=== PATIENT | female | born 1995 | race Caucasian/White ===

== ENCOUNTER 2021-11-04 15:43 | Outpatient (RCR) | payer OTHER, SELFPAY | END 2022-01-30 23:59 | disposition home or self-care (01) | LOC: ANHLAB 15:43 | PROVIDERS: Visit Provider Obstetrics & Gynecology | DX: Z32.01 Encounter for pregnancy test, result positive (principal) | CPT/HCPCS: 36415; 84702 ==

== ENCOUNTER 2022-02-15 17:07 | Observation (INO) | payer OTHER, SELFPAY ==
--- NOTE | 2022-02-15 16:59 | PC.NURSE ---
Pt presents to ED crying, c/o severe right upper quad pain. Pt states is 20 wks , edc in jun. States is an established pt of Dr. Hodgson. Flora in OB contacted and [facility] to send the patient over. Pt to OB via w/c
--- NOTE | 2022-02-15 17:08 | PC.NURSE ---
pt reports having right upper quadrant pain that started about 1600 today. Pt reports having ice cream around [id number] today and the pain starting shortly after. Pt reports the pain as sharp, dull and ache and wraps around to her back.
[2022-02-15 17:21] VITALS: BP 112/49; PULSE 81
[2022-02-15 17:31] VITALS: BP 107/57; PULSE 81
[2022-02-15 17:41] LABS: Basophils Percent Auto 0.3 % (0.2-1.2); Eosinophils Absolute Auto 0.1 K/mm3 (0-0.3); Eosinophils Percent Auto 0.5 % (0-4.4); Hematocrit 30.4 % (37.0-47.0); Hemoglobin 9.9 g/dL (12.0-15.0); Immature Granulocyte Absolute 0.05 K/mm3 (0.00-0.031); Immature Granulocyte Percent A 0.4 % (0-0.5); Lymphocytes Absolute Auto 2.21 K/mm3 (0.9-3.2); Mean Corpuscular HGB Conc 32.6 g/dl (32-36); Mean Corpuscular Hemoglobin 30.7 pg (26-34); Mean Corpuscular Volume 94.1 fl (80-100); Mean Platelet Volume 8.6 fl (7.4-10.4); Monocytes Absolute Auto 0.9 K/mm3 (0.1-0.6); Monocytes Percent Auto 6.5 % (2.6-8.5); Neutrophils Absolute Auto 9.8 K/mm3 (1.3-6.7); Neutrophils Percent Auto 75.3 % (45.5-73.1); Platelet Count Result 257 k/mm3 (150-375); Red Blood Count 3.23 M/mm3 (4.2-5.4); Red Cell Distribution Width 12.7 % (11.5-14.5)
[2022-02-15 17:54] LABS: Alanine Aminotransferase 18 U/L (6-35); Albumin Level 3.4 g/dL (3.5-5.1); Alkaline Phosphatase 80 U/L (38-126); Amylase 54 U/L (30-110); Anion Gap 7 mmol/L (8-16); Aspartate Amino Transferase 24 U/L (14-36); Bilirubin,Total < 0.1 mg/dL (0.2-1.3); Blood Urea Nitrogen 11 mg/dL (7-17); Calcium 8.7 mg/dL (8.4-10.2); Carbon Dioxide 25 mmol/L (22-30); Chloride 103 mmol/L (98-107); Estimated Glomerular Filt Rate > 60; Glucose 111 mg/dL (65-110); Lipase 61 U/L (23-300); Potassium 3.8 mmol/L (3.4-5.0); Sodium 135 mmol/L (137-145)
[2022-02-15 18:03] VITALS: TEMP 36.6
[2022-02-15 18:19] LABS: Appearance Urine Clear (Clear); Bilirubin Urine Negative (Negative); Blood Urine Negative (Negative); Color Urine Yellow (Yellow); Glucose Urine UA Negative (Negative); Ketones Urine Negative (Negative); Leukocyte Esterase Ur Negative LEU/UL (Negative); Nitrate Urine Negative (Negative); Protein Urine Negative (Negative); Urobilinogen Urine 0.2 mg/dL (<2.0)
[2022-02-15 18:22] LABS: Add Urine Microscopic? NO
--- NOTE | 2022-02-25 07:26 | P.PNOB_ITS ---
OB - Triage/Final Diagnosis Visit Information Comments/Additional reasons for admission: I have assessed the risk for this patient, Lucy Davis, and determined that she would benefit from observation care. Evaluation Laboratory results: Laboratory Tests 02/15/22 02/15/22 02/15/22 17:35 17:35 18:12 WBC 13.0 H RBC 3.23 L Hgb 9.9 L Hct 30.4 L MCV 94.1 MCH 30.7 MCHC 32.6 RDW 12.7 Plt Count 257 MPV 8.6 Immature Gran % (Auto) 0.4 Neut % (Auto) 75.3 H Lymph % (Auto) 17.0 L [place] % (Auto) 6.5 Eos % (Auto) 0.5 Baso % (Auto) 0.3 Lymph # (Auto) 2.21 [place] # (Auto) 0.9 H Eos # (Auto) 0.1 Baso # (Auto) 0.0 Abs Immat Gran (auto) 0.05 H Absolute Neuts (auto) 9.8 H Absolute Nucleated RBC 0.0 Nucleated RBC % 0.0 Sodium 135 L Potassium 3.8 Chloride 103 Carbon Dioxide 25 Anion Gap 7 L BUN 11 Creatinine 0.70 Estim Creat Clear Calc Not Reportable Estimated GFR > 60 Glucose 111 H Calcium 8.7 Total Bilirubin < 0.1 L AST 24 ALT 18 Alkaline Phosphatase 80 Total Protein 6.0 L Albumin 3.4 L Amylase 54 Lipase 61 Urine Color Yellow Urine Appearance Clear Urine pH 6.0 Ur Specific [place] 1.020 Urine Protein Negative Urine Glucose (UA) Negative Urine Ketones Negative Ur Blood (Man) Negative Urine Nitrate Negative Urine Bilirubin Negative Urine Urobilinogen 0.2 Leukocyte Esterase Rfl Negative Final Diagnosis (1) RUQ abdominal pain: Code(s): R10.11 - Right upper quadrant pain Status: Acute
== END 2022-02-15 18:58 | disposition home or self-care (01) ==
PROVIDERS: Obstetrics & Gynecology; Admitting Provider Obstetrics & Gynecology; PCP Obstetrics & Gynecology; Visit Provider Obstetrics & Gynecology
DX: O26.892 Other specified pregnancy related conditions, second trimester (principal); R10.11 Right upper quadrant pain; Z3A.20 20 weeks gestation of pregnancy
CPT/HCPCS: 36415; 80053; 81003; 82150; 83690; 85025; G0378; G0379

== ENCOUNTER 2022-06-16 15:43 | Inpatient (IN) | payer OTHER, SELFPAY ==
[2022-06-16] VITALS (19 sets, daily range): BP systolic 94–131; BP diastolic 49–83; PULSE 71–95; RESP 16; TEMP 36.2; BMI 42.5
[2022-06-16 17:19] LABS: Basophils Percent Auto 0.2 % (0.2-1.2); Eosinophils Percent Auto 0.2 % (0-4.4); Hematocrit 33.7 % (37.0-47.0); Hemoglobin 11.2 g/dL (12.0-15.0); Immature Granulocyte Absolute 0.04 K/mm3 (0.00-0.031); Immature Granulocyte Percent A 0.3 % (0-0.5); Lymphocytes Absolute Auto 1.78 K/mm3 (0.9-3.2); Lymphocytes Percent Auto 14.7 % (18.3-44.2); Mean Corpuscular HGB Conc 33.2 g/dl (32-36); Mean Corpuscular Hemoglobin 30.3 pg (26-34); Mean Corpuscular Volume 91.1 fl (80-100); Mean Platelet Volume 8.9 fl (7.4-10.4); Monocytes Absolute Auto 0.9 K/mm3 (0.1-0.6); Monocytes Percent Auto 7.7 % (2.6-8.5); Neutrophils Absolute Auto 9.3 K/mm3 (1.3-6.7); Neutrophils Percent Auto 76.9 % (45.5-73.1); Platelet Count Result 231 k/mm3 (150-375); Red Cell Distribution Width 13.2 % (11.5-14.5); White Blood Count 12.1 K/mm3 (4.5-10.0)
[2022-06-16 17:20] LABS: Appearance Urine Cloudy (Clear); Bilirubin Urine Negative (Negative); Blood Urine Negative (Negative); Color Urine Yellow (Yellow); Glucose Urine UA Negative (Negative); Ketones Urine Negative (Negative); Leukocyte Esterase Ur Trace LEU/UL (NEGATIVE); Nitrate Urine Negative (Negative); Protein Urine Negative (Negative); Urobilinogen Urine 0.2 mg/dL (<2.0); pH Urine 6.5 (5.0-9.0)
[2022-06-16 17:24] LABS: Add Urine Microscopic? YES; Amorphous Sediment Urine Few; Bacteria Urine Trace /hpf; RBC Urine 0-2 /hpf (0-2); Squamous Epithelial Cell Urine Few /hpf (Few); WBC Urine 0-3 /hpf (0-3)
[2022-06-16 17:26] LABS: Creatinine Urine 47.9 mg/dL; Total Protein Urine Random 12 mg/dL; Ur Ttl Prot Creatinine Ratio 0.25 mg/mg (0-0.20)
[2022-06-16 17:30] LABS: Alanine Aminotransferase 39 U/L (6-35); Albumin Level 3.6 g/dL (3.5-5.1); Alkaline Phosphatase 176 U/L (38-126); Anion Gap 8 mmol/L (8-16); Aspartate Amino Transferase 62 U/L (14-36); Bilirubin,Total 0.8 mg/dL (0.2-1.3); Blood Urea Nitrogen 12 mg/dL (7-17); Calcium 9.2 mg/dL (8.4-10.2); Carbon Dioxide 22 mmol/L (22-30); Chloride 105 mmol/L (98-107); Estimated Glomerular Filt Rate > 60; Glucose 85 mg/dL (65-110); Potassium 3.6 mmol/L (3.4-5.0); Sodium 135 mmol/L (137-145); Uric Acid 7.9 mg/dL (2.5-7.5)
--- NOTE | 2022-06-16 17:56 | PM.IMHP ---
H&P: HPI History of Present Illness Date/Time: 06/16/22 17:56 Chief Complaint: induction of labor Narrative: Lucy is a 26yo G1 at 37.4 who presented to triage with RUQ pain acute onset today, not worse after eating. She has cHTN and GDMA1, both very well controlled. Labs came back with elevated LFTs which were normal on 05/27. NOrmotensive. Review of Systems Review of Systems: All systems reviewed & are unremarkable except as noted in HPI and below PMFSH Family History Family History (Updated 06/03/22 @ 12:38 by Ro Preciado RN) Grandparent Colon cancer Breast cancer in female Depression Father Depression Social History Social History Substance use: never Spiritual care concerns: No Meds Home Medications and Allergies Home Medications Medication Instructions Recorded Confirmed Type aspirin 81 mg tablet 81 mg PO DAILY 06/03/22 06/03/22 History escitalopram oxalate 20 mg tablet 20 mg PO DAILY 06/03/22 06/03/22 History ferrous sulfate 325 mg (65 mg 325 mg PO DAILY 06/03/22 06/03/22 History iron) tablet,delayed release labetalol 100 mg tablet 100 mg BID 06/03/22 06/03/22 History prenat.vits,adriana,[id number] 1 tablet PO DAILY 06/03/22 06/03/22 History Allergies Allergy/AdvReac Type Severity Reaction Status Date / Time No Known Allergies Allergy Verified 06/03/22 12:32 Vital Signs Vital Signs - 24 hr 06/16/22 15:45 06/16/22 16:00 06/16/22 16:15 Pulse Rate 93 90 85 Blood Pressure 116/73 124/80 120/75 06/16/22 16:30 06/16/22 16:45 Pulse Rate 95 89 Blood Pressure 127/72 126/77 Exam Const: General: no acute distress Resp: Effort & Inspection: normal respiratory effort Auscultation: clear to auscultation bilaterally Cardio: Rate: regular rate Rhythm: regular rhythm GI: GI Palp: Yes Soft to palpation Extrem: General: normal to inspection H&P: Results Labs Labs: Short CBC 06/16/22 Range/Units 17:06 WBC 12.1 H (4.5-10.0) K/mm3 Hgb 11.2 L (12.0-15.0) g/dL Hct 33.7 L (37.0-47.0) % Plt Count 231 (150-375) k/mm3 BMP 06/16/22 17:06 Sodium 135 L Potassium 3.6 Chloride 105 Carbon Dioxide 22 BUN 12 Creatinine 0.80 Glucose 85 Calcium 9.2 Liver Function 06/16/22 Range/Units 17:06 Total Bilirubin 0.8 (0.2-1.3) mg/dL AST 62 H (14-36) U/L ALT 39 H (6-35) U/L Alkaline Phosphatase 176 H (38-126) U/L Albumin 3.6 (3.5-5.1) g/dL Urine 06/16/22 Range/Units 17:06 Urine Color Yellow (Yellow) Urine Appearance Cloudy H (Clear) Urine pH 6.5 (5.0-9.0) Ur Specific [place] 1.010 (1.001-1.035) Urine Protein Negative (Negative) mg/dL Urine Glucose (UA) Negative (Negative) mg/dL Assessment and Plan Assessment and plan (1) Elevated LFTs: Code(s): R79.89 - Other specified abnormal findings of blood chemistry Status: Acute (2) RUQ abdominal pain: Code(s): R10.11 - Right upper quadrant pain Status: Acute (3) Pre-eclampsia, severe, antepartum: Code(s): O14.10 - Severe pre-eclampsia, unspecified trimester Status: Acute Plan IOL for cHTN with superimposed PreE with severe features magnesium with pitocin or if severe BPs or BURNETT FHT category 1 BS q24/q2
--- NOTE | 2022-06-16 19:17 | LDADM ---
This patient, Lucy Davis, was admitted to Labor/Delivery/Recovery 104 on 06/16/22 at 15:43. Plans for labor, pain management and were discussed with patient. Patient/family oriented to hospital policies and general routines including ID bracelet, bed and alarms, visiting hours, pain management, procedures, bathroom and other care routines, personal items, smoking policy, room service/diet and guest tray routines, security routines, and visiting hours. Patient/Family are encouraged to report perceived risks to care and to ask questions if they do not understand what they are told or what they should do. See OBIX for further documentation.
[2022-06-16] MEDS: miSOPROStol 25 MCG TABLET VAGINAL (20:00)
[2022-06-16] MEDS: LABETALOL HCL 100 MG TABLET 200 MG PO (20:32)
[2022-06-16 20:36] LABS: Glucose Point of Care 112 mg/dl (65-105)
[2022-06-17] VITALS (235 sets, daily range): BP systolic 67–147; BP diastolic 17–96; PULSE 65–120; RESP 16–20; TEMP 36.2–36.9; O2SAT 94–100
[2022-06-17] MEDS: miSOPROStol 25 MCG TABLET VAGINAL (00:06)
[2022-06-17 00:16] LABS: Glucose Point of Care 98 mg/dl (65-105)
[2022-06-17] MEDS: fentaNYL CITRATE INJ (*CRX) 100 MCG/2 ML VIAL 50 MCG IV PUSH (00:58)
[2022-06-17 04:09] LABS: Glucose Point of Care 79 mg/dl (65-105)
--- NOTE | 2022-06-17 05:19 | WPDANESEPP ---
Anes - Eval Pre Procedure Procedure: labor epidural Date/Time: 06/17/22 05:19 Pre Op Diagnosis: PIH Workup Patient Data Age: 26 Gender: F Height: 1.7 m Weight: 123 kg Last Vital Signs Pulse 80 06/17/22 03:46 BP 119/85 06/17/22 03:46 Allergies Allergy/AdvReac Type Severity Reaction Status Date / Time No Known Allergies Allergy Verified 06/03/22 12:32 Home Medications Medication Instructions Recorded Confirmed Type aspirin 81 mg tablet 81 mg PO DAILY 06/03/22 06/03/22 History escitalopram oxalate 20 mg tablet 20 mg PO DAILY 06/03/22 06/03/22 History ferrous sulfate 325 mg (65 mg 325 mg PO DAILY 06/03/22 06/03/22 History iron) tablet,delayed release labetalol 100 mg tablet 100 mg BID 06/03/22 06/03/22 History prenat.vits,adriana,[id number] 1 tablet PO DAILY 06/03/22 06/03/22 History Laboratory Tests 06/16/22 06/16/22 06/16/22 17:06 17:06 17:06 WBC 12.1 K/mm3 H K/mm3 (4.5-10.0) RBC 3.70 M/mm3 L M/mm3 (4.2-5.4) Hgb 11.2 g/dL L g/dL (12.0-15.0) Hct 33.7 % L % (37.0-47.0) MCV 91.1 fl fl (80-100) MCH 30.3 pg pg (26-34) MCHC 33.2 g/dl g/dl (32-36) RDW 13.2 % % (11.5-14.5) Plt Count 231 k/mm3 k/mm3 (150-375) MPV 8.9 fl fl (7.4-10.4) Immature Gran % (Auto) 0.3 % % (0-0.5) Neut % (Auto) 76.9 % H % (45.5-73.1) Lymph % (Auto) 14.7 % L % (18.3-44.2) [place] % (Auto) 7.7 % % (2.6-8.5) Eos % (Auto) 0.2 % % (0-4.4) Baso % (Auto) 0.2 % % (0.2-1.2) Lymph # (Auto) 1.78 K/mm3 K/mm3 (0.9-3.2) [place] # (Auto) 0.9 K/mm3 H K/mm3 (0.1-0.6) Eos # (Auto) 0.0 K/mm3 K/mm3 (0-0.3) Baso # (Auto) 0.0 K/mm3 K/mm3 (0.0-0.1) Abs Immat Gran (auto) 0.04 K/mm3 H K/mm3 (0.00-0.031) Absolute Neuts (auto) 9.3 K/mm3 H K/mm3 (1.3-6.7) Absolute Nucleated RBC 0.0 K/mm3 K/mm3 (0.0-0.012) Nucleated RBC % 0.0 % % (0.0-0.2) Sodium Potassium Chloride Carbon Dioxide Anion Gap BUN Creatinine Estim Creat Clear Calc Estimated GFR Glucose POC Capillary Glucose Uric Acid Calcium Total Bilirubin AST ALT Alkaline Phosphatase Total Protein Albumin Urine Color Yellow (Yellow) Urine Appearance Cloudy H (Clear) Urine pH 6.5 (5.0-9.0) Ur Specific [place] 1.010 (1.001-1.035) Urine Protein Negative mg/dL mg/dL (Negative) Urine Glucose (UA) Negative mg/dL mg/dL (Negative) Urine Ketones Negative mg/dL mg/dL (Negative) Ur Blood (Man) Negative (Negative) Urine Nitrate Negative (Negative) Urine Bilirubin Negative (Negative) Urine Urobilinogen 0.2 mg/dL mg/dL (<2.0) Ur Leukocyte Esterase Trace VINICIUS/UL H VINICIUS/UL (NEGATIVE) Urine RBC 0-2 /hpf /hpf (0-2) Urine WBC 0-3 /hpf /hpf (0-3) Ur Squamous Epith Cells Few /hpf /hpf (Few) Amorphous Sediment Few H (None) Urine Bacteria Trace /hpf /hpf U Random Total Protein 12 mg/dL mg/dL Urine Creatinine 47.9 mg/dL mg/dL Protein/Creat Ratio 2 0.25 mg/mg H mg/mg (0-0.20) RPR Blood Type Antibody Screen 06/16/22 06/16/22 06/16/22 17:06 19:07 19:07 WBC RBC Hgb Hct MCV MCH MCHC RDW Plt Count MPV Immature Gran % (Auto) Neut % (Auto) Lymph % (Auto) [place] % (Auto) Eos
[2022-06-17] MEDS: LACTATED RINGERS 1,000 ML 125 ML IV CONT ×2 (05:45→12:25)
[2022-06-17] MEDS: OXYTOCIN 30 UNITS/NS 500 ML 30 UNITS/500 ML BAG 6 UNITS IV CONT (05:45)
[2022-06-17] MEDS: MAGNESIUM SULF 4 GM/WATER100ML 4 GM/100 ML BAG IVPB (05:49)
[2022-06-17] MEDS: MAGNESIUM SULF 20GM/WATER500ML 500 ML 50 MG IV CONT (06:24)
--- NOTE | 2022-06-17 07:41 | WPDHPUPDATE1 ---
History and Physical Update Update Date/Time: 06/17/22 07:41 26-year-old 1 at term who presents for induction of labor. Artificial rupture membranes was performed. She is 2 cm/70%/-3. There is reassuring status. History and Physical has been reviewed, including an updated exam of the patient. There are NO changes in the patient's condition. Risks, benefits, and alternatives have been discussed and questions answered. Patient agrees to proceed with procedure.
[2022-06-17 07:58] LABS: Glucose Point of Care 85 mg/dl (65-105)
[2022-06-17] MEDS: LABETALOL HCL 100 MG TABLET 200 MG PO ×2 (08:30→20:28)
[2022-06-17] MEDS: ESCITALOPRAM OXALATE 10 MG TABLET 20 MG PO (08:50)
[2022-06-17 10:39] LABS: Rapid Plasma Reagin Non-Reactive (NonReactive)
[2022-06-17 11:52] LABS: Glucose Point of Care 100 mg/dl (65-105)
[2022-06-17 15:09] LABS: Glucose Point of Care 134 mg/dl (65-105)
[2022-06-17 17:26] LABS: Glucose Point of Care 86 mg/dl (65-105)
--- NOTE | 2022-06-17 18:52 | PM.OBPNLAB ---
Pain Control Date/time seen: 06/17/22 18:52 Pain control: tolerating well and epidural Pelvic Exam Dilation (cm): 7 Effacement (%): 70 Amniotic membrane status: Ruptured Comments: soft, stretchy Contractions Contraction pattern: Irregular Contraction intensity: Moderate Status status: Category l Assessment and Plan Assessment: induction ongoing Comments: going back up on pitocin FHT category 1 repeat CBC CMP continue magnesium BPs great.
[2022-06-17] MEDS: METOCLOPRAMIDE HCL INJ 10 MG/2 ML VIAL IV PUSH (19:02)
[2022-06-17] MEDS: diphenhydrAMINE HCl INJ 50 MG/ML VIAL 25 MG IV PUSH (19:03)
[2022-06-17 19:13] LABS: Hematocrit 35.4 % (37.0-47.0); Hemoglobin 11.6 g/dL (12.0-15.0); Mean Corpuscular HGB Conc 32.8 g/dl (32-36); Mean Corpuscular Hemoglobin 30.3 pg (26-34); Mean Corpuscular Volume 92.4 fl (80-100); Mean Platelet Volume 9.1 fl (7.4-10.4); Platelet Count Result 247 k/mm3 (150-375); Red Blood Count 3.83 M/mm3 (4.2-5.4); Red Cell Distribution Width 13.2 % (11.5-14.5); White Blood Count 13.9 K/mm3 (4.5-10.0)
[2022-06-17 19:23] LABS: Alanine Aminotransferase 56 U/L (6-35); Albumin Level 3.8 g/dL (3.5-5.1); Alkaline Phosphatase 205 U/L (38-126); Anion Gap 10 mmol/L (8-16); Aspartate Amino Transferase 51 U/L (14-36); Bilirubin,Total 0.4 mg/dL (0.2-1.3); Blood Urea Nitrogen 11 mg/dL (7-17); Calcium 8.1 mg/dL (8.4-10.2); Carbon Dioxide 22 mmol/L (22-30); Chloride 103 mmol/L (98-107); Estimated CRCL calculation 126 ml/min; Estimated Glomerular Filt Rate > 60; Glucose 88 mg/dL (65-110); Potassium 3.6 mmol/L (3.4-5.0); Sodium 135 mmol/L (137-145)
[2022-06-17 19:26] LABS: Glucose Point of Care 87 mg/dl (65-105)
[2022-06-17 21:09] LABS: Glucose Point of Care 87 mg/dl (65-105)
[2022-06-17] MEDS: LACTATED RINGERS 1,000 ML 75 ML IV CONT (21:44)
[2022-06-17] MEDS: ePHEDrine sulfate INJ 50 MG/ML AMPUL IV PUSH (23:43)
[2022-06-17] MEDS: PHENYLEPHRINE 1,000 MCG/10 ML SYRINGE 100 MCG IV PUSH (23:51)
[2022-06-18] VITALS (87 sets, daily range): BP systolic 48–143; BP diastolic 15–92; PULSE 59–120; RESP 16–18; TEMP 36.1–37.3; O2SAT 75–100
[2022-06-18] LABS: Hematocrit 29.5 % (37.0-47.0); Hemoglobin 9.7 g/dL (12.0-15.0); Mean Corpuscular HGB Conc 32.9 g/dl (32-36); Mean Corpuscular Hemoglobin 30.3 pg (26-34); Mean Corpuscular Volume 92.2 fl (80-100); Mean Platelet Volume 8.8 fl (7.4-10.4); Platelet Count Result 206 k/mm3 (150-375); Red Cell Distribution Width 13.2 % (11.5-14.5)
[2022-06-18] MEDS: PHENYLEPHRINE 1,000 MCG/10 ML SYRINGE 100 MCG IV PUSH (00:07)
[2022-06-18 00:11] LABS: Magnesium 6.2 mg/dL (1.6-2.3)
[2022-06-18] MEDS: OXYTOCIN 30 UNITS/NS 500 ML 30 UNITS/500 ML BAG 125 UNITS IV CONT (00:20)
--- NOTE | 2022-06-18 00:25 | PM.OBPRVD ---
OB - Delivery Note Procedure Delivery date: 06/17/22 Procedure: Events: Chronic Hypertension and Preeclampsia w severe features Intrapartal Events: Decelerations Induction method: AROM, Per Misoprostol Protocol and Per Pitocin Protocol Delivery monitor: Internal FHT and Internal Uterine Route of delivery: Laceration Description: Perineal - 2nd Degree and Vaginal Delivery repair: vicryl Quantitative Blood Loss (ml): 1,100 Anesthesia type: Epidural Disposition: Floor Complications: hemorrhage during delivery resulting in severe hypotension. pressors given, fluid bolus, T and C for pRBCs, rapid response called. Throughout no tachycardia and pt remained responsive and A and O x3. Narrative: With adequate expulsive efforts by the mother, the baby's head was delivered OA. The baby's anterior shoulder was delivered under the pubic symphysis without difficulty. The posterior shoulder and the rest of the baby delivered without difficulty. The was placed on the mothers chest and suctioned and stimulated. The cord was clamped and cut after 30 seconds. Mother and baby both stable. Baby Date of : 06/17/22 Time of : 23:27 Weeks of gestation at delivery: 37 gender: Male Weight (pounds): 5 Weight (ounces): 15 presentation: vertex Placenta delivery description: Spontaneous Cord Vessel Description: 3 Vessels and Delayed Cord Clamping score one minute: 8 score five minutes: 9
[2022-06-18] MEDS: LACTATED RINGERS 1,000 ML 75 ML IV CONT ×2 (01:26→13:48)
[2022-06-18 01:38] LABS: INR 1.1; Prothrombin Time 13.6 Seconds (11.1-14.7)
[2022-06-18 01:39] LABS: Partial Thromboplastin Time 23.8 SECONDS (22.3-36.8)
[2022-06-18 01:40] LABS: Fibrinogen 471 mg/dl (215-510)
[2022-06-18 01:59] LABS: D Dimer 3.28 ug/mL (<0.48)
[2022-06-18] MEDS: MAGNESIUM SULF 20GM/WATER500ML 500 ML 50 MG IV CONT ×2 (03:18→13:46)
[2022-06-18] MEDS: BENZOCAINE 20% AER SPR (*SP) 56 GM CAN 1 SPRAY TOPICAL (04:00)
[2022-06-18] MEDS: WITCH HAZEL 40 PADS 1 PAD TOPICAL (04:00)
--- NOTE | 2022-06-18 04:08 | ADMGEN ---
This patient, Lucy Davis, was admitted to OB 2nd Floor Room 276-00. Patient/family oriented to hospital policies and general routines including ID bracelet, bed and alarms, visiting hours, pain management, procedures, bathroom and other care routines, personal items, smoking policy, room service/diet, and visiting hours. Information on how to activate the Rapid Response Team has been discussed. Patient/Family are encouraged to report perceived risks to care and to ask questions if they do not understand what they are told or what they should do.
--- NOTE | 2022-06-18 06:32 | PM.OBPNVD ---
OB - PN: Subj Subjective Date/time seen: 06/18/22 06:32 Patient comments: no complaints and pain well controlled feeding status: breast and bottle feeding Narrative: BPs 110s/70s s/p 1 unit pRBCs, 2nd starting OB - PN: Obj Data Labs CBC & Chem 7: 06/17/22 23:53 06/17/22 18:58 Labs: Laboratory Results - last 24 hr 06/16/22 06/16/22 06/17/22 19:07 19:07 07:56 WBC RBC Hgb Hct MCV MCH MCHC RDW Plt Count MPV PT INR APTT Fibrinogen D-Dimer Sodium Potassium Chloride Carbon Dioxide Anion Gap BUN Creatinine Estim Creat Clear Calc Estimated GFR Glucose POC Capillary Glucose 85 Calcium Magnesium Total Bilirubin AST ALT Alkaline Phosphatase Total Protein Albumin RPR Non-reactive Blood Type O Positive Antibody Screen Negative Crossmatch See Detail 06/17/22 06/17/22 06/17/22 11:50 15:03 17:19 WBC RBC Hgb Hct MCV MCH MCHC RDW Plt Count MPV PT INR APTT Fibrinogen D-Dimer Sodium Potassium Chloride Carbon Dioxide Anion Gap BUN Creatinine Estim Creat Clear Calc Estimated GFR Glucose POC Capillary Glucose 100 134 H 86 Calcium Magnesium Total Bilirubin AST ALT Alkaline Phosphatase Total Protein Albumin RPR Blood Type Antibody Screen Crossmatch 06/17/22 06/17/22 06/17/22 18:58 18:58 19:22 WBC 13.9 H RBC 3.83 L Hgb 11.6 L Hct 35.4 L MCV 92.4 MCH 30.3 MCHC 32.8 RDW 13.2 Plt Count 247 MPV 9.1 PT INR APTT Fibrinogen D-Dimer Sodium 135 L Potassium 3.6 Chloride 103 Carbon Dioxide 22 Anion Gap 10 BUN 11 Creatinine 0.80 Estim Creat Clear Calc 126 Estimated GFR > 60 Glucose 88 POC Capillary Glucose 87 Calcium 8.1 L Magnesium Total Bilirubin 0.4 AST 51 H ALT 56 H Alkaline Phosphatase 205 H Total Protein 7.0 Albumin 3.8 RPR Blood Type Antibody Screen Crossmatch 06/17/22 06/17/22 06/17/22 21:01 23:52 23:53 WBC 14.0 H RBC 3.20 L Hgb 9.7 L Hct 29.5 L MCV 92.2 MCH 30.3 MCHC 32.9 RDW 13.2 Plt Count 206 MPV 8.8 PT INR APTT Fibrinogen D-Dimer Sodium Potassium Chloride Carbon Dioxide Anion Gap BUN Creatinine Estim Creat Clear Calc Estimated GFR Glucose POC Capillary Glucose 87 Calcium Magnesium 6.2 H Total Bilirubin AST ALT Alkaline Phosphatase Total Protein Albumin RPR Blood Type Antibody Screen Crossmatch 06/18/22 00:19 WBC RBC Hgb Hct MCV MCH MCHC RDW Plt Count MPV PT 13.6 INR 1.1 APTT 23.8 Fibrinogen 471 D-Dimer 3.28 H Sodium Potassium Chloride Carbon Dioxide Anion Gap BUN Creatinine Estim Creat Clear Calc Estimated GFR Glucose POC Capillary Glucose Calcium Magnesium Total Bilirubin AST ALT Alkaline Phosphatase Total Protein Albumin RPR Blood Type Antibody Screen Crossmatch OB - PN A/P Plan day: 1 Plan: routine care Comments: continue mag x 24 hours 2nd unit p RBCs BPs now normotensive hold labetalol no DC until at least 48 hours Time Spent With Patient Time: Total time spent is greater than 50% in coordination of care (as documented) at patient's floor/unit and/or counseling patient: Time with patient: less than 15 minutes Exam Narrative: NAD abdomen soft, nontender, fundus firm below the umbilicus Extremities nontender, 1+ edema
[2022-06-18] MEDS: MULTIVIT/MIN/PREN/FOL AC/IRON TABLET 1 TAB PO (07:39)
[2022-06-18] MEDS: DOCUSATE SODIUM 100 MG CAPSULE PO ×2 (07:39→16:10)
--- NOTE | 2022-06-18 08:56 | WPDANLDPN2 ---
Anes-Prog Note L&D Date/Time: 06/18/22 08:56 Comfortable throughout: labor and delivery Neuraxial method: epidural Epidural/Spinal procedure site: bruising Neuro status: Neuro function grossly intact. Cardiovascular status: normal Respiratory status: normal Airway patency: baseline Mental status: baseline Post-Op hydration status: other (pt reports experiencing a post hemorrhage, currently receiving second unit of blood) Vital Signs: Last Vital Signs Temp 98.1 F 06/18/22 07:06 Pulse 86 06/18/22 07:06 Resp 16 06/18/22 07:06 BP 106/62 06/18/22 07:06 Pulse Ox 98 06/18/22 07:06 O2 Del Method Room Air 06/18/22 04:10 Pain score (VAS): 3 I/O: Intake & Output 06/17/22 06/18/22 06/18/22 23:59 07:59 15:59 Intake Total 1500 2366 Output Total 75 Balance 1500 2291 Post-procedural complaints: none Patient feedback: Patient satisfied with anesthetic care. pt required epidural replacement. states first epidural placed provided abdominal relief with contractions but failed to alleviate back pain. epidural replaced by Dr. Sandhu.
[2022-06-18] MEDS: IBUPROFEN 600 MG TABLET PO ×2 (10:10→20:59)
[2022-06-18 11:19] LABS: Hematocrit 33.5 % (37.0-47.0); Hemoglobin 11.4 g/dL (12.0-15.0); Mean Corpuscular Hemoglobin 30.6 pg (26-34); Mean Corpuscular Volume 89.8 fl (80-100); Mean Platelet Volume 9.1 fl (7.4-10.4); Platelet Count Result 238 k/mm3 (150-375); Red Blood Count 3.73 M/mm3 (4.2-5.4); Red Cell Distribution Width 14.4 % (11.5-14.5); White Blood Count 17.6 K/mm3 (4.5-10.0)
[2022-06-18] MEDS: IRON SUCROSE COMPLEX 200 MG in SODIUM CHLORIDE 0.9% IV 50 ML 120 MG IVPB (11:40)
--- NOTE | 2022-06-18 15:16 | PC.NURSE ---
0810 - Introductions were made, then consulted with patient to assess needs related to . Mother led the conversation with her?plans to feed?her and the?experience so far. Resources provided for inpatient and outpatient services using a resource guide and mom/baby guide. Mother voiced understanding of information and will call if there is a request for assistance when her returns to the room. 0847 - 0900 Breast pump provided due to ineffectively . Instructions given on cleaning, care, usage, that there should be no pain, pumping schedule for milk production, collection, and storage of human milk. Parents are encouraged to record pumping schedule on the feeding sheet. Patient was assessed for correct placement, flange size, to pump for comfort and nipple stretching/stimulation for adequate milk production every 3 hours (8 times in 24 hours) 1-2 times at night. Mother voiced understanding of the education shared along with mom and baby guide for additional resource information. [id number] RN collected pumped human milk. Infant is not in the room. [id number] - Mother states she attempted to latch infant and had success on one side, then fed her the collected human milk from earlier. Checked in on mother again to turn off a beeping pump after the iron infusion was complete and she was sleeping.
[2022-06-19] VITALS: BP 123/77
[2022-06-19 04:34] VITALS: BP 122/71; PULSE 74; RESP 18; TEMP 36.2; O2SAT 97
[2022-06-19 05:00] LABS: Hematocrit 30.6 % (37.0-47.0); Mean Corpuscular HGB Conc 32.7 g/dl (32-36); Mean Corpuscular Hemoglobin 29.9 pg (26-34); Mean Corpuscular Volume 91.3 fl (80-100); Mean Platelet Volume 9.1 fl (7.4-10.4); Platelet Count Result 226 k/mm3 (150-375); Red Blood Count 3.35 M/mm3 (4.2-5.4); Red Cell Distribution Width 14.6 % (11.5-14.5); White Blood Count 14.8 K/mm3 (4.5-10.0)
[2022-06-19 05:17] LABS: Alanine Aminotransferase 31 U/L (6-35); Albumin Level 2.9 g/dL (3.5-5.1); Alkaline Phosphatase 122 U/L (38-126); Anion Gap 8 mmol/L (8-16); Aspartate Amino Transferase 35 U/L (14-36); Bilirubin,Total < 0.1 mg/dL (0.2-1.3); Blood Urea Nitrogen 9 mg/dL (7-17); Calcium 6.4 mg/dL (8.4-10.2); Carbon Dioxide 24 mmol/L (22-30); Chloride 103 mmol/L (98-107); Estimated CRCL calculation 143 ml/min; Estimated Glomerular Filt Rate > 60; Glucose 77 mg/dL (65-110); Potassium 3.1 mmol/L (3.4-5.0); Sodium 135 mmol/L (137-145)
[2022-06-19 07:40] VITALS: BP 126/73; PULSE 70; RESP 18; TEMP 37.1; O2SAT 99
--- NOTE | 2022-06-19 08:03 | PM.OBPNVD ---
OB - PN: Subj Subjective Date/time seen: 06/19/22 08:03No complaints, no headaches, blurry vision, epigastric pain, no worsening edema. OB - PN: Obj Data Labs CBC & Chem 7: 06/19/22 03:57 06/19/22 03:57 Labs: Laboratory Results - last 24 hr 06/16/22 06/18/22 06/19/22 19:07 11:08 03:57 WBC 17.6 H 14.8 H RBC 3.73 L 3.35 L Hgb 11.4 L 10.0 L Hct 33.5 L 30.6 L MCV 89.8 91.3 MCH 30.6 29.9 MCHC 34.0 32.7 RDW 14.4 14.6 H Plt Count 238 226 MPV 9.1 9.1 Sodium Potassium Chloride Carbon Dioxide Anion Gap BUN Creatinine Estim Creat Clear Calc Estimated GFR Glucose Calcium Total Bilirubin AST ALT Alkaline Phosphatase Total Protein Albumin Crossmatch See Detail 06/19/22 03:57 WBC RBC Hgb Hct MCV MCH MCHC RDW Plt Count MPV Sodium 135 L Potassium 3.1 L Chloride 103 Carbon Dioxide 24 Anion Gap 8 BUN 9 Creatinine 0.70 Estim Creat Clear Calc 143 Estimated GFR > 60 Glucose 77 Calcium 6.4 L Total Bilirubin < 0.1 L AST 35 ALT 31 Alkaline Phosphatase 122 Total Protein 5.0 L Albumin 2.9 L Crossmatch OB - PN A/P Assessment and Plan (1) Pre-eclampsia, severe, antepartum: Code(s): O14.10 - Severe pre-eclampsia, unspecified trimester Status: Acute (2) hemorrhage: Code(s): O72.1 - Other immediate hemorrhage Status: Acute Plan 26-year-old 1 para 1 at day 2. With episode of hemorrhage in preeclampsia. Hypotensive after the hemorrhage. Status post 2 units packed red blood cells, hemoglobin 10 today. Normal preeclampsia labs Today. Normal blood pressures. Normal pulse. Continue observation. Time Spent With Patient Time: Total time spent is greater than 50% in coordination of care (as documented) at patient's floor/unit and/or counseling patient: Exam Const: General: comfortable and no acute distress Resp: Effort & Inspection: normal respiratory effort Auscultation: no rales, no rhonchi and no wheezes Cardio: Rate: regular rate Heart sounds: no click, no murmurs and no rubs GI: GI Palp: Yes Soft to palpation and No Tenderness to palpation present (GI) Auscultation: normal bowel sounds Extrem: General: normal to inspection, no pedal edema and no calf tenderness
[2022-06-19] MEDS: IBUPROFEN 600 MG TABLET PO ×3 (09:17→23:37)
[2022-06-19] MEDS: MULTIVIT/MIN/PREN/FOL AC/IRON TABLET 1 TAB PO (09:17)
[2022-06-19] MEDS: DOCUSATE SODIUM 100 MG CAPSULE PO ×2 (09:17→17:43)
[2022-06-19] MEDS: IRON SUCROSE COMPLEX 200 MG in SODIUM CHLORIDE 0.9% IV 50 ML 120 MG IVPB (11:29)
[2022-06-19 12:15] VITALS: BP 118/62; PULSE 80; RESP 18; TEMP 36.6; O2SAT 99
[2022-06-19 17:40] VITALS: BP 130/72; PULSE 70
[2022-06-19 19:33] VITALS: BP 124/71; PULSE 70; RESP 18; TEMP 36.3; O2SAT 99
[2022-06-20 00:23] VITALS: BP 143/69
[2022-06-20 03:51] VITALS: BP 124/76
[2022-06-20] MEDS: IBUPROFEN 600 MG TABLET PO (06:18)
[2022-06-20 07:30] VITALS: BP 124/84; PULSE 75; RESP 16; TEMP 36.6; O2SAT 98
--- NOTE | 2022-06-20 07:45 | PM.OBPNVD ---
OB - PN: Subj Subjective Date/time seen: 06/20/22 07:45 Patient comments: no complaints baby status: doing well and nursing well [place] feeding status: exclusively breast feeding Narrative: BPs normotensive. Denies PreE sx. NO anemia sx. Ready for DC. OB - PN: Obj Data Labs CBC & Chem 7: 06/19/22 03:57 06/19/22 03:57 OB - PN A/P Assessment and Plan (1) hemorrhage: Code(s): O72.1 - Other immediate hemorrhage Status: Acute (2) Pre-eclampsia, severe, antepartum: Code(s): O14.10 - Severe pre-eclampsia, unspecified trimester Status: Acute Plan day: 3 Plan: routine care and discharge home Time Spent With Patient Time: Total time spent is greater than 50% in coordination of care (as documented) at patient's floor/unit and/or counseling patient: Time with patient: less than 15 minutes Exam Narrative: NAD abdomen soft, nontender, fundus firm below the umbilicus Extremities nontender, 1+ edema
--- NOTE | 2022-06-20 07:49 | PM.OBDSVD ---
DS: Admitting Diagnosis Discharge Date 06/20/22 Admitting Diagnosis severe PreEclampsia superimposed on chronic HTN at term DS: Discharge Diagnosis Discharge Diagnosis (1) hemorrhage: Code(s): O72.1 - Other immediate hemorrhage Status: Acute (2) Pre-eclampsia, severe, antepartum: Code(s): O14.10 - Severe pre-eclampsia, unspecified trimester Status: Acute OB - DS: Summary Hospital Course Hospital Course: Lucy was admitted at 37w with PreEclampsia with severe features with underlying cHTN. She had elevated LFTs and RUQ pain. She was induced and had a vaginal delivery with a pp hemorrhage. She received magnesium sulfate for seizure prophylaxis. She had severe hypotension immediately after delivery treated with fluids, blood, and pressors and she recovered quickly. The remainder of her course was uncomplicated. OB Procedures : NST and Ultrasound OB Procedures Intrapartum: Spontaneous Vag Delivery OB Procedures: : Transfusion Peripartum Data Infant Delivery Method: Natural Vaginal complications: transfusion and uterine atony Status at Discharge Functional status at discharge: independent ambulation Overall status at discharge: patient is back to baseline Time Spent with Patient Time attestation: Total time spent providing and/or coordinating discharge services: Exam Narrative: NAD abdomen soft, appropriately tender Ext non tender, 1+ edema Discharge Plan Discharge Attending physician on discharge: Earline Hodgson Discharging Clinician: Earline Hodgson Anticipated Discharge Date/Time: 06/20/22 07:48 Patient Disposition: Home, Self-Care Activity: pelvic rest Diet: regular Patient Instructions: Antibiotic Form Stand Alone Forms: General Discharge Information Follow-up/Referrals: Earline Hodgson MD [Physician] - 1 Week Discharge Medications: Continued ferrous sulfate 325 mg (65 mg iron) Tablet,Delayed Release (Dr/Ec) 325 mg PO DAILY #2 Tablet 1 tablet PO DAILY escitalopram oxalate 20 mg Tablet 20 mg PO DAILY Discontinued Adult Low Dose Aspirin 81 mg Tablet 81 mg PO DAILY labetalol 100 mg Tablet 100 mg BID Date of admission: 06/16/22 15:43 Primary Care Provider: Flor Burrows MD Admitting Provider: Earline Hodgson Attending physician on admission: Earline Hodgson Condition: Stable
[2022-06-20] MEDS: DOCUSATE SODIUM 100 MG CAPSULE PO (08:54)
[2022-06-20] MEDS: MULTIVIT/MIN/PREN/FOL AC/IRON TABLET 1 TAB PO (08:54)
[2022-06-20] MEDS: IRON SUCROSE COMPLEX 200 MG in SODIUM CHLORIDE 0.9% IV 50 ML 120 MG IVPB (08:55)
[2022-06-20] MEDS: LANOLIN (LANSINOH) 7.5 GM CREAM 1 APPLIC TOPICAL (09:09)
--- NOTE | 2022-06-20 10:49 | PC.NURSE ---
[id number] Mother led the conversation with her experience, questions, and her ability to independently latch infant optimally without discomfort. is in the nursery at this time. Mother states that there is soreness initially with latching, then it subsides . Reminded parents to use good handwashing technique to prevent infection. Mother is feeding appropriately for growth of and understands stimulating infant to eat if needed. has had appropriate feedings in the last 24 hours meets the outcomes for weight, output and jaundice at this time. Mother states she is confident to continue effectively her infant at home or when to call for assistance and denies any additional assistance or education at this time. Reinforced understanding of milk production, transition of milk, signs of adequate intake, prevention/relief of engorgement, responsive after visualizing feeding cues, the different methods of stimulating to breastfeed 2-3 hours after the start of the last feeding, community resources, medication information reviewed per [facility] and when to call a provider using the resource of the mom and baby guide/[facility] website. Mother voiced understanding of the education shared. Reported to the primary RN.
--- NOTE | 2022-06-20 11:03 | PC.NURSE ---
Patient viewed the discharge video [facility], The First Two Weeks . Patient was given the opportunity and encouraged to ask questions. Patient verbalized understanding of information shared and has been given the mother/baby guide for home reference.
[2022-06-20 12:00] VITALS: BP 134/75; PULSE 87; RESP 16; TEMP 36.9; O2SAT 99
[2022-06-23 09:50] VITALS: BP 128/79; PULSE 83; RESP 20; TEMP 37.4; O2SAT 98
== END 2022-06-20 16:03 | disposition home or self-care (01) | DRG 807 ==
LOC: ANHLDR 17:52 → ANHOBPP 18:18 → ANHLDR 18:19 → ANHOB2 06-18 04:36
PROVIDERS: Admitting Provider Obstetrics & Gynecology; Visit Provider Obstetrics & Gynecology
DX: O11.4 Pre-existing hypertension with pre-eclampsia, complicating childbirth (principal); Z37.0 Single live birth; O10.92 Unspecified pre-existing hypertension complicating childbirth; O72.1 Other immediate postpartum hemorrhage; O24.429 Gestational diabetes mellitus in childbirth, unspecified control; O70.1 Second degree perineal laceration during delivery; R79.89 Other specified abnormal findings of blood chemistry; O26.53 Maternal hypotension syndrome, third trimester; O76 Abnormality in fetal heart rate and rhythm complicating labor and delivery; Z3A.37 37 weeks gestation of pregnancy; Z23 Encounter for immunization
CPT/HCPCS: 36415; 36430; 80053; 81001; 82570; 82948; 83735; 84156; 84550; 85025; 85027; 85380; 85384; 85610; 85730; 86592; 86850; 86900; 86901; 86920; 87086; 90471; 90686; 99199; A9270; G0008; J1200; J1756; J2370; J2590; J2765; J2795; J3010; J3475; J7120; P9016

== ENCOUNTER 2022-06-30 17:25 | Emergency (ER) | payer OTHER, SELFPAY ==
[2022-06-30 18:40] VITALS: BP 119/73; PULSE 104; RESP 18; TEMP 36.3; O2SAT 99
--- NOTE | 2022-06-30 19:14 | ED.GENADULT ---
HPI - General Adult General Chief complaint: Abdominal Pain Stated complaint: 12 days PP, abd pain Time Seen by Provider: 06/30/22 18:55 History of Present Illness HPI narrative: 26-year-old female presented the emergency department for evaluation of right upper quadrant pain. Patient had a recent vaginal delivery approximately 12 days ago. Patient said during her delivery she did have some episodes of right upper quadrant pain. Just prior to delivery patient states that she had some elevated transaminases. She states that these were checked prior to her discharge and had improved. Patient states she has been feeling fine since the delivery. Patient does report that today at approximately 2 PM she had onset of right upper quadrant pain that did radiate to her back. Patient states symptoms lasted approximately 30 minutes and then resolved. [facility] and she was referred to the emergency department. Patient states at this time she is having no abdominal pain and no nausea. Patient does report some burning with urination. Patient does have a family history of gallbladder disease but denies any prior history of gallbladder disease. Patient denies any previous abdominal surgeries. Patient did have a vaginal delivery approximately 12 days ago Related Data Home Medications Medication Instructions Recorded Confirmed escitalopram oxalate 20 mg tablet 20 mg PO DAILY 06/03/22 06/17/22 ferrous sulfate 325 mg (65 mg 325 mg PO DAILY 06/03/22 06/17/22 iron) tablet,delayed release prenat.vits,adriana,hed-izqu-tolxd 1 tablet PO DAILY 06/03/22 06/17/22 Allergies Allergy/AdvReac Type Severity Reaction Status Date / Time No Known Allergies Allergy Verified 06/03/22 12:32 Review of Systems Review of Systems: CONSTITUTIONAL: Denies fever, chills, or sweats. EYES: Denies visual changes, redness, or discharge. ENT: Denies rhinorrhea, congestion, sore throat, or otalgia. CARDIOVASCULAR: Denies chest pain, palpitations, or edema. RESPIRATORY: Denies cough or dyspnea. GASTROINTESTINAL: Right upper quadrant and right back pain GENITOURINARY: Some burning with urination SKIN: Denies rash or itching. MUSCULOSKELETAL: Denies back pain, joint pain, or myalgia. NEUROLOGIC: Denies headache, numbness, or weakness. [facility] Family History Family History Grandparent Colon cancer Breast cancer in female Depression Father Depression Social History Social History Smoking status: Never smoker Substance use: never Spiritual care concerns: No Exam Narrative: APPEARANCE: Well appearing, no pain, no distress, well-nourished. HEAD: normocephalic, atraumatic. EYES: PERRLA/EOMI, conjunctivae clear. NOSE: Normal no drainage NECK: Supple. No adenopathy, no masses. RESPIRATORY: Airway patent, respirations nonlabored. Clear to auscultation bilaterally, no rales, rhonchi, wheezing. CARDIOVASCULAR: Regular rate and rhythm without murmurs rubs or gallops. ABDOMINAL: Soft, nontender, nondistended, normal bowel sounds. No right upper quadrant tenderness to palpation. No right CVA tenderness MUSCULOSKELETAL: Moves all extremities. Strength/ROM intact, No edema, No calf tenderness. NEURO: Alert. Cranial nerves II through XII intact. Grossly intact SKIN: Warm, dry. Normal Color Course Course Emergency Course: Patient was afebrile with leukocytosis of 11.9. Patient does have minor elevation of AST at 42 and elevated alk phos at 142. T bili is not elevated. Patient continues to report she is pain-free. Patient has no reproducible tenderness to palpation. Patient was agreeable to have a outpatient ultrasound. This was scheduled for the morning. Patient also appears to have a urinary tract infection for which she was treated with Rocephin and Keflex. All questions and concerns were addressed. Patient was well-appear
[2022-06-30 19:37] LABS: Basophils Absolute Auto 0.1 K/mm3 (0.0-0.1); Basophils Percent Auto 0.4 % (0.2-1.2); Eosinophils Absolute Auto 0.1 K/mm3 (0-0.3); Eosinophils Percent Auto 0.8 % (0-4.4); Hematocrit 35.6 % (37.0-47.0); Hemoglobin 12.1 g/dL (12.0-15.0); Immature Granulocyte Absolute 0.07 K/mm3 (0.00-0.031); Immature Granulocyte Percent A 0.6 % (0-0.5); Lymphocytes Absolute Auto 2.56 K/mm3 (0.9-3.2); Lymphocytes Percent Auto 21.5 % (18.3-44.2); Mean Corpuscular Hemoglobin 30.6 pg (26-34); Mean Corpuscular Volume 89.9 fl (80-100); Mean Platelet Volume 8.3 fl (7.4-10.4); Monocytes Absolute Auto 0.7 K/mm3 (0.1-0.6); Monocytes Percent Auto 5.6 % (2.6-8.5); Neutrophils Absolute Auto 8.5 K/mm3 (1.3-6.7); Neutrophils Percent Auto 71.1 % (45.5-73.1); Platelet Count Result 342 k/mm3 (150-375); Red Blood Count 3.96 M/mm3 (4.2-5.4); Red Cell Distribution Width 13.5 % (11.5-14.5); White Blood Count 11.9 K/mm3 (4.5-10.0)
[2022-06-30 19:38] LABS: Appearance Urine Slightly Cloudy (Clear); Bilirubin Urine Negative (Negative); Blood Urine Trace-intact (Negative); Glucose Urine UA Negative (Negative); Ketones Urine Negative (Negative); Leukocyte Esterase Ur 3+ LEU/UL (Negative); Nitrate Urine Negative (Negative); Protein Urine Negative (Negative); Specific Grav Ur <= 1.005 (1.001-1.035); Urobilinogen Urine 0.2 mg/dL (<2.0); pH Urine 5.5 (5.0-9.0)
[2022-06-30 19:42] LABS: Bacteria Urine 2+ /hpf; RBC Urine 0-2 /hpf (0-2); Squamous Epithelial Cell Urine Rare /hpf (Few); WBC Clumps Urine Present /HPF; WBC Urine >75 /hpf
[2022-06-30 19:57] LABS: Add Urine Microscopic? YES; Color Urine Light Yellow (Yellow)
[2022-06-30 19:58] LABS: Alanine Aminotransferase 29 U/L (6-35); Albumin Level 4.2 g/dL (3.5-5.1); Alkaline Phosphatase 142 U/L (38-126); Anion Gap 14 mmol/L (8-16); Aspartate Amino Transferase 42 U/L (14-36); Bilirubin,Total 0.3 mg/dL (0.2-1.3); Blood Urea Nitrogen 18 mg/dL (7-17); Calcium 9.1 mg/dL (8.4-10.2); Carbon Dioxide 25 mmol/L (22-30); Chloride 100 mmol/L (98-107); Estimated CRCL calculation 100 ml/min; Estimated Glomerular Filt Rate > 60; Glucose 111 mg/dL (65-110); Lipase 50 U/L (23-300); Potassium 3.6 mmol/L (3.4-5.0); Sodium 139 mmol/L (137-145)
[2022-06-30 21:06] VITALS: PULSE 79; RESP 18; O2SAT 98
== END 2022-06-30 21:09 | disposition home or self-care (01) ==
PROVIDERS: General Practice; Emergency Provider Emergency Medicine
DX: N39.0 Urinary tract infection, site not specified (principal); R10.11 Right upper quadrant pain
CPT/HCPCS: 36415; 80053; 81001; 81025; 83690; 85025; 87077; 87086; 87186; 96365; 99284; J0696

== ENCOUNTER → 2022-07-02 08:07 | Outpatient (CLI) | payer OTHER, SELFPAY ==
--- NOTE | ~2022-07-02 | US_ITS ---
US abdomen limited INDICATION: Right upper quadrant pain PROCEDURE: Realtime right upper abdominal ultrasound. COMPARISON: No prior studies for comparison. FINDINGS: The pancreas is normal without focal mass or pancreatic ductal dilation. Liver echotexture is normal without focal mass or intrahepatic biliary dilatation. There is normal directional flow i n the portal vein. There are multiple gallstones. No gallbladder wall thickening or pericholecystic fluid. Common bile duct measures 4 mm. No sonographic Damico's sign. IMPRESSION: 1: Cholelithiasis. Reviewed, dictated and finalized at location B. IMPRESSION: 1: Cholelithiasis.
== END ==
PROVIDERS: PCP Emergency Medicine; Visit Provider Emergency Medicine
DX: R10.11 Right upper quadrant pain (principal); K80.20 Calculus of gallbladder without cholecystitis without obstruction
CPT/HCPCS: 76705

== ENCOUNTER 2022-07-23 12:58 | Observation (INO) | payer OTHER, SELFPAY ==
--- NOTE | ~2022-07-23 | MR_ITS ---
EXAMINATION: MR MRCP wo/w con/w 3D wo ind DATE: 07/24/2022 07:20 INDICATION: Right upper quadrant pain TECHNIQUE: Magnetic resonance imaging (MRI) of the abdomen was performed without and with intravenous contrast. Sequences included coronal T2-weighted SS-FSE ARC, coronal T2-weighted FS SS-FSE, coronal T2-weighted 2D FS FIESTA, Water:Coronal LAVA-Flex, sagittal T2-weighted SS-FSE ARC, axial SSFSE ARC, axial 3D DualEcho, axial DWI B=600, axial T1-weighted LAVA, FAT:Coronal LAVA-Flex, and coronal in and opposed phase LAVA-Flex. Thick-slab T2-weighted FRFSE-XL images were obtained for magnetic resonance cholangiopancreatography (MRCP). Maximum intensity projection 3-D reconstructions of the volumetric data were created by the technologist. Postcontrast sequences included a time course of axial T1-weig hted LAVA, FAT:Coronal LAVA-Flex, coronal in and opposed phase LAVA-Flex, and Water:Coronal LAVA-Flex . COMPARISON: None. CONTRAST: Multihance, 20 cc FINDINGS: ABDOMEN MRI: There is a 7 mm cyst in the left hepatic lobe. The spleen, pancreas, and adrenal glands are normal. The gallbladder is distended and contains multiple stones. No pericholecystic fluid is id entified. There is a 2 mm cyst of the left kidney. The right kidney is unremarkable. There are no dil ated loops of bowel. No pathologically enlarged abdominal lymph nodes are identified. The appendix is normal. No abnormal enhancement is present after contrast administration. There is a geographic area of low signal intensity in liver segment Hilario in the late arterial phase without additional signal in tensity abnormalities, consistent with transient hepatic intensity difference versus focal fatty infi ltration. ABDOMEN MRCP: There is no intrahepatic or extrahepatic biliary dilatation. Although limited by respir atory motion, the pancreatic duct appears normal in caliber. No choledocholithiasis is identified. IMPRESSION: 1. Cholelithiasis with gallbladder distention. Normal biliary tree. Reviewed, dictated and finalized at location A.
--- NOTE | ~2022-07-23 | US_ITS ---
US abdomen limited DATE: 07/23/2022 14:08 INDICATION: Right upper quadrant abdominal pain. Cholelithiasis. TECHNIQUE: Real-time imaging and Doppler analysis COMPARISON: 07/02/2022 Limited abdominal ultrasound examination FINDINGS: No hepatic or pancreatic space-occupying mass lesion is detected. There is normal hepatoped al portal venous flow direction. Cholelithiasis is noted. No gallbladder wall thickening or pericholecystic fluid is detected. Negativ e sonographic Damico's sign. The common bile duct measures 5 mm, within normal range. IMPRESSION: Cholelithiasis Reviewed, dictated and finalized at Location A. Reviewed, dictated and finalized at location A. IMPRESSION: Cholelithiasis
[2022-07-23 13:18] VITALS: BP 164/83; PULSE 79; RESP 16; TEMP 36.2; O2SAT 97
--- NOTE | 2022-07-23 13:44 | ED.ABDPAIN ---
HPI - Abdominal Pain General Chief Complaint: Abdominal Pain Stated Complaint: abd pain Time Seen by Provider: 07/23/22 13:25 History of Present Illness HPI narrative: 26-year-old female that is approximately 5 weeks presenting to the emergency department for evaluation of intermittent right upper quadrant pain. Patient states that during her she was having similar pain. Patient had an ultrasound a few weeks ago which did confirm gallstones. Patient had recurrent symptoms and did have follow-up with her primary care physician and had repeat labs drawn. Patient was called today and told to present to the emergency department for evaluation due to elevated liver enzymes. Patient is in the process of getting surgical follow-up with [facility] Related Data Home Medications Medication Instructions Recorded Confirmed escitalopram oxalate 20 mg tablet 20 mg PO DAILY 06/03/22 07/23/22 ferrous sulfate 325 mg (65 mg 325 mg PO DAILY 06/03/22 07/23/22 iron) tablet,delayed release prenat.vits,adriana,hyk-poni-ccnfx 1 tablet PO DAILY 06/03/22 07/23/22 Allergies Allergy/AdvReac Type Severity Reaction Status Date / Time No Known Allergies Allergy Verified 07/23/22 16:45 Review of Systems Review of Systems: CONSTITUTIONAL: Denies fever, chills, or sweats. EYES: Denies visual changes, redness, or discharge. ENT: Denies rhinorrhea, congestion, sore throat, or otalgia. CARDIOVASCULAR: Denies chest pain, palpitations, or edema. RESPIRATORY: Denies cough or dyspnea. GASTROINTESTINAL: Right upper quadrant abdominal pain GENITOURINARY: Denies dysuria or hematuria. SKIN: Denies rash or itching. MUSCULOSKELETAL: Denies back pain, joint pain, or myalgia. NEUROLOGIC: Denies headache, numbness, or weakness. [facility] Family History Family History Grandparent Colon cancer Breast cancer in female Depression Father Depression Social History Social History Smoking status: Never smoker Alcohol intake: never Substance use: never Substance use type: does not use Has the Lack of Transportation Kept You From Medical Appointments or From Getting Medications?: No Within the Past 12 Months, Were You Worried Whether Your Food Would Run Out Before You Got Money to Buy More?: Never True What is Your Housing Situation Today?: I Have Housing Are You Worried That in the Next 2 Months, You May Not Have Your Own Housing to Live In?: No Do You Have Trouble Paying Your Heating Or Electricity Bill?: No Do You Have Trouble Paying For Medicines?: No Are You Currently Unemployed and Looking for Work?: No Highest Level of Education Completed: Bachelor's Degree Do You Have Trouble With Childcare or the Care of a Family Member?: No Spiritual care concerns: No Exam Narrative: APPEARANCE: Well appearing, no pain, no distress, well-nourished. HEAD: normocephalic, atraumatic. EYES: PERRLA/EOMI, conjunctivae clear. NOSE: Normal no drainage NECK: Supple. No adenopathy, no masses. RESPIRATORY: Airway patent, respirations nonlabored. Clear to auscultation bilaterally, no rales, rhonchi, wheezing. CARDIOVASCULAR: Regular rate and rhythm without murmurs rubs or gallops. ABDOMINAL: Soft, minimal right upper quadrant tenderness to palpation MUSCULOSKELETAL: Moves all extremities. Strength/ROM intact, No edema, No calf tenderness. NEURO: Alert. Cranial nerves II through XII intact. Grossly intact SKIN: Warm, dry. Normal Color Course Course Emergency Course: Patient's T bili ALT, AST and alk phos were elevated. Ultrasound showed cholelithiasis but no evidence of cholecystitis. Patient was afebrile with no leukocytosis. Case was discussed with GI and patient was admitted for an MRCP. Case was discussed with the hospitalist and patient was accepted for admission. Vital Signs Vital signs: Vital Signs Temperature
[2022-07-23 13:50] LABS: Basophils Absolute Auto 0.1 K/mm3 (0.0-0.1); Basophils Percent Auto 0.7 % (0.2-1.2); Eosinophils Absolute Auto 0.2 K/mm3 (0-0.3); Eosinophils Percent Auto 2.3 % (0-4.4); Hematocrit 35.6 % (37.0-47.0); Hemoglobin 12.2 g/dL (12.0-15.0); Immature Granulocyte Absolute 0.02 K/mm3 (0.00-0.031); Immature Granulocyte Percent A 0.3 % (0-0.5); Lymphocytes Percent Auto 29.2 % (18.3-44.2); Mean Corpuscular HGB Conc 34.3 g/dl (32-36); Mean Corpuscular Hemoglobin 30.5 pg (26-34); Mean Platelet Volume 8.6 fl (7.4-10.4); Monocytes Absolute Auto 0.4 K/mm3 (0.1-0.6); Monocytes Percent Auto 6.3 % (2.6-8.5); Neutrophils Absolute Auto 4.2 K/mm3 (1.3-6.7); Neutrophils Percent Auto 61.2 % (45.5-73.1); Platelet Count Result 267 k/mm3 (150-375); Red Cell Distribution Width 13.7 % (11.5-14.5); White Blood Count 6.9 K/mm3 (4.5-10.0)
[2022-07-23 14:00] LABS: Add Urine Microscopic? YES; Appearance Urine Clear (Clear); Bacteria Urine Trace /hpf; Bilirubin Urine Negative (Negative); Blood Urine Negative (Negative); Color Urine Yellow (Yellow); Glucose Urine UA Negative (Negative); Ketones Urine Negative (Negative); Leukocyte Esterase Ur 2+ LEU/UL (Negative); Mucus Urine Rare /lpf; Nitrate Urine Negative (Negative); Protein Urine Negative (Negative); RBC Urine 0-2 /hpf (0-2); Squamous Epithelial Cell Urine Occasional /hpf (Few); Urobilinogen Urine Negative mg/dL (<2.0); WBC Urine 21-30 /hpf
[2022-07-23] MEDS: SODIUM CHLORIDE 0.9% IV 1,000 ML 999 ML IV CONT (14:04)
[2022-07-23 14:06] LABS: Alanine Aminotransferase 624 U/L (6-35); Albumin Level 4.2 g/dL (3.5-5.1); Alkaline Phosphatase 303 U/L (38-126); Anion Gap 12 mmol/L (8-16); Aspartate Amino Transferase 421 U/L (14-36); Bilirubin,Total 3.4 mg/dL (0.2-1.3); Blood Urea Nitrogen 12 mg/dL (7-17); Calcium 8.4 mg/dL (8.4-10.2); Carbon Dioxide 25 mmol/L (22-30); Chloride 105 mmol/L (98-107); Estimated CRCL calculation 112 ml/min; Estimated Glomerular Filt Rate > 60; Glucose 94 mg/dL (65-110); Lipase 100 U/L (23-300); Potassium 3.4 mmol/L (3.4-5.0); Sodium 142 mmol/L (137-145)
[2022-07-23 14:08] LABS: Lactic Acid Reflex 0.5 mmol/L (0.7-2.0)
[2022-07-23 14:18] LABS: Specific Grav Ur 1.004 (1.001-1.035)
[2022-07-23 16:24] VITALS: BP 138/86; PULSE 84; RESP 14; O2SAT 99
--- NOTE | 2022-07-23 16:46 | ADMGEN ---
This patient, Lucy Davis, was admitted to Medical Room 241-. Patient/family oriented to hospital policies and general routines including ID bracelet, bed and alarms, visiting hours, pain management, procedures, bathroom and other care routines, personal items, smoking policy, room service/diet, and visiting hours. Information on how to activate the Rapid Response Team has been discussed. Patient/Family are encouraged to report perceived risks to care and to ask questions if they do not understand what they are told or what they should do.
[2022-07-23] MEDS: SODIUM CHLORIDE 0.9% IV 1,000 ML 100 ML IV CONT (16:55)
[2022-07-23 20:15] VITALS: BP 117/84; PULSE 55; RESP 16; TEMP 36.4; O2SAT 99; BMI 40.1
--- NOTE | 2022-07-23 22:44 | PM.IMHP ---
H&P: HPI History of Present Illness Date/Time: 07/23/22 22:44 Chief Complaint: Abdominal pain Narrative: this is a 26-year-old female patient who Is 5 weeks . The patient stated that during her she was having some epigastric discomfort on and off. The patient had an ultrasound a couple weeks ago that did confirm gallstones. Patient has been having recurrent symptoms and follow-up with her primary care doctor and had some repeat labs. Patient was called today and told to present to the emergency department for evaluation due to her elevated liver enzymes. Total bilirubin was 3.4. AST 421, ALT 624, alkaline phosphatase 303. Patient was recently on antibiotics for UTI and her WBCs are now 21-30 and 2+ leukocyte esterase. Urine culture was obtained today. Patient had an abdominal ultrasound which shows cholelithiasis. Dr. Rivero has been consulted and a MRCP has been ordered for tomorrow. The patient is being admitted for observation status on the date of service of 07/23/2022. Review of Systems Review of Systems: See HPI All systems reviewed & are unremarkable except as noted in HPI and below Constitutional: Constitutional: Reports as per HPI and Reports no additional constitutional complaints Eyes: Eyes: Reports as per HPI and Reports no additional eye complaints ENT: Reports system reviewed and no additional complaints, except as documented and Reports Normal hearing present Cardiovascular: Cardiovascular: Reports no additional cardiovascular complaints Respiratory: Respiratory: Reports no additional respiratory complaints and Reports no additional respiratory complaints Gastrointestinal: Gastrointestinal: Reports as per HPI and Reports no additional gastrointestinal complaints Musculoskeletal: Musculoskeletal: Reports no additional musculoskeletal complaints Integumentary/Breasts: Skin/Breast: Reports system reviewed and no additional complaints, except as docu and Reports as per HPI Neurologic: Reports system reviewed and no additional complaints, except as documented, Reports as per HPI and Reports Normal hearing present Psychiatric: Psychiatric: Reports no additional psychiatric complaints and Reports as per HPI Endocrine: Endocrine: Reports no additional endocrine complaints Hematologic/Lymphatic: Hematologic/Lymphatic: Reports no additional hematologic/lymphatic complaints Allergic/Immunologic: Allergic/Immunologic: Reports no additional allergic/immunologic complaints [facility] Past Medical History Medical History (Updated 07/23/22 @ 22:56 by Alena Lopez NP) Depression with anxiety Iron deficiency anemia Surgical History Surgical History (Updated 07/23/22 @ 22:56 by Alena Lopez NP) No pertinent past surgical history Family History Family History Grandparent Colon cancer Breast cancer in female Depression Father Depression Social History Social History (Updated 07/23/22 @ 22:57 by Alena Lopez NP) Social History: the patient lives with her and her 5-week-old son. 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 She is a lifelong nonsmoker. She does not use any alcohol marijuana or illicit drugs. Her is the durable power box spring frame builder. Code status full code Smoking status: Never smoker Alcohol intake: never Substance use: never Substance use type: does not use Has the Lack of Transportation Kept You From Medical Appointments or From Getting Medications?: No Within the Past 12 Months, Were You Worried Whether Your Food Would Run Out Before You Got Money to Buy More?: Never True What is Your Housing Situation Today?: I Have Housing Are You Worried That in the Next 2 Months, You May Not Have Your Own Housing to Live In?: No Do You Have Trouble Paying Your Heating Or Electricity Bill?: No Do You Have Trouble Paying For M
[2022-07-24] MEDS: SODIUM CHLORIDE 0.9% IV 1,000 ML 100 ML IV CONT (03:27)
[2022-07-24 05:21] LABS: Basophils Absolute Auto 0.1 K/mm3 (0.0-0.1); Basophils Percent Auto 0.8 % (0.2-1.2); Eosinophils Absolute Auto 0.2 K/mm3 (0-0.3); Eosinophils Percent Auto 2.6 % (0-4.4); Hematocrit 33.7 % (37.0-47.0); Hemoglobin 11.2 g/dL (12.0-15.0); Immature Granulocyte Absolute 0.02 K/mm3 (0.00-0.031); Immature Granulocyte Percent A 0.3 % (0-0.5); Lymphocytes Absolute Auto 2.13 K/mm3 (0.9-3.2); Lymphocytes Percent Auto 34.7 % (18.3-44.2); Mean Corpuscular HGB Conc 33.2 g/dl (32-36); Mean Corpuscular Volume 90.3 fl (80-100); Mean Platelet Volume 8.6 fl (7.4-10.4); Monocytes Absolute Auto 0.6 K/mm3 (0.1-0.6); Monocytes Percent Auto 9.1 % (2.6-8.5); Neutrophils Absolute Auto 3.2 K/mm3 (1.3-6.7); Neutrophils Percent Auto 52.5 % (45.5-73.1); Platelet Count Result 221 k/mm3 (150-375); Red Blood Count 3.73 M/mm3 (4.2-5.4); Red Cell Distribution Width 13.9 % (11.5-14.5); White Blood Count 6.1 K/mm3 (4.5-10.0)
[2022-07-24 05:31] LABS: Alanine Aminotransferase 535 U/L (6-35); Albumin Level 3.7 g/dL (3.5-5.1); Alkaline Phosphatase 312 U/L (38-126); Anion Gap 8 mmol/L (8-16); Aspartate Amino Transferase 278 U/L (14-36); Bilirubin,Total 1.9 mg/dL (0.2-1.3); Blood Urea Nitrogen 9 mg/dL (7-17); Calcium 7.8 mg/dL (8.4-10.2); Carbon Dioxide 26 mmol/L (22-30); Chloride 107 mmol/L (98-107); Estimated CRCL calculation 113 ml/min; Estimated Glomerular Filt Rate > 60; Glucose 82 mg/dL (65-110); Magnesium 1.9 mg/dL (1.6-2.3); Potassium 3.2 mmol/L (3.4-5.0); Sodium 141 mmol/L (137-145)
[2022-07-24 05:32] LABS: Lactic Acid Reflex 0.5 mmol/L (0.7-2.0)
[2022-07-24 06:08] VITALS: BP 123/73; PULSE 66; RESP 16; TEMP 36.6; O2SAT 100
--- NOTE | 2022-07-24 07:23 | PM.IMPN ---
Progress Note: A&P Assessment and Plan (1) Biliary obstruction: Code(s): K83.1 - Obstruction of bile duct Status: Acute Assessment and Plan: Cholelithiasis noted on abd US. Common bile duct 5 mm and no gallbladder wall thickening noted, however, patient with elevated LFTs and abd pain. GI consulted and appreciate recommendations. General surgery consulted and appreciate recommendations. MRCP shows cholelithiasis with gallbladder distention. Advance diet per GI and surgery recommendations. Continue IV fluids. K 3.2, add 20 mEQ to NS@100 mL/hour and give 40 mEQ IVPB x1. (2) Abnormal urinalysis: Code(s): R82.90 - Unspecified abnormal findings in urine Status: Acute Assessment and Plan: UA with 2+ leukocytes, WBC 21-30, occasional epi, trace bacteria on admission. She was treated for UTI 07/01/22 with Keflex x 7 days, however, urine cultures shows ESBL e.coli. Repeat urine culture pending. Patient denies dysuria, frequency, urgency, hesitancy, hematuria or flank pain. Hold antibiotics for now. Likely asymptomatic bacteruria. (3) Depression with anxiety: Code(s): F41.8 - Other specified anxiety disorders Status: Chronic Assessment and Plan: Chronic, stable. Continue with Lexapro (4) Iron deficiency anemia: Qualifiers: Iron deficiency anemia type: chronic blood loss Qualified Code(s): D50.0 - Iron deficiency anemia secondary to blood loss (chronic) Code(s): D50.9 - Iron deficiency anemia, unspecified Status: Chronic Assessment and Plan: Chronic, stable. H/H 11.2/33.7 continue with vitamins and ferrous sulfate Plan CODE STATUS: FULL CODE Disposition: home when medically stable. Time Spent With Patient Time with patient: 15 - 25 minutes Subjective Date/time seen: 07/24/22 07:23 Patient sitting up in the bed. She denies abd pain, N/V/D, dyspnea, fever, chills, rigors or chest pain. She had juice a few minutes ago and tolerated it well. Review of Systems Review of Systems: All systems reviewed & are unremarkable except as noted in HPI and below Exam Narrative: General: No acute distress.? Well-developed and well-groomed?adult female sitting up in bed. Mental Status/Psych: Awake, alert and orientedx3 with clear speech. Neutral mood and affect. Pleasant and cooperative. Skin: Skin fair, warm, dry and intact without rashes or lesions. No open wounds. Good turgor.? HEENT: Normocephalic. Sclera is non-icteric. Pupils equal and round. Grossly normal hearing. Oral mucosa pink and moist. Neck: Supple. Trachea midline. No JVD. Heart: S1 and S2 regular rate and rhythm. No murmurs, gallops, or rubs auscultated. Chest: Respirations even and unlabored. Lung sounds are clear to auscultation in all lobes bilaterally without wheezes, rhonchi, or rales. Abdomen: Soft, round and non-tender to palpation.? Bowel sounds present in all 4 quadrants. No guarding. Extremities:? Grossly normal ROM all extremities. No edema, erythema, tenderness to palpation or deformity. Radial and dorsalis pedis pulses +2 bilaterally. Neurological: No focal deficits. Cranial nerves 2-12 grossly intact.? Objective Data Vital Signs Vital Signs: Vital Signs - 24 hr 07/23/22 13:18 07/23/22 16:24 07/23/22 20:15 Temperature 97.2 F L 97.6 F Pulse Rate 79 84 55 L Respiratory Rate 16 14 16 Blood Pressure 164/83 H 138/86 117/84 Pulse Oximetry 97 99 99 Oxygen Delivery Room Air 07/23/22 20:35 07/24/22 06:08 Temperature 97.8 F Pulse Rate 66 Respiratory Rate 16 Blood Pressure 123/73 Pulse Oximetry 100 Oxygen Delivery Room Air Intake/Output Intake/Output: Intake & Output 07/21/22 07/22/22 07/23/22 07/24/22 23:59 23:59 23:59 23:59 Intake Total 1000 1100 Balance 1000 1100 Meds/Results Medications: Active Medications Generic Name Dose Route Start Last Admin Trade Name Freq PRN Reason Stop Dose Admin Escitalopram Ox
[2022-07-24] MEDS: POTASSIUM CHLORIDE INJ 40 MEQ in SODIUM CHLORIDE 0.9% IV 500 ML 130 MEQ IVPB (09:36)
[2022-07-24] MEDS: FERROUS SULFATE 324 MG TABLET PO (10:40)
[2022-07-24] MEDS: ESCITALOPRAM OXALATE 10 MG TABLET 20 MG PO (10:40)
[2022-07-24] MEDS: MULTIVIT/MIN/PREN/FOL AC/IRON TABLET 1 TAB PO (10:40)
--- NOTE | 2022-07-24 11:12 | PM.CNGS ---
Assessment and Plan Assessment and plan (1) Cholelithiasis: Code(s): K80.20 - Calculus of gallbladder without cholecystitis without obstruction Status: Acute Assessment and Plan: Patient with cholelithiasis and elevated LFTs with a total bilirubin of 3.4. MRCP showed no common duct stones and her LFTs are trending down. It is possible she passed a stone. Additionally, she has had multiple episodes of RUQ abdominal pain intermittency over the past 10 months that are also likely related to her gallstones. Her abdominal pain has resolved and she is tolerating a full liquid diet. We would recommend that she have a laparoscopic cholecystectomy to prevent future attacks and future complications of her gallstones. Description of the procedure, risks, benefits, expected outcomes, and expected recovery were discussed with the patient in detail. She agrees to proceed with surgery. I will make her NPO after midnight and we will try scheduling her for a laparoscopic cholecystectomy under general anesthesia tomorrow with Dr. Page. (2) Elevated LFTs: Code(s): R79.89 - Other specified abnormal findings of blood chemistry Status: Acute Assessment and Plan: Elevated LFTs on admission with total bilirubin 3.4. GI following. MRCP showed no common duct stones, cholelithiasis with gallbladder distention. Tbili down to 1.9. Could have passed a stone. See plan above. Trend labs. (3) Obesity, morbid, BMI 40.0-49.9: Code(s): E66.01 - Morbid (severe) obesity due to excess calories Status: Acute (4) Abnormal urinalysis: Code(s): R82.90 - Unspecified abnormal findings in urine Status: Acute Assessment and Plan: Repeat urine cx pending, recently treated for ESBL E.coli UTI on 06/30/22, management per Hospitalist. (5) Iron deficiency anemia: Code(s): D50.9 - Iron deficiency anemia, unspecified Status: Chronic Plan I have discussed the patient's case and plan of care with Dr. Page. Thank you for allowing us to see the patient in consultation and we will continue to follow along with you. History of Present Illness Consult details Consult date: 07/24/22 Reason for consult: gallstones (elevated LFTs) Requesting physician: Justen Marie MD Narrative: This is a 26-year-old woman who is 5 weeks . She had a vaginal delivery at 37 weeks on 06/17/2022. She was induced due to preeclampsia and was previously on an antihypertensive, but has been taken off of her medication since delivery. She reports having intermittent mild episodes of right upper quadrant abdominal pain that radiates to her mid back during her . She initially wasn't sure what was causing the pain and did not correlate this with meals or any other specific timing. The pain did bring her into the ER on a few occasions. About 12 days after delivery she came into [place] ED on 06/30/2022 for right upper quadrant abdominal pain that began after eating pizza. Her pain resolved in the ER and [place] [address] with mildly elevated AST of 42, and alk-phos 142. She was also found to have an E coli UTI. She was discharged on Keflex and given an order for an outpatient RUQ US. The US showed cholelithiasis. She states that her pain would typically improve after 1-2 hours with all of her previous attacks. She began noticing that the abdominal pain would occur after eating higher fat foods. Then, 4 days ago she had a sudden onset of the same right upper quadrant abdominal pain during the night that woke her up from sleep. She had again eaten pizza for dinner prior to going to bed. She developed nausea and bloating, but no vomiting. She tried to give this some time for her pain to improve. The following day, her abdominal pain was better, but she still felt unwell with some nausea and bloating. That same day she began to notice dark orange urine. She remained uncomfortable with a
[2022-07-24 14:14] VITALS: BP 119/86; PULSE 65; RESP 16; TEMP 36.6; O2SAT 99
--- NOTE | 2022-07-24 14:15 | WPDANESEPPF ---
Anes - Initial Pre Proc Eval Procedure: Operation Date: 07/25/22 09:30 Proposed Procedures p Laparoscopic Cholecystectomy - Leora Page MD Date/Time: 07/24/22 14:15 Surgeon: Tran Chavez MD Pre Op Diagnosis: BILIARY OBSTRUCTION Patient Data Age: 26 Gender: F Height: 1.73 m Weight: 119.8 kg Last Vital Signs Temp 36.6 C 07/24/22 06:08 Pulse 66 07/24/22 06:08 Resp 16 07/24/22 06:08 BP 123/73 07/24/22 06:08 Pulse Ox 100 07/24/22 06:08 O2 Del Method Room Air 07/23/22 20:35 Allergies Allergy/AdvReac Type Severity Reaction Status Date / Time No Known Allergies Allergy Verified 07/25/22 08:32 Home Medications Medication Instructions Recorded Confirmed Type escitalopram oxalate 20 mg tablet 20 mg PO DAILY 06/03/22 07/23/22 History ferrous sulfate 325 mg (65 mg 325 mg PO DAILY 06/03/22 07/23/22 History iron) tablet,delayed release prenat.vits,adriana,qkx-sxdw-oefpc 1 tablet PO DAILY 06/03/22 07/23/22 History Laboratory Tests 07/23/22 07/24/22 07/24/22 13:33 04:45 04:45 WBC 6.1 K/mm3 K/mm3 (4.5-10.0) RBC 3.73 M/mm3 L M/mm3 (4.2-5.4) Hgb 11.2 g/dL L g/dL (12.0-15.0) Hct 33.7 % L % (37.0-47.0) MCV 90.3 fl fl (80-100) MCH 30.0 pg pg (26-34) MCHC 33.2 g/dl g/dl (32-36) RDW 13.9 % % (11.5-14.5) Plt Count 221 k/mm3 k/mm3 (150-375) MPV 8.6 fl fl (7.4-10.4) Immature Gran % (Auto) 0.3 % % (0-0.5) Neut % (Auto) 52.5 % % (45.5-73.1) Lymph % (Auto) 34.7 % % (18.3-44.2) [place] % (Auto) 9.1 % H % (2.6-8.5) Eos % (Auto) 2.6 % % (0-4.4) Baso % (Auto) 0.8 % % (0.2-1.2) Lymph # (Auto) 2.13 K/mm3 K/mm3 (0.9-3.2) [place] # (Auto) 0.6 K/mm3 K/mm3 (0.1-0.6) Eos # (Auto) 0.2 K/mm3 K/mm3 (0-0.3) Baso # (Auto) 0.1 K/mm3 K/mm3 (0.0-0.1) Abs Immat Gran (auto) 0.02 K/mm3 K/mm3 (0.00-0.031) Absolute Neuts (auto) 3.2 K/mm3 K/mm3 (1.3-6.7) Absolute Nucleated RBC 0.0 K/mm3 K/mm3 (0.0-0.012) Nucleated RBC % 0.0 % % (0.0-0.2) Sodium 141 mmol/L mmol/L (137-145) Potassium 3.2 mmol/L L mmol/L (3.4-5.0) Chloride 107 mmol/L mmol/L (98-107) Carbon Dioxide 26 mmol/L mmol/L (22-30) Anion Gap 8 mmol/L mmol/L (8-16) BUN 9 mg/dL mg/dL (7-17) Creatinine 0.90 mg/dL mg/dL (0.7-1.0) Estim Creat Clear Calc 113 ml/min ml/min Estimated GFR > 60 (59 - ) Glucose 82 mg/dL mg/dL (65-110) Lactic Acid Calcium 7.8 mg/dL L mg/dL (8.4-10.2) Magnesium 1.9 mg/dL mg/dL (1.6-2.3) Total Bilirubin 1.9 mg/dL H mg/dL (0.2-1.3) AST 278 U/L H U/L (14-36) ALT 535 U/L H U/L (6-35) Alkaline Phosphatase 312 U/L H U/L (38-126) Total Protein 6.0 g/dL L g/dL (6.3-8.2) Albumin 3.7 g/dL g/dL (3.5-5.1) TSH (Reflex) Urine Color Yellow (Yellow) Urine Appearance Clear (Clear) Urine pH 6.0 (5.0-9.0) Ur Specific [place] 1.004 (1.001-1.035) Urine Protein Negative mg/dL mg/dL (Negative) Urine Glucose (UA) Negative mg/dL mg/dL (Negative) Urine Ketones Negative mg/dL mg/dL (Negative) Ur Blood (Man) Negative (Negative) Urine Nitrate Negative (Negative) Urine Bilirubin Negative (Negative) Urine Urobilinogen Negative mg/dL mg/dL (<2.0) Leukocyte Esterase Rfl 2+ VINICIUS/UL H VINICIUS/UL (Negative) Urine RBC 0-2 /hpf /hpf (0-2) Urine WBC 21-30 /hpf H /hpf Ur Squamous Epith Cells Occasional /hpf /hpf (Few) Urine Bacteria Trace /hpf /hpf Urine Mucus Rare /lpf /lpf
[2022-07-24] MEDS: KCL 20 MEQ/D5/0.9% SOD CHL 1,000 ML 100 ML IV CONT (14:57)
--- NOTE | 2022-07-24 15:23 | WPDGICN ---
Assessment and Plan Assessment and plan (1) Elevated LFTs: Code(s): R79.89 - Other specified abnormal findings of blood chemistry Status: Acute Assessment and Plan: related to GB, MRCP reviewed and no choledocholithiasis- no need of ercp lap albert- timing per surgery already doing better and liver enzymes trending down most likely already passed stone (2) Cholelithiasis: Code(s): K80.20 - Calculus of gallbladder without cholecystitis without obstruction Status: Acute Assessment and Plan: lap albert (3) RUQ abdominal pain: Code(s): R10.11 - Right upper quadrant pain Status: Acute Assessment and Plan: pain is better, on meds as needed (4) Obesity, morbid, BMI 40.0-49.9: Code(s): E66.01 - Morbid (severe) obesity due to excess calories Status: Acute (5) Nausea: Code(s): R11.0 - Nausea Status: Acute GI Consult Note Consult date/time: 07/24/22 15:23 Reason for consult: elevated liver enzymes, RUQ pain HPI: Lucy Davis is a 26 year old female who is 5 weeks .? She had a vaginal delivery at 37 weeks on 06/17/2022, induced due to preeclampsia briefly on antihypertensive, but has been taken off of her medication since delivery.? She remembers at least 3 episodes of pain in right upper quadrant abdominal that radiated to her mid back during her .? She finally came to [facility] ED on 06/30/2022 for right upper quadrant abdominal pain that began after eating pizza had mildly elevated AST of 42, and alk-phos 142, also had E coli UTI discharged on Keflex and given an order for an outpatient RUQ US that showed cholelithiasis.? Here with 4 days ago of more severe abdominal pain in same location after eating pizza also nausea and bloating. Labs showed white blood cell count of 6900, total bilirubin 3.4, AST 421, ALT 624, alk-phos 303, and lipase 100.? Right upper quadrant abdominal ultrasound showed cholelithiasis without any other findings of cholecystitis.? Common bile duct measured 5 mm.? MRCP reviewed and showed cholelithiasis with gallbladder distention, no choledocholithiasis.? Labs again showed total bilirubin down to 1.9. Review of Systems Review of Systems: All systems reviewed & are unremarkable except as noted in HPI and below Constitutional: Constitutional: Reports no additional constitutional complaints, Denies chills, Denies fever(s) and Denies headache(s) Eyes: Eyes: Reports no additional eye complaints and Reports other (no yellowing of the eyes noticed) ENT: Reports system reviewed and no additional complaints, except as documented Cardiovascular: Cardiovascular: Reports no additional cardiovascular complaints and Denies chest pain Respiratory: Respiratory: Reports no additional respiratory complaints and Denies dyspnea Gastrointestinal: Gastrointestinal: Reports as per HPI, Reports no additional gastrointestinal complaints, Reports abdominal pain, Reports nausea, Denies vomiting and Reports other (no light-colored stools) Genitourinary: Genitourinary: Reports no additional female genitourinary complaints Musculoskeletal: Musculoskeletal: Reports no additional musculoskeletal complaints Integumentary/Breasts: Skin/Breast: Reports system reviewed and no additional complaints, except as docu and Denies jaundice Neurologic: Reports system reviewed and no additional complaints, except as documented Psychiatric: Psychiatric: Denies behavioral changes [facility] Past Medical History Medical History (Updated 07/24/22 @ 15:29 by Justen Marie MD) Anxiety Cholelithiasis Depression Depression with anxiety Elevated LFTs History of gestational diabetes History of pre-eclampsia HTN (hypertension) Iron deficiency anemia Nausea Obesity, morbid, BMI 40.0-49.9 Surgical History Surgical History (Updated 07/23/22 @ 22:56 by Alena Lopez NP) No pertinent past surgical history Family History Family Histor
[2022-07-24 19:54] VITALS: BP 129/79; PULSE 72; RESP 16; TEMP 36.6; O2SAT 100
[2022-07-25] VITALS (12 sets, daily range): BP systolic 111–152; BP diastolic 54–98; PULSE 54–77; RESP 12–22; TEMP 36.4–36.8; O2SAT 95–100
[2022-07-25] MEDS: KCL 20 MEQ/D5/0.9% SOD CHL 1,000 ML 100 ML IV CONT (01:05)
[2022-07-25 05:29] LABS: Hematocrit 34.3 % (37.0-47.0); Hemoglobin 11.2 g/dL (12.0-15.0); Mean Corpuscular HGB Conc 32.7 g/dl (32-36); Mean Corpuscular Hemoglobin 30.7 pg (26-34); Mean Platelet Volume 8.7 fl (7.4-10.4); Platelet Count Result 226 k/mm3 (150-375); Red Blood Count 3.65 M/mm3 (4.2-5.4); White Blood Count 7.2 K/mm3 (4.5-10.0)
[2022-07-25 05:35] LABS: Prothrombin Time 13.1 Seconds (11.1-14.7)
[2022-07-25 05:55] LABS: Alanine Aminotransferase 364 U/L (6-35); Albumin Level 3.7 g/dL (3.5-5.1); Alkaline Phosphatase 251 U/L (38-126); Anion Gap 6 mmol/L (8-16); Aspartate Amino Transferase 101 U/L (14-36); Bilirubin,Total 0.9 mg/dL (0.2-1.3); Blood Urea Nitrogen 6 mg/dL (7-17); Calcium 7.8 mg/dL (8.4-10.2); Carbon Dioxide 26 mmol/L (22-30); Chloride 106 mmol/L (98-107); Estimated CRCL calculation 113 ml/min; Estimated Glomerular Filt Rate > 60; Glucose 94 mg/dL (65-110); Potassium 3.5 mmol/L (3.4-5.0); Sodium 138 mmol/L (137-145)
--- NOTE | 2022-07-25 07:26 | WPDGIPROGNO ---
Progress Note: A&P Assessment and Plan (1) Cholelithiasis: Code(s): K80.20 - Calculus of gallbladder without cholecystitis without obstruction Status: Acute Assessment and Plan: mrcp reviewed, no need of ercp lft trending down lap albert today (2) Elevated LFTs: Code(s): R79.89 - Other specified abnormal findings of blood chemistry Status: Acute (3) Nausea: Code(s): R11.0 - Nausea Status: Acute Assessment and Plan: resolved (4) RUQ abdominal pain: Code(s): R10.11 - Right upper quadrant pain Status: Acute Assessment and Plan: resolved Subjective Date/time seen: 07/25/22 07:26 Interval history: no more pain, doing ok Review of Systems Review of Systems: All systems reviewed & are unremarkable except as noted in HPI and below Exam Const: General: comfortable and no acute distress HENMT: Face/Nose/Sinus: Normal nares present Eyes: General: appearance normal, both eyes and all related structures Neck: Neck: no JVD Resp: Auscultation: clear to auscultation bilaterally Cardio: Rate: regular rate Rhythm: regular rhythm GI: Inspection: non-distended GI Palp: Yes Soft to palpation Skin: General skin exam: normal color Neuro: General: gait normal Speech: normal speech Extrem: General: normal to inspection Psych: Mental Status: mental status grossly normal Objective Data Vital Signs Vital Signs: Vital Signs - 24 hr 07/24/22 14:14 07/24/22 19:54 07/24/22 20:40 Temperature 97.8 F 97.9 F Pulse Rate 65 72 Respiratory Rate 16 16 Blood Pressure 119/86 129/79 Pulse Oximetry 99 100 Oxygen Delivery Room Air 07/25/22 04:34 Temperature 97.6 F Pulse Rate 66 Respiratory Rate 14 Blood Pressure 123/73 Pulse Oximetry 100 Oxygen Delivery Intake/Output Intake/Output: Intake & Output 07/22/22 07/23/22 07/24/22 07/25/22 23:59 23:59 23:59 23:59 Intake Total 1000 2110 1550 Balance 1000 2110 1550 Meds/Results Medications: Active Medications Generic Name Dose Route Start Last Admin Trade Name Freq PRN Reason Stop Dose Admin Escitalopram Oxalate 20 mg 07/24/22 09:00 07/24/22 10:40 Escitalopram Oxalate 10 Mg Tablet PO 20 mg DAILY ENRIQUETA Administration Fentanyl Citrate 25 mcg 07/24/22 14:14 Fentanyl Citrate Inj (*Crx) 100 Mcg/2 Ml Vial IV PUSH Q2M PRN Pain Ferrous Sulfate 324 mg 07/24/22 09:00 07/24/22 10:40 Ferrous Sulfate 324 Mg Tablet PO 324 mg DAILY ENRIQUETA Administration Hydromorphone HCl 0.5 mg 07/23/22 15:06 Hydromorphone Hcl Inj (*Crx) 1 Mg/Ml Syr IV PUSH Q4H PRN Pain Rated 7-10 Potassium Chloride/Dextrose/Sod Cl 1,000 mls @ 100 mls/hr 07/24/22 12:30 07/25/22 01:05 Kcl 20 Meq/D5/0.9% Sod Chl IV CONT 100 mls/hr .Q10H ENRIQUETA Administration Lactated Ringer's 1,000 mls @ 30 mls/hr 07/24/22 14:15 Lr - Lactated Ringers Iv IV CONT .Q24H ENRIQUETA Lactated Ringer's 1,000 mls @ 30 mls/hr 07/24/22 14:15 Lr - Lactated Ringers Iv IV CONT .Q24H ENRIQUETA Ondansetron HCl 4 mg 07/23/22 15:06 Ondansetron Inj 4 Mg/2 Ml Vial IV PUSH Q4H PRN Nausea Ondansetron HCl 4 mg 07/24/22 14:14 Ondansetron Inj 4 Mg/2 Ml Vial IV PUSH ONCE PRN Nausea Oxycodone HCl 5 mg 07/24/22 14:14 Oxycodone Hcl (*Crx) 5 Mg Tab Ir PO ONCE PRN Pain Vit/Calcium/Iron/Folic Ac 1 tab 07/24/22 09:00 07/24/22 10:40 Multivit/Min/Pren/Fol Ac/Iron Tablet PO 1 tab DAILY ENRIQUETA Administration Radiology Results: ITS Impressions Abdomen Ultrasound 07/23/22 14:12 IMPRESSION: Cholelithiasis MRCP 07/24/22 08:41 IMPRESSION: 1. Cholelithiasis with gallbladder distention. Normal biliary tree. Labs Labs: Laboratory Results - last 24 hr 07/25/22 07/25/22 07/25/22 04:50 04:50 04:50 WBC 7.2 RBC 3.65 L Hgb 11.2 L Hct 34.3 L MCV 94.0 MCH 30.7 MCHC 32.7
[2022-07-25] MEDS: LACTATED RINGERS 1,000 ML 30 ML IV CONT (08:30)
--- NOTE | 2022-07-25 09:14 | WPDHPUPDATE1 ---
History and Physical Update Update Date/Time: 07/25/22 09:14 History and Physical has been reviewed, including an updated exam of the patient. There are NO changes in the patient's condition. Risks, benefits, and alternatives have been discussed and questions answered. Patient agrees to proceed with procedure.
[2022-07-25] MEDS: ceFAZolin 2 GM/D5W 50 ML 2 GM/50 ML BAG IVPB (09:30)
[2022-07-25] MEDS: BUPIVACAINE/EPINEPHRINE 0.25% 50 ML VIAL 30 ML INFILTRATE (09:54)
--- NOTE | 2022-07-25 10:35 | P.OP_ITS ---
Procedure Note - Detailed Date of Procedure 07/25/22 Pre-op Diagnosis chronic cholecystitis, choledocholithiasis Post-op Diagnosis Same Procedure Performed Laparoscopic cholecystectomy Surgeon Leora Page MD Anesthesia General Indications 26 y/o F presenting to ED c RUQ abd pain. Workup, including imaging, c/w chronic cholecystitis, choledocholithiasis Findings Cholecystitis with cholelithiasis Description of Procedure The patient was taken to the operating room placed in the supine position. After adequate induction of general anesthesia, the patient was prepped and draped in normal sterile fashion. A time-out was then performed to verify the patient's identity as well as the procedure being performed. I then made a 5 mm incision in the infraumbilical region. Through this, a Veress needle was placed into the peritoneal cavity and CO2 gas was then insufflated. After adequate pneumoperitoneum was achieved, the Veress needle was removed and a 5 mm optiview trocar was placed through this incision under direct visualization. I then placed the laparoscope through this trocar site and under direct visualization placed a further 12 mm subxiphoid port as well as 2 additional 5 mm ports in the right upper abdomen. The gallbladder was then identified and was noted to be moderately inflamed, distended, and full of gallstones. I was able to place a grasper at the dome of the gallbladder and this was retracted anterior and cephalad up over the liver. A 2nd retractor was then placed at the infundibulum and retracted laterally, this allowed visualization of the triangle of [place]. I then was able to visualize the cystic duct in its entirety from its proximal insertion into the gallbladder, to its distal junction with the common hepatic/common bile duct junction. At this point, I carefully skeletonized the proximal cystic duct with the [place] dissector. I then clipped and transected the proximal cystic duct. Next I visualized the cystic artery. Again the artery was skeletonized, clipped, and transected. I then used the Bovie cautery to take down the peritoneal attachments of the gallbladder off the liver bed. This was somewhat difficult given the amount of inflammation in the posterior space. Once the gallbladder specimen was completely detached, an endo-pouch was placed through the 12 mm port site. I then placed the gallbladder specimen into the Endo pouch and removed the endo-pouch from the 12 mm port site. The specimen will now be sent to pathology for further review. I then copiously irrigated the right upper quadrant. Some mild oozing was noted in the liver bed and this was controlled with the bovie cautery. Hemostasis was noted in the liver bed, the clips were noted to be in good position on both the cystic duct stump and the cystic artery stump. No other pathology was noted in the right upper quadrant. I then moved the laparoscope to the subxiphoid port. No iatrogenic injury or other pathology was noted in the lower abdomen. I then shadi sed the 12 mm trocar site under direct visualization using the Judah cone and 0 Vicryl suture. At this point, the abdomen was desufflated and all ports removed. All port sites were then closed with 4.O Monocryl subcuticular sutures. Dermabond was placed on each incision. The patient tolerated the procedure well, was extubated in the operating room postoperative and will be transferred to the recovery room in stable condition Estimated Blood Loss 10 Drains No Packing No Pathology Yes Complications No immediate complications Condition Stable Disposition PACU [facility] Billing Surgery - Charge Forward: Surgery Billing
[2022-07-25] MEDS: ONDANSETRON INJ 4 MG/2 ML VIAL IV PUSH (10:39)
[2022-07-25] MEDS: fentaNYL CITRATE INJ (*CRX) 100 MCG/2 ML VIAL 25 MCG IV PUSH ×7 (10:43→11:30)
[2022-07-25] MEDS: MIDAZOLAM HCL (*CRX) 2 MG/2 ML VIAL 1 MG IV PUSH ×2 (11:02→11:07)
--- NOTE | 2022-07-25 14:47 | PM.DS ---
DS: Admitting Diagnosis Discharge Date 07/25/2022 1519 Admitting Diagnosis Cholelithiasis with possible biliary obstruction Elevated LFTs Possible UTI Iron deficiency anemia, chronic DS: Discharge Diagnosis Discharge Diagnosis (1) Chronic cholecystitis due to cholelithiasis with choledocholithiasis: Code(s): K80.64 - Calculus of gallbladder and bile duct with chronic cholecystitis without obstruction Status: Acute Assessment and Plan: Cholelithiasis noted on abd US. Common bile duct 5 mm and no gallbladder wall thickening noted, however, patient with elevated LFTs and abd pain. GI consulted and MRCP with cholelithiasis but no gallbladder distention. General surgery consulted and patient underwent lap albert on 07/25/22 without complications. Advanced to low fat diet with good tolerance. Potassium level replaced as needed. LFTs trending down at discharge. (2) Elevated LFTs: Code(s): R79.89 - Other specified abnormal findings of blood chemistry Status: Acute Assessment and Plan: LFTs on admission - Tbili 3.4, AST 421, ALT 624, Alk phos 303 MRCP did not obstruction. LFTs trending down at discharge- Tbili 0.9, AST 101, ALT 364, Alk Phos 251 Repeat LFTs on Thursday after discharge. (3) Abnormal urinalysis: Code(s): R82.90 - Unspecified abnormal findings in urine Status: Acute Assessment and Plan: UA with 2+ leukocytes, WBC 21-30, occasional epi, trace bacteria on admission. She was treated for UTI 07/01/22 with Keflex x 7 days, however, urine cultures shows ESBL e.coli. Repeat urine culture pending. Patient denies dysuria, frequency, urgency, hesitancy, hematuria or flank pain. Hold antibiotics for now. Patient has asymptomatic bacteruria. (4) Depression with anxiety: Code(s): F41.8 - Other specified anxiety disorders Status: Chronic Assessment and Plan: Chronic, stable. Continue with Lexapro (5) Iron deficiency anemia: Qualifiers: Iron deficiency anemia type: chronic blood loss Qualified Code(s): D50.0 - Iron deficiency anemia secondary to blood loss (chronic) Code(s): D50.9 - Iron deficiency anemia, unspecified Status: Chronic Assessment and Plan: Chronic, stable. H/H 11.2/33.7 continue with vitamins and ferrous sulfate Plan CODE STATUS: FULL CODE Disposition: home when medically stable. DS: Summary Hospital Course Reason for hospitalization: abdominal pain Hospital Course: Lucy Davis is a 26-year-old female patient who is 5 weeks and presented to the ED for evaluation of epigastric discomfort on and off.? The patient had an ultrasound a couple weeks ago that did confirm gallstones.? Patient has been having recurrent symptoms and follow-up with her primary care doctor recently and had some repeat labs.?She was called at home on the day of admission and told to present to the emergency department for evaluation due to her elevated liver enzymes.?In the ED, her vitals were stable with mildly elevated BP 164/83. Total bilirubin was 3.4.? AST 421, ALT 624, alkaline phosphatase 303.? Patient was recently on antibiotics for UTI and her WBCs are now 21-30 and 2+ leukocyte esterase.? Urine culture was repeated on admission.? Patient had an abdominal ultrasound which shows cholelithiasis.? Dr. Rivero has been consulted in the ED and a MRCP was recommended. The patient was admitted to the medical floor and kept NPO. She was treated with IV analgesics, IV antiemetics and IV fluids. GI was consulted. She underwent MRCP that showed cholelithiasis but no gallbladder distention. ERCP was not needed. General Surgery was consulted and the patient underwent laparoscopic cholecystectomy on 07/25/22 with good tolerance. She returned to the floor in stable condition. Prior to discharge she was able to tolerated low fat diet, ambulating independently and without uncontrolled pain. She will follow
[2022-07-25] MEDS: FERROUS SULFATE 324 MG TABLET PO (15:24)
[2022-07-25] MEDS: MULTIVIT/MIN/PREN/FOL AC/IRON TABLET 1 TAB PO (15:24)
[2022-07-25] MEDS: ESCITALOPRAM OXALATE 10 MG TABLET 20 MG PO (15:24)
== END 2022-07-25 16:51 | disposition home or self-care (01) ==
LOC: ANHED 13:29 → ANH2MED 17:31
PROVIDERS: Nurse Practitioner; Nurse Practitioner Family; Surgery; Admitting Provider Family Medicine; Emergency Provider Emergency Medicine; Visit Provider Student in an Organized Health Care Education/Training Program
PROC: 0FT44ZZ Resection of Gallbladder, Percutaneous Endoscopic Approach (ICD-10-PCS; CPT 47562; principal; 2022-07-25 09:30)
DX: O99.63 Diseases of the digestive system complicating the puerperium (principal); K80.64 Calculus of gallbladder and bile duct with chronic cholecystitis without obstruction; R79.89 Other specified abnormal findings of blood chemistry; E66.01 Morbid (severe) obesity due to excess calories; Z68.41 Body mass index [BMI] 40.0-44.9, adult; R82.90 Unspecified abnormal findings in urine; D50.9 Iron deficiency anemia, unspecified; R74.01 Elevation of levels of liver transaminase levels; F41.8 Other specified anxiety disorders; D72.829 Elevated white blood cell count, unspecified; K76.89 Other specified diseases of liver; N28.1 Cyst of kidney, acquired; Z79.899 Other long term (current) drug therapy
CPT/HCPCS: 47562; 36415; 74183; 76376; 76705; 80053; 81001; 81025; 83605; 83690; 83735; 84443; 85025; 85027; 85610; 85730; 87086; 88304; 96360; 96361; 96365; 96366; 96367; 99285; A9270; A9577; G0378; J0330; J0690; J1100; J2250; J2270; J2405; J2704; J2710; J3010; J3480; J7030; J7040; J7120

== ENCOUNTER 2023-03-10 13:34 | Emergency (ER) | payer OTHER, SELFPAY ==
--- NOTE | 2023-03-10 13:36 | ED.URI ---
HPI - URI/Sore Throat General Chief Complaint: Upper Respiratory Infection Stated Complaint: sore throat Time Seen by Provider: 03/10/23 13:36 Source: patient and RN notes reviewed History of Present Illness HPI Narrative: Patient is a 27-year-old female presents to urgent care with complaints a sore throat when opening the mouth, drainage and a mild cough. Patient states that a few weeks ago she had a mucus production cough and waited 3 weeks to be seen. Patient denies any recent fevers, nausea or vomiting. States that she has not taken anything [id number] for her recent sore throat. No other acute complaints. No acute distress noted. Patient aware of the plan of care. Some parts of this dictation were generated by voice recognition software and may contain typographical and/or grammatical inaccuracies. Related Data Home Medications Medication Instructions Recorded Confirmed escitalopram oxalate 20 mg tablet 20 mg PO DAILY 06/03/22 03/10/23 semaglutide (weight loss) 0.5 0.5 mg subcut WEEKLY 03/10/23 03/10/23 mg/0.5 mL subcutaneous pen injector (Wegovy) spironolactone 100 mg tablet 100 mg PO DAILY 03/10/23 03/10/23 Allergies Allergy/AdvReac Type Severity Reaction Status Date / Time No Known Allergies Allergy Verified 03/10/23 13:57 Review of Systems Review of Systems: CONSTITUTIONAL: Denies fever, chills, or sweats. EYES: Denies visual changes, redness, or discharge. ENT: Denies rhinorrhea, congestion, otalgia. Reports of sore throat postnasal drainage CARDIOVASCULAR: Denies chest pain, palpitations, or edema. RESPIRATORY: Reports mild cough GASTROINTESTINAL: Denies abdominal pain, nausea, vomiting, or diarrhea. GENITOURINARY: Denies dysuria or hematuria. SKIN: Denies rash or itching. MUSCULOSKELETAL: Denies back pain, joint pain, or myalgia. NEUROLOGIC: Denies headache, numbness, or weakness. All other systems reviewed are negative, except as documented in HPI. [facility] Past Medical History Medical History (Updated 03/10/23 @ 14:18 by BRANT Ramos) Anxiety Cholelithiasis Depression Depression with anxiety Elevated LFTs History of gestational diabetes History of pre-eclampsia HTN (hypertension) Iron deficiency anemia Nausea Obesity, morbid, BMI 40.0-49.9 Surgical History Surgical History (Updated 08/08/22 @ 10:25 by Dana Soriano) S/P cholecystectomy lap albert 07/25/22 Family History Family History Grandparent Colon cancer Breast cancer in female Depression Father Depression Mother Gallbladder disease Social History Social History Social History: the patient lives with her and her 5-week-old son. 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 She is a lifelong nonsmoker. She does not use any alcohol marijuana or illicit drugs. Her is the durable power uke driver. Code status full code Smoking status: Never smoker Alcohol intake: never Substance use: never Substance use type: does not use Lack of Transportation: No Lack of Food: Never True Current Housing: I Have Housing Concerned About Future Housing: No Difficulty Paying Gas/Electric Bills: No Difficulty Paying for Meds: No Currently Unemployed: No Education: Bachelor's Degree Difficulty w/ Childcare or Family Care: No Spiritual care concerns: No Comments At the time of my signature, I reviewed and agree with the nursing past medical, surgical, social, and family history. There is no relevant family history pertinent to the patient complaint. Exam Narrative: GENERAL: This is a well-nourished, well-developed patient, in no apparent distress. HEAD: normocephalic, atraumatic. EYES: PERRL. Sclera clear/white. Vision is grossly intact. EARS: External ears normal, auditory canals clear a
[2023-03-10 13:40] VITALS: BP 116/67; PULSE 96; RESP 20; TEMP 37.2; O2SAT 100
== END 2023-03-10 14:22 | disposition home or self-care (01) ==
PROVIDERS: Emergency Provider Nurse Practitioner Family
DX: J02.9 Acute pharyngitis, unspecified (principal); I10 Essential (primary) hypertension; D50.9 Iron deficiency anemia, unspecified; E66.01 Morbid (severe) obesity due to excess calories; Z68.41 Body mass index [BMI] 40.0-44.9, adult; F41.9 Anxiety disorder, unspecified; F32.A Depression, unspecified
CPT/HCPCS: 87081; 87880; 99213; G0463

== ENCOUNTER 2024-04-26 00:46 | Day surgery (SDC) | payer OTHER, SELFPAY ==
[2024-04-25 13:35] VITALS: BMI 43.9
--- NOTE | 2024-04-25 13:36 | PC.NURSE ---
Addendum entered by Danilo Severino RN 04/25/24 14:09: Upon arrival to the hospital parking lot, call [phone] and a nurse will meet you at the door with a mask and a wheelchair. You will be taken to a bathroom in preop to change then taken to the OR to preop. will not be able to go with you. Original Note: Report to the Outpatient Waiting Room, entrance under the green pavilion located off [facility], at time _1030_ on date _[id number]_. Planned Procedure Time: _1230_. Time changes happen often and if your time is changed the preop area will call you the afternoon before. - You and your visitor will be asked to self-screen and do not enter if you have any COVID symptoms. - A mask is optional within the hospital at this time. Patients may have clear liquids (water, carbonated beverages, clear teas, apple juice) until 3 hours prior to surgery with a maximum of 20 ounces. - No food from midnight until time of surgery Take the following medications with a SIP of water the morning of surgery: ____Escitalopram DO NOT STOP ANY OF YOUR OTHER PRESCRIPTION MEDICATIONS PRIOR TO SURGERY ?EXCEPT THE FOLLOWING Medications to discontinue per physician ____None Date to take last dose Please no make-up, nail turkish, hairspray, perfume, deodorant, or body powder the day of surgery. No jewelry (including any body piercings) or valuables the day of surgery, leave them at home. Please take a shower or bath the night before, or the morning of, surgery with an antibacterial soap. Wear comfortable, loose fitting clothing. - Jewelry must be removed prior to entering the operating room. Rings and piercings that are not removed may be cut off. - The hospital will not accept responsibility for valuables. - Please leave all valuables, including medications, at home the day of surgery. If you are going home after surgery, a licensed caterpillar driver must drive you home. - NO public transportation without another adult if you receive anesthesia. - We recommend that an adult stay with you for 24 hours following discharge. - We also recommend that you do not drive, make important decision, drink alcoholic beverages, or take any drugs that were not prescribed by your health care provider for at least 24 hours after your discharge time. Follow any additional instructions given to you from your surgeon. If you or anyone in your household have experienced Covid symptoms in the past week, please notify your surgeon or the nurse liaison at the phone number below for possible testing. Telephone instructions given to __Lucy___and asked if any additional questions and then verbalized understanding. Patient advised to call surgeon office or pre surgery nurse liaison [phone] if any additional questions.
--- NOTE | 2024-04-26 11:53 | PM.IMHP ---
H&P: HPI History of Present Illness Date/Time: 04/26/24 11:53 Chief Complaint: Miscarriage Narrative: 28 y/o at 12w4d gestation based on LMP. She transferred care to me and our first visit was yesterday. She said she had an ultrasound exam at 8 weeks which was normal and consistent with LMP. She began to have vaginal bleeding a few days ago. Also had a recent COVID infection 1-2 weeks ago. No cough. No fever. Ultrasound exam in the office yesterday showed an IUP with CRL only 9weeks size, and no cardiac motion. She is here for suction D&C. Review of Systems Review of Systems: All systems reviewed & are unremarkable except as noted in HPI and below PMFSH Past Medical History Medical History Anxiety Cholelithiasis Depression Depression with anxiety Elevated LFTs History of gestational diabetes History of pre-eclampsia HTN (hypertension) Iron deficiency anemia Nausea Obesity, morbid, BMI 40.0-49.9 Surgical History Surgical History S/P cholecystectomy lap albert 07/25/22 Family History Family History Grandparent Colon cancer Breast cancer in female Depression Father Depression Mother Gallbladder disease Social History Social History Social History: the patient lives with her and her 5-week-old son. 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 She is a lifelong nonsmoker. She does not use any alcohol marijuana or illicit drugs. Her is the durable power disability attorney. Code status full code Smoking status: Never smoker Alcohol intake: current Drinks per week: 1 Substance use: never Substance use type: does not use Lack of Transportation: No Lack of Food: Never True Current Housing: I Have Housing Concerned About Future Housing: No Difficulty Paying Gas/Electric Bills: No Difficulty Paying for Meds: No Currently Unemployed: No Education: Bachelor's Degree Difficulty w/ Childcare or Family Care: No Living arrangements: with family Spiritual care concerns: No Meds Home Medications and Allergies Home Medications Medication Instructions Recorded Confirmed Type escitalopram oxalate 20 mg tablet 20 mg PO DAILY 06/03/22 04/25/24 History multivitamin 1 tablet PO DAILY 04/25/24 04/25/24 History Allergies Allergy/AdvReac Type Severity Reaction Status Date / Time No Known Allergies Allergy Verified 04/25/24 13:28 Exam Const: Orientation/consciousness: patient oriented x3 Other: Well-developed, well-nourished female in no acute distress. Neck: Thyroid: thyroid normal Lymphatic: no lymphadenopathy noted (in neck, axilla or inguinal nodes) Resp: Effort & Inspection: normal respiratory effort Auscultation: clear to auscultation bilaterally Cardio: Rate: regular rate Rhythm: regular rhythm Heart sounds: S1 normal heart sound present and S2 normal heart sound present GI: Other: ABD: Soft, nontender, nondistended. No guarding or rebound tenderness. No hepatosplenomegaly. : General: Yes no CVA tenderness Other: External genitalia: normal female hair distribution, without lesion. Urethral meatus: no lesion, non prolapsed. Bladder: no mass, nontender Vagina: well-estrogenized, dark blood. No cystocele or rectocele. Cervix: closed. Uterus: Difficult to palpate due to body habitus, but generally consistent with 10-12 weeks size, anteverted, freely mobile, nontender Adnexa: no mass or tenderness. Anus/perineum: no lesions, nontender Back/Spine/Pelvis: Back: no CVA tenderness Skin: General skin exam: normal color and no rashes or lesions noted Neuro: General: patient oriented x3 Extrem: Other: Extremities: nontender with no edema
--- NOTE | 2024-04-26 12:09 | WPDHPUPDATE1 ---
History and Physical Update Update Date/Time: 04/26/24 12:09 History and Physical has been reviewed, including an updated exam of the patient. There are NO changes in the patient's condition. Risks, benefits, and alternatives have been discussed and questions answered. Patient agrees to proceed with procedure.
[2024-04-26] MEDS: ACETAMINOPHEN 500 MG TABLET 1000 MG PO (12:12)
[2024-04-26] MEDS: LACTATED RINGERS 1,000 ML 30 ML IV CONT (12:25)
[2024-04-26 12:30] VITALS: BP 136/99; PULSE 86; RESP 18; TEMP 37.1; O2SAT 97
--- NOTE | 2024-04-26 12:30 | WPDANESEPPF ---
Anes - Initial Pre Proc Eval Procedure: Operation Date: 04/26/24 12:30 Proposed Procedures p Suction Dilation and Curettage - Hilario Lennon MD Date/Time: 04/26/24 12:30 Surgeon: Hilario Lennon MD Pre Op Diagnosis: Missed AB Patient Data Age: 28 Gender: F Height: 1.7 m Weight: 127.3 kg Allergies Allergy/AdvReac Type Severity Reaction Status Date / Time No Known Allergies Allergy Verified 04/25/24 13:28 Home Medications Medication Instructions Recorded Confirmed Type escitalopram oxalate 20 mg tablet 20 mg PO DAILY 06/03/22 04/25/24 History multivitamin 1 tablet PO DAILY 04/25/24 04/25/24 History Patient hx anesthesia problems: none Family hx anesthesia problems: none Results Review: All pre-operative results and documents have been reviewed as part of the pre-operative evaluation. [facility] Past Medical History Medical History Anxiety Cholelithiasis Depression Depression with anxiety Elevated LFTs History of gestational diabetes History of pre-eclampsia HTN (hypertension) Iron deficiency anemia Nausea Obesity, morbid, BMI 40.0-49.9 Surgical History Surgical History S/P cholecystectomy lap albert 07/25/22 Family History Family History Grandparent Colon cancer Breast cancer in female Depression Father Depression Mother Gallbladder disease Social History Social History Social History: the patient lives with her and her 5-week-old son. 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 She is a lifelong nonsmoker. She does not use any alcohol marijuana or illicit drugs. Her is the durable power faculty neuropsychologist. Code status full code Smoking status: Never smoker Alcohol intake: current Drinks per week: 1 Substance use: never Substance use type: does not use Lack of Transportation: No Lack of Food: Never True Current Housing: I Have Housing Concerned About Future Housing: No Difficulty Paying Gas/Electric Bills: No Difficulty Paying for Meds: No Currently Unemployed: No Education: Bachelor's Degree Difficulty w/ Childcare or Family Care: No Living arrangements: with family Spiritual care concerns: No Anes - Eval Final PreProcedure Day of Procedure 04/26/24 12:30 Patient weight: morbidly obese Heart: regular rate and rhythm Lungs: clear to auscultation Airway: Mallampati scale class II Neurological: alert and oriented Last oral intake: >/= 8 hours ASA classification: III Emergent: no Anesthetic plan: proceed Anesthesia type and monitoring: general GIVS and standard monitoring Results Review: All pre-operative results and documents have been reviewed as part of the pre-operative evaluation. Informed Consent: The patient's anesthetic plan and its attendant risks and benefits were discussed with the patient/family/POA. Questions were solicited and answers provided to the satisfaction of the patient/family/POA.
[2024-04-26] MEDS: LIDOCAINE HCL 1% LOCAL INJ 20 ML VIAL 10 ML INFILTRATE (12:39)
--- NOTE | 2024-04-26 12:49 | P.OP_ITS ---
Procedure Note - Detailed Date of Procedure 04/26/24 Pre-op Diagnosis Missed SAB Post-op Diagnosis Same Procedure Performed Dilation and suction curettage Surgeon Hilario Lennon MD Anesthesia MAC and Local (1% lidocaine) Findings Products of conception noted. Description of Procedure The patient was taken to the operating room where she was prepared and draped in the usual sterile fashion in the dorsal lithotomy position. The bladder was drained with a red rubber catheter. A sterile speculum was placed into the vagina. The anterior lip of the cervix was grasped with a single-tooth tenaculum. Ten mL of 1% lidocaine was administered in a paracervical block. The cervix was gently dilated using Hegar dilators until an 8mm dilator could be passed. The 8mm curved tip suction curette was advanced. Suction curettage was performed and products of conception were aspirated. Sharp curettage was then performed until a good uterine cry was noted. A final pass with the suction curette was made. The tenaculum was removed. Hemostasis was excellent. S ponge, lap, needle and instrument counts were correct. The patient was taken to the recovery room in stable condition. I was present and scrubbed for the entire procedure. Implants None Estimated Blood Loss 50 Drains No Packing No Pathology Yes (Endometrial curettings) Complications None Condition Stable Disposition PACU
[2024-04-26 12:52] VITALS: BP 143/71; PULSE 75; RESP 16; TEMP 36.4; O2SAT 96
[2024-04-26] MEDS: KETOROLAC 30 MG/ML VIAL (*BKC) IV PUSH (12:53)
[2024-04-26 13:05] VITALS: BP 131/82; PULSE 67; O2SAT 95
[2024-04-26 13:31] VITALS: BP 132/80; PULSE 78; O2SAT 100
== END 2024-04-26 13:40 | disposition home or self-care (01) ==
PROVIDERS: PCP Nurse Practitioner Family; Visit Provider Obstetrics & Gynecology
PROC: (CPT 59820; principal; 2024-04-26 12:30)
DX: O02.1 Missed abortion (principal); F41.9 Anxiety disorder, unspecified; F32.A Depression, unspecified
CPT/HCPCS: 59820; 88305; A9270; J1885; J2250; J2704; J3010; J7120

== ENCOUNTER 2024-06-06 14:32 | Outpatient (CLI) | payer OTHER, SELFPAY ==
--- NOTE | ~2024-06-06 | MM_ITS ---
EXAMINATION: MM screening gabbie BI w isaura HISTORY: Screening mammogram TECHNIQUE: Craniocaudal and mediolateral oblique 3-D tomosynthesis images were obtained and synthetic 2-D images were generated. CAD analysis was submitted and interpreted. COMPARISON: No prior mammogram is available for comparison at this institution. BREAST PARENCHYMAL COMPOSITION:Not Dense. The breasts are almost entirely fatty FINDINGS: No suspicious mass, calcification, or architectural distortion are identified in either anton ast to suggest malignancy. There has been no suspicious interval change. IMPRESSION: No mammographic evidence of malignancy. Recommend routine screening mammography in one year. BI-RADS Category 1: Negative Reviewed, dictated and finalized at location .
== END 2024-06-06 14:33 | disposition home or self-care (01) ==
PROVIDERS: PCP Nurse Practitioner; Visit Provider Nurse Practitioner
DX: Z12.31 Encounter for screening mammogram for malignant neoplasm of breast (principal); Z80.3 Family history of malignant neoplasm of breast
CPT/HCPCS: 77063; 77067

== ENCOUNTER 2025-08-01 16:46 | Emergency (ER) | payer OTHER, SELFPAY ==
[2025-08-01 16:54] VITALS: BP 133/86; PULSE 81; RESP 18; TEMP 36.6; O2SAT 100
--- OUTSIDE RECORDS SUMMARY | 2025-08-01 17:01 | XMS_ITS | Clinical Summary ---
Author Organization [facility] Medical Office Building B Address [address] [place] [address] Care Team Providers Care Church Worker Name Role Phone Neisha Rowley NP Primary Care Provider [phone] Earline Hodgson MD Unavailable [phone] Dee Mooney DO Unavailable [phone] Allergies No known active allergies Medications multivitamin-Ca -iron-minerals (MULTIPLE VITAMIN, WOMENS) tablet 0 0 5 Active aspirin 81 mg enteric coated tablet Take 1 tablet (81 mg total) by mouth daily Active oxyCODONE (ROXICODONE) 5 mg immediate release tabletIndicatio ns:Pain Take 1 tablet (5 mg total) by mouth every 4 (four) hours as needed for pain 5 tablet 5 Active escitalopram (Lexapro) 20 mg tabletIndicatio ns:Anxiety disorder, unspecified type Take 1 tablet (20 mg total) by mouth daily 90 tablet 5 Active escitalopram (LEXAPRO) 20 mg tablet Take 1 tablet (20 mg total) by mouth daily 07/27/20 25 Discontinued Active Problems Problem Noted Date Diagnosed Date Acute pharyngitis 11/23/2023 Mixed anxiety and depressive disorder 09/12/2022 Morbid obesity with BMI of 40.0-44.9, adult 02/26 Overview (03/08/2019): See above problem note. 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 Assessment & Plan (06/13/2020 7:13 AM CDT): Encourage a weight loss program such as Weight Watchers incorporating dietary changes and aerobic / weight-bearing exercise at least 4-5 times per week, for at least 30-45 minute sessions. Assessment & Plan (03/08/2019 10:19 AM CDT): Encourage a weight loss program such as Weight Watchers incorporating dietary changes and aerobic / weight-bearing exercise at least 4-5 times per week, for at least 30-45 minute sessions. Encounters Date Type Department Care Team Description 07/24/2025 11:25 AM CDT Office Visit [facility] [address] [phone] Lorin Chen NP Postop check (Primary Dx) 07/24/2025 Orders Only [facility] [address] [phone] Dee Mooney DO 07/07/2025 Telephone [facility] [address] [phone] Zeenat Guerin RN high blood pressure 07/06/2025 12:45 PM CDT Office Visit [facility] [address] [phone] Dee Mooney DO 35 weeks gestation of (Primary Dx); Diet controlled gestational diabetes mellitus (GDM) in third trimester; Anxiety in in third trimester, antepartum; Monochorionic diamniotic twin , antepartum; History of pre-eclampsia in prior , currently in third trimester 06/29/2025 Telephone [facility] [address] [phone] Dee Mooney, 06/28/2025 10:15 AM CDT Office Visit [facility] [address], [place] [address] Dee Mooney, 34 weeks gestation of (Primary Dx); Anxiety in in third trimester, antepartum; Monochorionic diamniotic twin , antepartum; Diet controlled gestational diabetes mellitus (GDM) in third trimester; History of pre-eclampsia in prior , currently in third trimester 06/20/2025 1:40 PM CDT Office Visit [facility] [address], [place] [phone] Elzbieta Tilley NP 33 weeks gestation of (Primary Dx); Anxiety in in third trimester, antepartum; Monochorionic diamniotic twin , antepartum; Diet controlled gestational diabetes mellitus (GDM) in third trimester; History of pre-eclampsia in prior , currently in third trimester; Suspected damage to fetus from disease in mother, antepartum condition, single or unspecified fetus 06/14/2025 3:40 PM CDT Ancillary Procedure [facility] [address] [address]az, [place] [phone] 12 weeks gestation of 06/14/2025 2:30 PM CDT Office Visit [facility] [address] [address], [place] [phone] Dee Mooney, 32 weeks gestation of (Primary Dx); Anxiety in in third trimester, antepartum; Monochorionic diamniotic twin , antepartum; Diet controlled gestational diabetes mellitus (GDM) in third trimester; History of pre-eclampsia in prior , currently in third trimester; Suspected damage to fetus from disease in mother, antepartum condition, single or unspecified fetus 06/07/2025 3:25 PM CDT Office Visit [facility] [address] [address], [place] [address] Elzbieta Tilley NP 31 weeks gestation of (Primary Dx); Monochorionic diamniotic twin , antepartum; Diet controlled gestational diabetes mellitus (GDM) in third trimester; Anxiety in in third trimester, antepartum; History of gestational diabetes in prior , currently in third trimester 06/01/2025 1:40 PM CDT Office Visit [facility] [address], [place] [address] Lorin Chen NP Monochorionic diamniotic twin , antepartum (Primary Dx); Diet controlled gestational diabetes mellitus (GDM) in third trimester; Anxiety in in third trimester, antepartum; History of pre-eclampsia in prior , currently in third trimester; 30 weeks gestation of 05/23/2025 Documentation [facility] [address] [phone] Elzbieta Tilley NP 05/19/2025 9:25 AM CDT Office Visit [facility] [address] [phone] Elzbieta Tilley NP 28 weeks gestation of (Primary Dx); Monochorionic diamniotic twin , antepartum; Anxiety in in third trimester, antepartum; History of gestational diabetes in prior , currently in third trimester; History of pre-eclampsia in prior , currently in third trimester 05/10/2025 3:15 PM CDT Office Visit [facility] [address] [address] [phone] Dee Mooney DO 27 weeks gestation of (Primary Dx); Monochorionic diamniotic twin , antepartum; Anxiety in in second trimester, antepartum; History of pre-eclampsia in prior , currently in second trimester; History of gestational diabetes in prior , currently in second trimester 05/04/2025 Orders Only [facility] [address] [phone] Elzbieta Tilley NP Diet controlled gestational diabetes mellitus (GDM) in second trimester (Primary Dx) 05/04/2025 Results Follow-Up [facility] [address] [phone] Dee Mooney, Glucose Tolerance 3 Hour, Gestational, 4 Specimens (100g), CBC with auto differential, TEST AUTHORIZATION, Additional followed-up results: 3 05/03/2025 3:25 PM CDT Office Visit [facility] [address] [phone] Elzbieta Tilley, GERALD 26 weeks gestation of (Primary Dx); Monochorionic diamniotic twin , antepartum; Anxiety in in second trimester, antepartum; Elevated blood pressure affecting in second trimester, antepartum; History of pre-eclampsia in prior , currently in second trimester; History of gestational diabetes in prior , currently in second trimester; Vitamin D deficiency; Vitamin B12 deficiency from Last 3 Months Immunizations Immunization Administration Dates Next Due Flucelvax Influenza Quad 06/08/2020 HPV9 02/26/2021,01/24/2021 Influenza, Quadrivalent, Spl it, Preservative Free, Intramuscular 07/26/2019 Influenza, Trivalent, Cell Culture-based MDCK, Preservative Free, Antibiotic Free, Intramuscular 06/08/2020 Influenza, Unspecified 11/23/2023(Deferr ed: Patient Refused),09/28/2022(Deferred: Patient Refused),06/25/2022 Tdap 01/24/2021 Surgical History Surgery Date Site/Laterality Comments WISDOM TOOTH EXTRACTION CHOLECYSTECTOMY D&C FIRST TRIMESTER / TX INC OMPLETE / MISSED / SEPTIC / INDUCED 09/28/2023 - 09/27/2024 Medical History Medical History Date Comments Anxiety Depression History of diet-controlled gestational diabetes mellitus 2024 History of gestational hypertension 2024 Family History Medical History Relation Name Comments No Known Problems Brother Depression Father Breast cancer Father's Sister No Known Problems Half-Sister Colon cancer Maternal Grandmother Cancer, unknown; No Known Problems Mother Heart disease Other 1 great grandmother Heart dis ease; Arthritis Other 2 Family history of Arthritis; Hypertension Other 3 Family history of Hypertension; Breast cancer Paternal Grandmother Stroke Paternal Grandmother Relation Name Status Comments Brother Alive Father Alive Father's Sister Alive Half-Sister Alive Maternal Grandmother Mother Alive Other 1 great grandmother Other 2 Other 3 Paternal Grandmother Social History Tobacco Use Types Packs/Day Years Used Date Smoking Tobacco: Never Passive Smoke Exposure: Never Smokeless Tobacco: Never Tobacco Cessation:Counseling Given: Not Answered Alcohol Use Standard Drinks/Week Comments Yes 0 (1 standard drink = 0.6 oz pur e alcohol) socially PHQ-2 Answer Date Recorded PHQ-2 Total Score (If total score is 3 or more points, staff should administer the PHQ-9) 0 11/23/2023 Comments No Sex and Gender Information Value Date Recorded Sex Assigned at Not on file Legal Sex Female 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 Gender Identity Female 02/06/2025 7:27 AM CDT Sexual Orientation Not on file Obstetrics History Para Term AB IAB SAB Ectopic Multiple Livin g Live Births 3 2 1 1 1 0 0 0 1 3 3 Date Outcome GA Total Labor Labor/2nd/3rd Weight Sex Type Anes PTL Sharri A1 A5 Name Clin 2021 Term 38w 0d 2.693 kg (5 lb 15 oz) M Vag-Sp ont Livin g Complications:Pre eclampsia, Post Hemorrhage 2023 AB 9w0 d D&C 2024 35w 5d 0h 05m 0h 05m 3.07 kg (6 lb 12.3 oz) M C-S j incis Spinal Livin g 7 8 [id number] alejandro [place] boy DO Complications:None Delivery Location:[facility] ([facility] ) 2024 35w 5d 0h 02m 0h 02m 2.37 kg (5 lb 3.6 oz) M CS-LTr anv Spinal Livin g 8 9 [id number] alejandro [place] boy DO Complications:None Delivery Location:[facility] ([facility] ) Comments 07/08/2025 1LTCS@35.4 weeks, Dixon/Di twin boys, gHTN, GDMA1 Last Filed Vital Signs Vital Sign Reading Time Taken Comments Blood Pressure 130/88 07/24/2025 11:25 AM CDT Pulse 80 02/17/2025 10:56 AM CDT Temperature 37.1 C (98.7 F) 02/17/2025 10:56 AM CDT Respiratory Rate 16 02/17/2025 10:56 AM CDT Oxygen Saturation 98% 02/17/2025 10:56 AM CDT Inhaled Oxygen Concentration - - Weight 120.7 kg (266 lb) 07/24/2025 11:25 AM CDT Height 170.2 cm (5' 7.01) 07/24/2025 11:25 AM C DT Body Mass Index 41.65 07/24/2025 11:25 AM CDT Plan of Treatment Health Maintenance Due Date Last Done Comments Hepatitis C Screening 1995 Varicella Vaccines (1 of 2 - 13+ 2-dose series) 2008 Hepatitis B Screening 2013 HPV Vaccines (3 - 3-dose series) 07/26/2021 02/26/2021, 01/24/2021 Regular Well Visit/Exam 18-64 11/04/2024 11/04/2023, 06/12/2020, 03/08/2019, Additional history exists Depression Screening 11/23/2024 11/23/2023, 11/04/2023, 06/12/2020, Additional history exists Covid-19 Vaccine ( season) 2025 12/06/2021, 12/15/2020, 11/17/2020 Influenza Vaccine (#1) 2025 2, 06/20/2022, 06/08/2020, Additional history exists Cervical Cancer Screening 01/24/20262024, 03/08/2019, 12/30/2017 DTaP/Tdap/Td Vaccine (3 - Td or Tdap) 05/20/2032 05/20/2022, 01/24/2021 Pneumococcal vaccine <65 Aged Out No longer eligible based on patient's age to complete this topic Procedures Procedure Name Priority Date/Time Associated Diagnosis Comments GROUP B STREPTOCOCCUS CULTURE Routine 07/06/2025 2:08 PM CDT Diet controlled gestational diabetes mellitus (GDM) in third trimester Anxiety in in third trimester, antepartum Monochorionic diamniotic twin , antepartum History of pre-eclampsia in prior , currently in third trimester POCT URINALYSIS DIPSTICK Routine 07/06/2025 1:40 PM CDT 35 weeks gestation of POCT URINALYSIS DIPSTICK Routine 06/28/2025 10:20 AM CDT 34 weeks gestation of POCT URINALYSIS DIPSTICK Routine 06/20/2025 1:52 PM CDT 33 weeks gestation of POCT URINALYSIS DIPSTICK Routine 06/14/2025 3:41 PM CDT 32 weeks gestation of POCT URINALYSIS DIPSTICK Routine 06/07/2025 3:40 PM CDT 31 weeks gestation of POCT URINALYSIS DIPSTICK Routine 06/01/2025 1:50 PM CDT Monochorionic diamniotic twin , antepartum POCT URINALYSIS DIPSTICK Routine 05/19/2025 9:30 AM CDT 28 weeks gestation of POCT URINALYSIS DIPSTICK Routine 05/10/2025 3:18 PM CDT 27 weeks gestation of POCT URINALYSIS DIPSTICK Routine 05/03/2025 3:57 PM CDT 26 weeks gestation of VITAMIN D 25 HYDROXY Routine 05/03/2025 8:58 AM CDT VITAMIN B12 Routine 05/03/2025 8:58 AM CDT TEST AUTHORIZATION Routine 05/03/2025 8: 58 AM CDT CBC WITH AUTO DIFFERENTIAL Routine 05/03/2025 8:58 AM CDT GLUCOSE TOLERANCE 3 HOUR, GESTATIONAL, 4 SPECIMENS (100G) Routine 05/03/2025 8:58 AM CDT Abnormal GTT (glucose tolerance test) RPR TITER Routine 05/03/2025 8:58 AM CDT PAP, REFLEX HPV Routine 01/24/2025 12:03 PM CDT Routine gynecological examination from Last 3 Months or Most Recently Relevant to Health Maintenance Results * Group B streptococcal culture Vaginal/Rectal Cervical/vaginal (07/06/2025 2:08 PM CDT) Strep B culture, resp [facility] Comment: STREPTOCOCCUS, GROUP B CULTURE Micro Number: [id number] Test Status: Final Specimen Source: Vaginal/anorectal Specimen Quality: Adequate Result: No group B Streptococcus isolated Note per CDC guidelines optimal recovery is achieved by swabbing both the lower vagina and rectum (through the anal sphincter). Vaginal/Rectal (Cervical/vagina l) 07/06/2025 2:08 PM CDT 07/06/2025 2:08 PM CDT Dee Mooney DO LAB MICROBIOLOGY - GENE RAL ORDERABLES Final Result [facility] [address] [place] [address] * POCT urinalysis dipstick (07/06/2025 1:40 PM CDT) Pathologist [facility] Glucose, ur, POC Negative Negative Ketones, ur, POC Negative Negative Blood, ur, POC Negative Negative Protein, ur, POC Negative Negative Lot Number [id number] Urine 07/06/2025 1:40 PM CDT Dee Mooney DO POINT OF CARE TEST ORDE RABLES Final Result * (ABNORMAL) POCT urinalysis dipstick (06/28/2025 10:20 AM CDT) Glucose, ur, POC Negative Negative Ketones, ur, POC Negative Negative Blood, ur, POC Negative Negative Protein, ur, POC Trace(A) Negative Leukocytes, ur, POC Trace(A) Negative Lot Number [id number] Urine 06/28/2025 10:2 0 AM CDT Result [facility] Dee Alondra Mooney DO POINT OF CARE TEST ORDE RABLES Final Result * (ABNORMAL) POCT urinalysis dipstick (06/20/2025 1:52 PM CDT) Color, Urine, POC Yellow Clarity, ur, POC Clear Clear Glucose, ur, POC Negative Negative Ketones, ur, POC Negative Negative Blood, ur, POC Negative Negative Protein, ur, POC Trace(A) Negative Lot Number [id number] Urine 06/20/2025 1:52 PM CDT Result [facility] Elzbieta Tilley NP POINT OF CARE TEST ORDE RABLES Final Result * (ABNORMAL) POCT urinalysis dipstick (06/14/2025 3:41 PM CDT) Glucose, ur, POC Negative Negative Ketones, ur, POC 1+(A) Negative Blood, ur, POC Negative Negative Protein, ur, POC Negative Negative Lot Number [id number] Urine 06/14/2025 3:41 PM CDT Result [facility] Dee Alondra Mooney POINT OF CARE TEST ORDE RABLES Final Result * (ABNORMAL) POCT urinalysis dipstick (06/07/2025 3:40 PM CDT) Color, Urine, POC Yellow Clarity, ur, POC Clear Clear Glucose, ur, POC Negative Negative Ketones, ur, POC Negative Negative Blood, ur, POC Negative Negative Protein, ur, POC Trace(A) Negative Lot Number [id number] Urine 06/07/2025 3:40 PM CDT Result [facility] Elzbieta Tilley NP POINT OF CARE TEST ORDE RABLES Final Result * POCT urinalysis dipstick (06/01/2025 1:50 PM CDT) Glucose, ur, POC Negative Negative Ketones, ur, POC Negative Negative Blood, ur, POC Negative Negative Protein, ur, POC Negative Negative Lot Number [id number] Urine 06/01/2025 1:50 PM CDT Result [facility] Lorin Chen MEDICAL RECEPTIONIST ASSISTANT POINT OF CARE TEST ORDERABLES Final Result * POCT urinalysis dipstick (05/19/2025 9:30 AM CDT) Glucose, ur, POC Negative Negative Ketones, ur, POC Negative Negative Blood, ur, POC Negative Negative Protein, ur, POC Negative Negative Lot Number [id number] Urine 05/19/2025 9:30 AM CDT Result [facility] Elzbieta Tilley MEDICAL RECEPTIONIST ASSISTANT POINT OF CARE TEST ORDE RABLES Final Result * (ABNORMAL) POCT urinalysis dipstick (05/10/2025 3:18 PM CDT) Glucose, ur, POC Negative Negative Ketones, ur, POC 1+(A) Negative Blood, ur, POC Negative Negative Protein, ur, POC Trace(A) Negative Lot Number [id number] Urine 05/10/2025 3:18 PM CDT Result [facility] Dee Mooney DO POINT OF CARE TEST ORDE RABLES Final Result * (ABNORMAL) POCT urinalysis dipstick (05/03/2025 3:57 PM CDT) Color, Urine, POC Yellow Clarity, ur, POC Clear Clear Glucose, ur, POC Negative Negative Ketones, ur, POC Negative Negative Blood, ur, POC Negative Negative Protein, ur, POC Trace(A) Negative Lot Number [id number] Urine 05/03/2025 3:57 PM CDT Result [facility] Elzbieta Tilley MEDICAL RECEPTIONIST ASSISTANT POINT OF CARE TEST ORDE RABLES Final Result * (ABNORMAL) Glucose Tolerance 3 Hour, Gestational, 4 Specimens (100g) (05/03/2025 8:58 AM CDT) Glucose, fasting 78 65 - 94 mg/dL [facility] Glucose, 1 hour 206(H) <180 mg/dL [facility] Glucose, 100g, 2 hr, pl 157(H) <155 mg/dL [facility] Glucose, 100g, 3 hr, pl 68 <140 mg/dL [facility] Comment [facility] Comment: Sabillon/Josstvipin Criteria: Two or more values greater than the above reference intervals are suggestive of gestational diabetes. Serum 05/03/2025 8:58 AM CDT 05/03/2025 9:05 AM CDT Narrative [facility] - 05/04/2025 12:05 PM CDT FASTING:YES FASTING: YES us Dee Mooney DO LAB BLOOD ORDERABLES Fi nal Result [facility] [address] [facility] [place] [address] * TEST AUTHORIZATION (05/03/2025 8:58 AM CDT) Pathologist [facility] Test name VITAMIN D,25-OH,TOT AL,IA CIARAN [facility] [place] TEST CODE: [id number] [facility] [place] CLIENT CONTACT: ELZBIETA TILLEY [facility] [place] Report Always Message Signature [facility] [place] Comment: The laboratory testing on this patient was verbally requested or confirmed by the ordering physician or his or her authorized sales donor recruitment representative after contact with an employee of [facility]. Federal regulations require that we maintain on file written authorization for all laboratory testing. Accordingly we are asking that the ordering physician or his or her authorized sales donor recruitment representative sign a copy of this report and promptly return it to the client services coordinator. Signature: Comment [facility] [place] Comment: Fax number: [phone] 05/03/2025 8:58 AM CDT 05/03/2025 9:05 AM CDT Narrative [facility] - 05/04/2025 12:05 PM CDT FASTING:YES FASTING: YES Dee Mooney DO LAB BLOOD ORDERABLES Fi nal Result Performing Organization Address [facility] Co de Phone Number [facility] [facility] [address] [place] [address] * RPR Titer (05/03/2025 8:58 AM CDT) Pathologist [facility] RPR NON-REACTI VE NON-REACTI VE [facility] Comment: No laboratory evidence of syphilis. If recent exposure is suspected, submit a new sample in 2-4 weeks. 05/03/2025 8:58 AM CDT 05/03/2025 9:05 AM CDT Narrative [facility] - 05/04/2025 12:05 PM CDT FASTING:YES FASTING: YES Dee Mooney DO LAB MICROBIOLOGY - GENE RAL ORDERABLES Final Result Performing Organization Address [facility] de Phone Number [facility] [address] [place] [address] * (ABNORMAL) CBC with auto differential (05/03/2025 8:58 AM CDT) Pathologist [facility] WBC 12.2(H) 3.8 - 10.8 Thousand/u L [facility] RBC, POC 4.13 3.80 - 5.10 Million/uL [facility] Hgb 12.3 11.7 - 15.5 g/dL [facility] Hct 39.3 35.0 - 45.0 % [facility] MCV 95.2 80.0 - 100.0 fL [facility] MCH 29.8 27.0 - 33.0 pg [facility] MCHC 31.3(L) 32.0 - 36.0 g/dL [facility] Comment: For adults, a slight decrease in the calculated MCHC value (in the range of 30 to 32 g/dL) is most likely not clinically significant; however, it should be interpreted with caution in correlation with other red cell parameters and the patient's clinical condition. Rdw 12.6 11.0 - 15.0 % [facility] Platelets 263 140 - 400 Thousand/u L [facility] MPV 8.5 7.5 - 12.5 fL [facility] Neutrophils, abs 9,284(H) 1,500 - 7,800 cells/uL [facility] Lymphocytes, abs 2,062 850 - 3,900 cells/uL [facility] Monocyte abs 805 200 - 950 cells/uL [facility] Eosinophils, abs 24 15 - 500 cells/uL [facility] Basophils, abs 24 0 - 200 cells/uL [facility] Neutrophils 76.1 % [facility] Lymphocyte pct 16.9 % [facility] Monocytes 6.6 % [facility] Eosinophils 0.2 % [facility] Basophils 0.2 % [facility] 05/03/2025 8:58 AM CDT 05/03/2025 9:05 AM CDT Narrative [facility] - 05/04/2025 12:05 PM CDT FASTING:YES FASTING: YES us Dee Mooney DO LAB BLOOD ORDERABLES Fi nal Result [facility] [address] [address] * Vitamin D 25 hydroxy (05/03/2025 8:58 AM CDT) Pathologist [facility] Vitamin D 25-OH 33 30 - 100 ng/mL [facility] Comment: Vitamin D Status 25-OH Vitamin D: Deficiency: <20 ng/mL Insufficiency: 20 - 29 ng/mL Optimal: > or = 30 ng/mL For 25-OH Vitamin D testing on patients on D2-supplementation and patients for whom quantitation of D2 and D3 fractions is required, the [facility]ure[facility](TM) 25-OH VIT D, (D2,D3), LC/MS/MS is recommended: order code 01209 (patients >2yrs). See Note 1 Note 1 For additional information, please refer to http://education.[employer]/faq/XZV493 (This link is being provided for informational/ educational purposes only.) 05/03/2025 8:58 AM CDT 05/03/2025 9:05 AM CDT Narrative [facility] - 05/04/2025 12:05 PM CDT FASTING:YES FASTING: YES Dee Alondra Noblivity LAB BLOOD ORDERABLES nal Result Performing Organization Address [facility] de Phone Number [facility] [address] [place] [address] * Vitamin B12 (05/03/2025 8:58 AM CDT) [facility] Vitamin B12 247 200 - 1,100 pg/mL [facility] Comment: Please Note: Although the reference range for vitamin B12 is 200-1100 pg/mL, it has been reported that between 5 and 10% of patients with values between 200 and 400 pg/mL may experience neuropsychiatric and hematologic abnormalities due to occult B12 deficiency; less than 1% of patients with values above 400 pg/mL will have symptoms. 05/03/2025 8:58 AM CDT 05/03/2025 9:05 AM CDT Narrative [facility] - 05/04/2025 12:05 PM CDT FASTING:YES FASTING: YES Dee Alondra Noblivity LAB BLOOD ORDERABLES Fi nal Result Performing Organization Address [facility] Co de Phone Number [facility] [address] [facility] [address] * Pap, reflex HPV (01/24/2025 12:03 PM CDT) CLINICAL INFORMATION: [facility] Comment:None given LMP [facility] Comment:N/A Previous Pap [facility] Comment:NONE GIVEN Prev. Bx [facility] Comment:NONE GIVEN SOURCE: [facility] Comment:Cervix, Endocervix Pap, specimen adequacy [facility] Comment: Satisfactory for evaluation. Endocervical/transformation zone component present. Age and/or menstrual status not provided HPV interp [facility] Comment: Cytology Results: Negative for intraepithelial lesion or malignancy. COMMENTS [facility] Comment: This Pap test has been evaluated with computer assisted technology. [employer] Monique Bosch [facility] Comment: FCB, CT(ASCP) CT screening location: [facility], [address] [place] [address] [place] [address] Tavern Keeper: CHUCK DEVRIES MD, CLIA: [id number] Comment [facility] Comment: EXPLANATORY NOTE: The Pap is a screening test for cervical cancer. It is not a diagnostic test and is subject to false negative and false positive results. It is most reliable when a satisfactory sample, regularly obtained, is submitted with relevant clinical findings and history, and when the Pap result is evaluated along with historic and current clinical information. Thin prep 01/24/2025 12:0 3 PM CDT 01/25/2025 3:06 PM CDT us Dee Mooney DO LAB CYTOLOGY ORDERABLES Final Result [facility] In [address], [facility] [place] [address] from Last 3 Months or Most Recently Relevant to Health Maintenance Insurance [facility] CHOICE PLUS [facility] CHOICE PLUS Care Teams Church Worker Relationship Specialty Start Date End Date Neisha Rowley NP [address] [address] PCP - General Family Medicine 11/04/23 Earline Hodgson MD [address] [place] [address] Referring Physician Obstetrics and Gynecology 11/04/23 [place] [address] [place] [address] Consulting Physician Obstetrics and Gynecology 01/19/25
--- OUTSIDE RECORDS SUMMARY | 2025-08-01 17:01 | XMS_ITS | Encounter Summary ---
Author Organization [employer] Address [address] [place] [address] Care Team Providers Care Oil [employer] Lease Pumper Name Role Phone Unavailable Primary Care Provider Unavailabl e Encounter Details Date Type Department Care Team (Late st Contact Info) Description 05/05/2025 Telephone Zoom Diabetes Education [address] [facility] [address] [place] [phone] Tahmina Palomino, RD [address] [place] [address] Social History Tobacco Use Types Packs/Day Years Used Date Smoking Tobacco: Never Assessed Feeling Safe Answer Date Recorded Are you in a relationship wi th someone who hurts you emotionally and/or physically? No 05/08/2025 Comments Yes Sex and Gender Information Value Date Recorded Sex Assigned at Not on file Legal Sex Female 12:56 PM CDT Gender Identity Not on file Sexual Orientation Not on file documented as of this encounter Miscellaneous Notes * Telephone Encounter - Tahmina Palomino, RD - 05/05/2025 4:42 PM CDT Received referral from Dr. Mooney re: request for DM Education. DM Educator (myself) on vacation until May 15, 2025 and will return April. I attempted to call pt x 2 to discuss nutrition and blood glucose monitoring guidelines until pt isable attend virtual DM Ed Class when I return. No answer on phone, LMOR informing pt I would email her guidelines to follow until formal class on May 16, 2025 is provided. Will reach out to pt again once I return from vacation. See guidelines provided to pt below: Maintain a smaller breakfast - for example: a serving of protein and whole grain toast with milk ORserving of protein, fruit and milk - maintaining no more than 30 grams of carbohydrate at this meal. For lunch and dinner - maintaining 45-60 grams of carbohydrate while including protein (at least 3 oz each meal) and a serving of vegetables. For snacks - including 15 -30 grams of carbohydrate paired with healthy protein (egg/cheese/peanut butter/cottage cheese as some examples) Avoid sugar sweetened beverages of any type such as regular soda, fruit punch, brissa-aid, sports drinks and energy drinks If you aren't on any activity restrictions and Dr. Mooney allows exercise - try to walk 10 minutes after lunch and dinner if possible. Monitor your blood sugar before breakfast - goal is <100, and monitor 2 hours after each meal - goal is <120. documented in this encounter Plan of Treatment Not on file documented as of this encounter Visit Diagnoses Not on filedocumented in this encounter
--- OUTSIDE RECORDS SUMMARY | 2025-08-01 17:01 | XMS_ITS | Encounter Summary ---
Author Organization [employer] Address [address] [place] [address] Care Team Providers Care Renewal Specialist Name Role Phone Unavailable Primary Care Provider Unavailabl e Encounter Details Date Type Department Care Team (Late st Contact Info) Description 05/16/2025 Telephone Concept Inbox Diabetes Education [address] [facility] [address] [place] [phone] Tahmina Palomino, RD [address] [place], [place] [id number] Social History Tobacco Use Types Packs/Day Years Used Date Smoking Tobacco: Never Smokeless Tobacco: Never Alcohol Use Standard Drinks/Week Comments Not Currently 0 (1 standard drink = 0.6 oz pur e alcohol) Feeling Safe Answer Date Recorded Are you [...] Notes * Telephone Encounter - Tahmina Palomino, MANAN - 05/16/2025 3:00 PM CDT Left message on pt voice mail this morning encouraging pt to return call to schedule appt for GDM management. Pt replied via email - see below: Los Roberts, Thank you for calling again and apologize we keep missing each other! I hope you enjoyed your time out of office and that it was for something fun! I have had GD in my last . So I'm aware of reading labels, monitoring my glucose levels and average number of carbs per meal etc. I have been tracking and all my levels since your initial call; they have been within normal range through diet change. I think things are going well despite a strong desire for ice cream lol. However, if you feel we still need to schedule a meeting, please let me know if you have any available time . I do not have Teams but I can Zoom or take a phone call. Lucy Jackson I replied with the following email: Thank you Lucy! It sounds like you feel comfortable with gestational diabetes management based on your history- I do believe the decision to make an appt needs to come from you. If you want to discuss with Dr. Mooney and let me know - that's fine on my end!! Our education day is Tuesdays, so I am sorry but I'm not available on . I'm sure we will connect - and the best decision will be made. Until then, keep monitoring your blood glucose and continue with the dietary changes. Take care Alejandra Ayala Will follow up with pt as deemed appropriate. documented in this encounter Plan of Treatment Not on file documented as of this encounter Visit Diagnoses Not on filedocumented in this encounter
--- OUTSIDE RECORDS SUMMARY | 2025-08-01 17:01 | XMS_ITS | Data Portability ---
Author Organization [facility] Address [address] [place] [address] [place] [address] Care Team Providers Care Epic Analyst Name Role Phone MYLES NOLEN Primary Care Provider BRAYDEN FOREMAN Primary Care Provider Assessment No assessment recorded. Plan of Treatment Reminders Order Date Submit Date Provider Last Modified By Organization Details Last Modified Time Details Appointments None recorded. Lab None recorded. Referral None recorded. Procedures None recorded. Surgeries None recorded. Imaging US, obstetric, nuchal translucenc y 2024 025 [email or web address] [facility], [address], [address], [place], [address], 14:55:01 US, obstetric, nuchal translucenc y, additional gestation 2024 025 LOYDA [facility], [address], [address], [place], [address], 17:55:40 US, obstetric, limited 2024 025 [email or web address] [facility], [address], [address], [place], [address], 14:13:26 US, obstetric, transvagina l 2024 025 [email or web address] [facility], [address], [address], [place], [address], 19:29:43 Medication Orders metoclopram indy 10 mg tablet 2024 025 [id number], [address] , [place], [place], [id number], 12:40:58 Patient TargetsNo targets recorded. Patient InstructionsNo instructions recorded. Reason for Referral None Reported. Results Created Date Observation Date Name Description Value Unit Range Abnormal Flag Note LastModifiedBy Organization Detail LastModifiedTime 12/08/1912/07/2024 BHCG, QUANT ITATI VE B-HCG 03389. 0 mIU/m L 0.0-4. 9 high This assay was perfo rmed using [employer] n reage nts and test kits. Value s obtai doris with other assay metho ds or kits canno t be used inter black eably . Refer ence Range s: Non-p regna nt, preme nopau zachary women : 0.0-4 .9 mIU/m L Postm enopa usal women : 0.0-7 .0 mIU/m L Christine l Pregn wiliam: Gesta sam l Age bHCG Conc. - mIU/m L 3 Weeks 5.8 - 71.7 4 Weeks 9.5 - 750 5 Weeks 217-7 138 6 Weeks 158 - 31,79 5 7 Weeks 3,697 - 162,5 63 8 Weeks 32,06 5 - 149,5 71 9 Weeks 63,80 3 - 151,4 10 10 Weeks 46,50 9 - 186,9 77 12 Weeks 27,83 2 - 210,6 12 14 Weeks 13,95 0 - 62,53 0 15 Weeks 12,03 9 - 70,97 1 16 Weeks 9,040 - 56,45 1 17 Weeks 8,175 - 55,86 8 18 Weeks 8,099 - 58,17 6 Not Available [facility] (Lab) [address], [place], [address], 12/08/2024 04:47:43 12/10/1912/09/2024 BHCG, QUANT ITATI VE B-HCG 10896. 0 mIU/m L 0.0-4. 9 high This assay was perfo rmed using [employer] reage nts and test kits. Value s obtai doris with other assay metho ds or kits canno t be used inter black eably . Refer ence Range s: Non-p regna nt, preme nopau zachary women : 0.0-4 .9 mIU/m L Postm enopa usal women : 0.0-7 .0 mIU/m L Christine l Pregn wiliam: Gesta sam l Age bHCG Conc. - mIU/m L 3 Weeks 5.8 - 71.7 4 Weeks 9.5 - 750 5 Weeks 217-7 138 6 Weeks 158 - 31,79 5 7 Weeks 3,697 - 162,5 63 8 Weeks 32,06 5 - 149,5 71 9 Weeks 63,80 3 - 151,4 10 10 Weeks 46,50 9 - 186,9 77 12 Weeks 27,83 2 - 210,6 12 14 Weeks 13,95 0 - 62,53 0 15 Weeks 12,03 9 - 70,97 1 16 Weeks 9,040 - 56,45 1 17 Weeks 8,175 - 55,86 8 18 Weeks 8,099 - 58,17 6 Not Available [facility] (Lab) [address] [place], [address], 12/10/2024 04:05:00 12/27/19 25 12/26/2024 CT/GC AND TRICH OMONA S VAGIN ANNEMARIE (RRNA ), URINE chlamydia trachomatis, PCR Negati ve negati ve Not Available [facility] (Lab) [address] [place], [address], 12/27/2024 14:30:04 12/27/19 25 12/26/2024 CT/GC AND TRICH OMONA S VAGIN ANNEMARIE (RRNA ), URINE neisseria gonorrhoeae, PCR Negati ve negati ve Not Available [facility] (Lab) [address] [place], [address], 12/27/2024 14:30:04 03/31/12/26/2024 CT/GC AND TRICH OMONA S VAGIN ANNEMARIE (RRNA ), URINE trichomonas vaginalis ribosomal RNA (rrna) Negati ve negati ve Not Available [facility] (Lab) [address], [place], [address], 12/27/2024 14:30:04 12/15/19 25 12/14/2024 US, obste tric, follo w-up No observ ation record ed. [address], [place], [address], 12/15/2024 18:24:50 12/15/19 25 12/14/2024 US, obste tric, trans vagin al No observ ation record ed. [email or web address] [facility] [address], [place], [address], 12/14/2024 15:43:57 12/27/19 25 12/26/2024 US, obste tric, 1st trime ster No observ ation record ed. [email or web address] [facility] [address], [place], [address], 12/27/2024 14:15:39 01/04/20 25 01/03/2025 US, obste tric, limit ed No observ ation record ed. [email or web address] [facility] [address], [place], [address], 01/03/2025 14:12:21 01/04/20 25 01/03/2025 US, obste tric, limit ed No observ ation record ed. [email or web address] [facility] [address], [place], [address], 01/03/2025 22:33:38 01/24/20 25 01/23/2025 US, obste tric, nucha l trans lucen cy No observ ation record ed. LOYDA [facility] [address], [place], [address], 07/07/2025 23:32:32 01/24/20 25 01/23/2025 US, obste tric, nucha l trans lucen cy No observ ation record ed. [facility] [address], [place], [address], 01/23/2025 17:55:30 01/24/20 25 01/23/2025 US, obste tric, nucha l trans lucen cy, addit ional gesta tion No observ ation record ed. [facility] [address], [place], [address], 01/23/2025 17:55:40 Result Notes None recorded. 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 2 13:09:43 Maternal obesity complica ting pregnanc y, childbir th and the puerperi um, antepart um 0450495867 07 Completed BMI 42. already doing 32w ante testing Angeles Bohnenstieh l null, [facility] 2 13:09:43 Mixed anxiety and depressi ve disorder 356055570 Completed lexapro 20, wants to stay on Angeles Bohnenstieh l null, [facility] 2 13:09:43 Myasthen ia gravis 84551379 Completed all extremit y weakness - potentia l? pt to set up appt with PCP - l/m for r/c to see if this was set up and if they've complete d any labwork. 03/03 Earline Hodgson MD [address], [place], [address], [facility] 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 2 13:09:43 Mixed anxiety and depressi ve disorder 839888433 Active lexapro 20, wants to stay on Angeles Kassidytieh l null, [facility] 2 13:09:43 Maternal obesity complica ting pregnanc y, childbir th and the puerperi um, antepart um 3981233198 07 Active BMI 42. already doing 32w ante testing Angeles Yitieh l null, [facility] 2 13:09:43 Gestatio nal diabetes mellitus 36235256 Completed BS QID antenata l testing Angeles Yitieh l null, [facility] 2 13:09:43 Gestatio nal diabetes mellitus 38520362 Completed 10/10/2024 BS QID antenata l testing KIM EDGAR MD [address], [place], [address], [facility] 5 22:04:34 Pregnanc y 47393129 Completed 202107/21/2022 Angeles Yitieh l null, [facility] 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 3 16:27:53 Problem Notes None recorded. Procedures Surgical History Date Name Laterality Status Provider Name and Address Organization Details Recorded Time 4 Dilation and Curettage completed [facility] 10/10/2024 14:15:52 3 Date of Last Pap Smear completed [facility] 10/10/2024 14:15:10 Imaging Results None recorded. Procedure Notes None recorded. Medical Equipment None Reported. Allergies No known drug allergies Medications Name Sig Start Date Stop Date Status Note LastModified by Organization Details LastModified Time labetalol 200 mg tablet TAKE 1 TABLET BY MOUTH TWICE DAILY 03/19 completed Not Available Not Available Not Available fluconazole 150 mg tablet TAKE 1 TABLET BY MOUTH EVERY 72 HOURS FOR 6 DAYS 06/25 completed Not Available Not Available Not Available benzonatate 200 mg capsule 03/28 completed Not Available Not Available Not Available cephalexin 250 mg capsule TAKE 1 CAPSULE BY MOUTH EVERY 8 HOURS FOR 7 DAYS 07/15 completed Not Available Not Available Not Available hydrocodone 5 mg-acetamin ophen 325 mg tablet TAKE 1 TO 2 TABLETS BY MOUTH EVERY 6 HOURS NEEDED FOR PAIN 10/10 completed Not Available Not Available Not Available prednisone 20 mg tablet 03/28 completed Not Available Not Available Not Available spironolact one 100 mg tablet TAKE 1 TABLET BY MOUTH EVERY DAY 03/28 completed Not Available Not Available Not Available meclizine 12.5 mg tablet 03/28 completed Not Available Not Available Not Available lidocaine HCl 2 % mucosal jelly APPLY THIN LAYER TOPICALLY TO HEMORRHOI DS FOUR TIMES DAILY NEEDED FOR PAIN 10/15 completed Not Available Not Available Not Available hydrocortis one 2.5 % topical cream with perineal applicator APPLY THIN LAYER TOPICALLY TO THE AFFECTED AREA 2 TO 4 TIMES DAILY 10/15 completed Not Available Not Available Not Available metoclopram indy 5 mg tablet Take 1 tablet every 6 hours by oral route. 12/14 completed Not Available Not Available Not Available hydroxyzine HCl 25 mg tablet TAKE 1 TABLET BY MOUTH TWICE DAILY NEEDED 01/16 completed Not Available Not Available Not Available diclofenac sodium 50 mg tablet,noé yed release TAKE 1 TABLET BY MOUTH DAILY 12/14 completed Not Available Not Available Not Available gabapentin 100 mg capsule TAKE 2 CAPSULES BY MOUTH AT BEDTIME 10/15 completed Not Available Not Available Not Available triamcinolo ne acetonide 0.1 % lotion APPLY TOPICALLY TO THE SCALP TWICE DAILY 12/26 completed Not Available Not Available Not Available lisinopril 10 mg-hydrochl orothiazide 12.5 mg tablet TAKE 1 TABLET BY MOUTH DAILY 12/24 completed Not Available Not Available Not Available estradiol 0.01% (0.1 mg/gram) vaginal cream APPLY A PEA SIZED AMOUNT TOPICALLY TO CLITORAL AREA NIGHTLY 04/03 completed Not Available Not Available Not Available labetalol 100 mg tablet TAKE 1 TABLET BY MOUTH TWICE DAILY 06/25 completed Not Available Not Available Not Available fluticasone propionate 50 mcg/actuati on nasal spray,suspe nsion SHAKE LIQUID AND USE 1 TO 2 SPRAYS IN EACH NOSTRIL DAILY DIRECTED 10/09 completed Not Available Not Available Not Available metoclopram indy 10 mg tablet TAKE 1 TABLET BY MOUTH FOUR TIMES DAILY NEEDED active Not Available Not Available No t Available amoxicillin 875 mg-potassiu m clavulanate 125 mg tablet TAKE 1 TABLET BY MOUTH TWICE DAILY FOR 7 DAYS 03/28 completed Not Available Not Available Not Available clindamycin phosphate 1 % topical solution APPLY TOPICALLY TO FACE DAILY 12/26 completed Not Available Not Available Not Available escitalopra m 10 mg tablet TAKE 1 TABLET BY MOUTH EVERY DAY IN THE MORNING 01/16 completed Not Available Not Available Not Available escitalopra m 20 mg tablet TAKE 1 TABLET BY MOUTH EVERY DAY 2024 active Not Available Not Available Not Avai lable bupropion HCl XL 300 mg 24 hr tablet, extended release TAKE 1 TABLET BY MOUTH EVERY DAY 10/09 completed Not Available Not Available Not Available bupropion HCl XL 150 mg 24 hr tablet, extended release TAKE 1 TABLET BY MOUTH EVERY DAY 04/03 completed Not Available Not Available Not Available escitalopra m 5 mg tablet TK 1 T PO QD IN THE MORNING 01/16 completed Not Available Not Available Not Available estradiol 03/14 completed Not Available Not Available Not Available active Not Available Not Avai lable Not Available FeroSul 325 mg (65 mg iron) tablet TAKE 1 TABLET BY MOUTH EVERY DAY 10/15 completed Not Available Not Available Not Available OneTouch Verio test strips 10/15 completed Not Available Not Available Not Available Estarylla 0.25 mg-0.035 mg tablet TAKE 1 TABLET BY MOUTH DAILY CONTINUOU SLY 07/09 completed Not Available Not Available Not Available Saxenda 3 mg/0.5 mL (18 mg/3 mL) subcutaneou s pen injector 03/28 completed Not Available Not Available Not Available Finacea 15 % topical foam APPLY TO FACE TWICE DAILY 12/26 completed Not Available Not Available Not Available Onexton 1.2 % (1 % base)-3.75 % topical gel with pump 10/15 completed Not Available Not Available Not Available OneTouch Delica Plus Lancet 33 gauge USE TO TEST BLOOD SUGARS FOUR TIMES DAILY 10/15 completed Not Available Not Available Not Available Aklief 0.005 % topical cream 03/28 completed Not Available Not Available Not Available OneTouch Verio Reflect Meter USE TO TEST BLOOD SUGARS 10/15 completed Not Available Not Available Not Available COVID-19 test specimen collection TEST DIRECTED 01/16 completed Not Available Not Available Not Available Wegovy 1 mg/0.5 mL subcutaneou s pen injector Inject 1 mg every week by subcutane ous route. 03/28 completed Not Available Not Available Not Available Wegovy 0.5 mg/0.5 mL subcutaneou s pen injector INJECT 0.5 MG UNDER THE SKIN EVERY WEEK 03/28 completed Not Available Not Available Not Available Vitals Date Recorded Body height Body mass index (BMI) Body weight Systolic And Diastolic Provider Name and Address Organization Details Last Updated DateTime 12/26/2024 172.72 cm 43 kg/m2 615663.64 g 126/85 mm[Hg] JAIME Hurley [facility] 12/26/2024 12:11:40 Social History Question Answer Notes LastModified by Organizat ion Details LastModified Time Tobacco Smoking Status Never Smoker Brayden nichols [facility] 03/14/2021 14:53:22 Do You Have An Advance Directive? No Information n ot available 01/16/2021 How Many Years Have You Consumed Alcohol? 7 Information not available 03/28/2024 Are You Blind Or Do You Have Difficulty Seeing? No Information n ot available 01/16/2021 What Is Your Level Of Caffeine Consumption? Moderate Information not available 03/28/2024 How Much Tobacco Do You Chew? None [email or web address] Information not available 01/16/2021 In The 14 Days Before Symptom Onset, Have You Had Close Contact With A Laboratory-confirm ed COVID-19 While That Case Was Ill? No [email or web address] Information n ot available 01/16/2021 In The 14 Days Before Symptom Onset, Have You Had Close Contact With A Person Who Is Under Investigation For COVID-19 While That Person Was Ill? No [email or web address] Information not available 01/16/2021 Have You Been To An Area Known To Be High Risk For COVID-19? No [email or web address] Information not available 01/16/2021 Are You Deaf Or Do You Have Serious Difficulty Hearing? No [email or web address] Information not available 01/16/2021 What Type Of Diet Are You Following? REGULAR Information n ot available 01/16/2021 What Is The Highest Grade Or Level Of School You Have Completed Or The Highest Degree You Have Received? AD91522-3 [email or web address] Information not available 01/16/2021 Are There Any Guns Present In Your Home? Yes [email or web address] Information not available 01/16/2021 Do You Use Protection During Sex? No Information not available 03/28/2024 Do You Use Your Seat Belt Or Car Seat Routinely? Yes [email or web address] Information not available 01/16/2021 Are You Sexually Active? Yes Information not available 10/14/2024 Do You Have Smoke And Carbon Monoxide Detectors In Your Home? Yes [email or web address] Information not available 01/16/2021 How Much Tobacco Do You Smoke? No [email or web address] Information not available 01/16/2021 Do You Use Sunscreen Routinely? Yes Information not available 01/16/2021 Have You Used IV Drugs? No [email or web address] Information not available 01/16/2021 Do You Have Difficulty Walking Or Climbing Stairs? No [email or web address] Information not available 10/14/2024 Sex: Unknown Functional Status Question Answer Note LastModified by Organizat ion Details LastModified Time Do you use any illicit or recreational drugs? No [email or web address] Information not available 01/16/2021 What is your level of alcohol consumption? Occasional [email or web address] Information not available 01/16/2021 Are you currently employed? Yes [email or web address] Information not available 10/14/2024 Are you able to walk independently without assistance or assistive devices? YESWOREST [email or web address] Information not available 01/16/2021 Are you able to care for yourself independently? 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 No [email or web address] Information not available 10/14/2024 What is your exercise level? Moderate Information not available 01/16/2021 Mental Status Question Answer Note LastModified by Organization D etails LastModified Time Do you feel stressed (tense, restless, nervous, or anxious, or unable to sleep at night)? [id number] Information not available 03/28/2024 Family History Relationship Description Onset Age of this Age Resolved Age Notes LastModified by Organization Details LastModified Time Maternal Grandmother Malignant neoplasm of colon Not available 2020 15:57:37 Father Depressive disorder [email or web address] Not available 2020 15:57:37 Father Anxiety disorder Not available 2020 15:57:37 Unspecified Relation Heart disease [email or web address] Not available 2020 15:57:37 Paternal Aunt Malignant neoplasm of breast [email or web address] Not available 2020 15:57:37 Sister Anxiety disorder [email or web address] Not available 2020 15:57:37 Paternal Grandmother Depressive disorder [email or web address] Not available 2020 15:57:37 Paternal Grandmother Anxiety disorder [email or web address] Not available 2020 15:57:37 Paternal Grandmother Malignant neoplasm of breast [email or web address] Not available 2020 15:57:37 Medical History Condition Response Allergies (Food, seasonal, environmental ) N Other N Blood Transfusion N Drug/Latex Allergies/Reactions N Breast Cancer N Dermatologic Disorders N Lung Disease N Defects or Inherited Disease N Breast Problem N Gestational Diabetes N Hematologic disorders N Anesthesia Complications N History of STI N Deep Vein Thrombosis N Polycystic ovary syndrome N Anxiety Disorder Y Autoimmune disease N Arthritis N Infertility N Polyps N Acid Reflux (GERD) N History of abnormal pap N Cancer N Stroke N Varicosities N Neurologic/Epilepsy N Endometriosis N High Cholesterol N Headaches N Fibromyalgia N Kidney Disease N Heart Problems N Kidney or Bladder Problems N Thyroid Problems N GI Problems N Eating Disorder N Anemia N Art (IVF or FET) N Psychiatric Illness N Ovarian Cancer N Diabetes N Pulmonary (TB, Asthma) N Hepatitis/Liver Disease N No Past Medical History N Eczema N Urinary Tract Infection N Abuse/Domestic Violence N Asthma N Trauma/Violence N Depression/ depression Y Heart Disease N Pre-Eclampsia N Hypertension Y Osteoporosis N Thrombophilias N Gynecological History Statement/Question Response Flow Moderate Date of LMP 10/31/2024 On BCP's at Conception? N Was last menstrual period normal Y STIs/STDs N HPV Vaccine Y Duration of Flow (days) 4 Current Control Method None Age at First Child 26 Are cycles usually normal N Frequency of Cycle (Q days) 26 Sexually Active? Y Menses Monthly N Age of first menstrual cycle 12 Date of Last Pap Smear 10/15/2022 Sexual Problems? N LMP Definite N Obstetrics History GPAL:G 2 P 1 0 1 1 Type Value Full Term 1 Spontaneous 1 Living 1 Total 2 Past Encounters Encounter ID Performer Location Encounter Start Date Encounter Closed Date Diagnosis/Indication Diagnosis SNOMED-CT Code Diagnosis ICD10 Code Diagnosis IMO Codes Diagnosis Note [id number] Jesica Mack [facility] [address] [address] 01/16/2021 15:52:37 01/17/2021 15:28:43 Dyspareunia [id number] N94.10 N94.810 Questionab le hypoestrog enic effects to vulvar and vulvovagin al glands as witnessed with qtip scores. We discussed good VCG's and Trial of estrace cream topically to clitoris & vaginal opening coupled with VCG's to see if we can eilicit any improvment in clitoral or other gland discomfort . In addition, we did discuss the possibilit y of d/c hormonal control; can consider paraguard as a non-hormon al option; but it is possible that she is having hypoestrog enic effects from continuous use BC especially related to the down regulating effects progestero ne can have in her pills. Will re-evaluat e this possibilit y moving forward if no improvemen t is being made over the next 3mos. PFM involvemen t recommend PT-Interna l therapy retrain the pelvic floor muscles. We agreed to f/u in 4wks first to discuss progress with vulva; then, we revisit need for PT. She was given a handout to read about PFD. She has a lot of anxiety over this so we agreed to move slowly with our plan. She is grateful. Will r/o infection by sending cx's. Reduced libido [id number] R 68.82 Feeling overwhelme d. Blood work to be completed at next visit. Option to trial Addyi or T-cream topically or simply addition of wellbutrin (although want to be careful of not provoking anxiety). CBC/CMP/TS H/LIpids done by her PCP wnl. [id number] KEVIN [facility] [address] [address] 03/14/2021 14:51:28 03/14/2021 15:25:08 Reduced libido [id number] R68.82 We agreed to trial of wellbutrin XL 150mg and we will f/u in 2-4wks. Counseled on medication R/B's, Most common side effects, & use. All questions were answered to patient satisfacti on. Will continue PT.Can stop estrace cream. Time spent in visit is a total of 15 mins with at least 50% of visit consisting of counseling and review of plan of care. Additional precaution ritu measures were taken to minimize potential exposure to the Covid-19 virus during this patient s visit, including available hand state pilot upon arrive, temperatur e check and being asked a series of screening questions. All staff wore face coverings during this encounter, as well as provided additional cleaning and sanitizing of all surfaces, including countertop s, pens, chairs, door handles, light switches, etc, prior to and following the patient s visit. [id number] Jesica Mack [facility] [address],[facility] [place] [address] 04/03/2021 11:32:27 04/03/2021 14:04:41 Reduced libido [id number] R68.82 We agreed to trial of wellbutrin XL 300mg and we will f/u in 8wks Counseled on medication R/B's, Most common side effects, & use. All questions were answered to patient satisfacti on. Will continue PT. Time spent in visit is a total of 15 mins with at least 50% of visit consisting of counseling and review of plan of care. Additional precaution ritu measures were taken to minimize potential exposure to the Covid-19 virus during this patient s visit, including available hand state pilot upon arrive, temperatur e check and being asked a series of screening questions. All staff wore face coverings during this encounter, as well as provided additional cleaning and sanitizing of all surfaces, including countertop s, pens, chairs, door handles, light switches, etc, prior to and following the patient s visit. [id number] [facility] [address],[facility] [place] [address] 07/09/2021 16:22:51 07/09/2021 17:02:17 Reduced libido [id number] R68.82 F52.22 1 Low libidoFail ed wellbutrin trialDiscu ssed vyleesi & addyiStopp ed her OCP but has only been off x 1mos We discussed that we will wait to add any type of therapy b/c she has only been off OCP x 1mos.Will f/u x 2-3mos to reassess this issue; however, considerin g she has issues with pain with arousal it would make sense for libido to not be ideal at this time. 2. Pain with arousal.Medina s went to pelvic floor therapy.Medina s made progress with dyspareuni a/PFD issue.Sorto bertram, still having some issue with pain with arousal.We agreed to see if going back to PT for continued sessions continues to support her progress (had to stop b/c got a new job); but also see if being off OCP's provides any benefit to this issue.If it does not show improvemen t then will discuss case with a sexual health expert Dr. Alejandra Joyner for further recommenda tions. RTO x 2-3mos f/u sexual issues. Time spent in visit is a total of 26 mins with at least 50% of visit consisting of counseling and review of plan of care. Additional precaution ritu measures were taken to minimize potential exposure to the Covid-19 virus during this patient s visit, including available hand state pilot upon arrive, temperatur e check and being asked a series of screening questions. All staff wore face coverings during this encounter, as well as provided additional cleaning and sanitizing of all surfaces, including countertop s, pens, chairs, door handles, light switches, etc, prior to and following the patient s visit. [id number] KEVIN [facility] [address] [address] 10/09/2021 16:25:12 10/10/2021 16:29:47 Dyspareunia [id number] N94.10 N94.810 Today, after exam & further discussion we agreed to refer to Vulvar specialist s at [facility] Dr. Katlyn Lyons for further evaluation and recommenda tions. Her exam still displays some sx's of vestibulit is and there is an area of skin under the clitoral area that remains sensitive and looks thin/irrit ated for which estrogen cream/VCG' s/other have failed to resolve. She has been off her OCP's for almost 3mos now so we are hoping that this will help her vulva return to pre-OCP status; she is aware this can sometimes take up to a year. She has completed pelvic floor PT & has made great progress; she has no issues anymore with deep penetratio n during sexual activity. Her discomfort that remains seems to be concentrat ed on entry way penetratio n; but more importantl y discomfort on outside (in the clitoral area) with sexual arousal is one of her main most concerning issues. Abnormal weight gain 161 [id number] R63.5 Updated lab work ordered.Wi ll call with results. Irregular periods [id number] L70.9 She is having regular monthly cycles in regards to menstrual bleeding but feels she might not actually be ovulating; tracks ovulation on phone ap & also has used ovulation testing a couple months; reports that it never seems to register positive.S he and her spouse are preparing to achieve in the near future.Try ing to really get all these issues improved/r esolved so they have an opportunit y to conceive.W e agreed to update labs to evaluate for any further issues that might need to be addressed. Possible referral to Jaymie Gilliland CNM for general fertility consult or ABAD might be necessary moving forward. Will wait to see results outcome. [id number] Riki Freeman MD [facility] [address] [address] 11/26/2021 15:44:29 11/26/2021 16:45:14 [id number] Suzanne Edwards CNM [facility] [address],[place] [address] 11/26/2021 15:46:24 12/02/2021 17:21:44 test positive [id number] Z32.01 Risk factors addressed: Tobacco Cessation, Safe Sexual Practices, environmen law, work hazards, travel restrictio ns, seat belt use.Eat a health well balanced diet, avoid alcohol, tobacco, and street drugs.Enga ge in daily low impact exercise, avoid temperatur e extremes, and cat, rodent, and bird feces.Avoi d travel to areas where zika virus is a concern.Of fered cf/sma/nip t. Handouts given and discussed with patient.Ch ildbirth classes recommende d.New OB sheet given.If previous , counseling .Pt verbalizes that she understand s the importance of above instructio ns.All questions were answered.P atient reminded to have annual well woman examinatio n and address preventati ve healthcare . Chronic hy pertension complicating AND/OR reason for care during 25306406 O16.[address] Freeman and he recommends switching to labetalol 200mg bid. Will have pt return in 1 week for blood pressure check. [id number] [facility] [address],[place] [address] 12/03/2021 16:42:00 12/04/2021 16:25:56 Blood pressure taking 79256561 Z01.30 [id number] Earline Hodgson MD [facility] [address],[place] [address] 12/23/2021 11:41:14 12/23/2021 12:48:37 screening [id number] Z36.87 [id number] Earline Hodgson MD [facility] [address],[place] [address] 12/23/2021 11:42:49 12/24/2021 16:08:12 Routine care 361258657 Z34.91 Chronic hy pertension complicating AND/OR reason for care during 27942219 O16.9 Mixed anxi ety and depressive disorder 345452158 F41.8 [id number] Earline Hodgson MD [facility] [address],[place] [address] 01/21/2022 13:56:30 01/21/2022 14:37:38 [id number] Earline Hodgson MD [facility] [address],[place] [address] 01/21/2022 13:57:27 01/22/2022 11:25:30 Routine care 937075439 Z34.91 Chronic hy pertension complicating AND/OR reason for care during 29406188 O16.9 [id number] Earline Hodgson MD [facility] [address],[place] [address] 02/18/2022 15:59:35 02/18/2022 17:19:55 screening 119274765 Z36.3 [id number] MD Jacqueline Apple [address],[place] [address] 02/18/2022 16:00:08 02/19/2022 10:09:04 Routine care 190322414 Z34.91 Back pain complicating 15464001 O26.899 Muscle wea kness of limb 099740359 M62.81 [id number] Earline Hodgson MD [facility] [address],[place] [address] 03/19/2022 15:56:08 03/19/2022 17:20:19 screening 871938066 Z36.2 [id number] Earline Hodgson MD [facility] [address],[place] [address] 03/19/2022 15:57:06 03/19/2022 17:19:48 Benign essential hypertension complicating , childbirth and the puerperium - not delivered 607309027 O10.019 Maternal o besity complicating , childbirth and the puerperium, antepartum 8101703179 07 O99.212 Mixed anxi ety and depressive disorder 088384932 F41.8 [id number] Earline Hodgson MD [facility] [address],[place] [address] 04/18/2022 09:32:14 04/18/2022 10:31:07 Chronic hypertension complicating AND/OR reason for care during 92153747 O10.019 O99.213 Z3A.29 [id number] Earline Hodgson MD [facility] [address],[place] [address] 04/25/2022 12:52:44 04/25/2022 17:09:38 Gestational diabetes mellitus class A1 30982901 O24.410 Pt here for diet teaching. Went over ideal ranges for FBS and pp BS. Went over carb counting and carb ranges for each meal/snack . Gave ideas for foods to eat for meals/snac ks. Discussed drink options and to avoid soda and juice. Pt only drinks water. Told pt she can go online to [employer] for meal options or to look up low carb meal recipes online for ideas as well. Pt states pharmacy told her glucometer still hasn't been called in. Glucometer , test strips, and lancets called into [facility] in [place] pharmacy voicemail. Told pt to start BS QID and adjusting diet to follow low carb diet to try to keep BS within normal range once she gets supplies. Pt aware if sugars aren't controlled by diet we would discuss starting insulin. Went over NST schedule with pt and importance of keeping these appts and checking BS for her and baby's health. Pt very concern with risks of GDM in , specifical ly stillbirth . Pt tearful. Told pt that this is a risk, but as long as she follows GDM diet, checks BS QID, and keeps all appts that will be the best thing to keep baby healthy. Pts questions were answered and pt verbalized understand ing. EDWARD baptiste [id number] Earline Hodgson MD [facility] [address],[place] [address] 04/29/2022 14:58:04 04/30/2022 15:39:23 Routine care [id number] Z34.91 Benign ess ential hypertension complicating , childbirth and the puerperium - not delivered 463751183 O10.019 Maternal o besity complicating , childbirth and the puerperium, antepartum 0294011472 07 O99.212 Gestationa l diabetes mellitus 29416828 O24.410 [id number] Earline Hodgson MD [facility] [address],[place] [address] 05/05/2022 15:17:40 05/07/2022 18:50:34 Benign essential hypertension complicating , childbirth and the puerperium - not delivered 077531305 O10.019 Gestationa l diabetes mellitus 49933560 O24.410 [id number] Earline Hodgson MD [facility] [address] [place] [address] 05/09/2022 15:27:40 05/12/2022 14:59:29 Benign essential hypertension complicating AND/OR reason for care during 63768677 O10.019 [id number] Earline Hodgson MD [facility] [address],[place] [address] 05/09/2022 15:28:01 05/12/2022 14:59:05 Gestational diabetes mellitus class A1 62023341 O24.410 O10.013 Z3A.32 Pt here for diet teaching. Went over ideal ranges for FBS and pp BS. Went over carb counting and carb ranges for each meal/snack . Gave ideas for foods to eat for meals/snac ks. Discussed drink options and to avoid soda and juice. Pt only drinks water. Told pt she can go online to [employer] for meal options or to look up low carb meal recipes online for ideas as well. Pt states pharmacy told her glucometer still hasn't been called in. Glucometer , test strips, and lancets called into [facility] in [place] pharmacy voicemail. Told pt to start BS QID and adjusting diet to follow low carb diet to try to keep BS within normal range once she gets supplies. Pt aware if sugars aren't controlled by diet we would discuss starting insulin. Went over NST schedule with pt and importance of keeping these appts and checking BS for her and baby's health. Pt very concern with risks of GDM in , specifical ly stillbirth . Pt tearful. Told pt that this is a risk, but as long as she follows GDM diet, checks BS QID, and keeps all appts that will be the best thing to keep baby healthy. Pts questions were answered and pt verbalized understand ing. EDWARD baptiste [id number] Riki Freeman MD [facility] [address],[place] [address] 05/13/2022 14:56:59 05/13/2022 15:49:33 Gestational diabetes mellitus class A1 15938887 O24.410 [id number] Earline Hodgson MD [facility] [address],[place] [address] 05/16/2022 13:22:44 05/16/2022 15:11:33 Anemia of 45649231 O99.019 Benign ess ential hypertension complicating , childbirth and the puerperium - not delivered 131026752 O10.019 Gestationa l diabetes mellitus 06899374 O24.410 [id number] Earline Hodgson MD [facility] [address],[place] [address] 05/16/2022 13:23:07 05/16/2022 14:55:08 Gestational diabetes mellitus class A1 05805135 O24.410 O10.013 Z3A.32 Pt here for diet teaching. Went over ideal ranges for FBS and pp BS. Went over carb counting and carb ranges for each meal/snack . Gave ideas for foods to eat for meals/snac ks. Discussed drink options and to avoid soda and juice. Pt only drinks water. Told pt she can go online to [employer] for meal options or to look up low carb meal recipes online for ideas as well. Pt states pharmacy told her glucometer still hasn't been called in. Glucometer , test strips, and lancets called into [facility] in [place] pharmacy voicemail. Told pt to start BS QID and adjusting diet to follow low carb diet to try to keep BS within normal range once she gets supplies. Pt aware if sugars aren't controlled by diet we would discuss starting insulin. Went over NST schedule with pt and importance of keeping these appts and checking BS for her and baby's health. Pt very concern with risks of GDM in , specifical ly stillbirth . Pt tearful. Told pt that this is a risk, but as long as she follows GDM diet, checks BS QID, and keeps all appts that will be the best thing to keep baby healthy. Pts questions were answered and pt verbalized understand ing. EDWARD baptiste [id number] Riki Freeman MD [facility] [address],[place] [address] 05/20/2022 14:54:51 05/20/2022 15:32:23 Gestational diabetes mellitus class A1 83973786 O24.410 [id number] Earline Hodgson MD [facility] [address],[place] [address] 05/20/2022 15:30:31 05/21/2022 15:07:28 condition affecting obstetrical care of mother 166585158 O36.8330 O16.9 O24.410 Z3A.33 [id number] Earline Hodgson MD [facility] [address],[place] [address] 05/23/2022 13:34:53 05/23/2022 14:30:15 Gestational diabetes mellitus class A1 62226858 O24.410 O10.013 Z3A.32 Pt here for diet teaching. Went over ideal ranges for FBS and pp BS. Went over carb counting and carb ranges for each meal/snack . Gave ideas for foods to eat for meals/snac ks. Discussed drink options and to avoid soda and juice. Pt only drinks water. Told pt she can go online to [employer] for meal options or to look up low carb meal recipes online for ideas as well. Pt states pharmacy told her glucometer still hasn't been called in. Glucometer , test strips, and lancets called into [facility] in [place] pharmacy voicemail. Told pt to start BS QID and adjusting diet to follow low carb diet to try to keep BS within normal range once she gets supplies. Pt aware if sugars aren't controlled by diet we would discuss starting insulin. Went over NST schedule with pt and importance of keeping these appts and checking BS for her and baby's health. Pt very concern with risks of GDM in , specifical ly stillbirth . Pt tearful. Told pt that this is a risk, but as long as she follows GDM diet, checks BS QID, and keeps all appts that will be the best thing to keep baby healthy. Pts questions were answered and pt verbalized understand ing. EDWARD baptiste [id number] Earline Hodgson MD [facility] [address],[place] [address] 05/23/2022 13:35:11 05/23/2022 15:14:57 Benign essential hypertension complicating , childbirth and the puerperium - not delivered 891142431 O10.019 Gestationa l diabetes mellitus 85548751 O24.410 [id number] Earline Hodgson MD [facility] [address],[facility] [place] [address] 05/27/2022 14:55:22 05/27/2022 17:58:11 Urinary symptoms 871260143 R39.9 Gestationa l proteinuria 53886270 O12.13 Gestationa l diabetes mellitus class A1 00371659 O24.410 O10.013 Z3A.32 Pt here for diet teaching. Went over ideal ranges for FBS and pp BS. Went over carb counting and carb ranges for each meal/snack . Gave ideas for foods to eat for meals/snac ks. Discussed drink options and to avoid soda and juice. Pt only drinks water. Told pt she can go online to [employer] for meal options or to look up low carb meal recipes online for ideas as well. Pt states pharmacy told her glucometer still hasn't been called in. Glucometer , test strips, and lancets called into [facility] in [place] pharmacy voicemail. Told pt to start BS QID and adjusting diet to follow low carb diet to try to keep BS within normal range once she gets supplies. Pt aware if sugars aren't controlled by diet we would discuss starting insulin. Went over NST schedule with pt and importance of keeping these appts and checking BS for her and baby's health. Pt very concern with risks of GDM in , specifical ly stillbirth . Pt tearful. Told pt that this is a risk, but as long as she follows GDM diet, checks BS QID, and keeps all appts that will be the best thing to keep baby healthy. Pts questions were answered and pt verbalized understand ing. EDWARD baptiste [id number] Earline Hodgson MD [facility] [address] [address] 05/30/2022 13:21:08 05/30/2022 14:50:12 Gestational diabetes mellitus class A1 81492808 O24.410 O10.013 Z3A.32 Pt here for diet teaching. Went over ideal ranges for FBS and pp BS. Went over carb counting and carb ranges for each meal/snack . Gave ideas for foods to eat for meals/snac ks. Discussed drink options and to avoid soda and juice. Pt only drinks water. Told pt she can go online to [employer] for meal options or to look up low carb meal recipes online for ideas as well. Pt states pharmacy told her glucometer still hasn't been called in. Glucometer , test strips, and lancets called into [facility] in [place] pharmacy voicemail. Told pt to start BS QID and adjusting diet to follow low carb diet to try to keep BS within normal range once she gets supplies. Pt aware if sugars aren't controlled by diet we would discuss starting insulin. Went over NST schedule with pt and importance of keeping these appts and checking BS for her and baby's health. Pt very concern with risks of GDM in , specifical ly stillbirth . Pt tearful. Told pt that this is a risk, but as long as she follows GDM diet, checks BS QID, and keeps all appts that will be the best thing to keep baby healthy. Pts questions were answered and pt verbalized understand ing. EDWARD baptiste [id number] Earline Hodgson MD [facility] [address],[place] [address] 05/30/2022 13:21:47 05/30/2022 14:49:29 Benign essential hypertension complicating , childbirth and the puerperium - not delivered 319560372 O10.019 Gestationa l diabetes mellitus 15291758 O24.410 Maternal o besity complicating , childbirth and the puerperium, antepartum 9015268339 07 O99.212 Candidiasis of vagina 72 489830 B37.3 Thrombosed external hemorrhoids 70466956 K64.5 [id number] Earline Hodgson MD [facility] [address],[place] [address] 06/03/2022 14:48:17 06/03/2022 15:39:05 Gestational diabetes mellitus class A1 69360153 O24.410 O10.013 Z3A.32 Pt here for diet teaching. Went over ideal ranges for FBS and pp BS. Went over carb counting and carb ranges for each meal/snack . Gave ideas for foods to eat for meals/snac ks. Discussed drink options and to avoid soda and juice. Pt only drinks water. Told pt she can go online to [employer] for meal options or to look up low carb meal recipes online for ideas as well. Pt states pharmacy told her glucometer still hasn't been called in. Glucometer , test strips, and lancets called into [facility] in [place] pharmacy voicemail. Told pt to start BS QID and adjusting diet to follow low carb diet to try to keep BS within normal range once she gets supplies. Pt aware if sugars aren't controlled by diet we would discuss starting insulin. Went over NST schedule with pt and importance of keeping these appts and checking BS for her and baby's health. Pt very concern with risks of GDM in , specifical ly stillbirth . Pt tearful. Told pt that this is a risk, but as long as she follows GDM diet, checks BS QID, and keeps all appts that will be the best thing to keep baby healthy. Pts questions were answered and pt verbalized understand paulina. EDWARD baptiste [id number] Earline Hodgson MD [facility] [address],[place] [address] 06/06/2022 13:22:04 06/06/2022 14:11:34 Gestational diabetes mellitus class A1 68594649 O24.410 O10.013 Z3A.32 Pt here for diet teaching. Went over ideal ranges for FBS and pp BS. Went over carb counting and carb ranges for each meal/snack . Gave ideas for foods to eat for meals/snac ks. Discussed drink options and to avoid soda and juice. Pt only drinks water. Told pt she can go online to [employer] for meal options or to look up low carb meal recipes online for ideas as well. Pt states pharmacy told her glucometer still hasn't been called in. Glucometer , test strips, and lancets called into [facility] in [place] pharmacy voicemail. Told pt to start BS QID and adjusting diet to follow low carb diet to try to keep BS within normal range once she gets supplies. Pt aware if sugars aren't controlled by diet we would discuss starting insulin. Went over NST schedule with pt and importance of keeping these appts and checking BS for her and baby's health. Pt very concern with risks of GDM in , specifical ly stillbirth . Pt tearful. Told pt that this is a risk, but as long as she follows GDM diet, checks BS QID, and keeps all appts that will be the best thing to keep baby healthy. Pts questions were answered and pt verbalized understand ing. EDWARD baptiste [id number] Earline Hodgson MD [facility] [address],[facility] [place] [address] 06/06/2022 13:22:37 06/06/2022 14:11:21 Benign essential hypertension complicating , childbirth and the puerperium - not delivered 431430641 O10.019 Gestationa l diabetes mellitus 22449560 O24.410 Maternal o besity complicating , childbirth and the puerperium, antepartum 0398174336 07 O99.212 [id number] Earline Hodgson MD [facility] [address] [address] 06/10/2022 14:53:49 06/10/2022 15:41:11 Gestational diabetes mellitus class A1 36264173 O24.410 O10.013 Z3A.32 Pt here for diet teaching. Went over ideal ranges for FBS and pp BS. Went over carb counting and carb ranges for each meal/snack . Gave ideas for foods to eat for meals/snac ks. Discussed drink options and to avoid soda and juice. Pt only drinks water. Told pt she can go online to [employer] for meal options or to look up low carb meal recipes online for ideas as well. Pt states pharmacy told her glucometer still hasn't been called in. Glucometer , test strips, and lancets called into [facility] in [place] pharmacy voicemail. Told pt to start BS QID and adjusting diet to follow low carb diet to try to keep BS within normal range once she gets supplies. Pt aware if sugars aren't controlled by diet we would discuss starting insulin. Went over NST schedule with pt and importance of keeping these appts and checking BS for her and baby's health. Pt very concern with risks of GDM in , specifical ly stillbirth . Pt tearful. Told pt that this is a risk, but as long as she follows GDM diet, checks BS QID, and keeps all appts that will be the best thing to keep baby healthy. Pts questions were answered and pt verbalized understand ing. [place], [place] [id number] Earline Hodgson MD [facility] [address] [address] 06/13/2022 13:26:24 06/16/2022 16:18:22 Gestational diabetes mellitus class A1 60721021 O24.410 O10.013 Z3A.32 Pt here for diet teaching. Went over ideal ranges for FBS and pp BS. Went over carb counting and carb ranges for each meal/snack . Gave ideas for foods to eat for meals/snac ks. Discussed drink options and to avoid soda and juice. Pt only drinks water. Told pt she can go online to [employer] for meal options or to look up low carb meal recipes online for ideas as well. Pt states pharmacy told her glucometer still hasn't been called in. Glucometer , test strips, and lancets called into [facility] in [place] pharmacy voicemail. Told pt to start BS QID and adjusting diet to follow low carb diet to try to keep BS within normal range once she gets supplies. Pt aware if sugars aren't controlled by diet we would discuss starting insulin. Went over NST schedule with pt and importance of keeping these appts and checking BS for her and baby's health. Pt very concern with risks of GDM in , specifical ly stillbirth . Pt tearful. Told pt that this is a risk, but as long as she follows GDM diet, checks BS QID, and keeps all appts that will be the best thing to keep baby healthy. Pts questions were answered and pt verbalized understand ing. EDWARD baptiste [id number] Earline Hodgson MD [facility] [address] [address] 06/13/2022 13:26:37 06/16/2022 16:18:02 Gestational diabetes mellitus class A1 [id number] O24.410 O10.013 Z3A.37 Pt here for diet teaching. Went over ideal ranges for FBS and pp BS. Went over carb counting and carb ranges for each meal/snack . Gave ideas for foods to eat for meals/snac ks. Discussed drink options and to avoid soda and juice. Pt only drinks water. Told pt she can go online to [employer] for meal options or to look up low carb meal recipes online for ideas as well. Pt states pharmacy told her glucometer still hasn't been called in. Glucometer , test strips, and lancets called into [facility] in [place] pharmacy voicemail. Told pt to start BS QID and adjusting diet to follow low carb diet to try to keep BS within normal range once she gets supplies. Pt aware if sugars aren't controlled by diet we would discuss starting insulin. Went over NST schedule with pt and importance of keeping these appts and checking BS for her and baby's health. Pt very concern with risks of GDM in , specifical ly stillbirth . Pt tearful. Told pt that this is a risk, but as long as she follows GDM diet, checks BS QID, and keeps all appts that will be the best thing to keep baby healthy. Pts questions were answered and pt verbalized understand ing. oliva RN [id number] Earline Hodgson MD [facility] [address] [address] 06/13/2022 13:27:02 06/16/2022 16:19:11 Benign essential hypertension complicating , childbirth and the puerperium - not delivered [id number] O10.019 Gestationa l diabetes mellitus 32774278 O24.410 Maternal o besity complicating , childbirth and the puerperium, antepartum [id number] 07 O99.212 [id number] Earline Hodgson MD [facility] [address],[place] [address] 06/25/2022 15:55:37 06/27/2022 15:18:20 Past history of severe pre-eclampsia [id number] Z87.59 [id number] Earline Hodgson MD [facility] [address],[place] [address] 07/15/2022 13:57:02 07/16/2022 12:49:15 care 732729770 Z39.2 Liver enzy mes level above reference range [id number] R74.01 [id number] Earline Hodgson MD [facility] [address],[place] [address] 10/15/2022 14:42:24 10/15/2022 16:38:25 Weight gain 0832288 R63.5 Gynecologi c examination 02901724 Z01.419 [id number] KEVIN Torres [facility] [address],[place] [address] 01/09/2023 11:45:19 01/14/2023 17:05:48 Obesity 646719690 E66.9 Today we reviewed a detailed historywe discussed her past struggles to loose weight, what has worked in the past for. 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 Reviewed exercise recommenda tions - 150 min of moderate/i ntense exercise per week. Discussed strength training at least 2 sessions per week.Curre ntly not using BC. Discussed if obesity medication is pursued need to be preventing , discussed possible risk if occurs while on obesity medication . Discussed also need to prevent while on spironolac tone due to teratogeni c (patient is on this from derm for acne).We discussed all BC methods in-depth. Desires strict condom use. UPT (-) today.We reviewed obesity medication in-depthDi scussed R/B/A/SE/c ost of eachDenies any personal or fam hx of thyroid cancerWoul d like to start wegovy, she is aware of the R/BSamples given x 1 month, 0.25mg weekly x 4 weeksRx sent for 0.5mg weekly x 4 weeks - to start after completing inital samples RTC for f/u in 4 weeks, to notify the office with any issues Time spent in visit is a total of 60 mins with at least 50% of visit consisting of counseling and review of plan of care. Screening procedure 2012 5006 Z13.9 [id number] KEVIN Torres [facility] [address],[place] [address] 01/29/2023 13:58:31 01/29/2023 14:58:06 Obesity 396139557 E66.9 Reviewed wegovy, R/B/A/SE all discussedq uestions answered. She would like to continue with augustin discussed healthy eating, portion sizes, protein intake, etcrecomme nded incorporat ing intentiona l exercise, discussed walking, biking, swimming, jogging, resistance bands, weight training, etcshe will f/u in 4-6 weeks Time spent in visit is a total of 35 mins with at least 50% of visit consisting of counseling and review of plan of care. [id number] KEVIN Torres [facility] [address],[place] [address] 03/11/2023 16:32:16 03/11/2023 17:31:12 Obesity 711520586 E66.9 Reviewed wegovy, R/B/A/SE all discussedq uestions answered. She would like to continue with augustin discussed healthy eating, portion sizes, protein intake, etcshe has started incorporat ing more exercise, making healthy diet changesrx sent, if unable to obtain medication due to shortages - we discussed switching to saxenda. R/B/A discussed. She will notify our office if she has any issues obtaining the medication .she will f/u in 4-6 weeks Time spent in visit is a total of 35 mins with at least 50% of visit consisting of counseling and review of plan of care. [id number] Riki Freeman MD [facility] [address],[place] [address] 03/28/2024 10:29:07 03/28/2024 11:23:00 Routine care 221412144 Z34.91 Sneak peek - no charge KIM EDGAR MD [facility] [address],[facility] [place] [address] 03/28/2024 10:29:40 03/28/2024 11:46:10 test positive [id number] Z32.01 1. Exam today within normal limits.2. Ultrasound today confirms GA and viability. EDC . GC/Clamydi a testing done: will f/u as indicated. 4. ACOG guidelines and plan of care for reviewed with patient. All questions answered.5 . Return to office at 12 weeks for new OB visit6. Will need new OB labs at next visit.7. Genetic screening: declines. Benign ess ential hypertension 9854110 I10 - previously on labetalol during , now controlled off of medication s- asymptomat ic- will plan for baseline labs with new OB draw Past pregn wiliam history of gestational diabetes mellitus 338557910 Z86.32 - diet controlled - early 1h GTT at 20 weeks [id number] KMI EDGAR MD [facility] [address],[place] [address] 10/10/2024 14:01:08 10/11/2024 06:19:57 Disorder of menstruation 364412795 N92.6 - patient reports change in quality of periods since miscarriag e in March- s/p D&C at 12 weeks, no complicati ons- patient reports irregular bleeding during menses, will have 2-3 days of no bleeding within period before bleeding begins again- reports monthly periods- discussed pelvic US to rule out uterine synechiae or other structural abnormalit ies causing abnormal periods Reduced libido 4376737 R 68.82 - 6 year history, prior to any SSRI usage or childbirth - reports good relationsh ip, no increased stress- has tried topical testostero ne in the past without improvemen t- discussed multifacto rial etiology of low libido, unclear cause- seeing counselor for hx of panic attacks, well controlled - discussed medical management with Addyi vs Vyleesi if desired- patient would like to evaluate abnormal bleeding further prior to starting meds for low libido [id number] Riki Freeman MD [facility] [address],[place] [address] 10/13/2024 17:28:08 10/14/2024 10:32:25 Irregular periods 55178744 N92.6 [id number] KIM EDGAR MD [facility] [address],[place] [address] 10/14/2024 12:00:26 10/17/2024 10:32:08 Disorder of menstruation 278761910 N92.6 - patient reports change in quality of periods since miscarriag e in March- s/p D&C at 12 weeks, no complicati ons- patient reports irregular bleeding during menses, will have 2-3 days of no bleeding within period before bleeding begins again- reports monthly periods- pelvic US wnl; no cervical polyp seen on pelvic exam (suggested on US by vascularit y in canal)- discussed TTC whenever ready; if not getting positive OPKs or not conceiving within 6 months, would recommend further workup, possible SIS to reevaluate endometria l cavity [id number] Riki Freeman MD [facility] [address],[place] [address] 12/14/2024 12:14:52 12/14/2024 13:13:32 Uncertain viability of 005511679 O36.80X9 Z3A.01 [id number] KIM EDGAR MD [facility] [address],[place] [address] 12/26/2024 11:37:46 12/26/2024 12:11:28 [id number] KIM EDGAR MD [facility] [address],[place] [address] 12/26/2024 11:38:05 12/27/2024 03:42:09 Nausea and vomiting 39118895 R11.2 Monochorio donavon diamniotic twin 382372584 O30.009 - US confirmed mono di twin , no twin peak sign- discussed risks of mono di twins including increased risk of TTTS, labor, preeclamps ia, and GDM- will send referral to [facility] per patient preference at 12 week appointmen t- discussed delivery between 34-37 weeks pending US surveillan ce test positive 997085087 Z32.01 1. Exam today within normal limits.2. Ultrasound today confirms GA and viability. EDC . GC/Clamydi a testing done: will f/u as indicated. 4. ACOG guidelines and plan of care for reviewed with patient. All questions answered.5 . Return to office at 12 weeks for new OB visit6. Will need new OB labs at next visit.7. Genetic screening: declines. 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.8 - mood stable- continue lexapro [id number] Riki Freeman MD [facility] [address],[place] [address] 01/03/2025 11:46:30 01/03/2025 12:28:01 Monochorionic diamniotic twin [id number] O30.009 O36.80X9 Z3A.09 [id number] Riki Freeman MD [facility] [address],[place] [address] 01/23/2025 11:36:58 01/23/2025 14:02:47 Monochorionic diamniotic twin 943612966 O30.031 Z36.82 Z3A.12 [id number] Health Concerns Section Related Observation LastModified by Organization Detai ls LastModified Time None Recorded Concern Status LastModified by Organization Details LastModified Time None Recorded Advance Directives Directive N: Payers Insurance Date Sequence Insurance Name Policy Number Policy Morales Covered Member ID Morales Member ID Guarantor Name 03/07/2025 1 [facility] [id number] Carlos Davis [id number] Lucy Davis 12/14/2024 1 [employer] [id number] Lucy Davis [id number] Lucy Davis 12/14/2024 1 [facility] ([facility] [id number] Lucy Davis [id number] Lucy Davis 04/29/2022 1 [facility] Carlos Davis [id number] Lucy Davis 12/14/2024 2 [facility] Lucy Davis [id number] Lucy Davis Notes Date Note Type Note Provider Name and Address Organization Details Recorded Time 12/26/2024 text/html Presents to the office today to confirm . Patient denies any problems up to this point with her . Patient denies cramping or vaginal bleeding. Hx of chronic hypertension; well controlled off of meds. was delivered at 38 weeks for HTN in last . Hx of GDM in prior ; diet controlled. Lives with partner and son. 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 Denies tobacco/EtOH/ill icits. KIM EDGAR MD [address], [place], [address], [facility] 12/26/2024 18:04:54 OBGyn Episode Ob Episode Information Episode Created Date Number of Fetuses Patient Bloodtype Patient rh Status Prepregnancy Weight lbs Domestic Partner Domestic Partner Phone Father Name Cleaner Assistant Status 12/24/19 22 1 O Positive 279 CLOSED Fetus Data First Name Last Name Admitted to NICU Weight (g) Sex Living Outcome Pediatric Complications Fetus ID Race Codes Race Delivery Type Wade 2693.20 25 M true Full Term [id number] Vaginal Delivery Problems Problem Notes history of pelvic muscle spa sms prior to Problem Name Start Date End Date Resolution Snomed Code Not e Benign essential hypertension complicating , childbirth and the puerperium - not delivered [id number] ante testing 3 2w, baseline PIH labs, growth US ASA, delivery 38-39w Maternal obesity complicating , childbirth and the puerperium, antepartum [id number] BMI 42. already doing 32w ante testing Mixed anxiety and depressive disorder [id number] lexapro 20, wants to stay on Gestational diabetes mellitus 71245013 BS QID antenata l testing Sunday Calculation Initial Sunday Date Initial Exam Date Initial Exam Provider Initial Ultrasound Date Last Menstrual Period Date Ultra Sound Weeks Gestation 07/03/2022 12/23/2021 11/26/2021 09/26/2021 9 Eighteen To Twenty Week Sunday Update Ultra Sound Date Fundal Height At Umbil Quickening Date Ultra Sound Latest Weeks Gestation Final Sunday Confirmed By Final Sunday Confirmed Date Final Sunday Date Ultra Sound Latest Days Gestation 0 12/23/2021 07/03/20 22 0 Pre- Flowsheet Flowsheet Date 12/23/2021 Gonzalez Score Blood Edema Fundus Height Fundus Units Glucose Ketones Leukocytes Nitrite Labor Signs Protein Cervic Dilation Cervic Effacement Cervic Station neg none none trace Type Weight in lbs Pre/Post Dialysis Refused Weight 278.890570534979 BP Diastolic BP Location Tested BP Systolic BP Type 73 109 Fetus Heart Rate Present Fetus Movement A No Comments Lucy is a 26yo G1 at 12.4 for care. She has chronic HTN and was recently transitioned to labetaolol 200BID. She feels well on this, no lows. Takes escitalopram for depression and anxiety, which are stable. She has started ASA. No flu shot this season, did get COVID vaccines and booster. She is feeling better overall. We discussed BMI 42, cHTN as risk factors and management/mitigation of those risk factors. PNL today. She declines NIPT. Flowsheet Date 12/23/2021 Gonzalez Score Blood Edema Fundus Height Fundus Units Glucose Ketones Leukocytes Nitrite Labor Signs Protein Cervic Dilation Cervic Effacement Cervic Station Type Weight in lbs Pre/Post Dialysis Refused BP Diastolic BP Location Tested BP Systolic BP Type Fetus Heart Rate Present Fetus Movement Comments Flowsheet Date 01/21/2022 Gonzalez Score Blood Edema Fundus Height Fundus Units Glucose Ketones Leukocytes Nitrite Labor Signs Protein Cervic Dilation Cervic Effacement Cervic Station Type Weight in lbs Pre/Post Dialysis Refused BP Diastolic BP Location Tested BP Systolic BP Type Fetus Heart Rate Present Fetus Movement Comments Flowsheet Date 01/21/2022 Gonzalez Score Blood Edema Fundus Height Fundus Units Glucose Ketones Leukocytes Nitrite Labor Signs Protein Cervic Dilation Cervic Effacement Cervic Station neg none none trace Type Weight in lbs Pre/Post Dialysis Refused Weight 277.875094187668 BP Diastolic BP Location Tested BP Systolic BP Type 66 99 Fetus Heart Rate Present A 150 Fetus Movement A No Comments Doing well, feeling ok excep t still really tired. Also mood up and down, denies depression or need for medication. BPs running low normal, will decrease labetalol to 100 BID (refill next visit). Gender reveal in a few days! Flowsheet Date 02/18/2022 Gonzalez Score Blood Edema Fundus Height Fundus Units Glucose Ketones Leukocytes Nitrite Labor Signs Protein Cervic Dilation Cervic Effacement Cervic Station Type Weight in lbs Pre/Post Dialysis Refused BP Diastolic BP Location Tested BP Systolic BP Type Fetus Heart Rate Present Fetus Movement Comments Flowsheet Date 02/18/2022 Gonzalez Score Blood Edema Fundus Height Fundus Units Glucose Ketones Leukocytes Nitrite Labor Signs Protein Cervic Dilation Cervic Effacement Cervic Station neg none none trace Type Weight in lbs Pre/Post Dialysis Refused Weight 283.020867692368 BP Diastolic BP Location Tested BP Systolic BP Type 67 101 Fetus Heart Rate Present A 155 Fetus Movement A Yes Comments Doing well except had 45min episode of severe back and RUQ pain a couple days ago. Seen in triage, all labs fine. Had eaten ice cream just prior. Discussed albert vs muscular. If happens again RUQ US. Also complains of all 4 of her extremities having weakness with normal activities, like brushing hair or walking up steps. Not SOB. Will schedule appt with PCP. would do acetylcholinesterase antibodies for MG if they do not. US today anatomy largely incomplete but wnl so far. Flowsheet Date 03/19/2022 Gonzalez Score Blood Edema Fundus Height Fundus Units Glucose Ketones Leukocytes Nitrite Labor Signs Protein Cervic Dilation Cervic Effacement Cervic Station Type Weight in lbs Pre/Post Dialysis Refused BP Diastolic BP Location Tested BP Systolic BP Type Fetus Heart Rate Present Fetus Movement Comments Flowsheet Date 03/19/2022 Gonzalez Score Blood Edema Fundus Height Fundus Units Glucose Ketones Leukocytes Nitrite Labor Signs Protein Cervic Dilation Cervic Effacement Cervic Station neg none 28 Type Weight in lbs Pre/Post Dialysis Refused Weight 282.029086944190 BP Diastolic BP Location Tested BP Systolic BP Type 79 113 Fetus Heart Rate Present A 150 Fetus Movement A Yes Comments Doing better. RUQ pain resos lved, as did weakness of extremities, for the most part. PCP was not concerned and increased her iron dose. BP is great. US today anatomy now complete and growth 69%. GCT next visit. We again discussed RBA of escitalopram, and she feels she needs to stay on it the rest of the and . Discuss Tdap next visit. Flowsheet Date 04/18/2022 Gonzalez Score Blood Edema Fundus Height Fundus Units Glucose Ketones Leukocytes Nitrite Labor Signs Protein Cervic Dilation Cervic Effacement Cervic Station Type Weight in lbs Pre/Post Dialysis Refused BP Diastolic BP Location Tested BP Systolic BP Type Fetus Heart Rate Present Fetus Movement Comments Flowsheet Date 04/25/2022 Gonzalez Score Blood Edema Fundus Height Fundus Units Glucose Ketones Leukocytes Nitrite Labor Signs Protein Cervic Dilation Cervic Effacement Cervic Station Type Weight in lbs Pre/Post Dialysis Refused BP Diastolic BP Location Tested BP Systolic BP Type Fetus Heart Rate Present Fetus Movement Comments Flowsheet Date 04/29/2022 Gonzalez Score Blood Edema Fundus Height Fundus Units Glucose Ketones Leukocytes Nitrite Labor Signs Protein Cervic Dilation Cervic Effacement Cervic Station neg none 35 none trace Type Weight in lbs Pre/Post Dialysis Refused Weight 282.179160569902 BP Diastolic BP Location Tested BP Systolic BP Type 71 107 Fetus Heart Rate Present A 140 Fetus Movement A Yes Comments Doing well. Wanted to discus s her history of pelvic muscle spasms and implications of this in labor. Discussed tdap, will get. BS perfect, testing scheduled. Flowsheet Date 05/05/2022 Gonzalez Score Blood Edema Fundus Height Fundus Units Glucose Ketones Leukocytes Nitrite Labor Signs Protein Cervic Dilation Cervic Effacement Cervic Station neg trace 34 none trace Type Weight in lbs Pre/Post Dialysis Refused Weight 284.406092275344 BP Diastolic BP Location Tested BP Systolic BP Type 70 105 Fetus Heart Rate Present A 140 Fetus Movement A Yes Comments Ante testing to start next w ho-chunk. BS perfect. CBC next week. Will do Tdap. Good FM. Precautions given. Flowsheet Date 05/09/2022 Gonzalez Score Blood Edema Fundus Height Fundus Units Glucose Ketones Leukocytes Nitrite Labor Signs Protein Cervic Dilation Cervic Effacement Cervic Station Type Weight in lbs Pre/Post Dialysis Refused BP Diastolic BP Location Tested BP Systolic BP Type Fetus Heart Rate Present Fetus Movement Comments Flowsheet Date 05/09/2022 Gonzalez Score Blood Edema Fundus Height Fundus Units Glucose Ketones Leukocytes Nitrite Labor Signs Protein Cervic Dilation Cervic Effacement Cervic Station Type Weight in lbs Pre/Post Dialysis Refused BP Diastolic BP Location Tested BP Systolic BP Type Fetus Heart Rate Present Fetus Movement Comments Flowsheet Date 05/13/2022 Gonzalez Score Blood Edema Fundus Height Fundus Units Glucose Ketones Leukocytes Nitrite Labor Signs Protein Cervic Dilation Cervic Effacement Cervic Station Type Weight in lbs Pre/Post Dialysis Refused BP Diastolic BP Location Tested BP Systolic BP Type Fetus Heart Rate Present Fetus Movement Comments Flowsheet Date 05/16/2022 Gonzalez Score Blood Edema Fundus Height Fundus Units Glucose Ketones Leukocytes Nitrite Labor Signs Protein Cervic Dilation Cervic Effacement Cervic Station Type Weight in lbs Pre/Post Dialysis Refused BP Diastolic BP Location Tested BP Systolic BP Type Fetus Heart Rate Present Fetus Movement Comments Flowsheet Date 05/16/2022 Gonzalez Score Blood Edema Fundus Height Fundus Units Glucose Ketones Leukocytes Nitrite Labor Signs Protein Cervic Dilation Cervic Effacement Cervic Station neg none none trace Type Weight in lbs Pre/Post Dialysis Refused Weight 281.289090371496 BP Diastolic BP Location Tested BP Systolic BP Type 66 100 Fetus Heart Rate Present A 140 Fetus Movement A Yes Comments BS perfect. NST reactive. FM increased since ate now. US last week 71%. CBC today to see if needs IV iron. Tdap this week. BPs low normal on labetalol 100 BID. Will consider stopping next week after she thinks about sx this week. Discussed delivery 38-39w. Flowsheet Date 05/20/2022 Gonzalez Score Blood Edema Fundus Height Fundus Units Glucose Ketones Leukocytes Nitrite Labor Signs Protein Cervic Dilation Cervic Effacement Cervic Station Type Weight in lbs Pre/Post Dialysis Refused BP Diastolic BP Location Tested BP Systolic BP Type Fetus Heart Rate Present Fetus Movement Comments Flowsheet Date 05/20/2022 Gonzalez Score Blood Edema Fundus Height Fundus Units Glucose Ketones Leukocytes Nitrite Labor Signs Protein Cervic Dilation Cervic Effacement Cervic Station Type Weight in lbs Pre/Post Dialysis Refused BP Diastolic BP Location Tested BP Systolic BP Type Fetus Heart Rate Present Fetus Movement Comments Flowsheet Date 05/23/2022 Gonzalez Score Blood Edema Fundus Height Fundus Units Glucose Ketones Leukocytes Nitrite Labor Signs Protein Cervic Dilation Cervic Effacement Cervic Station Type Weight in lbs Pre/Post Dialysis Refused BP Diastolic BP Location Tested BP Systolic BP Type Fetus Heart Rate Present Fetus Movement Comments Flowsheet Date 05/23/2022 Gonzalez Score Blood Edema Fundus Height Fundus Units Glucose Ketones Leukocytes Nitrite Labor Signs Protein Cervic Dilation Cervic Effacement Cervic Station neg trace none trace Type Weight in lbs Pre/Post Dialysis Refused Weight 284.984823892407 BP Diastolic BP Location Tested BP Systolic BP Type 76 118 Fetus Heart Rate Present A 140 Fetus Movement A Yes Comments Doing well. SUgars perfect. Tdap done. NST reactive. Leaving labetalol as is, feels fine on it. GBS next week. Flowsheet Date 05/27/2022 Gonzalez Score Blood Edema Fundus Height Fundus Units Glucose Ketones Leukocytes Nitrite Labor Signs Protein Cervic Dilation Cervic Effacement Cervic Station Type Weight in lbs Pre/Post Dialysis Refused BP Diastolic BP Location Tested BP Systolic BP Type Fetus Heart Rate Present Fetus Movement Comments Flowsheet Date 05/30/2022 Gonzalez Score Blood Edema Fundus Height Fundus Units Glucose Ketones Leukocytes Nitrite Labor Signs Protein Cervic Dilation Cervic Effacement Cervic Station Type Weight in lbs Pre/Post Dialysis Refused BP Diastolic BP Location Tested BP Systolic BP Type Fetus Heart Rate Present Fetus Movement Comments Flowsheet Date 05/30/2022 Gonzalez Score Blood Edema Fundus Height Fundus Units Glucose Ketones Leukocytes Nitrite Labor Signs Protein Cervic Dilation Cervic Effacement Cervic Station neg trace 38 1cm 20% -2 Type Weight in lbs Pre/Post Dialysis Refused Weight 282.489631497592 BP Diastolic BP Location Tested BP Systolic BP Type 69 104 Fetus Heart Rate Present A 140 Fetus Movement A Yes Comments Had a rough week. Still havi ng urinary frequency during day, urine culture was no growth. On exam does have yeast- diflucan. Also has extremely painful hemorrhoid. Passed a couple small clots last night. ON exam 3cm thrombosed. Able to express some from small open area. Will do soaks and try to express more, lidocaine jelly sent. BS perfect. GBS done and discussed. Will schedule IOL between 38 and 39w as both GDM and cHTN very mild and well controlled. Flowsheet Date 06/03/2022 Gonzalez Score Blood Edema Fundus Height Fundus Units Glucose Ketones Leukocytes Nitrite Labor Signs Protein Cervic Dilation Cervic Effacement Cervic Station Type Weight in lbs Pre/Post Dialysis Refused BP Diastolic BP Location Tested BP Systolic BP Type Fetus Heart Rate Present Fetus Movement Comments Flowsheet Date 06/06/2022 Gonzalez Score Blood Edema Fundus Height Fundus Units Glucose Ketones Leukocytes Nitrite Labor Signs Protein Cervic Dilation Cervic Effacement Cervic Station Type Weight in lbs Pre/Post Dialysis Refused BP Diastolic BP Location Tested BP Systolic BP Type Fetus Heart Rate Present Fetus Movement Comments Flowsheet Date 06/06/2022 Gonzalez Score Blood Edema Fundus Height Fundus Units Glucose Ketones Leukocytes Nitrite Labor Signs Protein Cervic Dilation Cervic Effacement Cervic Station none trace Type Weight in lbs Pre/Post Dialysis Refused Weight 280.35775274653 BP Diastolic BP Location Tested BP Systolic BP Type 74 108 Fetus Heart Rate Present A 135 Fetus Movement A Yes Comments Doing well. Good FM. GBS neg . Hemorrhoid much better, drained, no longer hard and painful. BS perfect. Will check cervix next week, IOL scheduled. Flowsheet Date 06/10/2022 Gonzalez Score Blood Edema Fundus Height Fundus Units Glucose Ketones Leukocytes Nitrite Labor Signs Protein Cervic Dilation Cervic Effacement Cervic Station Type Weight in lbs Pre/Post Dialysis Refused BP Diastolic BP Location Tested BP Systolic BP Type Fetus Heart Rate Present Fetus Movement Comments Flowsheet Date 06/13/2022 Gonzalez Score Blood Edema Fundus Height Fundus Units Glucose Ketones Leukocytes Nitrite Labor Signs Protein Cervic Dilation Cervic Effacement Cervic Station Type Weight in lbs Pre/Post Dialysis Refused BP Diastolic BP Location Tested BP Systolic BP Type Fetus Heart Rate Present Fetus Movement Comments Flowsheet Date 06/13/2022 Gonzalez Score Blood Edema Fundus Height Fundus Units Glucose Ketones Leukocytes Nitrite Labor Signs Protein Cervic Dilation Cervic Effacement Cervic Station Type Weight in lbs Pre/Post Dialysis Refused BP Diastolic BP Location Tested BP Systolic BP Type Fetus Heart Rate Present Fetus Movement Comments Flowsheet Date 06/13/2022 Gonzalez Score Blood Edema Fundus Height Fundus Units Glucose Ketones Leukocytes Nitrite Labor Signs Protein Cervic Dilation Cervic Effacement Cervic Station neg none trace trace 1cm 50% -2 Type Weight in lbs Pre/Post Dialysis Refused Weight 279.714510344778 BP Diastolic BP Location Tested BP Systolic BP Type 74 122 Fetus Heart Rate Present A 155 Fetus Movement A Yes Comments Doing well. ONly one pp BS e levated. BP great. US today EFW 35%, BPP 8/8. Precautions given. IOL just over a week. Cervix 1.5/50, cytotec x1 then pit. Flowsheet Date 06/25/2022 Gonzalez Score Blood Edema Fundus Height Fundus Units Glucose Ketones Leukocytes Nitrite Labor Signs Protein Cervic Dilation Cervic Effacement Cervic Station Type Weight in lbs Pre/Post Dialysis Refused Weight 263.207103737660 BP Diastolic BP Location Tested BP Systolic BP Type 84 120 Fetus Heart Rate Present Fetus Movement Comments Flowsheet Date 07/15/2022 Gonzalez Score Blood Edema Fundus Height Fundus Units Glucose Ketones Leukocytes Nitrite Labor Signs Protein Cervic Dilation Cervic Effacement Cervic Station Type Weight in lbs Pre/Post Dialysis Refused Weight 258.927493725510 BP Diastolic BP Location Tested BP Systolic BP Type 74 108 Fetus Heart Rate Present Fetus Movement Comments Menstrual History Last Menstrual Date Menses Monthly On Bcp Conception Prior Menses Frequency Hcg Plus Date Menarche Onset Age 1209/26/2021 Genetic Screening And Infection History Question Response Note Mental Retardation/Autism false Patient's Age Will Be 35 Years Or Older At Estim ated Date of Delivery false Thalassemia (Moroccan, Swedish, Mediterranean, Or Background): MCV < 80 false Neural Tube Defect (Meningomyelocele, Spina Bifi da, Or Anencephaly) false Congenital Heart Defect false Down Syndrome false Juan-Sachs (eg, Confucianism, Cajun, [place] Citizen-Tuvaluan) f alse Joao Disease false Sickle Cell Disease Or Trait () false Hemophilia Or Other Blood Disorders false Muscular Dystrophy false Cystic Fibrosis false Gulf's [place] false Intellectual Disability/Autism false If Yes, Was Person Tested For Fragile X? false Other Inherited Genetic Or Chromosomal Disorder false Maternal Metabolic Disorder (eg, Type 1 Diabetes , PKU) false Patient Or Baby's Father Had A Child With Defects Not Listed Above false Recurrent Loss, Or A Stillbirth false Medications (including Suppl ements, Vitamins, Herbs, OTC Drugs), Illicit/Recreational Drugs, Alcohol false If Yes, Agent(s) And Strength/Dosage false Any Other Genetic History false Live With Someone With TB Or Exposed To TB false Patient Or Partner Has History Of Genital Herpes false Rash Or Viral Illness Since Last Menstrual Perio d false History Of STD, Gonorrhea, Chlamydia, HPV, Syphi lis false Other Infection History false History of HIV false History of Hepatitis false Prior GBS-infected child false Hemoglobinopathy Or Carrier false Other Structural Defect false Recent Travel History Outside of Country false Delivery Information Delivery Date Delivery Type Labor Anesthesia Weeks Gestation Incision Type Labor Labor Length Hrs Delivered By Post Complications Tubal Sterilization Discharge Date Comments 2 Induce d Regional-Ep idural 37.5 false Earline Hodgson MD CHTN, GDM and Maternal Obesity Discharge Information Feeding Method Contraceptive Method Maternal HG B and HCT Levels Breast Ob Episode Information Episode Created Date Number of Fetuses Patient Bloodtype Patient rh Status Prepregnancy Weight lbs Domestic Partner Domestic Partner Phone Father Name Cleaner Assistant Status 12/07/19 25 1 CLOSED Fetus Data First Name Last Name Admitted to NICU Weight (g) Sex Living Outcome Pediatric Complications Fetus ID Race Codes Race Delivery Type , Spontane ous [id number] Sunday Calculation Initial Sunday Date Initial Exam Date Initial Exam Provider Initial Ultrasound Date Last Menstrual Period Date Ultra Sound Weeks Gestation 0 Eighteen To Twenty Week Sunday Update Ultra Sound Date Fundal Height At Umbil Quickening Date Ultra Sound Latest Weeks Gestation Final Sunday Confirmed By Final Sunday Confirmed Date Final Sunday Date Ultra Sound Latest Days Gestation 0 0 Menstrual History Last Menstrual Date Menses Monthly On Bcp Conception Prior Menses Frequency Hcg Plus Date Menarche Onset Age Delivery Information Delivery Date Delivery Type Labor Anesthesia Weeks Gestation Incision Type Labor Labor Length Hrs Delivered By Post Complications Tubal Sterilization Discharge Date Comments 4 Discharge Information Feeding Method Contraceptive Method Maternal HG B and HCT Levels
--- OUTSIDE RECORDS SUMMARY | 2025-08-01 17:01 | XMS_ITS | Clinical Summary ---
Author Organization [facility] Address [address] [place] [address] Phone Care Team Providers Care Background Check Coordinator Name Role Phone Flor Burrows APRN, CNP Unavailable Flor Burrows APRN, CNP Primary Care P rovider Allergies No known active allergies Medications escitalopram (LEXAPRO) 20 MG Tablet 1 Active lisinopril-hydro CHLOROthiazide (PRINZIDE, ZESTORETIC) 10-12.5 MG TabletIndication s:Essential hypertension Take 1 Tablet by mouth daily. 90 Tablet 3 1 Active Additional Information Patient not taking.Reported on 03/10/2023 fluticasone (Flonase) 50 MCG/ACT SuspensionIndica tions:Viral URI with cough 1-2 Sprays by Nasal route daily. Use in each nostril as directed. 16 g 1 Active labetalol (NORMODYNE) 100 MG Tablet Take 100 mg by mouth 2 times daily. 2 Active ferrous sulfate 325 (65 Fe) MG TabletIndication s:Other iron deficiency anemia Take 1 Tablet by mouth daily. 90 Tablet 2 Active Additional Information Patient not taking.Reported on 03/10/2023 Active Problems Problem Noted Date Diagnosed Date Morbid obesity with BMI of 40.0-44.9, adult 02/26 Overview (12/27/2020): See above problem note. Last Assessment & Plan: Encourage a weight loss program such as Weight Watchers incorporating dietary changes and aerobic / weight-bearing exercise at least 4-5 times per week, for at least 30-45 minute sessions. Immunizations Immunization Administration Dates Next Due Covid-19, Mrna, Lnp-s, PF, 1 00 mcg/0.5 mL Dose (Moderna) 12/15/2020,11/17/2020 Human Papillomavirus (HPV) 9-valent Vaccine 09/2020,01/24/2021 Influenza Vaccine, MDCK,quadrivalent, pres free 06/08/2020 TDAP Vaccine 01/24/2021 Family History Medical History Relation Name Comments No Known Problems Father Cancer Maternal Grandmother No Known Problems Mother Cancer Paternal Grandmother Relation Name Status Comments Father Alive Maternal Grandfather Maternal Grandmother Mother Alive Paternal Grandfather Paternal Grandmother Social History Tobacco Use Types Packs/Day Years Used Date Smoking Tobacco: Never Smokeless Tobacco: Never Tobacco Cessation:Counseling Given: No Alcohol Use Standard Drinks/Week Comments Yes 0 (1 standard drink = 0.6 oz pur e alcohol) social drinker PHQ-2 Answer Date Recorded Total Score - Questions 1-9 0 09/2020 Education Answer Date Recorded What is the highest level of school you have completed or the highest degree you have received? Bachelor's degree (e.g., BA, AB, BS) 02/28/2022 Sexually Active Control Partners Comments Yes Oral Contraceptive Male Comments Unknown Sex and Gender Information Value Date Recorded Sex Assigned at Not on file Legal Sex Female 4:13 PM CDT Gender Identity Not on file Sexual Orientation Not on file Last Filed Vital Signs Vital Sign Reading Time Taken Comments Blood Pressure 120/64 08/14/2021 4:07 PM LOCOMOTIVE REPAIRER DIESEL Pulse 83 08/14/2021 4:07 PM LOCOMOTIVE REPAIRER DIESEL Temperature 36.7 C (98 F) 08/14/2021 4:07 PM LOCOMOTIVE REPAIRER DIESEL Respiratory Rate 20 08/14/2021 4:07 PM LOCOMOTIVE REPAIRER DIESEL Oxygen Saturation 98% 08/14/2021 4:07 PM LOCOMOTIVE REPAIRER DIESEL Inhaled Oxygen Concentration - - Weight 120.7 kg (266 lb) 08/14/2021 4:07 PM LOCOMOTIVE REPAIRER DIESEL Height 168.9 cm (5' 6.5) 08/14/2021 4:07 PM LOCOMOTIVE REPAIRER DIESEL Body Mass Index 42.29 08/14/2021 4:07 PM LOCOMOTIVE REPAIRER DIESEL Plan of Treatment Health Maintenance Due Date Last Done Comments Hepatitis B Immunization (1 of 3 - 19+ 3-dose series) 2014 Human Papillomavirus (HPV) Immunization (3 - 3-dose series) 07/26/2021 02/26/2021, 01/24/2021 Influenza Immunization (#1) 05/29/202505/30, 06/20/2022, 06/08/2020 SARS-COV-2 Immunization ( season) 2025 12/06/2021, 12/15/2020, 11/17/2020 Pap Smear 10/15/2025 10/15/2022, 03/08/2019 Respiratory Syncytial Virus (RSV) Immunization (Adult) (1 - 1-dose 75+ series) 2070 Hepatitis C Virus (HCV) Screening Completed 12/23/2021 DTaP/Tdap/Td Immunization Discontinued 2021, 01/24/2021 Meningococcal Immunization (ACWY) Aged Out No longer eligible based on patient's age to complete this topic Pneumococcal Immunization Combined Aged Out No longer eligible based on patient's age to complete this topic Rotavirus Immunization Aged Out No lo nger eligible based on patient's age to complete this topic Procedures Procedure Name Priority Date/Time Associated Diagnosis Comments PATHOLOGY CYTOLOGY COMMAND AND CONTROL OFFICER 10/15/2022 12:00 AM LOCOMOTIVE REPAIRER DIESEL from Last 3 Months or Most Recently Relevant to Health Maintenance Results * PATHOLOGY CYTOLOGY COMMAND AND CONTROL OFFICER (10/15/2022 12:00 AM LOCOMOTIVE REPAIRER DIESEL) 10/15/2022 us Provider Scan PATHOLOGY/CYTOLOGY ORDERABLES Fi nal Result SCAN from Last 3 Months or Most Recently Relevant to Health Maintenance Insurance [facility] Care Teams Background Check Coordinator Relationship Specialty Start Date End Date Flor Burrows APRN, JEROD [address] [place] [address] PCP - General Advanced Practice Nurse 01/24/21 Flor Burrows APRN, CNP [address] [place] [address] Nurse Practitioner Advanced Practice Nurse 12/18/20
--- OUTSIDE RECORDS SUMMARY | 2025-08-01 17:01 | XMS_ITS | Patient Health Record ---
Author Organization [facility] [employer] Address [address] [place] [address] Care Team Providers Care Fiberglass Quality Technician Name Role Phone Danna Collazo Unavailable [phone] Reason For Referral No Information Medications Medication SIG (Take, Route, Frequency, Duration) Notes Start Date End Date Status Escitalopram Oxalate 20 MG Tablet Oral 12/16/2021 Active Lisinopril-hydroCHLOROthiaz indy 10-12.5 MG Tablet Oral 12/16/2021 Active Labetalol HCl 100 MG Tablet Oral 12/16/2021 Active Labetalol HCl 200 MG Tablet Oral 12/16/2021 Active Immunizations Vaccine Route Administration Date Status Comme nts HPV9 (human papillomavirus), nonavalent Unknown 01/24/2021 Administered HPV9 (human papillomavirus), nonavalent Unknown 02/26/2021 Administered Influenza, injectable, MDCK, preservative free Unknown 06/08/2020 Administered Moderna Covid-19 Vaccine 1st dose Unknown 11/17/2020 Ad ministered Moderna Covid-19 Vaccine 1st dose Unknown 12/15/2020 Ad ministered Moderna Covid-19 Vaccine 1st dose Unknown 12/06/2021 Ad ministered Novel [id number], preservative free Unknown 07/26/2019 Administered Tdap Unknown 01/24/2021 Administered Social History Social History Additional Details Category Social Info Options Details Migrated Social History Migrated Social History Alcohol Intake: Occasional 08/09/2020,Tobacco Years: Never smoker 08/09/2020 Plan Of Treatment No Information Insurance Providers Payer Name Payer Address Payer Phone Subscriber Number Group Number Insured Name Patient Relationship to Insured Coverage Start Date Coverage End Date [facility] [address] [place] [phone] [id number] REJI SAM Self - patient is the insured
--- OUTSIDE RECORDS SUMMARY | 2025-08-01 17:01 | XMS_ITS | Clinical Summary ---
Author Organization [facility] Address [address] [place] [address] Care Team Providers Care Finance Professional Name Role Phone Flor Burrows APRN-NOTE TAKER Primary Care Pr ovider Source Comments [facility],non-owned Affiliates and Associated Physician Practices is amultiple site organization consisting of ambulatory clinics and hospital sitesin [place], [place], [place] and [place]. This disclosure is being madepursuant to the Care Everywhere program and may not contain all information available regarding this patient. Last updated 18.[facility] Allergies No known active allergies Medications * Be aware that medications may not be up to date on this document. Alwaysverify current medications with the patient. escitalopram (LEXAPRO) 20 MG tablet Take 1 (one) tablet by mouth once daily 11/13/2021 Active Active Problems Problem Noted Date Diagnosed Date Polycystic ovary syndrome 10/15/2022 Mixed anxiety and depressive disorder 09/12/2022 Morbid obesity with BMI of 40.0-44.9, adult 02/26 Overview (11/29/2021): See above problem note. Last Assessment & Plan: Encourage a weight loss program such as Weight Watchers incorporating dietary changes and aerobic / weight-bearing exercise at least 4-5 times per week, for at least 30-45 minute sessions. See above problem note. Last Assessment & Plan: Encourage a weight loss program such as Weight Watchers incorporating dietary changes and aerobic / weight-bearing exercise at least 4-5 times per week, for at least 30-45 minute sessions. Immunizations Immunization Administration Dates Next Due INFLUENZA VACCINE 06/25/2022 Family History Medical History Relation Name Comments Depression Father Cancer - Colon Maternal Grandmother Cancer - Breast Paternal Aunt 2 aunts had breast cance Depression Paternal Aunt 2 aunts had breast cance Cancer - Breast Paternal Grandmother Depression Paternal Grandmother Osteoporosis Paternal Great-Grandmother Relation Name Status Comments Father Alive Maternal Grandmother Mother Alive Paternal Aunt 2 aunts had breast cance Other Paternal Grandmother Paternal Great-Grandmother Social History Tobacco Use Types Packs/Day Years Used Date Smoking Tobacco: Never Smokeless Tobacco: Never Tobacco Cessation:Counseling Given: Not Answered Alcohol Use Standard Drinks/Week Comments Not Currently 0 (1 standard drink = 0.6 oz pur e alcohol) Comments Unknown Sex and Gender Information Value Date Recorded Sex Assigned at Not on file Legal Sex Female 7:28 PM CDT Gender Identity Not on file Sexual Orientation Not on file Last Filed Vital Signs Vital Sign Reading Time Taken Comments Blood Pressure 124/78 12/26/2022 10:49 AM CDT Pulse 103 03/23/2018 11:38 AM CDT Temperature 36.2 C (97.2 F) 12/26/2022 10:49 AM CDT Respiratory Rate 16 03/23/2018 11:38 AM CDT Oxygen Saturation 98% 03/23/2018 11:38 AM CDT Inhaled Oxygen Concentration - - Weight 127 kg (280 lb) 12/26/2022 10:49 AM CDT Height 174 cm (5' 8.5) 12/26/2022 10:49 AM CDT Body Mass Index 41.95 12/26/2022 10:49 AM CDT Plan of Treatment Health Maintenance Due Date Last Done Comments HIV SCREENING 2010 HEPATITIS C SCREENING 11/09/2013 DTAP/TDAP/TD VACCINES (1 - Tdap) 2014 HEPATITIS B VACCINE (1 of 3 - 19+ 3-dose series) 2014 HPV VACCINE (1 - 3-dose SCDM series) 2022 DEPRESSION SCREENING 09/28/2024 COVID-19 VACCINE ( season) 2025 12/06/2021, 12/15/2020, 11/17/2020 INFLUENZA VACCINE (#1) 2025 2, 06/20/2022, 06/08/2020, Additional history exists PAP SMEAR 10/15/2025 10/15/2022 ZOSTER VACCINE (1 of 2) 2045 HIB VACCINE Aged Out No longer eligi ble based on patient's age to complete this topic MENINGOCOCCAL (Group B) VACCINE SHARED DECISION-MAKING Aged Out No longer eligible based on patient's age to complete this topic MENINGOCOCCAL GROUPS A/C/Y/W VACCINE Aged Out No longer eligible based on patient's age to complete this topic PNEUMOCOCCAL VACCINE Aged Out No long er eligible based on patient's age to complete this topic [place] [id number] [facility] * Guarantor: REJI SAM Account Type Relation to Patient Date of Phone Billing Address Personal/Family [address] [place] [address] [facility] SELF PAY NO INSURANCE Member Subscriber Plan / Payer (Ef fective for All Dates) Name:Reji Sam Member ID:Not on file Relation to Subscriber:Not on file Name:REJI SAM Subscriber ID:Not on file Address: [address] [place] [address] Payer ID:Not on file Group ID:Not on file Type:Self Pay Address: [place], [place] * Guarantor: REJI SAM Account Type Relation to Patient Date of Phone Billing Address Personal/Family [address] [place] [address] [facility] SELF PAY NO INSURANCE Member Subscriber Plan / Payer (Ef fective for All Dates) Name:Reji Sam Member ID:Not on file Relation to Subscriber:Not on file Name:REJI SAM Subscriber ID:Not on file Address: [address] [place] [address] Payer ID:Not on file Group ID:Not on file Type:Self Pay Address: [place], [place] * Guarantor: REJI SAM Account Type Relation to Patient Date of Phone Billing Address Personal/Family [address] [place] [address] [facility] [employer] PA[employer] NO INSURANCE Member Subscriber Plan / Payer (Ef fective for All Dates) Name:Reji Sam Member ID:Not on file Relation to Subscriber:Not on file Name:REJI SAM Subscriber ID:Not on file Address: [address] [place] [address] Payer ID:Not on file Group ID:Not on file Type:Self Pay Address: [place], [place] Care Teams Finance Professional Relationship Specialty Start Date End Date Flor Burrows, TITLE I DIRECTOR-NOTE TAKER [address] [place] [address] PCP - General 11/29/21
--- OUTSIDE RECORDS SUMMARY | 2025-08-01 17:01 | XMS_ITS | Clinical Summary ---
Author Organization [facility] Address [address] [place] [phone] Phone Care Team Providers Care Multiple Effect Evaporator Operator Name Role Phone Unavailable Primary Care Provider Unavailabl e Allergies No known active allergies Medications escitalopram oxalate (LEXAPRO) 20 mg tablet Take 20 mg by mouth daily. Active VIT-IRON FUM-FOLIC AC ORAL Take by mouth. Active Blood Pressure Monitor Kit To take twice a day 1 Kit 5 Active ibuprofen (MOTRIN) 600 mg tablet Take 1 Tablet (600 mg) by mouth every 6 hours. 30 Tablet 1 5 Active oxyCODONE (ROXICODONE) 5 mg tabletIndicatio ns: delivery delivered Take 1 Tablet (5 mg) by mouth every 4 hours as needed for Other (See Comment) (See admin instructio ns). Max Daily Amount: 30 mg 15 Tablet 5 Active aspirin (ECOTRIN EC) 81 mg Tablet, Delayed Release (E.C.) Take 81 mg by mouth daily. Takes 2 per day 07/12/20 25 Discontinued Blood Pressure Monitor Kit To take twice a day 1 Kit 5 07/12/20 25 Discontinued ibuprofen (MOTRIN) 600 mg tablet Take 1 Tablet (600 mg) by mouth every 6 hours. 30 Tablet 1 5 07/12/20 25 Discontinued oxyCODONE (ROXICODONE) 5 mg tabletIndicatio ns: delivery delivered Take 1 Tablet (5 mg) by mouth every 4 hours as needed for Other (See Comment) (See admin instructio ns). Max Daily Amount: 30 mg 15 Tablet 5 07/12/20 25 Discontinued Active Problems Problem Noted Date Diagnosed Date Monochorionic diamniotic twin gestation in first trimester 01/31/2025 Encounters Date Type Department Care Team Description 07/24/2025 9:00 AM CDT - 07/24/2025 11:59 PM CDT Hospital Encounter [facility] [address] [place] [address] Discharge Disposition: Home or Self Care 07/11/2025 External Device Data STL ABSTRACTION Provider, Abstract 07/11/2025 External Device Data STL ABSTRACTION Provider, Abstract 07/08/2025 10:02 AM CDT Anesthesia Event [facility] Labor & [address] [place] [address] Aury Chau MD McCrary, Amanda N, MD 07/08/2025 10:00 AM CDT - 07/08/2025 12:00 PM CDT Surgery [facility] Labor & [address] [place] [address] Glenn Mooney DO SECTION 07/08/2025 Parent/Baby Shared Documentation [facility] NICU [address] [place] [address] 07/07/2025 4:11 PM CDT - 07/12/2025 1:48 PM CDT Hospital Encounter [facility] Mother/Baby 5C [address] [facility] [place] [address] Alylson Gonsalez, Glenn Avila DO Discharge Disposition: Home or Self Care 07/06/2025 2:17 PM CDT - 07/06/2025 11:59 PM CDT Hospital Encounter [facility] Maternal and Ground Floor [place] [address] [place] [address] June River MD Discharge Disposition: Home or Self Care 07/06/2025 2:16 PM CDT - 07/06/2025 11:59 PM CDT Hospital Encounter [facility] Maternal and Ground Floor [place] [address] [place] [address] June River MD Discharge Disposition: Home or Self Care 07/04/2025 10:29 AM CDT - 07/04/2025 11:59 PM CDT Hospital Encounter [facility] Maternal and Ground Floor S [facility] [address] [place] [address] June River MD Discharge Disposition: Home or Self Care 07/02/2025 8:42 AM CDT - 07/02/2025 11:50 AM CDT Emergency [facility] Obstetrics Emergency Department [address] [place] [address] Jos Pérez MD Gestational hypertension, third trimester (Primary Dx) Discharge Disposition: Home or Self Care 06/29/2025 12:58 PM CDT - 06/29/2025 11:59 PM CDT Hospital Encounter [facility] Maternal and Ground Floor S [facility] [address] [place] [address] June River MD Discharge Disposition: Home or Self Care 06/29/2025 12:56 PM CDT - 06/29/2025 11:59 PM CDT Hospital Encounter [facility] Maternal and Ground Floor [facility] [address] [place] [address] June River MD Discharge Disposition: Home or Self Care 06/27/2025 3:59 AM CDT - 06/27/2025 6:35 AM CDT Emergency [facility] Obstetrics Emergency Department [address] [place] [address] uterine contractions in third trimester, antepartum (Primary Dx); Monochorionic diamniotic twin gestation in third trimester; Vasovagal episode Discharge Disposition: Home or Self Care 06/27/2025 External Device Data STL ABSTRACTION Provider, Abstract 06/27/2025 External Device Data STL ABSTRACTION Provider, Abstract 06/27/2025 External Device Data STL ABSTRACTION Provider, Abstract 06/27/2025 [facility] Maternal Medicine [address] [place] [address] Sridevi Esteves MD appointment 06/27/2025 Travel 06/22/[address] [facility] Maternal and Medicine - Medical [place] [address] [place] [address] Natalie Ortega RN 06/21/2025 11:01 PM CDT - 06/22/2025 12:59 AM CDT Emergency [facility] Obstetrics Emergency Department [address] [place] [address] Ella Chandra MD Anxiety state (Primary Dx); History of pre-eclampsia; Shortness of breath due to ; Diet controlled gestational diabetes mellitus (GDM) in third trimester; Monochorionic diamniotic twin gestation in third trimester Discharge Disposition: Home or Self Care 06/20/2025 10:30 AM CDT - 06/20/2025 11:59 PM CDT Hospital Encounter [facility] Maternal and Ground Floor [place] [address] [place] [address] June River MD Discharge Disposition: Home or Self Care 06/20/2025 External Device Data STL ABSTRACTION Provider, Abstract 06/20/2025 External Device Data STL ABSTRACTION Provider, Abstract 06/20/2025 External Device Data STL ABSTRACTION Provider, Abstract 06/15/2025 9:56 AM CDT - 06/15/2025 11:59 PM CDT Hospital Encounter [facility] Maternal and Ground Floor [place] [address] [place] [address] June River MD Discharge Disposition: Home or Self Care 06/15/2025 9:42 AM CDT - 06/15/2025 11:59 PM CDT Hospital Encounter [facility] Maternal and Ground Floor [place] [address] [place] [address] June River MD Discharge Disposition: Home or Self Care 06/13/2025 12:45 PM CDT - 06/13/2025 11:59 PM CDT Hospital Encounter [facility] Maternal and Ground Floor [facility] [address] [place] [address] June River MD Discharge Disposition: Home or Self Care 06/01/2025 10:15 AM CDT - 06/01/2025 11:59 PM CDT Hospital Encounter [facility] [address] [place] [address] June River MD Bartelsmeyer, James A, MD Discharge Disposition: Home or Self Care 05/31/2025 External Device Data STL ABSTRACTION Provider, Abstract 05/30/2025 External Device Data STL ABSTRACTION Provider, Abstract 05/24/2025 11:01 PM CDT - 05/24/2025 11:53 PM CDT Emergency [facility] Obstetrics Emergency Department [address] [place] [address] Lizabeth Garcia MD movement present, third trimester (Primary Dx) Discharge Disposition: Home or Self Care 05/24/2025 Travel 05/19/2025 12:45 PM CDT - 05/19/2025 11:59 PM CDT Hospital Encounter [facility] Maternal and Ground Floor [facility] [address] [place] [address] Citlali Lorenzana MD Discharge Disposition: Home or Self Care 05/16/2025 [facility] Diabetes Education [address] [facility] [address] [place] [address] Tahmina Palomino, MANAN 05/09/2025 External Device Data STL ABSTRACTION Provider, Abstract 05/09/2025 External Device Data STL ABSTRACTION Provider, Abstract 05/09/2025 External Device Data STL ABSTRACTION Provider, Abstract 05/08/2025 12:15 PM CDT Ancillary Procedure [facility] Obstetrics Emergency Department [address] [place] [address] 05/08/2025 9:25 AM CDT - 05/08/2025 12:25 PM CDT Emergency [facility] Obstetrics Emergency Department [address] [place] [address] Decreased movements in second trimester, fetus 1 of multiple gestation (Primary Dx) Discharge Disposition: Home or Self Care 05/08/2025 Travel 05/05/2025 Telephone [facility] Diabetes Education [address] [facility] [address] [place] [address] 05/04/2025 3:09 PM CDT - 05/04/2025 11:59 PM CDT Hospital Encounter [facility] Maternal and Ground [facility] [address] [place] [address] Citlali Lorenzana MD Discharge Disposition: Home or Self Care 05/03/2025 External Device Data STL ABSTRACTION Provider, Abstract 05/02/2025 External Device Data STL ABSTRACTION Provider, Abstract from Last 3 Months Social History Tobacco Use Types Packs/Day Years Used Date Smoking Tobacco: Never Smokeless Tobacco: Never Tobacco Cessation:Counseling Given: Not Answered Alcohol Use Standard Drinks/Week Comments Not Currently 0 (1 standard drink = 0.6 oz pur e alcohol) Food Insecurity Answer Date Recorded Do you find you are eating l ess than you should because you can t pay for food? No 07/07/2025 Transportation Needs Answer Date Record ed Have you gone without health care because you didn t have a way to get there? Or worry about transportation for future doctor visits, potato picker medication, etc.? No 2024 Housing Stability Answer Date Recorded Do you worry you won t have a steady place to sleep or struggle to pay rent or mortgage? No 07/07/2025 Utility Needs Answer Date Recorded Do you have difficulty payin g for utility costs (electric, water or gas bills)? No 07/07/2025 Medication Needs Answer Date Recorded Have you skipped taking medi cation due to cost or worry you can t afford new medications? No 07/07/2025 Feeling Safe Answer Date Recorded Are you in a relationship wi th someone who hurts you emotionally and/or physically? No 07/07/2025 Food Insecurity Answer Date Recorded Patient needs follow up regardin 07/07/2025 Transportation Needs Answer Date Record ed Patient needs follow up regardin 07/07/2025 Utility Needs Answer Date Recorded Patient needs follow up regardin 07/07/2025 Comments No Sex and Gender Information Value Date Recorded Sex Assigned at Not on file Legal Sex Female 12:56 PM CDT Gender Identity Not on file Sexual Orientation Not on file Last Filed Vital Signs Vital Sign Reading Time Taken Comments Blood Pressure 134/84 07/12/2025 8:09 AM CDT Pulse 88 07/12/2025 8:09 AM CDT Temperature 36.6 C (97.9 F) 07/12/2025 8:09 AM CDT Respiratory Rate 20 07/12/2025 8:09 AM CDT Oxygen Saturation 97% 07/11/2025 8:38 PM CDT Inhaled Oxygen Concentration - - Weight 137.4 kg (303 lb) 07/07/2025 7:58 PM CDT Height 172.7 cm (5' 8) 07/07/2025 7:58 PM CDT Body Mass Index 46.07 07/07/2025 7:58 PM CDT Plan of Treatment Health Maintenance Due Date Last Done Comments HEPATITIS B VACCINES (1 of 3 - 19+ 3-dose series) 2014 HPV/Cotest (-) 2016 HPV VACCINES (3 - 3-dose series) 07/26/2021 02/27/20 21, 01/24/2021 INFLUENZA VACCINE (#1) 2025 0, 06/08/2020, 07/26/2019 COVID-19 Vaccine ( - 2024-2 6 season) 2025 12/15/2020, 11/17/2020 CERVICAL CANCER SCREENING 10/15/2025 PAP SMEAR 10/15/2025 10/15/2022, 10/15/2022 DTAP/TDAP/TD VACCINES (2 - T d or Tdap) 01/24/2031 01/24/2021 Medical Devices Implanted Type Area Fiber Machine Tender Device Identifier Shelf Expiration Date Model / Serial / Lot Hemostatic Surg Powder [id number] - [id number] Implanted:Qty : 1 on 07/08/2025 by Glenn Mooney DO at [facility] Hemostatic N/A: Abdomen [employer]- [employer] [id number] / / Procedures Procedure Name Priority Date/Time Associated Diagnosis Comments TELEMETRY REPORT 07/12/2025 8:57 AM CDT CBC WITH DIFFERENTIAL Timed Study 07/09/2025 8:32 AM CDT LA ANESTHESIA BLOCK PB PLACEHOLDER CHARGE Routine 07/08/2025 11:40 AM CDT PATHOLOGY Pathology 07/08/2025 10:57 AM CDT LA OB ANTEPARTUM CARE DLVR & 07/08/2025 10:00 AM CDT PRIMARY NEED ALL LABS MONO/DI TWINS EDC 08/07 PREPARE RED BLOOD CELLS Routine 07/08/2025 9:35 AM CDT PREPARE RED BLOOD CELLS Routine 07/08/2025 9:35 AM CDT HEPATITIS C ANTIBODY Routine 07/08/2025 8:43 AM CDT HIV DETECTION W/REFLX CONFIRMATION Routine 07/08/2025 8:43 AM CDT RUBELLA IGG Routine 07/08/2025 8:43 AM CDT RPR Routine 07/08/2025 8:43 AM CDT HEPATITIS B SURFACE ANTIGEN Routine 07/08/2025 8:43 AM CDT OBSTETRIC PANEL Routine 07/08/2025 8:43 AM CDT VERIFICATION BLOOD GROUP Stat 07/08/2025 3:06 AM CDT Encounter for blood typing TYPE AND SCREEN Routine 07/07/2025 11:13 PM CDT RPR Routine 07/07/2025 11:13 PM CDT CBC WITH DIFFERENTIAL Routine 07/07/2025 11:13 PM CDT PROTEIN , RANDOM URINE Stat 07/07/2025 4:49 PM CDT COMPREHENSIVE METABOLIC PANEL Stat 07/07/2025 4:46 PM CDT CBC WITH DIFFERENTIAL Stat 07/07/2025 4:46 PM CDT US MONITORING NST Routine 07/06/2025 4:14 PM CDT Monochorionic diamniotic twin gestation in second trimester US OB FOLLOW UP PER FETUS Routine 07/06/2025 3:11 PM CDT Monochorionic diamniotic twin gestation in second trimester US BIOPHYSICAL PROF W NST Routine 07/04/2025 1:47 PM CDT Monochorionic diamniotic twin gestation in second trimester NONSTRESS TEST Stat 07/02/2025 11:44 AM CDT XR CHEST PA AND LATERAL 2 VW Stat 07/02/2025 11:23 AM CDT PROTEIN , RANDOM URINE Stat 07/02/2025 9:14 AM CDT BLOOD BANK DRAW ONLY Stat 07/02/2025 9:11 AM CDT BRAIN NATRIURETIC PEPTIDE, BNP OR PROBNP Stat 07/02/2025 9:11 AM CDT COMPREHENSIVE METABOLIC PANEL Stat 07/02/2025 9:11 AM CDT CBC WITH DIFFERENTIAL Stat 07/02/2025 9:11 AM CDT US OB FOLLOW UP PER FETUS Routine 06/29/2025 3:08 PM CDT Monochorionic diamniotic twin gestation in third trimester US MONITORING NST Routine 06/29/2025 1:39 PM CDT Monochorionic diamniotic twin gestation in second trimester COMPREHENSIVE METABOLIC PANEL Stat 06/27/2025 4:36 AM CDT CBC WITH DIFFERENTIAL Stat 06/27/2025 4:36 AM CDT POC GLUCOSE Stat 06/27/2025 4:24 AM CDT POC GLUCOSE Stat 06/22/2025 12:05 AM CDT US OB LIMITED + NST Routine 06/20/2025 1 1:45 AM CDT Monochorionic diamniotic twin gestation in second trimester US MONITORING NST Routine 06/15/2025 2:15 PM CDT Monochorionic diamniotic twin gestation in second trimester US OB FOLLOW UP PER FETUS Routine 06/15/2025 11:46 AM CDT Monochorionic diamniotic twin gestation in second trimester US OB LIMITED + NST Routine 06/13/2025 3 :24 PM CDT Monochorionic diamniotic twin gestation in second trimester US OB FOLLOW UP PER FETUS Routine 06/01/2025 11:17 AM CDT Monochorionic diamniotic twin gestation in second trimester US OB FOLLOW UP PER FETUS Routine 05/19/2025 1:55 PM CDT Monochorionic diamniotic twin gestation in second trimester US OB LTD 1 OR MORE FETUSES Stat 05/08/2025 12:24 PM CDT US OB FU+ UMB + MDCERB ART Routine 05/04/2025 3:52 PM CDT Monochorionic diamniotic twin gestation in second trimester from Last 3 Months Results * TELEMETRY REPORT (07/12/2025 8:57 AM CDT) us Provider Scanning ECG ORDERABLES Final Result * (ABNORMAL) CBC WITH DIFFERENTIAL (07/09/2025 8:32 AM CDT) Only the most recent of5 resultswithin the time period is included. WBC 10.6(H) 4.0 - 9.8 K/uL 07/09/2025 9:00 AM CDT [facility] RBC 2.99(L) 3.90 - 4.90 M/uL 07/09/2025 9:00 AM CDT [facility] HEMOGLOBIN 8.6(L) 11.8 - 14.8 g/dL 07/09/2025 9:00 AM CDT [facility] HEMATOCRIT 26.3(L) 35.5 - 44.0 % 07/09/2025 9:00 AM CDT [facility] MCV 88.0 82.0 - 99.0 fL 07/09/2025 9:00 AM CDT [facility] MCH 28.8 27.2 - 32.6 pg 07/09/2025 9:00 AM CDT [facility] MCHC 32.7 31.5 - 35.5 g/dL 07/09/2025 9:00 AM CDT [facility] RDW 13.3 11.5 - 14.5 % 07/09/2025 9:00 AM CDT [facility] RDW-STDEV 42.0 37.1 - 48.7 fL 07/09/2025 9:00 AM CDT [facility] PLATELETS 183 140 - 350 K/uL 07/09/2025 9:00 AM CDT [facility] MPV 9.5 9.3 - 12.4 fL 07/09/2025 9:00 AM CDT [facility] NEUTROPHILS 73 % 07/09/2025 9:00 AM CDT [facility] LYMPHOCYTES 20 % 07/09/2025 9:00 AM CDT [facility] MONOCYTES 6 % 07/09/2025 9:00 AM CDT [facility] KALINA EOSINOPHILS 0 % 07/09/2025 9:00 AM [facility] BASOPHILS 0 % 07/09/2025 9:00 AM [facility] IMMATURE GRANULOCYTES 1 % 07/09/2025 9:00 AM [facility] Comment:IG (Immature Granulo cyte) count includes Metamyelocytes, Myelocytes, and Promyelocytes NEUTROPHIL ABSOLUTE 7.77(H) 1.90 - 7.00 K/uL 07/09/2025 9:00 AM CDT [facility] LYMPHOCYTE ABSOLUTE 2.17 0.70 - 4.50 K/uL 07/09/2025 9:00 AM [facility] MONOCYTE ABSOLUTE 0.61 0.10 - 1.30 K/uL 07/09/2025 9:00 AM [facility] EOSINOPHIL ABSOLUTE 0.01 0.00 - 0.70 K/uL 07/09/2025 9:00 AM [facility] BASOPHILS ABSOLUTE 0.02 0.00 - 0.20 K/uL 07/09/2025 9:00 AM [facility] IMMATURE GRANULOCYTES ABSOLUTE 0.05(H) 0.00 - 0.03 K/uL 07/09/2025 9:00 AM [facility] Blood Venipuncture / Unknown 07/09/2025 8:32 AM CDT 07/09/2025 8:50 AM CDT us Glenn Mooney DO HEMATOLOGY ORDERABLES Final [facility] [id number] [address] [place] [address] * LA ANESTHESIA BLOCK PB PLACEHOLDER CHARGE (07/08/2025 11:40 AM CDT) Narrative Chio Betts CRNA - 07/08/2025 11:40 AM CDT Chio Betts CRNA 07/08/2025 11:41 AM Spinal Block Patient location during procedure: OB Reason for block: primary anesthetic Staffing Performed: FLORENCIO/CAA Authorized by: Aury Chau MD Performed by: Chio Betts CRNA Preanesthetic Checklist Completed: patient identified, IV checked, risks and benefits discussed, surgical consent, monitors and equipment checked, pre-op evaluation and timeout performed Spinal Hand hygiene performed prior to procedure Patient was prepped and draped in usual sterile fashion Time out performed Mask worn Patient position: Sitting Prep: Betadine and site prepped and draped Local Anesthetic: Lidocaine 1% without epinephrine Patient monitoring: Continuous pulse oximetry, Heart rate and Non-invasive blood pressure Approach: Midline Injection Technique: Single-shot Number of Attempts: 1 Spinal Needle Needle type: Pencil-tip Needle gauge: 25 G Needle length: 10 cmCSF visualized Assessment Secured with: Dermabond Aury Chau MD PROCEDURE/MINOR SURGICAL O RDERABLES Final Result * PATHOLOGY (07/08/2025 10:57 AM CDT) CASE REPORT Surgical Pathology Report Case: [id number] Authorizing Provider: Glenn Mooney DO Collected: 07/08/2025 10:57 AM Ordering Location: [facility] Received: 07/10/2025 08:29 AM Labor & Pathologist: Sherice Sky MD Specimens: A) - Placenta, mo/di twins 35.4 B) - Placenta 2:59 PM CDT [facility] FINAL DIAGNOSIS Twin placenta, section: - Monochorionic/diamniot ic placenta with no evidence of vascular anastomosis Twin placenta, single clamp, section: - membranes with pigmented macrophages - Three-vessel umbilical cord with no histopathologic abnormality - Chorangiosis - Focal chronic villitis - Mature chorionic villi Twin placenta, double clamp, section: - membranes with scattered pigmented macrophages - Three-vessel umbilical cord with velamentous insertion - Subchorionic fibrin deposition - Perivillous fibrin deposition - Focal villous stromal/vascular karyorrhexis - Chorangiosis - Mature chorionic villi 2:59 PM CDT [facility] at 1459 CDT GROSS DESCRIPTION Received in a single container labeled Reji Sam, placenta and additionally designated no micro is a 34 x 26 x 2 cm twin placenta with a trimmed weight of 800 g. The dividing membranes are thin, herron, translucent, and move freely over the surface of the disc. This is consistent with a monochorionic diamniotic gestation. Upon air injection, there is no evidence of vascular anastomosis. 1 domain is designated with a single umbilical cord clamp. This domain is 26 x 18 x 2 cm. The single clamped, three-vessel, normal torsed umbilical cord is received in 3 pieces with an aggregate length of 51 cm and a diameter of 1.3 cm. The umbilical cord inserts paracentrally, 8 cm from the closest placental margin. The membranes are pink-pathak and semiopaque with a point of rupture 4 cm from the margin. The surface is bluegray and glistening. The maternal surface is focally disrupted and questionably complete. There is no evidence of loose or adherent blood clot. Sectioning exhibits unremarkable dark red-brown placental parenchyma. No distinct lesions are identified. Desulphurizer Operator sections of this domain are submitted in cassettes as follows: A1-umbilical cord and membrane roll; A2 through A4-unremarkable placenta. Desulphurizer Operator sections of the dividing membranes and T-zone are submitted in cassette A5. The second domain has a double clamped umbilical cord and is 23.5 x 15 x 2 cm. The double clamped, three-vessel, normal torsed umbilical cord is received in 3 pieces with an aggregate length of 39 cm and a diameter of 1.3 cm. The umbilical cord has a velamentous insertion, 5 cm from the disc edge. The membranous vessels have a maximum diameter of 1 cm and are intact without evidence of thrombosis. The surface is bluegray and glistening. The maternal surface is focally disrupted and questionably complete. There is no evidence of loose or adherent blood clot. Sectioning exhibits unremarkable dark red-brown placental parenchyma. No distinct lesions are identified. Desulphurizer Operator sections of this domain are submitted in cassettes as follows: B1-umbilical cord, membrane roll, and membranous vessels; B2 through B4-unremarkable central placenta. KA 5 2:59 PM CDT [facility] MICROSCOPIC DESCRIPTION The slides are labeled [id number] and Reji Sam. The microscopic findings substantiate the above diagnoses. 2:59 PM CDT [facility] OPERATIVE PROCEDURE 1: SECTION 2:59 PM CDT [facility] CLINICAL INFORMATION mo/di twins 35.4 2:59 PM CDT [facility] COMMENT Special stain, immunohistochemical, and/or in situ hybridization results are interpreted with controls that demonstrate appropriate staining reactions. Note on use of immunohistochemistry reagents and in situ hybridization probes: These tests were developed and their performance characteristics determined by [facility], Department of Laboratory Medicine. It has not been cleared or approved by the U.S. Food and Drug Administration. The FDA has determined that such clearance or approval is not necessary. The test is used for clinical purposes. It should not be regarded as investigational or for research. This laboratory is certified to perform high complexity testing. Frozen section/operating room consultation, gross examination and dissection, and case sign out may have been performed in part or completely in the following laboratories: [facility], [place] #[id number] [address] [place] [address] [facility], [place] #[id number] [address] [place] [address] [facility], [place] #[id number] [address] [place] [address] This report was created with the [employer] voice-activated dictation system. Inherent to this system is the possibility of syntax, grammar, punctuation and other errors that could impact the interpretation of the report. If there are interpretative questions about aspects of this report, please contact the performing pathologist. 2:59 PM CDT [facility] Tissue SPECIMEN FROM [facility] / Unknown Collection / Unknown 07/08/2025 10:57 AM CDT 07/10/2025 8:29 AM CDT Tissue specimen (specimen) SPECIMEN FROM [facility] / Unknown 07/08/2025 10:57 AM CDT 07/10/2025 8:29 AM CDT Glenn Mooney DO PATHOLOGY/CYTOLOGY ORDERABLES Final Result Performing Organization Address City/State/[place] Co de Phone Number [facility] [id number] [address] [place] [address] * PREPARE RED BLOOD CELLS (07/08/2025 9:35 AM CDT) Only the most recent of2 resultswithin the time period is included. Pathologist [facility] [place] COMPONENT TYPE [id number] [facility] COMPONENT IDENTIFICATION [id number] [facility] [facility] ABO O [facility] RH POS [facility] CROSSMATCH Compatible [facility] COMPONENT STATUS Returned [facility] COMPONENT EXPIRATION DATE/TIME [id number] [facility] -- [facility] COMPONENT CODING SYSTEM 5100 [facility] -- [facility] VOLUME, BLOOD PRODUCT 350 [facility] -- [facility] 07/08/2025 9:35 AM CDT Glennsherie Mooney DO LAB TRANSFUSION ORDERABLES Timbo barbara Result - Final Performing Organization Address [facility]/[place] Co de Phone Number [facility] -- [facility] CLIA# [id number] [address] [place] [address] * HIV DETECTION W/REFLX CONFIRMATION (07/08/2025 8:43 AM CDT) [facility] HIV-1 AND 2 ABS AND HIV-1 AG Non-reacti ve Non-reacti ve 07/08/2025 9:49 AM CDT [facility] Blood Venipuncture / Unknown 07/08/2025 8:43 AM CDT 07/08/2025 8:48 AM CDT us Glennsherie Mooney DO CHEMISTRY ORDERABLES Final Res ult Performing Organization Address [facility]/ZIP Co de Phone Number [facility] CLIA# [id number] [address] [place] [address] * HEPATITIS B SURFACE ANTIGEN (07/08/2025 8:43 AM CDT) HEPATITIS B SURFACE AG NON-REACT KEVON Non-react kevon 07/08/2025 9:49 AM CDT [facility] Comment:A non-reactive test result does not exclude the possibility of exposure to or infection with hepatitis B. Blood Venipuncture / Unknown 07/08/2025 8:43 AM CDT 07/08/2025 8:48 AM CDT Glenn Senciboy DO CHEMISTRY ORDERABLES Final Res ult [facility] CLIA# [id number] [address] [place] [address] * RUBELLA IGG (07/08/2025 8:43 AM CDT) RUBELLA IGG IMMUNE Immune - Positive 07/08/2025 10:01 AM CDT [facility] Blood Venipuncture / Unknown 07/08/2025 8:43 AM CDT 07/08/2025 8:48 AM CDT Narrative [facility] - 07/08/2025 10:01 AM CDT A positive result suggests response to immunization or prior exposure to the virus. Glenn Senciboy DO CHEMISTRY ORDERABLES Final Res ult [facility] CLIA# [id number] [address] [place] [address] * HEPATITIS C ANTIBODY W REFLEX (07/08/2025 8:43 AM CDT) HEPATITIS C AB NON-REACT KEVON Non-react kevon 07/08/2025 9:49 AM CDT [facility] Comment:Antibodies to HCV we re not detected, does not exclude the possibility of exposure to HCV. Blood Venipuncture / Unknown 07/08/2025 8:43 AM CDT 07/08/2025 8:48 AM CDT Glenn Beachsowmya DO CHEMISTRY ORDERABLES Final Res ult Performing Organization Address City/[facility]/ZIP Co de Phone Number [facility]# [id number] [address], [place] [address] * RPR (07/08/2025 8:43 AM CDT) Only the most recent of2 resultswithin the time period is included. RPR NON-REACTI VE Non-Reacti ve 07/08/2025 1:07 PM CDT [facility] Blood Venipuncture / Unknown 07/08/2025 8:43 AM CDT 07/08/2025 8:48 AM CDT Glenn Vinicio DO CHEMISTRY ORDERABLES Final Res ult Performing Organization Address [facility] de Phone Number [facility]# [id number] [address] [place] [address] * VERIFICATION BLOOD GROUP (07/08/2025 3:06 AM CDT) ABO GROUP O 07/08/2025 4:25 AM CDT [facility] RH (D) TYPE Positive 07/08/2025 4:25 AM CDT [facility] Blood Venipuncture / Unknown 07/08/2025 3:06 AM CDT 07/08/2025 3:15 AM CDT Alena Marshall MD BLOOD BANK ORDERABLES Final Result Performing Organization Address City/[facility]/ZIP Co de Phone Number [employer] [facility]# [id number] [address] [place] [address] * TYPE AND SCREEN (07/07/2025 11:13 PM CDT) ABO GROUP O 07/08/2025 12:37 AM CDT [employer] [facility] -- [facility] RH (D) TYPE Positive 07/08/2025 12:37 AM CDT [facility] ANTIBODY SCREEN Negative 07/08/2025 12:37 AM CDT [facility] Blood Venipuncture / Unknown 07/07/2025 11:13 PM CDT 07/07/2025 11:22 PM CDT Glenn Mooney DO BLOOD BANK ORDERABLES Edited R esult - Final Performing Organization Address [facility]/[place] Co de Phone Number [facility]# [id number] [address] [place] [address] * PROTEIN/CREATININE RATIO, URINE (07/07/2025 4:49 PM CDT) Only the most recent of2 resultswithin the time period is included. Pathologist [facility] [place] PROTEIN CONCENTRATION 12 0 - 20 mg/dL 07/07/2025 5:15 PM CDT [facility] CREATININE, URINE 61.6 29.0 - 226.0 mg/dL 07/07/2025 5:15 PM CDT [facility] Comment:Reference Range vari es with fluid intake and diet. PROTEIN/CREAT RATIO, URINE 0.19 0.00 - 0.19 mg/mg Creatinine 07/07/2025 5:15 PM CDT [facility] Urine URINE SPECIMEN OBTAINED BY CLEAN CATCH PROCEDURE / Unknown 07/07/2025 4:49 PM CDT 07/07/2025 4:49 PM CDT Narrative [facility] - 07/07/2025 5:15 PM CDT The ACOG 2013 Guidelines recommend using a cutoff of >/= 0.30 protein/creatinine ratio for the diagnosis and management of preeclampsia. Allyson Gomesgh Wallace KAUR URINE ORDERABLES James cueva Result [facility] CLIA# [id number] [address] [facility] [place] [address] * (ABNORMAL) COMPREHENSIVE METABOLIC PANEL (07/07/2025 4:46 PM CDT) Only the most recent of3 resultswithin the time period is included. Pathologist [facility] [place] SODIUM 137 136 - 145 mmol/L 07/07/2025 5:27 PM CDT [facility] POTASSIUM 4.0 3.5 - 5.0 mmol/L 07/07/2025 5:27 PM CDT [facility] CHLORIDE 104 98 - 107 mmol/L 07/07/2025 5:27 PM CDT [facility] CO2 20(L) 22 - 29 mmol/L 07/07/2025 5:27 PM CDT [facility] [place] CALCIUM 8.7 8.6 - 10.2 mg/dL 07/07/2025 5:27 PM CDT [facility] BUN 13 6 - 20 mg/dL 07/07/2025 5:27 PM CDT [facility] CREATININE 0.75 0.51 - 0.95 mg/dL 07/07/2025 5:27 PM CDT [facility] [place] GLUCOSE 100(H) 74 - 99 mg/dL 07/07/2025 5:27 PM CDT [facility] [place] TOTAL PROTEIN 6.2(L) 6.7 - 8.6 g/dL 07/07/2025 5:27 PM CDT [facility] [place] ALBUMIN 3.7 3.5 - 5.2 g/dL 07/07/2025 5:27 PM CDT [facility] [place] BILIRUBIN TOTAL 0.3 0.0 - 1.2 mg/dL 07/07/2025 5:27 PM CDT [facility] ALKALINE PHOSPHATASE 153(H) 35 - 104 U/L 07/07/2025 5:27 PM CDT [facility] AST 34(H) <33 U/L 07/07/2025 5:27 PM CDT [facility] ALT 14 <34 U/L 07/07/2025 5:27 PM T [facility] GFR >60 >=60 mL/min/1.7 3 sq meter 07/07/2025 5:27 PM CDT [facility] Comment:eGFR calculated with 2020 CKD-EPI equation. Vegetarian diet, extremely high or low muscle mass, and may affect results. Cystatin C with Glomerular Filtration Rate is a suitable alternative for these patients. ANION GAP 13 8 - 16 mmol/L 07/07/2025 5:27 PM T [facility] Blood Venipuncture / Unknown 07/07/2025 4:46 PM CDT 07/07/2025 4:[address] [facility] - 07/07/2025 5:27 PM CDT Samples containing indocyanine green cause interferences on Total and/or Direct Bilirubin and must not be measured. Allyson Gonsalez [facility] CHEMISTRY ORDERABLES Final Result [facility]# [id number] [address] [facility] [place] [address] * MONITORING NST (07/06/2025 4:14 PM CDT) Only the most recent of3 resultswithin the time period is included. Anatomical Region Laterality Modality Ultrasound 07/06/2025 3:44 PM CDT Narrative 07/06/2025 3:53 PM CDT [facility] NST ----- Pat. Name: REJI SAM Study Date: 07/06/2025 3:44pm Pat. NO: [id number] Referring : GLENN MOONEY MD Site: [facility] Concrete Sculptor: : 1995 Age: 29 ----- INDICATION ----- Twin , Monochorionic/Diamniotic ([place]/Di) Maternal Obesity (BMI>40) Complicating Marginal Cord Insertion CODING ----- Diagnoses Z3A.35: Weeks of gestation O30.033: Twin , monochorionic/diamniotic O99.213: Obesity complicating Z36.3: Encounter for screening for malformations O36.8130: Decreased movements O69.89X0: Labor and delivery complicated by other cord complications Procedures 74873: NST/ monitoring HISTORY ----- OB History 2. Para 1 MATERNAL ASSESSMENT ----- Physical Exam Blood pressure 121/79 mmHg. Heart rate 82 bpm METHOD ----- EFM ----- Twin . Number of fetuses: 2. Monochorionic-diamniotic DATING ----- Cycle: regular cycle GA by prior assessment 35 w + 3 d ANDRE by prior assessment: 08/07/2025 Method of dating: Restore dating from previous exam Assigned: based on stated ANDRE, selected on 01/31/2025 Assigned GA 35 w + 3 d Assigned ANDRE: 08/07/2025 Fetus 1: NON STRESS TEST ----- NST interpretation: reactive. Test duration 21 min. Baseline FHR 140 bpm. Baseline variability: moderate. Accelerations: Present. Decelerations: Not present. Uterine activity: absent Fetus 2: NON STRESS TEST ----- Test duration 21 min. Baseline FHR 135 bpm. Accelerations: Present. Decelerations: absent. Uterine activity: absent COMMENT ----- Nursing notes: Patient reports positive movement with no bleeding, leaking or cesar. C/S scheduled 07/11. IMPRESSION ----- Impression: - Monochorionic-diamniotic twin viable intrauterine at 35w 3d - Nonstress test is reactive and reassuring for gestational age x 2 Recommendation: - Continue testing as scheduled. - Delivery scheduled 07/11 Thank you for inviting us to participate in your patient's care. Procedure Note June River MD - 07/06/2025 [facility] NST ----- Pat. Name:Vinod SAM Date:07/06/2025 3:44pm Pat. NO: [id number] MD:GLENN MOONEY [facility]1995Age:29 ----- INDICATION ----- Twin , Monochorionic/Diamniotic ([place]/Di) Maternal Obesity (BMI>40) Complicating Marginal Cord Insertion CODING ----- Diagnoses Z3A.35: Weeks of gestation O30.033: Twin ,monochorionic/diamniotic O99.213: Obesity complicating Z36.3: Encounter for screening formalformations O36.7030: Decreased movements O69.89X0: Labor and delivery complicated by othercord complications Procedures 45138: NST/ monitoring HISTORY ----- OB History 2. Para 1 MATERNAL ASSESSMENT ----- Physical Exam Blood pressure 121/79 mmHg. Heart rate 82 bpm METHOD ----- EFM ----- Twin . Number of fetuses: 2. Monochorionic-diamniotic DATING ----- Cycle:regular cycle GA by prior [id number] w + 3 d ANDRE by prior assessment:08/07/2025 Method of dating:Restore dating from previous exam Assigned:based on stated ANDRE, selected on 01/31/2025 Assigned GA35 w + 3 d Assigned ANDRE:08/07/2025 Fetus 1: NON STRESS TEST ----- NST interpretation: reactive. Test duration 21 min. Baseline FHR 140 bpm.Baseline variability: moderate. Accelerations: Present. Decelerations: Not present. Uterine activity: absent Fetus 2: NON STRESS TEST ----- Test duration 21 min. Baseline FHR 135 bpm. Accelerations: Present.Decelerations: absent. Uterine activity: absent COMMENT ----- Nursing notes: Patient reports positive movement with no bleeding,leaking or cesar. C/S scheduled 07/11. IMPRESSION ----- Impression: - Monochorionic-diamniotic twin viable intrauterine at 35w 3d - Nonstress test is reactive and reassuring for gestational age x 2 Recommendation: - Continue testing as scheduled. - Delivery scheduled 07/11 Thank you for inviting us to participate in your patient's care. us June River MD US ORDERABLES Final R esult * US OB FOLLOW UP PER FETUS (07/06/2025 3:11 PM CDT) Only the most recent of5 resultswithin the time period is included. Anatomical Region Laterality Modality Pelvis Ultrasound 07/06/2025 2:37 PM CDT Narrative 07/06/2025 3:11 PM CDT [facility] FOLLOW UP ----- Pat. Name: REJI SAM Study Date: 07/06/2025 2:37pm Pat. 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 2 HISTORY ----- OB History 2. Para 1 MATERNAL ASSESSMENT ----- Physical Exam Weight 134 kg. BMI 45.01 kg/m METHOD ----- Transabdominal ultrasound examination ----- Twin . Number of fetuses: 2. Monochorionic-monoamniotic DATING ----- Cycle: regular cycle GA by prior assessment 35 w + 3 d ANDRE by prior assessment: 08/07/2025 Ultrasound examination on: 07/06/2025 GA by U/S based upon: AC, BPD, EFW, Femur, HC GA by U/S 38 w + 0 d ANDRE by U/S: 07/20/2025 GA by U/S based upon (Fetus 2): AC, BPD, EFW, Femur, HC GA by U/S (Fetus 2) 37 w + 0 d ANDRE by U/S (Fetus 2): 07/27/2025 Method of dating: Restore dating from previous exam Assigned: based on stated ANDRE, selected on 01/31/2025 Assigned GA 35 w + 3 d Assigned ANDRE: 08/07/2025 Fetus 1: BIOMETRY ----- BPD 96.8 mm 39w 4d >99% Hadlock OFD 120.9 mm -/- >99% Silvia HC 345.5 mm 40w 0d 98% Hadlock AC 339.3 mm 37w 6d 98% Hadlock Femur 67.6 mm 34w 5d 26% Hadlock HC / AC 1.02 45% Nicolaides Weight Calculation: EFW 3,240 g 38w 0d 94% Hadlock EFW (lb,oz) 7 lb 2 oz EFW by Hadlock ([id number]) EFW discordance 7.8 % Extremities / Bony Struc Biometry: FL / BPD 0.70 FL / HC 0.20 FL / AC 0.20 Fetus 2: BIOMETRY ----- BPD 91.7 mm 37w 2d 93% Hadlock OFD 121.8 mm -/- >99% Silvia HC 342.6 mm 39w 4d 96% Hadlock AC 330.9 mm 37w 0d 92% Hadlock Femur 66.6 mm 34w 2d 17% Hadlock HC / AC 1.04 57% Nicolaides Weight Calculation: EFW 2,986 g 36w 6d 80% Hadlock EFW (lb,oz) 6 lb 9 oz EFW by Hadlock ([id number]) EFW discordance 7.8 % Extremities / Bony Struc Biometry: FL / BPD 0.73 FL / HC 0.19 FL / AC 0.20 Fetus 1: GENERAL EVALUATION ----- Cardiac activity present. FHR 157 bpm. movements: present. Presentation: cephalic left Placenta: Placental site: posterior Umbilical cord: Cord vessels: 3 vessel cord. Insertion site: placental insertion: normal Amniotic fluid: Amount of AF: normal amount. MVP 6.8 cm Fetus 2: GENERAL EVALUATION ----- Cardiac activity present. FHR 134 bpm. movements: present. Presentation: breech right Placenta: Placental site: posterior Umbilical cord: Cord vessels: 3 vessel cord. Insertion site: placental insertion: normal Amniotic fluid: Amount of AF: normal amount. MVP 7.4 cm Fetus 1: ANATOMY ----- The following structures appear normal: Head / Neck Cranium. Heart / Thorax Cardiac rhythm. Diaphragm. Abdomen Stomach. Kidneys. Bladder. sex: male. Fetus 2: ANATOMY ----- The following structures appear normal: Head / Neck Cranium. Heart / Thorax Cardiac rhythm. Diaphragm. Abdomen Stomach. Kidneys. Bladder. sex: male. Fetus 1: GROWTH OVERVIEW ----- Exam date GA BPD (mm) HC (mm) AC (mm) FL (mm) HL (mm) EFW (g) 02/22/2025 16w 2d 37.7 93% 140.4 89% 118.7 88% 27.1 97% 213 >99% 03/08/2025 18w 2d 153.1 97% 03/23/2025 20w 3d 54.0 98% 191.4 82% 176.6 95% 39.0 95% 35.4 95% 503 >99% 04/07/2025 22w 4d 209.3 99% 04/20/2025 24w 3d 67.4 99% 248.2 97% 219.0 91% 48.4 88% 933 99% 05/04/2025 26w 3d 244.5 95% 05/19/2025 28w 4d 82.4 >99% 298.9 >99% 262.5 90% 56.3 65% 1,603 96% 06/01/2025 30w 3d 279.3 87% 06/15/2025 32w 3d 90.2 >99% 327.1 99% 305.3 94% 64.1 56% 2,462 94% 07/06/2025 35w 3d 96.8 >99% 345.5 98% 339.3 98% 67.6 26% 3,240 94% Fetus 2: GROWTH OVERVIEW ----- Exam date GA BPD (mm) HC (mm) AC (mm) FL (mm) HL (mm) EFW (g) 02/22/2025 16w 2d 36.6 86% 130.0 57% 116.3 84% 23.0 70% 181 88% 03/08/2025 18w 2d 143.3 87% 03/23/2025 20w 3d 50.8 84% 186.3 66% 163.4 75% 33.4 43% 32.8 73% 392 74% 04/07/2025 22w 4d 190.6 80% 04/20/2025 24w 3d 63.0 80% 232.0 61% 218.5 91% 43.4 31% 808 83% 05/04/2025 26w 3d 237.2 86% 05/19/2025 28w 4d 79.2 >99% 284.8 91% 253.3 72% 53.9 34% 1,410 72% 06/01/2025 30w 3d 278.4 85% 06/15/2025 32w 3d 86.8 97% 319.9 94% 307.3 96% 61.1 20% 2,336 86% 07/06/2025 35w 3d 91.7 93% 342.6 96% 330.9 92% 66.6 17% 2,986 80% COMMENT ----- Patient's name and date of were verified by the human resources receptionist prior to the exam IMPRESSION ----- MCDA twin IUP at 35w 3d Twin A: cephalic left presentation LGA growth with EFW 3240 g (94%). Intertwin discordance is 7.8 %. Normal amniotic fluid volume, MVP 6.8 cm Normal bladder visualized No signs of TTTS NST following this ultrasound please see separate report Twin B: breech right presentation AGA growth with EFW 2986 g (80%). Intertwin discordance is 7.8 %. Normal amniotic fluid volume, MVP 7.4 cm Normal bladder visualized No signs of TTTS NST following this ultrasound please see separate report Recommendations: - Recommend continue twice weekly mBPP through delivery Procedure Note Citlali Lorenzana MD - 07/06/2025 [facility] FOLLOW UP ----- Pat. Name:Vinod SAM Date:07/06/2025 2:37pm Pat. NO: [id number] MD:GLENN MOONEY [facility]Mahogany Espinoza RDMS, RVT :1995Age:29 ----- INDICATION ----- Twin , Monochorionic/Diamniotic ([place]/Di) Maternal Obesity (BMI>40) Complicating Marginal or Velamentous Cord insertion CODING ----- Diagnoses Z3A.35: Weeks of gestation O43.123: Velamentous insertion of umbilical cord O99.213: Obesity complicating O30.033: Twin ,monochorionic/diamniotic Procedures 12319: Ultrasound, uterus, real time withimage documentation, follow up, transabdominal approach per fetus. 2 HISTORY ----- OB History 2. Para 1 MATERNAL ASSESSMENT ----- Physical Exam Weight 134 kg. BMI 45.01 kg/m METHOD ----- Transabdominal ultrasound examination ----- Twin . Number of fetuses: 2. Monochorionic-monoamniotic DATING ----- Cycle:regular cycle GA by prior [id number] w + 3 d ANDRE by prior assessment:08/07/2025 Ultrasound examination on:07/06/2025 GA by U/S based upon:AC, BPD, EFW, Femur, HC GA by U/S38 w + 0 d ANDRE by U/S:07/20/2025 GA by U/S based upon (Fetus 2):AC, BPD, EFW, Femur, HC GA by U/S (Fetus 2)37 w + 0 d ANDRE by U/S (Fetus 2):07/27/2025 Method of dating:Restore dating from previous exam Assigned:based on stated ANDRE, selected on 01/31/2025 Assigned GA35 w + 3 d Assigned ANDRE:08/07/2025 Fetus 1: BIOMETRY ----- BPD 96.8 mm 39w 4d >99%Hadlock OFD 120.9 mm -/- >99%Silvia HC 345.5 mm 40w 0d 98%Hadlock AC 339.3 mm 37w 6d 98%Hadlock Femur 67.6 mm 34w 5d 26%Hadlock HC / AC 1.02 45%Nicolaides Weight Calculation: EFW 3,240 g 38w 0d94% Hadlock EFW (lb,oz) 7 lb 2 oz EFW by Hadlock ([id number]) EFW discordance 7.8 % Extremities / Bony Struc Biometry: FL / BPD 0.70 FL / HC 0.20 FL / AC 0.20 Fetus 2: BIOMETRY ----- BPD 91.7 mm 37w 2d 93%Hadlock OFD 121.8 mm -/- >99%Silvia HC 342.6 mm 39w 4d 96%Hadlock AC 330.9 mm 37w 0d 92%Hadlock Femur 66.6 mm 34w 2d 17%Hadlock HC / AC 1.04 57%Nicolaides Weight Calculation: EFW 2,986 g 36w 6d80% Hadlock EFW (lb,oz) 6 lb 9 oz EFW by Hadlock ([id number]) EFW discordance 7.8 % Extremities / Bony Struc Biometry: FL / BPD 0.73 FL / HC 0.19 FL / AC 0.20 Fetus 1: GENERAL EVALUATION ----- Cardiac activity present. FHR 157 bpm. movements: present.Presentation: cephalic left Placenta: Placental site: posterior Umbilical cord: Cord vessels: 3 vessel cord. Insertion site: placentalinsertion: normal Amniotic fluid: Amount of AF: normal amount. MVP 6.8 cm Fetus 2: GENERAL EVALUATION ----- Cardiac activity present. FHR 134 bpm. movements: present.Presentation: breech right Placenta: Placental site: posterior Umbilical cord: Cord vessels: 3 vessel cord. Insertion site: placentalinsertion: normal Amniotic fluid: Amount of AF: normal amount. MVP 7.4 cm Fetus 1: ANATOMY ----- The following structures appear normal: Head / Neck Cranium. Heart / Thorax Cardiac rhythm. Diaphragm. Abdomen Stomach. Kidneys. Bladder. sex: male. Fetus 2: ANATOMY ----- The following structures appear normal: Head / Neck Cranium. Heart / Thorax Cardiac rhythm. Diaphragm. Abdomen Stomach. Kidneys. Bladder. sex: male. Fetus 1: GROWTH OVERVIEW ----- Exam date GA BPD (mm) HC (mm) AC (mm)FL (mm) HL (mm) EFW (g) 02/22/2025 16w 2d 37.7 93% 140.4 89% 118.7 88%27.1 97% 213 >99% 03/08/2025 18w 2d 153.1 97% 03/23/2025 20w 3d 54.0 98% 191.4 82% 176.6 95%39.0 95% 35.4 95% 503 >99% 04/07/2025 22w 4d 209.3 99% 04/20/2025 24w 3d 67.4 99% 248.2 97% 219.0 91%48.4 88% 933 99% 05/04/2025 26w 3d 244.5 95% 05/19/2025 28w 4d 82.4 >99% 298.9 >99% 262.5 90%56.3 65% 1,603 96% 06/01/2025 30w 3d 279.3 87% 06/15/2025 32w 3d 90.2 >99% 327.1 99% 305.3 94%64.1 56% 2,462 94% 07/06/2025 35w 3d 96.8 >99% 345.5 98% 339.3 98%67.6 26% 3,240 94% Fetus 2: GROWTH OVERVIEW ----- Exam date GA BPD (mm) HC (mm) AC (mm)FL (mm) HL (mm) EFW (g) 02/22/2025 16w 2d 36.6 86% 130.0 57% 116.3 84%23.0 70% 181 88% 03/08/2025 18w 2d 143.3 87% 03/23/2025 20w 3d 50.8 84% 186.3 66% 163.4 75%33.4 43% 32.8 73% 392 74% 04/07/2025 22w 4d 190.6 80% 04/20/2025 24w 3d 63.0 80% 232.0 61% 218.5 91%43.4 31% 808 83% 05/04/2025 26w 3d 237.2 86% 05/19/2025 28w 4d 79.2 >99% 284.8 91% 253.3 72%53.9 34% 1,410 72% 06/01/2025 30w 3d 278.4 85% 06/15/2025 32w 3d 86.8 97% 319.9 94% 307.3 96%61.1 20% 2,336 86% 07/06/2025 35w 3d 91.7 93% 342.6 96% 330.9 92%66.6 17% 2,986 80% COMMENT ----- Patient's name and date of were verified by the human resources receptionist prior tothe exam IMPRESSION ----- MCDA twin IUP at 35w 3d Twin A: cephalic left presentation LGA growth with EFW 3240 g (94%). Intertwin discordance is 7.8 %. Normal amniotic fluid volume, MVP 6.8 cm Normal bladder visualized No signs of TTTS NST following this ultrasound please see separate report Twin B: breech right presentation AGA growth with EFW 2986 g (80%). Intertwin discordance is 7.8 %. Normal amniotic fluid volume, MVP 7.4 cm Normal bladder visualized No signs of TTTS NST following this ultrasound please see separate report Recommendations: - Recommend continue twice weekly mBPP through delivery us June River MD US ORDERABLES Final R esult * US BIOPHYSICAL PROF W NST (07/04/2025 1:47 PM CDT) Anatomical Region Laterality Modality Pelvis Ultrasound 07/04/2025 11:0 6 AM CDT Narrative 07/05/2025 8:22 AM CDT BPP WITH NST STUDY ----- Pat. Name: REJI SAM Study Date: 07/04/2025 11:06am Pat. NO: [id number] Referring MD: GLENN MOONEY MD Site: [facility] Concrete Sculptor: : 1995 Age: 29 ----- INDICATION ----- Twin , Monochorionic/Diamniotic ([place]/Di) Maternal Obesity (BMI>40) Complicating Gestational Diabetes, Diet Controlled CODING ----- Diagnoses Z3A.35: Weeks of gestation O99.213: Obesity complicating O30.033: Twin , monochorionic/diamniotic O24.410: Gestational diabetes mellitus in , diet controlled Procedures 38374: biophysical profile; with non-stress testing. 2 59356: Ultrasound, uterus, real time with image documentation, limited one or more fetuses. 1 HISTORY ----- OB History 2. Para 1 MATERNAL ASSESSMENT ----- Physical Exam Blood pressure 131/77 mmHg. Heart rate 79 bpm METHOD ----- EFM. Transabdominal ultrasound examination. View: Good view ----- Twin . Number of fetuses: 2. Monochorionic-monoamniotic DATING ----- Cycle: regular cycle GA by prior assessment 35 w + 1 d ANDRE by prior assessment: 08/07/2025 Method of dating: Restore dating from previous exam Assigned: based on stated ANDRE, selected on 01/31/2025 Assigned GA 35 w + 1 d Assigned ANDRE: 08/07/2025 Fetus 1: GENERAL EVALUATION ----- Cardiac activity present. movements: visualized. Presentation: cephalic left Fetus 2: GENERAL EVALUATION ----- Cardiac activity present. movements: visualized. Presentation: cephalic right Fetus 1: NON STRESS TEST ----- NST interpretation: uninterpretable. Test duration 55 min. Baseline variability: moderate. Uterine activity: absent Fetus 2: NON STRESS TEST ----- NST interpretation: reactive. Test duration 55 min. Baseline FHR 140 bpm. Baseline variability: moderate. Accelerations: Present. Decelerations: absent. Uterine activity: absent Fetus 1: AMNIOTIC FLUID ASSESSMENT ----- MVP 3.0 cm Fetus 2: AMNIOTIC FLUID ASSESSMENT ----- MVP 2.9 cm Fetus 1: BIOPHYSICAL PROFILE ----- 2: breathing movements 2: Gross body movements 2: tone 2: Amniotic fluid volume 8/8 Biophysical profile score COMMENT ----- Nursing notes: Patient states fetus are active x 2. Patient denies vaginal bleeding or leaking of amniotic fluid. Pt. feeling an occasional mild contraction. Unable to obtain a continuous tracing on baby A. Baby B is reactive. Dr. Najera reviewed tracing. Orders received for BPP. BPP done on baby A. Score /. Patient scheduled twice weekly IMPRESSION ----- testing @ 35w 1d for monochorionic diamniotic twins. Twin A: - The NST is with areas of loss of contact but no decelerations. - Amniotic fluid indices are within normal limits. - BPP 05/07. - Reassuring testing. Twin B: -The NST is reactive. -Amniotic fluid indices are within normal limits. -Reassuring testing. Continue twice weekly testing. Thank you for allowing us to participate in the care of your patient. ADDENDUM ----- retrigger Procedure Note Ceci Najera MD - 07/05/2025 BPP WITH NST STUDY ----- Pat. Name:Vinod SAM Date:07/04/2025 11:06am Pat. NO: [id number] :GLENN MOONEY [facility]1995Age:29 ----- INDICATION ----- Twin , Monochorionic/Diamniotic ([place]/Di) Maternal Obesity (BMI>40) Complicating Gestational Diabetes, Diet Controlled CODING ----- Diagnoses Z3A.35: Weeks of gestation O99.213: Obesity complicating O30.033: Twin ,monochorionic/diamniotic O24.410: Gestational diabetes mellitus inpregnancy, diet controlled Procedures 59685: biophysical profile; with non-stresstesting. 2 16442: Ultrasound, uterus, real time withimage documentation, limited one or more fetuses. 1 HISTORY ----- OB History 2. Para 1 MATERNAL ASSESSMENT ----- Physical Exam Blood pressure 131/77 mmHg. Heart rate 79 bpm METHOD ----- EFM. Transabdominal ultrasound examination. View: Good view ----- Twin . Number of fetuses: 2. Monochorionic-monoamniotic DATING ----- Cycle:regular cycle GA by prior [id number] w + 1 d ANDRE by prior assessment:08/07/2025 Method of dating:Restore dating from previous exam Assigned:based on stated ANDRE, selected on 01/31/2025 Assigned GA35 w + 1 d Assigned ANDRE:08/07/2025 Fetus 1: GENERAL EVALUATION ----- Cardiac activity present. movements: visualized. Presentation:cephalic left Fetus 2: GENERAL EVALUATION ----- Cardiac activity present. movements: visualized. Presentation:cephalic right Fetus 1: NON STRESS TEST ----- NST interpretation: uninterpretable. Test duration 55 min. Baselinevariability: moderate. Uterine activity: absent Fetus 2: NON STRESS TEST ----- NST interpretation: reactive. Test duration 55 min. Baseline FHR 140 bpm.Baseline variability: moderate. Accelerations: Present. Decelerations: absent. Uterine activity: absent Fetus 1: AMNIOTIC FLUID ASSESSMENT ----- MVP 3.0 cm Fetus 2: AMNIOTIC FLUID ASSESSMENT ----- MVP 2.9 cm Fetus 1: BIOPHYSICAL PROFILE ----- 2: breathing movements 2: Gross body movements 2: tone 2: Amniotic fluid volume 05/05 Biophysical profile score COMMENT ----- Nursing notes: Patient states fetus are active x 2. Patient denies vaginalbleeding or leaking of amniotic fluid. Pt. feeling an occasional mild contraction. Unable to obtain a continuous tracing on babyA. Baby B is reactive. Dr. Najera reviewed tracing. Orders received for BPP. BPP done on baby A. Score 05/07. Patient scheduledtwice weekly IMPRESSION ----- testing @ 35w 1d for monochorionic diamniotic twins. Twin A: - The NST is with areas of loss of contact but no decelerations. - Amniotic fluid indices are within normal limits. - BPP 05/07. - Reassuring testing. Twin B: -The NST is reactive. -Amniotic fluid indices are within normal limits. -Reassuring testing. Continue twice weekly testing. Thank you for allowing us to participate in the care of your patient. ADDENDUM ----- retrigger June River MD US ORDERABLES Edited Result - Final * NONSTRESS TEST (07/02/2025 11:44 AM CDT) Narrative Jos Pérez MD - 07/02/2025 11:44 AM CDT Jos Pérez MD 07/02/2025 11:47 AM NONSTRESS TEST Date/Time: 07/02/2025 11:44 AM Performed by: Jos Pérez MD Authorized by: Jos Pérez MD Comments: Non-Stress Test Indication: gestational hypertension Gestational Age: 34w6d Twin A Baseline: 150 bpm Variability: moderate Accelerations: present Decelerations: Absent Twin B Baseline: 150 bpm Variability: moderate Accelerations: present Decelerations: Absent TOCO: CTXs occasional Interpretation: reactive Recommendation(s): F/U as scheduled with Primary OB Comments: Reactive x2 Jos Pérez MD OB GYNE ORDERABLES Final Result * XR CHEST PA AND LATERAL 2 VW (07/02/2025 11:23 AM CDT) Anatomical Region Laterality Modality Chest Computed Radiogr aphy 07/02/2025 11:2 3 AM CDT Impressions 07/02/2025 11:34 AM CDT IMPRESSION: 1. No acute cardiopulmonary disease process identified. DICTATION LOCATION: Location 1 - [facility] Narrative 07/02/2025 11:34 AM CDT XR CHEST PA AND LATERAL 2 VW DATE: 07/02/2025 11:23 AM HISTORY: Shortness of breath TECHNIQUE: Two views of the chest were obtained. COMPARISON: None FINDINGS: The lungs are well expanded and clear with no concerning focal pulmonary opacities. No pneumothorax or pleural effusion. The cardiac and mediastinal contours are unremarkable. No acute osseous abnormality identified. The upper abdomen is unremarkable. Procedure Note Oscar Pringle MD - 07/02/2025 XR CHEST PA AND LATERAL 2 VW DATE: 07/02/2025 11:23 AM HISTORY: Shortness of breath TECHNIQUE: Two views of the chest were obtained. COMPARISON: None FINDINGS: The lungs are well expanded and clear with no concerning focal pulmonary opacities. No pneumothorax or pleural effusion. The cardiac and mediastinal contours are unremarkable. No acute osseous abnormality identified. The upper abdomen is unremarkable. IMPRESSION: 1. No acute cardiopulmonary disease process identified. DICTATION LOCATION: Location 1 - [facility] us Jos Pérez MD DIAGNOSTIC IMAGING ORDERABLES Fi nal Result * BLOOD BANK DRAW ONLY (07/02/2025 9:11 AM CDT) SPECIMEN HOLD, BLOOD Order Complete 07/02/2025 9:34 AM CDT [facility] Blood Venipuncture / Unknown 07/02/2025 9:11 AM CDT 07/02/2025 9:23 AM CDT Jos Pérez MD BLOOD BANK ORDERABLES Final Resu lt [facility]# [id number] [address] [place] [id number] * (ABNORMAL) BRAIN NATRIURETIC PEPTIDE, BNP OR PROBNP (07/02/2025 9:11 AM CDT) PROBNP, N TERMINAL 159(H) <124 pg/mL 07/02/2025 10:17 AM CDT [facility] Comment: INTERPRETIVE COMMENT based on diagnosis: Diagnostic NT pro-BNP cutoffs for Heart Failure in the absence of renal failure is suggested for the following ranges <75 years: <125 pg/mL >=75 years: <450 pg/mL Exclusionary rule out cut-point for Acute Decompensated Heart Failure(ADHF) All ages: <300 pg/mL Diagnostic NT pro-BNP cutoffs for Acute Decompensated Heart Failure(ADHF) in the absence of renal failure is suggested for the following ages <50 years: > 450 pg/mL 50-75 years: > 900 pg/mL >75 years: >1800 pg/mL Blood Venipuncture / Unknown 07/02/2025 9:11 AM CDT 07/02/2025 9:24 AM CDT Jos Pérez MD CHEMISTRY ORDERABLES Final Resul t Performing Organization Address [facility]/ZIP Co de Phone Number [facility] MAC# [id number] [address] [place] [address] * POC GLUCOSE (06/27/2025 4:24 AM CDT) Only the most recent of2 resultswithin the time period is included. GLUCOSE POC 87 74 - 99 mg/dL 06/27/2025 4:24 AM CDT [facility] SPECIMEN SOURCE, GLUCOSE POC Whole Blood 06/27/2025 4:24 AM CDT [facility] Blood, whole 06/27/2025 4:24 AM CDT 06/27/2025 4:42 AM CDT us Interface Provider Poct POINT OF CARE TESTING Fi nal Result Performing Organization Address [facility]/ZIP Co de Phone Number [facility]# [id number] [address] [place] [address] * US OB LIMITED + NST (06/20/2025 11:45 AM CDT) Only the most recent of2 resultswithin the time period is included. Anatomical Region Laterality Modality Pelvis Ultrasound 06/20/2025 10:4 2 AM CDT Narrative 06/20/2025 11:39 AM CDT MODIFIED BP STUDY ----- Pat. Name: REJI SAM Study Date: 06/20/2025 10:42am Pat. NO: [id number] Referring MD: GLENN MOONEY MD Site: [facility] Concrete Sculptor: : 1995 Age: 29 ----- INDICATION ----- Twin , Monochorionic/Diamniotic ([place]/Di) Maternal Obesity (BMI>40) Complicating Marginal or Velamentous Cord insertion baby B Personal History of Other Complications hx pre-e Gestational Diabetes, Diet Controlled CODING ----- Diagnoses Z3A.33: Weeks of gestation O30.033: Twin , monochorionic/diamniotic O99.213: Obesity complicating O69.89X0: Labor and delivery complicated by other cord complications O43.123: Velamentous insertion of umbilical cord O24.410: Gestational diabetes mellitus in , diet controlled Z87.59: Personal history of other complications of , childbirth and the puerperium Procedures 64637: NST/ monitoring 45817: NST/ monitoring 43979: Limited 1 or more - KRUPA, FHR, position (modifier 59 for MBPP) HISTORY ----- OB History 2. Para 1 MATERNAL ASSESSMENT ----- Physical Exam Blood pressure 114/68 mmHg. Heart rate 89 bpm METHOD ----- EFM. Transabdominal ultrasound examination. View: Good view ----- Twin . Number of fetuses: 2. Monochorionic-monoamniotic DATING ----- Cycle: regular cycle GA by prior assessment 33 w + 1 d ANDRE by prior assessment: 08/07/2025 Method of dating: Restore dating from previous exam Assigned: based on stated ANDRE, selected on 01/31/2025 Assigned GA 33 w + 1 d Assigned ANDRE: 08/07/2025 Fetus 1: GENERAL EVALUATION ----- Cardiac activity present. FHR 140 bpm. Presentation: cephalic left Fetus 2: GENERAL EVALUATION ----- Cardiac activity present. FHR 154 bpm. Presentation: cephalic right Fetus 1: NON STRESS TEST ----- NST interpretation: reactive. Test duration 28 min. Baseline FHR 145 bpm. Baseline variability: moderate. Accelerations: Present. Decelerations: Not present. Uterine activity: absent Fetus 2: NON STRESS TEST ----- NST interpretation: reactive. Test duration 28 min. Baseline FHR 145 bpm. Baseline variability: moderate. Accelerations: Present. Decelerations: Not present. Uterine activity: absent Fetus 1: AMNIOTIC FLUID ASSESSMENT ----- Amount of AF: normal amount MVP 2.5 cm Fetus 2: AMNIOTIC FLUID ASSESSMENT ----- Amount of AF: normal amount MVP 6.6 cm COMMENT ----- Nursing notes: Patient reports positive movement x 2 with no bleeding, leaking or cesar. Patient scheduled twice weekly. IMPRESSION ----- Impression: - Monochorionic-monoamniotic twin viable intrauterine at 33w 1d - Twin A is in cephalic left presentation, twin B is in cephalic right presentation - Amniotic fluid volume is normal and concordant (Twin A MVP 2.5 cm, Twin B MVP 6.6 cm) - Nonstress test is reactive and reassuring for gestational age x 2 Recommendation: - Continue testing as scheduled. Thank you for inviting us to participate in your patient's care. Procedure Note June River MD - 06/20/2025 MODIFIED BPP STUDY ----- Pat. Name:Vinod SAM Date:06/20/2025 10:42am Pat. NO: [id number] :GLENN MOONEY MD [facility]1995Age:29 ----- INDICATION ----- Twin , Monochorionic/Diamniotic ([place]/Di) Maternal Obesity (BMI>40) Complicating Marginal or Velamentous Cord insertion baby B Personal History of Other Complications hx pre-e Gestational Diabetes, Diet Controlled CODING ----- Diagnoses Z3A.33: Weeks of gestation O30.033: Twin ,monochorionic/diamniotic O99.213: Obesity complicating O69.89X0: Labor and delivery complicated by othercord complications O43.123: Velamentous insertion of umbilical cord O24.410: Gestational diabetes mellitus inpregnancy, diet controlled Z87.59: Personal history of other complications ofpregnancy, childbirth and the puerperium Procedures 84138: NST/ monitoring 20197: NST/ monitoring 96752: Limited 1 or more - KRUPA, FHR, position(modifier 59 for MBPP) HISTORY ----- OB History 2. Para 1 MATERNAL ASSESSMENT ----- Physical Exam Blood pressure 114/68 mmHg. Heart rate 89 bpm METHOD ----- EFM. Transabdominal ultrasound examination. View: Good view ----- Twin . Number of fetuses: 2. Monochorionic-monoamniotic DATING ----- Cycle:regular cycle GA by prior [id number] w + 1 d ANDRE by prior assessment:08/07/2025 Method of dating:Restore dating from previous exam Assigned:based on stated ANDRE, selected on 01/31/2025 Assigned GA33 w + 1 d Assigned ANDRE:08/07/2025 Fetus 1: GENERAL EVALUATION ----- Cardiac activity present. FHR 140 bpm. Presentation: cephalic left Fetus 2: GENERAL EVALUATION ----- Cardiac activity present. FHR 154 bpm. Presentation: cephalic right Fetus 1: NON STRESS TEST ----- NST interpretation: reactive. Test duration 28 min. Baseline FHR 145 bpm.Baseline variability: moderate. Accelerations: Present. Decelerations: Not present. Uterine activity: absent Fetus 2: NON STRESS TEST ----- NST interpretation: reactive. Test duration 28 min. Baseline FHR 145 bpm.Baseline variability: moderate. Accelerations: Present. Decelerations: Not present. Uterine activity: absent Fetus 1: AMNIOTIC FLUID ASSESSMENT ----- Amount of AF: normal amount MVP 2.5 cm Fetus 2: AMNIOTIC FLUID ASSESSMENT ----- Amount of AF: normal amount MVP 6.6 cm COMMENT ----- Nursing notes: Patient reports positive movement x 2 with nobleeding, leaking or cesar. Patient scheduled twice weekly. IMPRESSION ----- Impression: - Monochorionic-monoamniotic twin viable intrauterine at 33w1d - Twin A is in cephalic left presentation, twin B is in cephalic rightpresentation - Amniotic fluid volume is normal and concordant (Twin A MVP 2.5 cm, TwinB MVP 6.6 cm) - Nonstress test is reactive and reassuring for gestational age x 2 Recommendation: - Continue testing as scheduled. Thank you for inviting us to participate in your patient's care. us June River MD US ORDERABLES Final R esult * US OB LTD 1 OR MORE FETUSES (05/08/2025 12:24 PM CDT) Anatomical Region Laterality Modality Pelvis Ultrasound 05/08/2025 12:0 8 PM CDT Narrative 05/08/2025 12:58 PM CDT [facility] LIMITED ----- Pat. Name: REJI SAM Study Date: 05/08/2025 12:08pm Pat. NO: [id number] Referring MD: GLENN MOONEY MD Site: [facility] Concrete Sculptor: Alena Luther RDMS : 1995 Age: 29 ----- INDICATION ----- Anatomy Survey Decreased Movement Twin , Monochorionic/Diamniotic ([place]/Di) Maternal Obesity (BMI>40) Complicating CODING ----- Diagnoses Z3A.27: Weeks of gestation O30.032: Twin , monochorionic/diamniotic O99.212: Obesity complicating Z36.3: Encounter for screening for malformations O36.8120: Decreased movements HISTORY ----- OB History 2. Para 1 MATERNAL ASSESSMENT ----- Physical Exam Weight 133 kg. BMI 44.55 kg/m METHOD ----- Transabdominal ultrasound examination ----- Twin . Number of fetuses: 2. Monochorionic-monoamniotic DATING ----- Cycle: regular cycle GA by prior assessment 27 w + 0 d ANDRE by prior assessment: 08/07/2025 Method of dating: Restore dating from previous exam Assigned: based on stated ANDRE, selected on 01/31/2025 Assigned GA 27 w + 0 d Assigned ANDRE: 08/07/2025 Fetus 1: GENERAL EVALUATION ----- Cardiac activity present. FHR 154 bpm. movements: visualized. Presentation: cephalic,Midline Placenta: posterior Amniotic fluid: MVP 5.5 cm Fetus 2: GENERAL EVALUATION ----- Cardiac activity present. FHR 138 bpm. movements: visualized. Presentation: cephalic left Placenta: posterior Amniotic fluid: MVP 4.2 cm Fetus 1: ANATOMY ----- The following structures appear normal: Abdomen Stomach. Bladder. Fetus 2: ANATOMY ----- The following structures appear normal: Abdomen Stomach. Bladder. Fetus 1: GROWTH OVERVIEW ----- Exam date GA BPD (mm) HC (mm) AC (mm) FL (mm) HL (mm) EFW (g) 02/22/2025 16w 2d 37.7 93% 140.4 89% 118.7 88% 27.1 97% 213 >99% 03/08/2025 18w 2d 153.1 97% 03/23/2025 20w 3d 54.0 98% 191.4 82% 176.6 95% 39.0 95% 35.4 95% 503 >99% 04/07/2025 22w 4d 209.3 99% 04/20/2025 24w 3d 67.4 99% 248.2 97% 219.0 91% 48.4 88% 933 99% 05/04/2025 26w 3d 244.5 95% Fetus 2: GROWTH OVERVIEW ----- Exam date GA BPD (mm) HC (mm) AC (mm) FL (mm) HL (mm) EFW (g) 02/22/2025 16w 2d 36.6 86% 130.0 57% 116.3 84% 23.0 70% 181 88% 03/08/2025 18w 2d 143.3 87% 03/23/2025 20w 3d 50.8 84% 186.3 66% 163.4 75% 33.4 43% 32.8 73% 392 74% 04/07/2025 22w 4d 190.6 80% 04/20/2025 24w 3d 63.0 80% 232.0 61% 218.5 91% 43.4 31% 808 83% 05/04/2025 26w 3d 237.2 86% IMPRESSION ----- Monochorionic/diamniotic twin at 27 weeks gestation Both twins are viable with normal heart rates Amniotic fluid volume is normal in each sac Procedure Note Fausto Martinez MD - 05/08/2025 [facility] LIMITED ----- Pat. Name:Vinod SAM Date:05/08/2025 12:08pm Pat. NO: [id number] MD:GLENN MOONEY MD Site:[facility] EDSonographer:Alena Luther RDMS :1995Age:29 ----- INDICATION ----- Anatomy Survey Decreased Movement Twin , Monochorionic/Diamniotic ([place]/Di) Maternal Obesity (BMI>40) Complicating CODING ----- Diagnoses Z3A.27: Weeks of gestation O30.032: Twin ,monochorionic/diamniotic O99.212: Obesity complicating Z36.3: Encounter for screening formalformations O36.8120: Decreased movements HISTORY ----- OB History 2. Para 1 MATERNAL ASSESSMENT ----- Physical Exam Weight 133 kg. BMI 44.55 kg/m METHOD ----- Transabdominal ultrasound examination ----- Twin . Number of fetuses: 2. Monochorionic-monoamniotic DATING ----- Cycle:regular cycle GA by prior [id number] w + 0 d ANDRE by prior assessment:08/07/2025 Method of dating:Restore dating from previous exam Assigned:based on stated ANDRE, selected on 01/31/2025 Assigned GA27 w + 0 d Assigned ANDRE:08/07/2025 Fetus 1: GENERAL EVALUATION ----- Cardiac activity present. FHR 154 bpm. movements: visualized.Presentation: cephalic,Midline Placenta: posterior Amniotic fluid: MVP 5.5 cm Fetus 2: GENERAL EVALUATION ----- Cardiac activity present. FHR 138 bpm. movements: visualized.Presentation: cephalic left Placenta: posterior Amniotic fluid: MVP 4.2 cm Fetus 1: ANATOMY ----- The following structures appear normal: Abdomen Stomach. Bladder. Fetus 2: ANATOMY ----- The following structures appear normal: Abdomen Stomach. Bladder. Fetus 1: GROWTH OVERVIEW ----- Exam date GA BPD (mm) HC (mm) AC (mm) FL(mm) HL (mm) EFW (g) 02/22/2025 16w 2d 37.7 93% 140.4 89% 118.7 88%27.1 97% 213 >99% 03/08/2025 18w 2d 153.1 97% 03/23/2025 20w 3d 54.0 98% 191.4 82% 176.6 95%39.0 95% 35.4 95% 503 >99% 04/07/2025 22w 4d 209.3 99% 04/20/2025 24w 3d 67.4 99% 248.2 97% 219.0 91%48.4 88% 933 99% 05/04/2025 26w 3d 244.5 95% Fetus 2: GROWTH OVERVIEW ----- Exam date GA BPD (mm) HC (mm) AC (mm) FL(mm) HL (mm) EFW (g) 02/22/2025 16w 2d 36.6 86% 130.0 57% 116.3 84%23.0 70% 181 88% 03/08/2025 18w 2d 143.3 87% 03/23/2025 20w 3d 50.8 84% 186.3 66% 163.4 75%33.4 43% 32.8 73% 392 74% 04/07/2025 22w 4d 190.6 80% 04/20/2025 24w 3d 63.0 80% 232.0 61% 218.5 91%43.4 31% 808 83% 05/04/2025 26w 3d 237.2 86% IMPRESSION ----- Monochorionic/diamniotic twin at 27 weeks gestation Both twins are viable with normal heart rates Amniotic fluid volume is normal in each sac us Radha Yip NP US ORDERABLES Final Resu lt * US OB FU+ UMB + MDCERB ART (05/04/2025 3:52 PM CDT) Anatomical Region Laterality Modality Pelvis Ultrasound 05/04/2025 3:11 PM CDT Narrative 05/04/2025 3:53 PM CDT [facility] ----- Pat. Name: REJI SAM Study Date: 05/04/2025 3:11pm Pat. NO: [id number] Referring MD: GLENN MOONEY MD Site: [facility] Concrete Sculptor: Mahogany Espinoza RDMS, RVT : 1995 Age: 29 ----- INDICATION ----- Anatomy Survey Twin , Monochorionic/Diamniotic ([place]/Di) Maternal Obesity (BMI>40) Complicating CODING ----- Diagnoses Z3A.26: Weeks of gestation O30.032: Twin , monochorionic/diamniotic O99.212: Obesity complicating Z36.3: Encounter for screening for malformations Procedures 06123: Ultrasound, uterus, real time with image documentation, follow up, transabdominal approach per fetus. 2 52431: Doppler velocimetry, ; umbilical artery. 2 HISTORY ----- OB History 2. Para 1 MATERNAL ASSESSMENT ----- Physical Exam Weight 127 kg. BMI 42.57 kg/m METHOD ----- Transabdominal ultrasound examination ----- Twin . Number of fetuses: 2. Monochorionic-monoamniotic DATING ----- Cycle: regular cycle GA by prior assessment 26 w + 3 d ANDRE by prior assessment: 08/07/2025 Ultrasound examination on: 05/04/2025 GA by U/S based upon: AC GA by U/S 28 w + 5 d ANDRE by U/S: 07/22/2025 GA by U/S based upon (Fetus 2): AC GA by U/S (Fetus 2) 28 w + 0 d ANDRE by U/S (Fetus 2): 07/27/2025 Method of dating: Restore dating from previous exam Assigned: based on stated ANDRE, selected on 01/31/2025 Assigned GA 26 w + 3 d Assigned ANDRE: 08/07/2025 Fetus 1: BIOMETRY ----- AC 244.5 mm 28w 5d 95% [place] Fetus 2: BIOMETRY ----- AC 237.2 mm 28w 0d 86% [place] Fetus 1: GENERAL EVALUATION ----- Cardiac activity present. FHR 137 bpm. movements: present. Presentation: cephalic left Placenta: posterior Umbilical cord: Cord vessels: 3 vessel cord. Insertion site: placental insertion: normal Amniotic fluid: Amount of AF: normal amount. MVP 7.6 cm Fetus 2: GENERAL EVALUATION ----- Cardiac activity present. FHR 131 bpm. movements: present. Presentation: breech right Placenta: posterior Umbilical cord: Cord vessels: 3 vessel cord. Insertion site: placental insertion: marginal insertion Amniotic fluid: Amount of AF: normal amount. MVP 5.9 cm Fetus 1: ANATOMY ----- The following structures appear normal: Heart / Thorax Cardiac rhythm. Abdomen Stomach. Bladder. Fetus 2: ANATOMY ----- The following structures appear normal: Heart / Thorax Cardiac rhythm. Abdomen Stomach. Bladder. Fetus 1: DOPPLER ----- Umbilical Artery: PI 1.12 63% Dorothy RI 0.70 63% Dorothy PS 44.90 cm/s 66% Ebbing ED 14.39 cm/s TAmax 28.49 cm/s 62% Ebbing MD 14.28 cm/s S / D 3.41 60% Dorothy HR 145 bpm Mid Cerebral Artery: PI 2.15 76% Bahlmann RI 0.87 87% Bahlmann PS 36.95 cm/s PS 1.08 MoM ED 6.30 cm/s TAmax 16.81 cm/s MD 5.91 cm/s S / D 7.56 CPR PI 1.92 43% Ebbing Fetus 2: DOPPLER ----- Umbilical Artery: PI 1.03 46% Dorothy RI 0.65 35% Dorothy PS 40.26 cm/s 39% Ebbing ED 14.42 cm/s TAmax 25.55 cm/s 37% Ebbing MD 14.25 cm/s S / D 2.85 29% Dorothy HR 147 bpm Mid Cerebral Artery: PI 1.81 35% Bahlmann RI 0.82 63% Bahlmann PS 36.99 cm/s PS 1.08 MoM ED 6.69 cm/s TAmax 17.57 cm/s MD 6.11 cm/s S / D 5.53 CPR PI 1.76 27% Ebbing Fetus 1: GROWTH OVERVIEW ----- Exam date GA BPD (mm) HC (mm) AC (mm) FL (mm) HL (mm) EFW (g) 02/22/2025 16w 2d 37.7 93% 140.4 89% 118.7 88% 27.1 97% 213 >99% 03/08/2025 18w 2d 153.1 97% 03/23/2025 20w 3d 54.0 98% 191.4 82% 176.6 95% 39.0 95% 35.4 95% 503 >99% 04/07/2025 22w 4d 209.3 99% 04/20/2025 24w 3d 67.4 99% 248.2 97% 219.0 91% 48.4 88% 933 99% 05/04/2025 26w 3d 244.5 95% Fetus 2: GROWTH OVERVIEW ----- Exam date GA BPD (mm) HC (mm) AC (mm) FL (mm) HL (mm) EFW (g) 02/22/2025 16w 2d 36.6 86% 130.0 57% 116.3 84% 23.0 70% 181 88% 03/08/2025 18w 2d 143.3 87% 03/23/2025 20w 3d 50.8 84% 186.3 66% 163.4 75% 33.4 43% 32.8 73% 392 74% 04/07/2025 22w 4d 190.6 80% 04/20/2025 24w 3d 63.0 80% 232.0 61% 218.5 91% 43.4 31% 808 83% 05/04/2025 26w 3d 237.2 86% COMMENT ----- Patient's name and date of were verified by the human resources receptionist prior to the exam IMPRESSION ----- -Monochorionic-Diamniotic Twin at 26w 3d -Normal amniotic fluid for A (MVP of 7.6 cm) and B (MVP of 5.9 cm ). -The AC is at the 95% for A. -The AC is at the 86% for B. -No sonographic features of TTTS visualized. -Normal umbilical artery dopplers. The patient was informed of the ultrasound findings and limitations. Growth approximately every 4 weeks. TTTS surveillance q2 weeks. Twice weekly modified BPP starting at 32 weeks gestation. Thank you for allowing us to participate in the care of this patient. Procedure Note Dana Sylvester MD - 05/04/2025 [facility] ----- Pat. Name:Vinod SAM Date:05/04/2025 3:11pm Pat. NO: [id number] MD:GLENN MOONEY [facility]:Mahogany Espinoza RDMS, RVT :1995Age:29 ----- INDICATION ----- Anatomy Survey Twin , Monochorionic/Diamniotic ([place]/Di) Maternal Obesity (BMI>40) Complicating CODING ----- Diagnoses Z3A.26: Weeks of gestation O30.032: Twin ,monochorionic/diamniotic O99.212: Obesity complicating Z36.3: Encounter for screening formalformations Procedures 67172: Ultrasound, uterus, real time withimage documentation, follow up, transabdominal approach per fetus. 2 10792: Doppler velocimetry, ; umbilicalartery. 2 HISTORY ----- OB History 2. Para 1 MATERNAL ASSESSMENT ----- Physical Exam Weight 127 kg. BMI 42.57 kg/m METHOD ----- Transabdominal ultrasound examination ----- Twin . Number of fetuses: 2. Monochorionic-monoamniotic DATING ----- Cycle:regular cycle GA by prior [id number] w + 3 d ANDRE by prior assessment:08/07/2025 Ultrasound examination on:05/04/2025 GA by U/S based upon:AC GA by U/S28 w + 5 d ANDRE by U/S:07/22/2025 GA by U/S based upon (Fetus 2):AC GA by U/S (Fetus 2)28 w + 0 d ANDRE by U/S (Fetus 2):07/27/2025 Method of dating:Restore dating from previous exam Assigned:based on stated ANDRE, selected on 01/31/2025 Assigned GA26 w + 3 d Assigned ANDRE:08/07/2025 Fetus 1: BIOMETRY ----- AC 244.5 mm 28w 5d 95%Hadlock Fetus 2: BIOMETRY ----- AC 237.2 mm 28w 0d 86%Hadlock Fetus 1: GENERAL EVALUATION ----- Cardiac activity present. FHR 137 bpm. movements: present.Presentation: cephalic left Placenta: posterior Umbilical cord: Cord vessels: 3 vessel cord. Insertion site: placentalinsertion: normal Amniotic fluid: Amount of AF: normal amount. MVP 7.6 cm Fetus 2: GENERAL EVALUATION ----- Cardiac activity present. FHR 131 bpm. movements: present.Presentation: breech right Placenta: posterior Umbilical cord: Cord vessels: 3 vessel cord. Insertion site: placentalinsertion: marginal insertion Amniotic fluid: Amount of AF: normal amount. MVP 5.9 cm Fetus 1: ANATOMY ----- The following structures appear normal: Heart / Thorax Cardiac rhythm. Abdomen Stomach. Bladder. Fetus 2: ANATOMY ----- The following structures appear normal: Heart / Thorax Cardiac rhythm. Abdomen Stomach. Bladder. Fetus 1: DOPPLER ----- Umbilical Artery: PI 1.12 63%Dorothy RI 0.70 63%Dorothy PS 44.90 cm/s 66%Ebbing ED 14.39 cm/s TAmax 28.49 cm/s 62%Ebbing MD 14.28 cm/s S / D 3.41 60%Dorothy HR 145 bpm Mid Cerebral Artery: PI 2.15 76%Bahlmann RI 0.87 87%Bahlmann PS 36.95 cm/s PS 1.08 MoM ED 6.30 cm/s TAmax 16.81 cm/s MD 5.91 cm/s S / D 7.56 CPR PI 1.92 43%Ebbing Fetus 2: DOPPLER ----- Umbilical Artery: PI 1.03 46%Dorothy RI 0.65 35%Dorothy PS 40.26 cm/s 39%Ebbing ED 14.42 cm/s TAmax 25.55 cm/s 37%Ebbing MD 14.25 cm/s S / D 2.85 29%Dorothy HR 147 bpm Mid Cerebral Artery: PI 1.81 35%Bahlmann RI 0.82 63%Bahlmann PS 36.99 cm/s PS 1.08 MoM ED 6.69 cm/s TAmax 17.57 cm/s MD 6.11 cm/s S / D 5.53 CPR PI 1.76 27%Ebbing Fetus 1: GROWTH OVERVIEW ----- Exam date GA BPD (mm) HC (mm) AC (mm) FL(mm) HL (mm) EFW (g) 02/22/2025 16w 2d 37.7 93% 140.4 89% 118.7 88%27.1 97% 213 >99% 03/08/2025 18w 2d 153.1 97% 03/23/2025 20w 3d 54.0 98% 191.4 82% 176.6 95%39.0 95% 35.4 95% 503 >99% 04/07/2025 22w 4d 209.3 99% 04/20/2025 24w 3d 67.4 99% 248.2 97% 219.0 91%48.4 88% 933 99% 05/04/2025 26w 3d 244.5 95% Fetus 2: GROWTH OVERVIEW ----- Exam date GA BPD (mm) HC (mm) AC (mm) FL(mm) HL (mm) EFW (g) 02/22/2025 16w 2d 36.6 86% 130.0 57% 116.3 84%23.0 70% 181 88% 03/08/2025 18w 2d 143.3 87% 03/23/2025 20w 3d 50.8 84% 186.3 66% 163.4 75%33.4 43% 32.8 73% 392 74% 04/07/2025 22w 4d 190.6 80% 04/20/2025 24w 3d 63.0 80% 232.0 61% 218.5 91%43.4 31% 808 83% 05/04/2025 26w 3d 237.2 86% COMMENT ----- Patient's name and date of were verified by the human resources receptionist prior tothe exam IMPRESSION ----- -Monochorionic-Diamniotic Twin at 26w 3d -Normal amniotic fluid for A (MVP of 7.6 cm) and B (MVP of 5.9 cm ). -The AC is at the 95% for A. -The AC is at the 86% for B. -No sonographic features of TTTS visualized. -Normal umbilical artery dopplers. The patient was informed of the ultrasound findings and limitations. Growth approximately every 4 weeks. TTTS surveillance q2 weeks. Twice weekly modified BPP starting at 32 weeks gestation. Thank you for allowing us to participate in the care of this patient. us Citlali Lorenzana MD ORDERABLES Final Result from Last 3 Months Insurance [employer] [id number] Advance Directives For more information, please contact: [phone] * Full Code (Latest Code Status on File) Date Activated Date Inactivated Comments 07/08/2025 3:16 PM 07/12/2025 3:59 PM
[2025-08-01 17:14] VITALS: BP 155/86; PULSE 85; RESP 20; O2SAT 98
--- NOTE | 2025-08-01 17:15 | PC.NURSE ---
Pt yelled out stated felt like going to pass out. Pt crying. Pt directed to room 1 to lay down VS taken and ice packs applied to bilateral breast.
--- NOTE | 2025-08-01 17:36 | ED.GENADULT ---
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 Patient is 3 weeks post section delivering twin boys and has been pumping breast. She reports that she had one baby in NICU initially but only for short time and both babies are home doing well. Patient reports that her breast are so painful she has taken Tylenol and Ibuprofen and also Oxycodone she had left over fro for the pain. Patient reports that she did get in the shower and let warm water run over breast and manually expressed some milk. Patient is very anxious and at one time while in room was hyperventilating yelled out stating she though she was going to pass out. Patient placed on stretcher in room 1 and vital taken by staff and ic pack applied to breast. MD complaint: breast pain Onset (ago): day(s) (starting today) Location: chest (bilateral breast) Severity scale (1-10): 9 Quality: burning and other (tingling painful) Treatments prior to arrival: NSAID and other (Acetaminophen ,oxycodone, warm shower and attempt to manually express milk) Related Data Home Medications ?Medication ?Instructions ?Recorded ?Confirmed ?Last Taken ?Type escitalopram oxalate 20 mg tablet 20 mg PO DAILY 06/03/22 04/25/24 06/03/22 08:00 History multivitamin 1 tablet PO DAILY 04/25/24 04/25/24 Unknown History ibuprofen 600 mg tablet mg 08/01/25 Unknown History oxycodone 5 mg tablet mg 08/01/25 Unknown History Allergies Allergy/AdvReac Type Severity Reaction Status Date / Time No Known Allergies Allergy Verified 08/01/25 16:58 Review of Systems Review of Systems: CONSTITUTIONAL: Denies fever, chills, or sweats. EYES: Denies visual changes, redness, or discharge. ENT: Denies rhinorrhea, congestion, sore throat, or otalgia. CARDIOVASCULAR: Denies chest pain, palpitations, or edema. RESPIRATORY: Denies cough or dyspnea. GASTROINTESTINAL: Denies abdominal pain, nausea, vomiting, or diarrhea. GENITOURINARY: Denies dysuria or hematuria. SKIN: Denies rash or itching. reports acute bilateral breast pain MUSCULOSKELETAL: Denies back pain, joint pain, or myalgia. NEUROLOGIC: Denies headache, numbness, or weakness. PSYCHIATRIC: reports history of anxiety or depression. All systems reviewed & are unremarkable except as noted in HPI and below PMFSH Past Medical History Medical History (Updated 08/01/25 @ 18:08 by Sonia Cadena APRN) Nausea Depression Anxiety HTN (hypertension) Obesity, morbid, BMI 40.0-49.9 Cholelithiasis History of gestational diabetes History of pre-eclampsia Iron deficiency anemia Depression with anxiety Elevated LFTs Surgical History Surgical History (Updated 08/01/25 @ 20:19 by Sonia Cadena APRN) H/O section S/P cholecystectomy lap albert 07/25/22 Family History Family History Grandparent Colon cancer Breast cancer in female Depression Father Depression Mother Gallbladder disease Social History Social History Social History: the patient lives with her and her 5-week-old son. 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 For now she is a [id number] mother. She is a lifelong nonsmoker. She does not use any alcohol marijuana or illicit drugs. Her is the durable power commonwealth attorney. Code status full code Alcohol intake: current Drinks per week: 1 Substance use: never Substance use type: does not use Lack of Transportation: No Lack of Food: Never True Current Housing: I Have Housing Concerned About Future Housing: No Difficulty Paying Gas/Electric Bills: No Difficulty Paying for Meds: No Currently Unemployed: No Education: Bachelor's Degree Difficulty w/ Childcare or Family Care: No Living arrangements: with family Spiritual care concerns: No Comments At time of signature, agree with nursing past medical, surgical, social and family history. There is no relevant family history pertinent to the presenting complaint Exam Narrative: GENERAL: Well-appearing, well-nourished, and in some acute distress. HEAD: Normocephalic, atraumatic. EYES: PERRLA and EOMI. ENT: Nares clear, no rhinorrhea or epistaxis. Mucous membranes moist.TM's normal throat pink without swelling NECK: Supple. no lymphadenopathy CHEST: Clear to auscultation. No respiratory distress. SAO2 100% on room air HEART: Regular rate and rhythm. No murmur heard. Normal peripheral pulses. ABDOMEN: Soft, nontender, nondistended, normal active bowel sounds. EXTREMITIES: Normal range of motion. No edema. SKIN: Warm, dry, no rash. bilateral breast engorged with fullness of milk glades with noted milk from nipples no acute warmth or redness of breast NEURO: No focal deficits. Alert and oriented x3. Course Course Emergency Course: Patient is aware of diagnosis, understands and agrees to treatment plan.? Anticipatory guidance given.? Patient agrees to follow-up as directed and is aware of reasons to seek care at the emergency department. Portions of this record may have been created with voice recognition software Level of Care: Express Care Visit Vital Signs Vital signs: Vital Signs Temperature 36.6 C 08/01/25 16:54 Pulse Rate 81 08/01/25 16:54 Respiratory Rate 18 08/01/25 16:54 Blood Pressure 133/86 08/01/25 16:54 Pulse Oximetry 100 08/01/25 16:54 Oxygen Delivery Room Air 08/01/25 16:54 Temperature 36.6 C 08/01/25 16:54 Pulse Rate 85 08/01/25 17:14 Respiratory Rate 20 08/01/25 17:14 Blood Pressure 155/86 H 08/01/25 17:14 Pulse Oximetry 98 08/01/25 17:14 Oxygen Delivery Room Air 08/01/25 17:14 Reviewed Medical Decision Making MDM Narrative Medical decision making narrative: Exam findings and imaging show no acute concerns or changes; patient is non-toxic appearing and is in no distress.? Patient is appropriate for outpatient treatment and follow-up Differential Diagnosis Differential Diagnosis: bilateral breast engorgement, bilateral breast pain, breast tenderness Medical Records Medical records reviewed: Yes I reviewed the external patient's medical records. Vital Signs Vital Signs: Vital Signs Temperature 36.6 C 08/01/25 16:54 Pulse Rate 81 08/01/25 16:54 Respiratory Rate 18 08/01/25 16:54 Blood Pressure 133/86 08/01/25 16:54 Pulse Oximetry 100 08/01/25 16:54 Oxygen Delivery Room Air 08/01/25 16:54 Temperature 36.6 C 08/01/25 16:54 Pulse Rate 85 08/01/25 17:14 Respiratory Rate 20 08/01/25 17:14 Blood Pressure 155/86 H 08/01/25 17:14 Pulse Oximetry 98 08/01/25 17:14 Oxygen Delivery Room Air 08/01/25 17:14 reviewed Critical Care Time Critical Care Time Critical Care Time: No Discharge Plan Discharge Clinical Impression: Pain of both breasts, Engorgement of breasts, Patient Disposition: Home Condition: Stable Instructions: and Breast Engorgement (ED) Additional Instructions: Patient to use Tylenol and Ibuprofen alternate every 4 hours for pain Use your 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 Follow-up with PCP in 7-10 days or sooner if needed Follow up with PCP soon in regards to your blood pressure which is elevated above threshold for referral. Blood pressure above 120/80 may indicate pre-hypertension.155/86 Patient Language: [place] Prescriptions: No Action ibuprofen 600 mg tablet oxycodone 5 mg tablet escitalopram oxalate 20 mg Tablet 20 mg PO DAILY multivitamin Tablet 1 tablet PO DAILY Follow-up/Referrals: Halley,Neisha Archuleta APRN [Primary Care Provider, Unknown] Time of Disposition: 17:50 Quality [place] Coma Scale Eyes: Open Verbal: Oriented and Alert Motor: Follows Commands [place] Coma Total Score: 15
== END 2025-08-01 17:50 | disposition home or self-care (01) ==
PROVIDERS: Emergency Provider Registered Nurse; PCP Nurse Practitioner Family
DX: O92.79 Other disorders of lactation (principal); I10 Essential (primary) hypertension; Z79.891 Long term (current) use of opiate analgesic; Z79.1 Long term (current) use of non-steroidal anti-inflammatories (NSAID)
CPT/HCPCS: 99212; G0463

== ENCOUNTER 2025-09-22 17:13 | Emergency (ER) | payer OTHER, SELFPAY ==
--- OUTSIDE RECORDS SUMMARY | 2025-09-22 17:16 | XMS_ITS | Clinical Summary ---
Author Organization [facility] Address [address] [place] [place] [address] Care Team Providers Care Christian Science Practitioner Name Role Phone Flor Burrows APRN-COMMERCIAL FINANCE MANAGER Primary Care Pr ovider Source Comments [facility],non-owned Affiliates and Associated Physician Practices is amultiple site organization consisting of ambulatory clinics and hospital sitesin [place], [place], [place] and [place]. This disclosure is being madepursuant to the Care Everywhere program and may not contain all information available regarding this patient. Last updated 18.[facility] Savorfull Allergies No known active allergies Medications * [...] complete this topic [place] [address] [id number] [facility] [facility] * Guarantor: REJI SAM Account Type Relation to Patient Date of Phone Billing Address Personal/Family [address] [place] [address] [facility] SELF PAY NO INSURANCE Member Subscriber Plan / Payer (Ef fective for All Dates) Name:Reji Sam Member ID:Not on file Relation to Subscriber:Not on file Name:REJI SAM Subscriber ID:Not on file Address: [address] [place] [address] Payer ID:Not on file Group ID:Not on file Type:Self Pay Address: [place], [place] * Guarantor: REJI SAM Account Type Relation to Patient Date of Phone Billing Address Personal/Family [address] [place] [address] [facility] SELF PAY NO INSURANCE Member Subscriber Plan / Payer (Ef fective for All Dates) Name:Reji Sam Member ID:Not on file Relation to Subscriber:Not on file Name:REJI SAM Subscriber ID:Not on file Address: [address] [place] [address] Payer ID:Not on file Group ID:Not on file Type:Self Pay Address: [place], [place] * Guarantor: REJI SAM Account Type Relation to Patient Date of Phone Billing Address Personal/Family [address] [place] [address] [facility] SELF PAY NO INSURANCE Member Subscriber Plan / Payer (Ef fective for All Dates) Name:Reji Sam Member ID:Not on file Relation to Subscriber:Not on file Name:REJI SAM Subscriber ID:Not on file Address: [address] [place] [address] Payer ID:Not on file Group ID:Not on file Type:Self Pay Address: [place], [place] Care Teams Christian Science Practitioner Relationship Specialty Start Date End Date Flor Burrows, EDUCATIONAL PSYCHOLOGIST-COMMERCIAL FINANCE MANAGER [address] [place] [address] PCP - General 11/29/21
--- OUTSIDE RECORDS SUMMARY | 2025-09-22 17:16 | XMS_ITS | Clinical Summary ---
Author Organization [facility] Address [address] [place] [address] Phone Care Team Providers Care Tv News Director Name Role Phone Flor Burrows APRN, CNP [...] Comments Blood Pressure 120/64 08/14/2021 4:07 PM ROOF PLUMBER Pulse 83 08/14/2021 4:07 PM ROOF PLUMBER Temperature 36.7 C (98 F) 08/14/2021 4:07 PM ROOF PLUMBER Respiratory Rate 20 08/14/2021 4:07 PM ROOF PLUMBER Oxygen Saturation 98% 08/14/2021 4:07 PM ROOF PLUMBER Inhaled Oxygen Concentration - - Weight 120.7 kg (266 lb) 08/14/2021 4:07 PM ROOF PLUMBER Height 168.9 cm (5' 6.5) 08/14/2021 4:07 PM ROOF PLUMBER Body Mass Index 42.29 08/14/2021 4:07 PM ROOF PLUMBER Plan of Treatment Health Maintenance Due Date Last Done Comments Varicella Immunization (1 of 2 - 13+ 2-dose series) 2008 Hepatitis B Immunization (1 of 3 - [...] Priority Date/Time Associated Diagnosis Comments PATHOLOGY CYTOLOGY PRISM INSPECTOR 10/15/2022 12:00 AM ROOF PLUMBER from Last 3 Months or Most Recently Relevant to Health Maintenance Results * PATHOLOGY CYTOLOGY PRISM INSPECTOR (10/15/2022 12:00 AM ROOF PLUMBER) 10/15/2022 us Provider Scan PATHOLOGY/CYTOLOGY ORDERABLES Fi nal Result SCAN from Last 3 Months or Most Recently Relevant to Health Maintenance Insurance [address] [address] [facility] Care Teams Tv News Director Relationship Specialty Start Date End Date Flor Burrows APRN, ELECTRIC TAPE SLITTER [address] [place] [address] PCP - General Advanced Practice Nurse 01/24/21 Flor Burrows APRN, JEROD [address] [place] [address] Nurse Practitioner Advanced Practice Nurse 12/18/20
--- OUTSIDE RECORDS SUMMARY | 2025-09-22 17:16 | XMS_ITS | Patient Health Record ---
Author Organization [facility] Address [address] [place] [address] Care Team Providers Care Rehab Nurse Name Role Phone Danna Collazo Unavailable [phone] Reason For Referral No Information Medications Medication [...] 1st dose Unknown 12/06/2021 Ad ministered Novel [id number], preservative free Unknown 07/26/2019 Administered Tdap Unknown 01/24/2021 Administered Social History Social History Additional Details Category Social Info Options Details Migrated Social History Migrated Social History Alcohol Intake: Occasional 08/09/2020,Tobacco Years: Never smoker 08/09/2020 Plan Of Treatment No Information Insurance Providers Payer Name Payer Address Payer Phone Subscriber Number Group Number Insured Name Patient Relationship to Insured Coverage Start Date Coverage End Date [facility] [address] [place] [address] [id number] REJI SAM Self - patient is the insured
--- OUTSIDE RECORDS SUMMARY | 2025-09-22 17:17 | XMS_ITS | Clinical Summary ---
Author Organization [facility] Address [address] [place] [address] Care Team Providers Care Catalogue Compiler Name Role Phone Neisha Rowley NP Primary Care Provider [phone] Earline Hodgson MD Unavailable [phone] Dee Mooney DO Unavailable [phone] Allergies No known active allergies Medications multivitamin-Ca -iron-minerals (MULTIPLE VITAMIN, WOMENS) tablet 0 0 5 Active aspirin 81 mg enteric coated tablet Take 1 tablet (81 mg total) by mouth daily Active oxyCODONE (ROXICODONE) 5 mg immediate release tabletIndicatio ns:Pain Take 1 tablet (5 mg total) by mouth every 4 (four) hours as needed for pain 5 tablet 5 Active Additional Information Patient not taking.Reported on 08/31/2025 escitalopram (Lexapro) 20 mg tabletIndicatio ns:At risk for depression Take 2 tablets (40 mg total) by mouth daily 180 tablet 5 Active Active Problems Problem Noted Date Diagnosed Date Acute pharyngitis 11/23/2023 Mixed anxiety and depressive disorder 09/12/2022 Morbid obesity with BMI of 40.0-44.9, adult 02/26 Overview (03/08/2019): See above problem note. Assessment & Plan (11/23/2023 10:24 AM TORTILLA MAKER): BMI Follow-up includes: nutrition counseling. Assessment & [...] Encounters Date Type Department Care Team Description 08/31/2025 10:45 AM TORTILLA MAKER Office Visit [facility] [id number] [phone] Dee Mooney, Encounter for gynecological examination without abnormal finding (Primary Dx) 08/21/2025 Orders Only [facility] [address] [phone] Zeenat Guerin, EDWARD At risk for depression 08/17/2025 Telephone [facility] [address] [phone] Zeenat Guerin, bus mechanic depression 08/01/2025 6:45 PM TORTILLA MAKER Office Visit [facility] [address] [place] [address] Domenica Metz NP breast engorgement (Primary Dx) 08/01/2025 Telephone [facility] [address] [phone] Lorin Chen NP breast symptoms 07/24/2025 11:25 AM CDT Office Visit [facility] [address] [phone] Lorin Chen NP Postop check (Primary Dx) 07/24/2025 Orders Only [facility] [address], [place] [phone] Dee Mooney, 07/07/2025 Telephone [facility] [address] [address], [place] [phone] Zeenat Guerin RN high blood pressure 07/06/2025 12:45 PM CDT Office Visit [facility] [address], [place] [phone] Dee Mooney, DO 35 weeks gestation of (Primary Dx); Diet controlled gestational diabetes mellitus (GDM) in third trimester; Anxiety in in third trimester, antepartum; Monochorionic diamniotic twin , antepartum; History of pre-eclampsia in prior , currently in third trimester 06/29/2025 Telephone [facility] [address] [address], [place] [phone] Dee Mooney, DO 06/28/2025 10:15 AM CDT Office Visit [facility] [address] [address] [phone] Dee Mooney, 34 weeks gestation of (Primary Dx); Anxiety in in third trimester, antepartum; Monochorionic diamniotic twin , antepartum; Diet controlled gestational diabetes mellitus (GDM) in third trimester; History of pre-eclampsia in prior , currently in third trimester from Last 3 Months Immunizations Immunization Administration [...] Passive Smoke Exposure: Never Smokeless Tobacco: Never Alcohol Use Standard Drinks/Week Comments Yes 0 (1 standard drink = 0.6 oz pur e alcohol) socially PHQ-2 Answer Date Recorded PHQ-2 Total Score (If total score is 3 or more points, staff should administer the PHQ-9) 0 11/23/2023 [place] Depression Scale Answer Date Recorded [place] Depression Scale Total 12 08/31/2025 The thought of harming myself has occurred to me . Never 08/31/2025 Comments No Sex and Gender Information Value Date Recorded Sex Assigned at Not on file Legal Sex Female 7:14 PM TORTILLA MAKER Gender Identity Female 02/06/2025 7:27 AM CDT [...] incis Spinal Livin g 7 8 BOY1K laejandro deng DO Complications:None Delivery Location:[facility] ([facility] 2024 35w 5d 0h 02m 0h 02m 2.37 kg (5 lb 3.6 oz) M CS-LTr anv Spinal Livin g 8 9 BOY2K alejandro deng DO Complications:None Delivery Location:[facility] ([facility] ) Comments 07/08/2025 1LTCS@35.4 weeks, [place]/Di twin boys, gHTN, GDMA1 Last Filed Vital Signs Vital Sign Reading Time Taken Comments Blood Pressure 128/88 08/31/2025 10:49 AM TORTILLA MAKER Pulse 74 08/01/2025 6:03 PM TORTILLA MAKER Temperature 36.3 C (97.4 F) 08/01/2025 6:03 PM TORTILLA MAKER Respiratory Rate 18 08/01/2025 6:03 PM TORTILLA MAKER Oxygen Saturation 98% 08/01/2025 6:03 PM TORTILLA MAKER Inhaled Oxygen Concentration - - Weight 119.3 kg (263 lb) 08/31/2025 10:49 AM TORTILLA MAKER Height 170.2 cm (5' 7.01) 08/31/2025 10:[address] Body Mass Index 41.18 08/31/2025 10:49 AM TORTILLA MAKER Plan of Treatment Health Maintenance Due Date Last Done Comments Hepatitis C Screening 1995 Varicella Vaccines (1 of 2 - 13+ 2-dose series) 2008 Hepatitis B Screening 2013 HPV Vaccines (3 - 3-dose series) 07/26/2021 02/26/2021, 01/24/2021 Covid-19 Vaccine ( season) 2025 12/06/2021, 12/15/2020, 11/17/2020 Influenza Vaccine (#1) 2025 , 06/20/2022, 06/08/2020, Additional history exists Cervical Cancer Screening 08/31/20262024, 01/24/2025, 03/08/2019, Additional history exists Depression Screening 08/31/2026 08/31/2025, 11/23/2023, 11/04/2023, Additional history exists Regular Well Visit/Exam 18-64 08/31/2026 08/31/2025, 11/04/2023, 06/12/2020, Additional history exists DTaP/Tdap/Td Vaccine (3 - Td or Tdap) 05/20/2032 05/20/2022, 01/24/2021 Pneumococcal vaccine <65 Aged Out No longer eligible based on patient's age to complete this topic Procedures Procedure Name Priority Date/Time Associated Diagnosis Comments PAP, REFLEX HPV Routine 08/31/2025 11:56 AM TORTILLA MAKER GROUP B STREPTOCOCCUS CULTURE Routine 07/06/2025 2:08 PM CDT Diet controlled gestational diabetes mellitus (GDM) in third trimester Anxiety in in third trimester, antepartum Monochorionic diamniotic twin , antepartum History of pre-eclampsia in prior , currently in third trimester POCT URINALYSIS DIPSTICK Routine 07/06/2025 1:40 PM CDT 35 weeks gestation of POCT URINALYSIS DIPSTICK Routine 06/28/2025 10:20 AM CDT 34 weeks gestation of from Last 3 Months Results * Pap, reflex HPV (08/31/2025 11:56 AM TORTILLA MAKER) CLINICAL INFORMATION: [facility] Comment:None given LMP Macho Spencer Comment:NONE GIVEN Previous Pap Macho Spencer Comment:NONE GIVEN Prev. Bx Macho Spencer Comment:NONE GIVEN SOURCE: [facility] Spencer Comment:None given Pap, specimen adequacy Macho Spencer Comment: Satisfactory for evaluation. Endocervical/transformation zone component present. Age and/or menstrual status not provided HPV interp Macho Spencer Comment: Cytology Results: Negative for intraepithelial lesion or malignancy. COMMENTS Macho Spencer Comment: This Pap test has been evaluated with the ThinPrep(R) Imaging System. [facility] [place] Comment: LMT, CT(ASCP) CT Screening [facility] [place] [address] [address] [address] CLIA: [id number] Slide preparation performed at: [facility], [address] [place] [address], [address] CLIA: [id number] Comment [facility] Comment: EXPLANATORY NOTE: The Pap is a screening test for cervical cancer. It is not a diagnostic test and is subject to false negative and false positive results. It is most reliable when a satisfactory sample, regularly obtained, is submitted with relevant clinical findings and history, and when the Pap result is evaluated along with historic and current clinical information. 08/31/2025 11:5 6 AM TORTILLA MAKER 09/01/2025 4:31 PM TORTILLA MAKER Dee Mooney DO LAB CYTOLOGY ORDERABLES Final Result Performing Organization Address [facility]/ZIP Co de Phone Number [facility] [address] [place] [address] * Group B streptococcal culture Vaginal/Rectal Cervical/vaginal (07/06/2025 2:08 PM CDT) Strep B culture, resp [facility] Comment: STREPTOCOCCUS, GROUP B CULTURE Micro Number: [id number] Test Status: Final Specimen Source: Vaginal/anorectal Specimen Quality: Adequate Result: No group B Streptococcus isolated Note per CDC guidelines optimal recovery is achieved by swabbing both the lower vagina and rectum (through the anal sphincter). Vaginal/Rectal (Cervical/vagina l) 07/06/2025 2:08 PM CDT 07/06/2025 2:08 PM CDT Dee Mooney DO LAB MICROBIOLOGY - GENE RAL ORDERABLES Final Result Performing Organization Address City/[facility]/ZIP Co de Phone Number [facility] [address] [address] [phone] * POCT urinalysis dipstick (07/06/2025 1:40 PM CDT) Glucose, ur, POC Negative Negative Ketones, ur, POC Negative Negative Blood, ur, POC Negative Negative Protein, ur, POC Negative Negative Lot Number [id number] Urine 07/06/2025 1:40 PM CDT Dee Mooney DO POINT OF CARE TEST ORDE RABLES Final Result * (ABNORMAL) POCT urinalysis dipstick (06/28/2025 10:20 AM CDT) Glucose, ur, POC Negative Negative Ketones, ur, POC Negative Negative Blood, ur, POC Negative Negative Protein, ur, POC Trace(A) Negative Leukocytes, ur, POC Trace(A) Negative Lot Number [id number] Urine 06/28/2025 10:2 0 AM CDT Dee Beachsowmya POINT OF CARE TEST ORDE RABLES Final Result from Last 3 Months Insurance [facility] CHOICE [facility]US [facility] HMO/PPO Address: [facility] [address] [place] [address] [facility] CHOICE PLUS [facility] HMO/PPO Address: [facility] [id number] [place] [address] Care Teams Catalogue Compiler Relationship Specialty Start Date End Date Neisha Rowley NP [address] [place] [address] PCP - General Family Medicine 11/04/23 Earline Hodgson MD [address] [place] [address] Referring Physician Obstetrics and Gynecology 11/04/23 [place] [address] [place] [address] Consulting Physician Obstetrics and Gynecology 01/19/25
--- OUTSIDE RECORDS SUMMARY | 2025-09-22 17:17 | XMS_ITS | Data Portability ---
Author Organization [facility] Address [address] [place] [address] [place] [address] Care Team Providers Care Foundation Engineer Name Role Phone MYLES NOLEN Primary Care Provider BRAYDEN FOREMAN Primary Care Provider [phone] Assessment No assessment recorded. Plan of Treatment Reminders Order Date Submit Date Provider Last Modified By Organization Details Last Modified Time Details Appointments None recorded. Lab None recorded. Referral None recorded. Procedures None recorded. Surgeries None recorded. Imaging US, obstetric, nuchal translucenc y 2024 025 [email or web address] [place], [address], [address], [place], [address], 14:55:01 US, obstetric, nuchal translucenc y, additional gestation 2024 025 LOYDA [place], [address], [address], [place], [address], 17:55:40 US, obstetric, limited 2024 025 [email or web address] [place], [address], [address], [place], [address], 14:13:26 US, obstetric, transvagina l 2024 025 [email or web address] [place], [address], [address], [place], [address], 19:29:43 Medication Orders metoclopram indy 10 mg tablet 2024 025 [id number], [address] , [place], [place], [id number], 12:40:58 Patient TargetsNo targets recorded. Patient InstructionsNo instructions recorded. Reason for Referral None Reported. Results Created Date Observation Date Name Description Value Unit Range Abnormal Flag Note LastModifiedBy Organization Detail LastModifiedTime 12/08/1912/07/2024 [facility], QUANT ITATI VE B-HCG 90931. 0 mIU/m L 0.0-4. 9 high This [...] Weeks 8,099 - 58,17 6 Not Available [facility] (Lab) [address], [place], [address], 12/08/2024 04:47:43 12/10/1912/09/2024 BHCG, QUANT ITATI VE B-HCG 52884. 0 mIU/m L 0.0-4. 9 high This [...] Weeks 8,099 - 58,17 6 Not Available [facility] (Lab) [address] [place], [address], 12/10/2024 04:05:00 12/27/19 25 12/26/2024 CT/GC AND TRICH OMONA S VAGIN ANNEMARIE (RRNA ), URINE chlamydia trachomatis, PCR Negati ve negati ve Not Available [facility] (Lab) [address] [place], [address], 12/27/2024 14:30:04 12/27/19 25 12/26/2024 CT/GC AND TRICH OMONA S VAGIN ANNEMARIE (RRNA ), URINE neisseria gonorrhoeae, PCR Negati ve negati ve Not Available [facility] (Lab) [address] [place], [address], 12/27/2024 14:30:04 03/31/12/26/2024 CT/GC AND TRICH OMONA S VAGIN ANNEMARIE (RRNA ), URINE trichomonas vaginalis ribosomal RNA (rrna) Negati ve negati ve Not Available [facility] (Lab) [address], [place], [address], 12/27/2024 14:30:04 12/15/19 25 12/14/2024 US, obste tric, follo w-up No observ ation record ed. Ami [address], [place], [address], 12/15/2024 18:24:50 12/15/19 25 12/14/2024 US, obste tric, trans vagin al No observ ation record ed. [email or web address] [place] [address], [place], [address], 12/14/2024 15:43:57 12/27/19 25 12/26/2024 US, obste tric, 1st trime ster No observ ation record ed. [email or web address] Ami [address], [place], [address], 12/27/2024 14:15:39 01/04/20 25 01/03/2025 US, obste tric, limit ed No observ ation record ed. [email or web address] [place] [address], [place], [address], 01/03/2025 14:12:21 01/04/20 25 01/03/2025 US, obste tric, limit ed No observ ation record ed. [email or web address] Am[address], [place], [address], 01/03/2025 22:33:38 01/24/20 25 01/23/2025 US, obste tric, nucha l trans lucen cy No observ ation record ed. LOYDA Ami [address], [place], [address], 07/07/2025 23:32:32 01/24/20 25 01/23/2025 US, obste tric, nucha l trans lucen cy No observ ation record ed. [facility] [address], [place], [address], 01/23/2025 17:55:30 01/24/20 25 01/23/2025 US, obste tric, nucha l trans lucen cy, addit ional gesta tion No observ ation record ed. [facility] [address], [place], [address], 01/23/2025 17:55:40 Result Notes None recorded. Problems Name Problem SNOMED Code Status Onset Date Resolution Date Notes Provider Name and Address Organization Details Recorded Time Benign essentia l hyperten balaji complica ting pregnanc y, childbir th and the puerperi um - not delivere d 707335450 Completed ante testing 32w, baseline PIH labs, growth US ASA, delivery 38-39w [place] Bohnenstieh l null, [facility] 2 13:09:43 Maternal obesity complica ting pregnanc y, childbir th and the puerperi um, antepart um 2975907161 07 Completed BMI 42. already doing 32w ante testing [place] Bohnenstieh l null, [facility] 2 13:09:43 Mixed anxiety and depressi ve disorder 251331978 Completed lexapro 20, wants to stay on [place] Bohnenstieh l null, [facility] 2 13:09:43 Myasthen ia gravis 10541396 Completed all extremit y weakness - potentia l? pt to set up appt with PCP - l/m for r/c to see if this was set up and if they've complete d any labwork. 03/03 Earline Hodgson MD [address], [place], [address], [facility] 2 08:55:54 Benign essentia l hyperten balaji complica ting pregnanc y, childbir th and the puerperi um - not delivere d 704897014 Active ante testing 32w, baseline PIH labs, growth US ASA, delivery 38-39w [place] Keyh l null, [facility] 2 13:09:43 Mixed anxiety and depressi ve disorder 383223111 Active lexapro 20, wants to stay on [place] Kassidytieh l null, [facility] 2 13:09:43 Maternal obesity complica ting pregnanc y, childbir th and the puerperi um, antepart um 5337028253 07 Active BMI 42. already doing 32w ante testing [place] Yitieh l null, [facility] 2 13:09:43 Gestatio nal diabetes mellitus 11571970 Completed BS QID antenata l testing [place] Yitieh l null, [facility] 2 13:09:43 Gestatio nal diabetes mellitus 16955984 Completed 10/10/2024 BS QID antenata l testing KIM EDGAR MD [address], [place], [address], [facility] 5 22:04:34 Pregnanc y 71652597 Completed 202107/21/2022 [place] Yitieh l null, [facility] 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 3 16:27:53 Problem Notes None recorded. Procedures Surgical History Date Name Laterality Status Provider Name and Address Organization Details Recorded Time 4 Dilation and Curettage completed [facility] 10/10/2024 14:15:52 3 Date of Last Pap Smear completed [facility] 10/10/2024 14:15:10 Imaging Results [...] Updated DateTime 12/26/2024 172.72 cm 43 kg/m2 487850.64 g 126/85 mm[Hg] JAIME Hurley [facility] 12/26/2024 12:11:40 Social History Question Answer Notes LastModified by Organizat ion Details LastModified Time Tobacco Smoking Status Never Smoker Brayden nichols [facility] 03/14/2021 14:53:22 Do You Have An Advance Directive? No [email or web address] Information n ot available 01/16/2021 How Many Years Have You Consumed Alcohol? 7 Information not available 03/28/2024 Are You Blind Or Do You Have Difficulty Seeing? No [email or web address] Information n ot available 01/16/2021 What Is Your Level Of Caffeine Consumption? Moderate Information not available 03/28/2024 How Much Tobacco Do You Chew? None [email or web address] Information not available 01/16/2021 In The 14 Days Before Symptom Onset, Have You Had Close Contact With A Laboratory-confirm ed COVID-19 While That Case Was Ill? No [email or web address] Information n ot available 01/16/2021 In The 14 Days Before Symptom Onset, Have You Had Close Contact With A Person Who Is Under Investigation For COVID-19 While That Person Was Ill? No Information not available 01/16/2021 Have You Been To An Area Known To Be High Risk For COVID-19? No [email or web address] Information not available 01/16/2021 Are You Deaf Or Do You Have Serious Difficulty Hearing? No [email or web address] Information not available 01/16/2021 What Type Of Diet Are You Following? REGULAR [email or web address] Information n ot available 01/16/2021 What Is The Highest Grade Or Level Of School You Have Completed Or The Highest Degree You Have Received? [id number] [email or web address] Information not available 01/16/2021 Are There Any Guns Present In Your Home? Yes [email or web address] Information not available 01/16/2021 Do You Use Protection During Sex? No Information not available 03/28/2024 Do You Use Your Seat Belt Or Car Seat Routinely? Yes [email or web address] Information not available 01/16/2021 Are You Sexually Active? Yes [email or web address] Information not available 10/14/2024 Do You Have Smoke And Carbon Monoxide Detectors In Your Home? Yes [email or web address] Information not available 01/16/2021 How Much Tobacco Do You Smoke? No [email or web address] Information not available 01/16/2021 Do You Use Sunscreen Routinely? Yes [email or web address] Information not available 01/16/2021 Have You Used IV Drugs? No [email or web address] Information not available 01/16/2021 Do You Have Difficulty Walking Or Climbing Stairs? No [email or web address] Information not available 10/14/2024 Sex: Unknown Functional Status Question Answer Note LastModified by Organizat ion Details LastModified Time Do you use any illicit or recreational drugs? No [email or web address] Information not available 01/16/2021 What is your level of alcohol consumption? Occasional [email or web address] Information not available 01/16/2021 Are you currently employed? Yes [email or web address] Information not available 10/14/2024 Are you able to walk independently without assistance or assistive devices? YESWOREST [email or web address] Information not available 01/16/2021 Are you able to care for yourself independently? 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 No Information not available 10/14/2024 What is your exercise level? Moderate [email or web address] Information not available 01/16/2021 Mental Status Question Answer Note LastModified by Organization D etails LastModified Time Do you feel stressed (tense, restless, nervous, or anxious, or unable to sleep at night)? [id number] Information not available 03/28/2024 Family History Relationship Description Onset Age of this Age Resolved Age Notes LastModified by Organization Details LastModified Time Maternal Grandmother Malignant neoplasm of colon [email or web address] Not available 2020 15:57:37 Father Depressive disorder [email or web address] Not available 2020 15:57:37 Father Anxiety disorder [email or web address] Not available 2020 15:57:37 Unspecified Relation Heart disease Not available 2020 15:57:37 Paternal Aunt Malignant neoplasm of breast Not available 2020 15:57:37 Sister Anxiety disorder [email or web address] Not available 2020 15:57:37 Paternal Grandmother Depressive disorder Not available 2020 15:57:37 Paternal Grandmother Anxiety disorder [email or web address] Not available 2020 15:57:37 Paternal Grandmother Malignant neoplasm of breast [email or web address] Not available 2020 15:57:37 Medical History Condition Response Allergies (Food, seasonal, environmental ) N Other N Breast Cancer N Drug/Latex Allergies/Reactions N Blood Transfusion N Dermatologic Disorders N Lung Disease N [...] ICD10 Code Diagnosis IMO Codes Diagnosis Note [id number] Jesica Mack [facility] [address] [address] 01/16/2021 15:52:37 01/17/2021 15:28:43 Dyspareunia 61381826 N94.10 N94.810 Questionab le hypoestrog enic effects [...] r/o infection by sending cx's. Reduced libido 8217396 R 68.82 Feeling overwhelme d. Blood work to be completed at next visit. Option to trial Addyi or T-cream topically or simply addition of wellbutrin (although want to be careful of not provoking anxiety). CBC/CMP/TS H/LIpids done by her PCP wnl. [id number] KEVIN [facility] [address] [address] 03/14/2021 14:51:28 03/14/2021 15:25:08 Reduced libido 7356780 R68.82 We agreed to trial of wellbutrin [...] this patient s visit, including available hand fire protection engineering technician upon arrive, temperatur e check and being asked a series of screening questions. All staff wore face coverings during this encounter, as well as provided additional cleaning and sanitizing of all surfaces, including countertop s, pens, chairs, door handles, light switches, etc, prior to and following the patient s visit. [id number] Jesica Mack [facility] [address],[facility] [place] [address] 04/03/2021 11:32:27 04/03/2021 14:04:41 Reduced libido 6632452 R68.82 We agreed to trial of wellbutrin [...] this patient s visit, including available hand fire protection engineering technician upon arrive, temperatur e check and being asked a series of screening questions. All staff wore face coverings during this encounter, as well as provided additional cleaning and sanitizing of all surfaces, including countertop s, pens, chairs, door handles, light switches, etc, prior to and following the patient s visit. [id number] [facility] [address],[facility] [place] [address] 07/09/2021 16:22:51 07/09/2021 17:02:17 Reduced libido 5907891 R68.82 F52.22 1 Low libidoFail ed wellbutrin [...] this patient s visit, including available hand fire protection engineering technician upon arrive, temperatur e check and being asked a series of screening questions. All staff wore face coverings during this encounter, as well as provided additional cleaning and sanitizing of all surfaces, including countertop s, pens, chairs, door handles, light switches, etc, prior to and following the patient s visit. [id number] KEVIN [facility] [address] [address] 10/09/2021 16:25:12 10/10/2021 16:29:47 Dyspareunia 43043433 N94.10 N94.810 Today, after exam & further discussion we agreed to refer to Vulvar specialist s at [facility] Dr. Katlyn Lyons for further evaluation and [...] most concerning issues. Abnormal weight gain 161 990155 R63.5 Updated lab work ordered.Wi ll call with results. Irregular periods 211299 07 L70.9 She is having regular monthly [...] forward. Will wait to see results outcome. [id number] Riki Freeman MD [place] [address] [address] 11/26/2021 15:44:29 11/26/2021 16:45:14 [id number] Suzanne Edwards CNM [place] [address] [address] 11/26/2021 15:46:24 12/02/2021 17:21:44 test positive 828432564 Z32.01 Risk factors addressed: Tobacco Cessation, Safe [...] pertension complicating AND/OR reason for care during 07741368 O16.[address] Freeman and he recommends switching to labetalol 200mg bid. Will have pt return in 1 week for blood pressure check. [id number] [facility] [address],[place] [address] 12/03/2021 16:42:00 12/04/2021 16:25:56 Blood pressure taking 89110141 Z01.30 [id number] Earilne Hodgson MD [place] [address],[place] [address] 12/23/2021 11:41:14 12/23/2021 12:48:37 screening 075152997 Z36.87 [id number] Earline Hodgson MD [place] [address],[place] [address] 12/23/2021 11:42:49 12/24/2021 16:08:12 Routine care 551818217 Z34.91 Chronic hy pertension complicating AND/OR reason for care during 98648240 O16.9 Mixed anxi ety and depressive disorder 396730673 F41.8 [id number] Earline Hodgson MD [place] [address],[place] [address] 01/21/2022 13:56:30 01/21/2022 14:37:38 [id number] Earline Hodgson MD [place] [address],[place] [address] 01/21/2022 13:57:27 01/22/2022 11:25:30 Routine care 988199991 Z34.91 Chronic hy pertension complicating AND/OR reason for care during 51636207 O16.9 [id number] Earline Hodgson MD [place] [address],[place] [address] 02/18/2022 15:59:35 02/18/2022 17:19:55 screening 498224038 Z36.3 [id number] MD Jacqueline Apple [address],[place] [address] 02/18/2022 16:00:08 02/19/2022 10:09:04 Routine care 701604000 Z34.91 Back pain complicating 39851965 O26.899 Muscle wea kness of limb 386251239 M62.81 [id number] Earline Hodgson MD [place] [address],[place] [address] 03/19/2022 15:56:08 03/19/2022 17:20:19 screening 508927857 Z36.2 [id number] Earline Hodgson MD [place] [address],[place] [address] 03/19/2022 15:57:06 03/19/2022 17:19:48 Benign essential hypertension complicating , childbirth and the puerperium - not delivered 012334087 O10.019 Maternal o besity complicating , childbirth and the puerperium, antepartum 3527265927 07 O99.212 Mixed anxi ety and depressive disorder 739315311 F41.8 [id number] Earline Hodgson MD [place] [address],[place] [address] 04/18/2022 09:32:14 04/18/2022 10:31:07 Chronic hypertension complicating AND/OR reason for care during 78222916 O10.019 O99.213 Z3A.29 [id number] Earline Hodgson MD [place] [address],[place] [address] 04/25/2022 12:52:44 04/25/2022 17:09:38 Gestational diabetes mellitus class A1 59953830 O24.410 Pt here for diet teaching. Went [...] strips, and lancets called into [facility] in [place] pharmacy voicemail. Told pt to start BS [...] were answered and pt verbalized understand ing. EDWADR baptiste [id number] Earline Hodgson MD [place] [address],[place] [address] 04/29/2022 14:58:04 04/30/2022 15:39:23 Routine care 801215019 Z34.91 Benign ess ential hypertension complicating , childbirth and the puerperium - not delivered 332929092 O10.019 Maternal o besity complicating , childbirth and the puerperium, antepartum 0004128614 07 O99.212 Gestationa l diabetes mellitus 57340498 O24.410 [id number] Earline Hodgson MD [place] [address],[place] [address] 05/05/2022 15:17:40 05/07/2022 18:50:34 Benign essential hypertension complicating , childbirth and the puerperium - not delivered 643037644 O10.019 Gestationa l diabetes mellitus 98664955 O24.410 [id number] Earline Hodgson MD [place] [address] [place] [address] 05/09/2022 15:27:40 05/12/2022 14:59:29 Benign essential hypertension complicating AND/OR reason for care during 74799146 O10.019 [id number] Earline Hodgson MD [place] [address],[place] [address] 05/09/2022 15:28:01 05/12/2022 14:59:05 Gestational diabetes mellitus class A1 32693459 O24.410 O10.013 Z3A.32 Pt here for diet [...] strips, and lancets called into [facility] in [place] pharmacy voicemail. Told pt to start BS [...] and pt verbalized understand ing. EDWARD baptiste [id number] Riki Freeman MD [place] [address],[place] [address] 05/13/2022 14:56:59 05/13/2022 15:49:33 Gestational diabetes mellitus class A1 34554020 O24.410 [id number] Earline Hodgson MD [place] [address],[place] [address] 05/16/2022 13:22:44 05/16/2022 15:11:33 Anemia of 52019044 O99.019 Benign ess ential hypertension complicating , childbirth and the puerperium - not delivered 739436088 O10.019 Gestationa l diabetes mellitus 81231341 O24.410 [id number] Earline Hodgson MD [place] [address],[place] [address] 05/16/2022 13:23:07 05/16/2022 14:55:08 Gestational diabetes mellitus class A1 64826970 O24.410 O10.013 Z3A.32 Pt here for diet [...] strips, and lancets called into [facility] in [place] pharmacy voicemail. Told pt to start BS [...] and pt verbalized understand ing. EDWARD baptiste [id number] Riki Freeman MD [place] [address],[place] [address] 05/20/2022 14:54:51 05/20/2022 15:32:23 Gestational diabetes mellitus class A1 91633384 O24.410 [id number] Earline Hodgson MD [place] [address],[place] [address] 05/20/2022 15:30:31 05/21/2022 15:07:28 condition affecting obstetrical care of mother 275936656 O36.8330 O16.9 O24.410 Z3A.33 [id number] Earline Hodgson MD [place] [address],[place] [address] 05/23/2022 13:34:53 05/23/2022 14:30:15 Gestational diabetes mellitus class A1 48145036 O24.410 O10.013 Z3A.32 Pt here for diet teaching. Went over ideal ranges for FBS and pp BS. Went over carb counting and carb ranges for each meal/snack . Gave ideas for foods to eat for meals/snac ks. Discussed drink options and to avoid soda and juice. Pt only drinks water. Told pt she can go online to [employer] for meal options or to look up low carb meal recipes online for ideas as well. Pt states pharmacy told her glucometer still hasn't been called in. Glucometer , test strips, and lancets called into [facility] in [place] pharmacy voicemail. Told pt to start BS [...] and pt verbalized understand ing. EDWARD baptiste [id number] Earline Hodgson MD [place] [address],[place] [address] 05/23/2022 13:35:11 05/23/2022 15:14:57 Benign essential hypertension complicating , childbirth and the puerperium - not delivered 312017909 O10.019 Gestationa l diabetes mellitus 62193155 O24.410 [id number] Earline Hodgson MD [place] [address],[facility] [place] [address] 05/27/2022 14:55:22 05/27/2022 17:58:11 Urinary symptoms 311403593 R39.9 Gestationa l proteinuria 84639323 O12.13 Gestationa l diabetes mellitus class A1 04070662 O24.410 O10.013 Z3A.32 Pt here for diet teaching. Went over ideal ranges for FBS and pp BS. Went over carb counting and carb ranges for each meal/snack . Gave ideas for foods to eat for meals/snac ks. Discussed drink options and to avoid soda and juice. Pt only drinks water. Told pt she can go online to [employer] for meal options or to look up low carb meal recipes online for ideas as well. Pt states pharmacy told her glucometer still hasn't been called in. Glucometer , test strips, and lancets called into [facility] in [place] pharmacy voicemail. Told pt to start BS [...] and pt verbalized understand ing. EDWARD baptiste [id number] Earline Hodgson MD [place] [address] [address] 05/30/2022 13:21:08 05/30/2022 14:50:12 Gestational diabetes mellitus class A1 10861860 O24.410 O10.013 Z3A.32 Pt here for diet [...] , test strips, and lancets [facility] [place] pharmacy voicemail. Told pt to start BS [...] and pt verbalized understand ing. EDWARD baptiste [id number] Earline Hodgson MD [place] [address],[place] [address] 05/30/2022 13:21:47 05/30/2022 14:49:29 Benign essential hypertension complicating , childbirth and the puerperium - not delivered 673885118 O10.019 Gestationa l diabetes mellitus 19921172 O24.410 Maternal o besity complicating , childbirth and the puerperium, antepartum 6700987423 07 O99.212 Candidiasis of vagina 72 299833 B37.3 Thrombosed external hemorrhoids 83293925 K64.5 [id number] Earline Hodgson MD [place] [address],[place] [address] 06/03/2022 14:48:17 06/03/2022 15:39:05 Gestational diabetes mellitus class A1 48226230 O24.410 O10.013 Z3A.32 Pt here for diet [...] strips, and lancets called into [facility] in [place] pharmacy voicemail. Told pt to start BS [...] and pt verbalized understand paulina. EDWARD baptiste [id number] Earline Hodgson MD [place] [address],[place] [address] 06/06/2022 13:22:04 06/06/2022 14:11:34 Gestational diabetes mellitus class A1 18201959 O24.410 O10.013 Z3A.32 Pt here for diet [...] strips, and lancets called into [facility] in [place] pharmacy voicemail. Told pt to start BS [...] and pt verbalized understand ing. EDWARD baptiste [id number] Earline Hodgson MD [place] [address],[facility] [place] [address] 06/06/2022 13:22:37 06/06/2022 14:11:21 Benign essential hypertension complicating , childbirth and the puerperium - not delivered 673452906 O10.019 Gestationa l diabetes mellitus 14224543 O24.410 Maternal o besity complicating , childbirth and the puerperium, antepartum 0003808495 07 O99.212 [id number] Earline Hodgson MD [place] [address] [address] 06/10/2022 14:53:49 06/10/2022 15:41:11 Gestational diabetes mellitus class A1 36694897 O24.410 O10.013 Z3A.32 Pt here for diet [...] strips, and lancets called into [facility] in [place] pharmacy voicemail. Told pt to start BS [...] and pt verbalized understand ing. oliva, RN [id number] Earline Hodgson MD [place] [address] [address] 06/13/2022 13:26:24 06/16/2022 16:18:22 Gestational diabetes mellitus class A1 51177080 O24.410 O10.013 Z3A.32 Pt here for diet teaching. Went over ideal ranges for FBS and pp BS. Went over carb counting and carb ranges for each meal/snack . Gave ideas for foods to eat for meals/snac ks. Discussed drink options and to avoid soda and juice. Pt only drinks water. Told pt she can go online to [employer] for meal options or to look up low carb meal recipes online for ideas as well. Pt states pharmacy told her glucometer still hasn't been called in. Glucometer , test strips, and lancets called into [facility] in [place] pharmacy voicemail. Told pt to start BS [...] and pt verbalized understand ing. EDWARD baptiste [id number] Earline Hodgson MD [place] [address] [address] 06/13/2022 13:26:37 06/16/2022 16:18:02 Gestational diabetes mellitus class A1 [id number] O24.410 O10.013 Z3A.37 Pt here for diet [...] strips, and lancets called into [facility] in [place] pharmacy voicemail. Told pt to start BS [...] and pt verbalized understand ing. oliva RN [id number] Earline Hodgson MD [place] [address] [address] 06/13/2022 13:27:02 06/16/2022 16:19:11 Benign essential hypertension complicating , childbirth and the puerperium - not delivered 077722777 O10.019 Gestationa l diabetes mellitus 23528291 O24.410 Maternal o besity complicating , childbirth and the puerperium, antepartum 6254557058 07 O99.212 [id number] Earline Hodgson MD [place] [address],[place] [address] 06/25/2022 15:55:37 06/27/2022 15:18:20 Past history of severe pre-eclampsia 706255199 Z87.59 [id number] Earline Hodgson MD [place] [address],[place] [address] 07/15/2022 13:57:02 07/16/2022 12:49:15 care 022528688 Z39.2 Liver enzy mes level above reference range 898748399 R74.01 [id number] Earline Hodgson MD [place] [address],[place] [address] 10/15/2022 14:42:24 10/15/2022 16:38:25 Weight gain 0885893 R63.5 Gynecologi c examination 04590931 Z01.419 [id number] KEVIN Torres [place] [address],[place] [address] 01/09/2023 11:45:19 01/14/2023 17:05:48 Obesity 147286120 E66.9 Today we reviewed a detailed historywe discussed her past struggles to loose weight, what has worked in the past for. 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 Reviewed exercise recommenda tions [...] of care. Screening procedure 2012 5006 Z13.9 [id number] KEVIN Torres [place] [address],[place] [address] 01/29/2023 13:58:31 01/29/2023 14:58:06 Obesity 979769518 E66.9 Reviewed wegovy, R/B/A/SE all discussedq uestions [...] counseling and review of plan of care. [id number] KEVIN Torres [place] [address],[place] [address] 03/11/2023 16:32:16 03/11/2023 17:31:12 Obesity 846129349 E66.9 Reviewed wegovy, R/B/A/SE all discussedq uestions [...] plan of care. [id number] Riki Freeman MD [place] [address],[place] [address] 03/28/2024 10:29:07 03/28/2024 11:23:00 Routine care 301018167 Z34.91 Sneak peek - no charge KIM EDGAR MD [place] [address],[facility] [place] [address] 03/28/2024 10:29:40 03/28/2024 11:46:10 test positive 739925941 Z32.01 1. Exam today within normal limits.2. Ultrasound today confirms GA and viability. EDC . GC/Clamydi a testing done: will f/u as indicated. 4. ACOG guidelines and plan of care for reviewed with patient. All questions answered.5 . Return to office at 12 weeks for new OB visit6. Will need new OB labs at next visit.7. Genetic screening: declines. Benign ess ential hypertension 7441682 I10 - previously on labetalol during , now controlled off of medication s- asymptomat ic- will plan for baseline labs with new OB draw Past pregn wiliam history of gestational diabetes mellitus 727046987 Z86.32 - diet controlled - early 1h GTT at 20 weeks [id number] KIM EDGAR MD [place] [address],[place] [address] 10/10/2024 14:01:08 10/11/2024 06:19:57 Disorder of menstruation 221020002 N92.6 - patient reports change in quality of periods since miscarriag e in March- s/p D&C at 12 weeks, no complicati ons- patient reports irregular bleeding during menses, will have 2-3 days of no bleeding within period before bleeding begins again- reports monthly periods- discussed pelvic US to rule out uterine synechiae or other structural abnormalit ies causing abnormal periods Reduced libido 7960477 R 68.82 - 6 year history, prior [...] prior to starting meds for low libido [id number] Riki Freeman MD [place] [address],[place] [address] 10/13/2024 17:28:08 10/14/2024 10:32:25 Irregular periods 93763957 N92.6 [id number] KIM EDGAR MD [place] [address],[place] [address] 10/14/2024 12:00:26 10/17/2024 10:32:08 Disorder of menstruation 573377947 N92.6 - patient reports change in quality [...] possible SIS to reevaluate endometria l cavity [id number] Riki Freeman MD [place] [address],[place] [address] 12/14/2024 12:14:52 12/14/2024 13:13:32 Uncertain viability of 335500963 O36.80X9 Z3A.01 [id number] KIM EDGAR MD [place] [address],[place] [address] 12/26/2024 11:37:46 12/26/2024 12:11:28 [id number] KIM EDGAR MD [place] [address],[place] [address] 12/26/2024 11:38:05 12/27/2024 03:42:09 Nausea and vomiting 07908636 R11.2 Monochorio donavon diamniotic twin 231792375 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 Exam today within normal limits.2. 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 O36.80X9 Z3A.09 [id number] Riki Freeman MD [place] [address] [address] 01/23/2025 11:36:58 01/23/2025 14:02:47 Monochorionic diamniotic twin 905161511 O30.031 Z36.82 Z3A.12 [id number] Health Concerns Section Related Observation LastModified by Organization Detai ls LastModified Time None Recorded Concern Status LastModified by Organization Details LastModified Time None Recorded Advance Directives Directive N: Payers Insurance Date Sequence Insurance Name Policy Number Policy Morales Covered Member ID Morales Member ID Guarantor Name 03/07/2025 1 [facility] [id number] Carlos Davis [id number] Lucy Davis 12/14/2024 1 [employer] ([employer] [id number] Lucy Davis [id number] Lucy Davis 12/14/2024 1 [facility] ([facility] [id number] Lucy Davis [id number] Lucy Davis 04/29/2022 1 [facility] Carlos Davis [id number] Lucy Davis 12/14/2024 2 [facility] Lucy Davis [id number] Lucy Davis Notes Date Note Type Note [...] icits. KIM EDGAR MD [address], [place], [address], [facility] 12/26/2024 18:04:54 OBGyn Episode Ob Episode Information Episode Created Date Number of Fetuses Patient Bloodtype Patient rh Status Prepregnancy Weight lbs Domestic Partner Domestic Partner Phone Father Name Statistical Geneticist Status 12/24/19 22 1 O Positive 279 CLOSED Fetus Data First Name Last Name Admitted to NICU Weight (g) Sex Living Outcome Pediatric Complications Fetus ID Race Codes Race Delivery Type Wade 2693.20 25 M true Full Term [id number] Vaginal Delivery Problems Problem Notes history of pelvic muscle spa sms prior to Problem Name Start Date End Date Resolution Snomed Code Not e Benign essential hypertension complicating , childbirth and the puerperium - not delivered [id number] ante testing 3 2w, baseline PIH labs, growth US ASA, delivery 38-39w Maternal obesity complicating , childbirth and the puerperium, antepartum 230494192946 BMI 42. already doing 32w ante testing Mixed anxiety and depressive disorder 966127947 lexapro 20, wants to stay on Gestational diabetes mellitus 62735209 BS QID antenata l testing Sunday Calculation [...] Weight in lbs Pre/Post Dialysis Refused Weight 278.345173271762 BP Diastolic BP Location Tested BP Systolic [...] Weight in lbs Pre/Post Dialysis Refused Weight 277.315359877780 BP Diastolic BP Location Tested BP Systolic [...] Weight in lbs Pre/Post Dialysis Refused Weight 283.754326056908 BP Diastolic BP Location Tested BP Systolic [...] Weight in lbs Pre/Post Dialysis Refused Weight 282.467060436008 BP Diastolic BP Location Tested BP Systolic [...] Weight in lbs Pre/Post Dialysis Refused Weight 282.805382580791 BP Diastolic BP Location Tested BP Systolic [...] Weight in lbs Pre/Post Dialysis Refused Weight 284.946880688060 BP Diastolic BP Location Tested BP Systolic BP Type 70 105 Fetus Heart Rate Present A 140 Fetus Movement A Yes Comments Ante testing to start next w augustine. BS perfect. CBC next week. Will do [...] Weight in lbs Pre/Post Dialysis Refused Weight 281.064954404788 BP Diastolic BP Location Tested BP Systolic [...] Weight in lbs Pre/Post Dialysis Refused Weight 284.773902496394 BP Diastolic BP Location Tested BP Systolic [...] Weight in lbs Pre/Post Dialysis Refused Weight 282.226383317645 BP Diastolic BP Location Tested BP Systolic [...] Weight in lbs Pre/Post Dialysis Refused Weight 280.35950859247 BP Diastolic BP Location Tested BP Systolic [...] Weight in lbs Pre/Post Dialysis Refused Weight 279.902162408579 BP Diastolic BP Location Tested BP Systolic [...] Weight in lbs Pre/Post Dialysis Refused Weight 263.296594850990 BP Diastolic BP Location Tested BP Systolic BP Type 84 120 Fetus Heart Rate Present Fetus Movement Comments Flowsheet Date 07/15/2022 Gonzalez Score Blood Edema Fundus Height Fundus Units Glucose Ketones Leukocytes Nitrite Labor Signs Protein Cervic Dilation Cervic Effacement Cervic Station Type Weight in lbs Pre/Post Dialysis Refused Weight 258.278930522130 BP Diastolic BP Location Tested BP Systolic [...] Estim ated Date of Delivery false Thalassemia (Spanish, Hong Konger, Mediterranean, Or Background): MCV < 80 false Neural Tube Defect (Meningomyelocele, Spina Bifi da, Or Anencephaly) false Congenital Heart Defect false Down Syndrome false Juan-Sachs (eg, Baptist, Cajun, German-Solomon Islander) f alse Joao Disease false Sickle Cell Disease Or Trait () false Hemophilia Or Other Blood Disorders false Muscular Dystrophy false Cystic Fibrosis false Kendleton's Chorea false Intellectual Disability/Autism false If Yes, [...] Domestic Partner Domestic Partner Phone Father Name Statistical Geneticist Status 12/07/19 25 1 CLOSED Fetus Data First Name Last Name Admitted to NICU Weight (g) Sex Living Outcome Pediatric Complications Fetus ID Race Codes Race Delivery Type , Spontane ous [id number] Sunday Calculation Initial Sunday Date Initial Exam [...]
--- OUTSIDE RECORDS SUMMARY | 2025-09-22 17:17 | XMS_ITS | Clinical Summary ---
Author Organization [facility] uis Address [address] [place] [address] Phone Care Team Providers Care Gate Person Name Role Phone Unavailable Primary Care Provider Unavailabl e Allergies No known active allergies Medications escitalopram oxalate (LEXAPRO) 20 mg tablet Take 20 mg by mouth daily. Active VIT-IRON FUM-FOLIC AC ORAL Take by mouth. Active Blood Pressure Monitor Kit To take twice a day 1 Kit 07/12/2025 Active ibuprofen (MOTRIN) 600 mg tablet Take 1 Tablet (600 mg) by mouth every 6 hours. 30 Tablet 1 07/12/2025 Active oxyCODONE (ROXICODONE) 5 mg tabletIndication s: delivery delivered Take 1 Tablet (5 mg) by mouth every 4 hours as needed for Other (See Comment) (See admin instruction s). 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 01/31/2025 Encounters Date Type Department Care Team Description 09/12/2025 External Device Data STL ABSTRACTION Provider, Abstract 09/05/2025 External Device Data STL ABSTRACTION Provider, Abstract 09/05/2025 External Device Data STL ABSTRACTION Provider, Abstract 08/08/2025 External Device Data STL ABSTRACTION Provider, Abstract 08/08/2025 External Device Data STL ABSTRACTION Provider, Abstract 07/24/2025 9:00 AM CDT - 07/24/2025 11:59 PM CDT Hospital Encounter [facility] S [facility] [address] [place] [address] Discharge Disposition: Home or Self Care 07/11/2025 External Device Data STL ABSTRACTION Provider, Abstract 07/11/2025 External Device Data STL ABSTRACTION Provider, Abstract 07/08/2025 10:02 AM CDT Anesthesia Event [facility] Labor & [address] [place] [address] Aury Chau MD McCrary, Amanda N, MD 07/08/2025 10:00 AM CDT - 07/08/2025 12:00 PM CDT Surgery [facility] Labor & [address] [place] [address] Glnen Mooney DO SECTION 07/08/2025 Parent/Baby Shared Documentation [facility] NICU [address] [place] [address] 07/07/2025 4:11 PM CDT - 07/12/2025 1:48 PM CDT Hospital Encounter [facility] Mother/Baby 5C [address] [place] [address] Allyson Gonsalez, [facility] Glenn Mooney DO Discharge Disposition: Home or Self Care 07/06/2025 2:17 PM CDT - 07/06/2025 11:59 PM CDT Hospital Encounter [facility] Maternal and Ground Floor [address] [place] [address] [place] [address] June River MD Discharge Disposition: Home or Self Care 07/06/2025 2:16 PM CDT - 07/06/2025 11:59 PM CDT Hospital [facility] Maternal and Ground Floor [address] [place] [address] [place] [address] June River MD Discharge Disposition: Home or Self Care 07/04/2025 10:29 AM CDT - 07/04/2025 11:59 PM CDT Hospital Encounter [facility] Maternal and Ground Floor [address] [place] [address] [place] [address] June River MD Discharge Disposition: Home or Self Care 07/02/2025 8:42 AM CDT - 07/02/2025 11:50 AM CDT Emergency [facility] Obstetrics Emergency Department [address] [place] [address] Jos Pérez MD Gestational hypertension, third trimester (Primary Dx) Discharge Disposition: Home or Self Care 06/29/2025 12:58 PM CDT - 06/29/2025 11:59 PM CDT Hospital Encounter [facility] Maternal and Ground Floor S [facility] [address] [place] [address] June River MD Discharge Disposition: Home or Self Care 06/29/2025 12:56 PM CDT - 06/29/2025 11:59 PM CDT Hospital Encounter [facility] Maternal and Ground Floor S [facility] [address] [place] [address] June River MD Discharge Disposition: Home or Self Care 06/27/2025 3:59 AM CDT - 06/27/2025 6:35 AM CDT Emergency [facility] Obstetrics Emergency Department [address] [place] [address] uterine contractions in third trimester, antepartum (Primary Dx); Monochorionic diamniotic twin gestation in third trimester; Vasovagal episode Discharge Disposition: Home or Self Care 06/27/2025 External Device Data STL ABSTRACTION Provider, Abstract 06/27/2025 External Device Data STL ABSTRACTION Provider, Abstract 06/27/2025 External Device Data STL ABSTRACTION Provider, Abstract 06/27/2025 Telephone [facility] Maternal Medicine [address] [address] [address] [place] [phone] Sridevi Esteves MD appointment 06/27/2025 Travel from Last 3 Months Social History Tobacco [...] worry about transportation for future doctor visits, sampler pickup medication, etc.? No 2024 Housing Stability Answer [...] (#1) 2025 0, 06/08/2020, 07/26/2019 COVID-19 Vaccine (3 - 2024-2 6 season) 2025 12/15/2020, 11/17/2020 CERVICAL CANCER SCREENING 10/15/2025 PAP SMEAR 10/15/2025 10/15/2022, 10/15/2022 DTAP/TDAP/TD VACCINES (2 - T d or Tdap) 01/24/2031 01/24/2021 Medical Devices Implanted Type Area Yarder Device Identifier Shelf Expiration Date Model / Serial / Lot Hemostatic Surg Powder [id number] - [id number] Implanted:Qty : 1 on 07/08/2025 by Glenn Mooney DO at [facility] Hemostatic N/A: Abdomen [employer] [id number] / / Procedures Procedure Name Priority Date/Time Associated Diagnosis Comments TELEMETRY REPORT 07/12/2025 8:57 AM CDT CBC WITH DIFFERENTIAL Timed Study 07/09/2025 8:32 AM CDT NC ANESTHESIA BLOCK PB PLACEHOLDER CHARGE Routine 07/08/2025 11:40 AM CDT PATHOLOGY Pathology 07/08/2025 10:57 AM CDT NC OB ANTEPARTUM CARE DLVR & 07/08/2025 10:00 [...] POC GLUCOSE Stat 06/27/2025 4:24 AM CDT from Last 3 Months Results * TELEMETRY REPORT (07/12/2025 8:57 AM CDT) us Provider Scanning ECG ORDERABLES Final Result * (ABNORMAL) CBC WITH DIFFERENTIAL (07/09/2025 8:32 AM CDT) Only the most recent of5 resultswithin the time period is included. WBC 10.6(H) 4.0 - 9.8 K/uL 07/09/2025 9:00 AM CDT [facility] RBC 2.99(L) 3.90 - 4.90 M/uL 07/09/2025 9:00 AM CDT [facility]OR[facility] SERVICES - [facility] HEMOGLOBIN 8.6(L) 11.8 - 14.8 g/dL 07/09/2025 9:00 AM [facility] LABORATORY SERVICES - [facility] HEMATOCRIT 26.3(L) 35.5 - 44.0 % 07/09/2025 9:00 AM [facility] LABORATORY SERVICES - [facility] MCV 88.0 82.0 - 99.0 fL 07/09/2025 9:00 AM [facility] LABORATORY SERVICES - [facility] MCH 28.8 27.2 - 32.6 pg 07/09/2025 9:00 AM T [facility] - [facility] MCHC 32.7 31.5 - 35.5 g/dL 07/09/2025 9:00 AM [facility] SERVICES - [facility] RDW 13.3 11.5 - 14.5 % 07/09/2025 9:00 AM [facility] SERVICES - [facility] RDW-STDEV 42.0 37.1 - 48.7 fL 07/09/2025 9:00 AM [facility] LABORATORY SERVICES [facility] PLATELETS 183 140 - 350 K/uL 07/09/2025 9:00 AM [facility] LABORATORY SERVICES [facility] MPV 9.5 9.3 - 12.4 fL 07/09/2025 9:00 AM [facility] SERVICES [facility] NEUTROPHILS 73 % 07/09/2025 9:00 AM [facility]ORATORY SERVICES [facility] LYMPHOCYTES 20 % 07/09/2025 9:00 AM [facility]ORATORY SERVICES [facility] MONOCYTES 6 % 07/09/2025 9:00 AM [facility]ORATORY SERVICES [facility] EOSINOPHILS 0 % 07/09/2025 9:00 AM [facility] SERVICES [facility] BASOPHILS 0 % 07/09/2025 9:00 AM [facility] SERVICES [facility] IMMATURE GRANULOCYTES 1 % 07/09/2025 9:00 AM [facility]ORATORY SERVICES [facility] Comment:IG (Immature Granulo cyte) count includes Metamyelocytes, Myelocytes, and Promyelocytes NEUTROPHIL ABSOLUTE 7.77(H) 1.90 - 7.00 K/uL 07/09/2025 9:00 AM [facility] LABORATORY [facility] LYMPHOCYTE ABSOLUTE 2.17 0.70 - 4.50 K/uL 07/09/2025 9:00 AM CDT [facility]. [facility] MONOCYTE ABSOLUTE 0.61 0.10 - 1.30 K/uL 07/09/2025 9:00 AM CDT [facility] EOSINOPHIL ABSOLUTE 0.01 0.00 - 0.70 K/uL 07/09/2025 9:00 AM CDT [facility]. [facility] BASOPHILS ABSOLUTE 0.02 0.00 - 0.20 K/uL 07/09/2025 9:00 AM CDT [facility] IMMATURE GRANULOCYTES ABSOLUTE 0.05(H) 0.00 - 0.03 K/uL 07/09/2025 9:00 AM CDT [facility] Blood Venipuncture / Unknown 07/09/2025 8:32 AM CDT 07/09/2025 8:50 AM CDT us Glenn Mooney DO HEMATOLOGY ORDERABLES Final Re sult [facility]# [id number] [address] [place] [address] * NC ANESTHESIA BLOCK PB PLACEHOLDER CHARGE (07/08/2025 11:40 AM CDT) Narrative Chio Betts CRNA - 07/08/2025 11:40 AM CDT Chio Betts CRNA 07/08/2025 11:41 AM Spinal Block Patient location during procedure: OB Reason for block: primary anesthetic Staffing Performed: FLORENCIO/RUTHANN Authorized by: Aury Chau MD Performed by: [...] CDT) CASE REPORT Surgical Pathology Report Case: [id number] Authorizing Provider: Glenn Mooney DO Collected: 07/08/2025 10:57 AM Ordering Location: [facility] Received: 07/10/2025 08:29 AM Labor & Pathologist: Sherice Sky MD Specimens: A) - Placenta, mo/di twins 35.4 B) - Placenta 5 2:59 PM CDT [facility] FINAL DIAGNOSIS Twin placenta, section: [...] 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 No distinct lesions are identified. Tobacco Classer sections of this domain are submitted in cassettes as follows: A1-umbilical cord and membrane roll; A2 through A4-unremarkable placenta. Tobacco Classer sections of the dividing membranes and T-zone [...] placental parenchyma. No distinct lesions are identified. Tobacco Classer sections of this domain are submitted in cassettes as follows: B1-umbilical cord, membrane roll, and membranous vessels; B2 through B4-unremarkable central placenta. ALLY 5 2:59 PM [facility] MICROSCOPIC DESCRIPTION The slides are labeled [id number] and Reji Sam. The microscopic findings substantiate the above diagnoses. 5 2:59 PM T [facility] OPERATIVE PROCEDURE 1: SECTION 5 2:59 PM T [facility] CLINICAL INFORMATION mo/di twins 35.4 5 2:59 PM [facility] COMMENT Special stain, immunohistochemical, and/or in situ hybridization results are interpreted with controls that demonstrate appropriate staining reactions. Note on use of immunohistochemistry reagents and in situ hybridization probes: These tests were developed and their performance characteristics determined by [facility], Department of Laboratory Medicine. [...] part or completely in the following laboratories: [facility], [place] #[id number] [address] [place] [address] [facility], [place] #[id number] [address] [place] [address] [facility], [place] #[id number] [address] [place] [address] This report was created with the Policard voice-activated dictation system. Inherent to this system is the possibility of syntax, grammar, punctuation and other errors that could impact the interpretation of the report. If there are interpretative questions about aspects of this report, please contact the performing pathologist. 2:59 PM CDT [facility] Tissue SPECIMEN FROM PLACENTA / Unknown Collection / Unknown 07/08/2025 10:57 AM CDT 07/10/2025 8:29 AM CDT Tissue specimen (specimen) SPECIMEN FROM PLACENTA / Unknown 07/08/2025 10:57 AM CDT 07/10/2025 8:29 AM CDT Glenn Mooney DO PATHOLOGY/CYTOLOGY ORDERABLES Final Result [facility]# [id number] [address] [place] [address] * PREPARE RED BLOOD CELLS (07/08/2025 9:35 AM CDT) Only the most recent of2 resultswithin the time period is included. COMPONENT TYPE [id number] [facility] COMPONENT IDENTIFICATION [id number] [facility] UNIT ABO O [facility] UNIT RH POS [facility] -- [facility] Compatible [facility] -- [facility] COMPONENT STATUS Returned [facility] -- [facility] COMPONENT EXPIRATION DATE/TIME [id number] [facility] -- [facility] COMPONENT CODING SYSTEM 5100 [facility] SERVICES -- .[facility] VOLUME, BLOOD PRODUCT 350 [facility] LABOR[facility]ORY SERVICES -- .[facility] 07/08/2025 9:35 AM CDT Glenn Mooney DO LAB TRANSFUSION ORDERABLES Timbo barbara Result - Final Performing Organization Address City/[facility]/ZIP Co de Phone Number [facility] -- [facility] CLIA# [id number] [address] [place] [address] * HIV DETECTION W/REFLX CONFIRMATION (07/08/2025 8:43 AM CDT) HIV-1 AND 2 ABS AND HIV-1 AG Non-reacti ve Non-reacti ve 07/08/2025 9:49 AM CDT [facility] Blood Venipuncture / Unknown 07/08/2025 8:43 AM CDT 07/08/2025 8:48 AM CDT Glenn Mooney DO CHEMISTRY ORDERABLES Final Res ult Performing Organization Address City/[facility]/ZIP Co de Phone Number [facility] Parenthoods [facility] - [facility] CLIA# [id number] [address] [place] [address] * HEPATITIS B SURFACE ANTIGEN (07/08/2025 8:43 AM CDT) HEPATITIS B SURFACE AG NON-REACT KEVON Non-react kevon 07/08/2025 9:49 AM CDT [facility] Comment:A non-reactive test result does not exclude the possibility of exposure to or infection with hepatitis B. Blood Venipuncture / Unknown 07/08/2025 8:43 AM CDT 07/08/2025 8:48 AM CDT Glenn Blevinsciboy DO CHEMISTRY ORDERABLES Final Res ult [facility] CLIA# [id number] [address] [place] [address] * RUBELLA IGG (07/08/2025 8:43 AM CDT) RUBELLA IGG IMMUNE Immune - Positive 07/08/2025 10:01 AM CDT [facility] Blood Venipuncture / Unknown 07/08/2025 8:43 AM CDT 07/08/2025 8:48 AM CDT Narrative [facility] - 07/08/2025 10:01 AM CDT A positive result suggests response to immunization or prior exposure to the virus. Glenn Blevinskatiesowmya DO CHEMISTRY ORDERABLES Final Res ult Performing Organization Address [facility] Co de Phone Number [facility] CLIA# [id number] [address] [place] [address] * HEPATITIS C ANTIBODY W REFLEX (07/08/2025 8:43 AM CDT) HEPATITIS C AB NON-REACT KEVON Non-react kevon 07/08/2025 9:49 AM CDT [facility] Comment:Antibodies to HCV we re not detected, does not exclude the possibility of exposure to HCV. Blood Venipuncture / Unknown 07/08/2025 8:43 AM CDT 07/08/2025 8:48 AM CDT Glenn Blevinsciboy DO CHEMISTRY ORDERABLES Final Res ult [facility] CLIA# [id number] [address] [place] [address] * RPR (07/08/2025 8:43 AM CDT) Only the most recent of2 resultswithin the time period is included. Pathologist [facility] RPR NON-REACTI VE Non-Reacti ve 07/08/2025 1:07 PM CDT [facility] SERVICES - [facility] Blood Venipuncture / Unknown 07/08/2025 8:43 AM CDT 07/08/2025 8:48 AM CDT Glenn Mooney DO CHEMISTRY ORDERABLES Final Res ult [facility] Parenthood[facility]# [id number] [address] [place] [address] * VERIFICATION BLOOD GROUP (07/08/2025 3:06 AM CDT) Pathologist [facility] ABO GROUP O 07/08/2025 4:25 AM CDT [facility] -- [facility] RH (D) TYPE Positive 07/08/2025 4:25 AM CDT [facility] -- [facility] Blood Venipuncture / Unknown 07/08/2025 3:06 AM CDT 07/08/2025 3:15 AM CDT Alena Marshall MD BLOOD BANK ORDERABLES Final Result [facility] [id number] [address] [place] [address] * TYPE AND SCREEN (07/07/2025 11:13 PM CDT) Pathologist [facility] ABO GROUP O 07/08/2025 12:37 AM CDT [facility] -- [facility] RH (D) TYPE Positive 07/08/2025 12:37 AM CDT [facility] -- [facility] ANTIBODY SCREEN Negative 07/08/2025 12:37 AM CDT [facility] Blood Venipuncture / Unknown 07/07/2025 11:13 PM CDT 07/07/2025 11:22 PM CDT Glennsherie Mooney DO BLOOD BANK ORDERABLES Edited R esult - Final Performing Organization Address City/[facility]/ZIP Co de Phone Number [id number] [address] [place] [address] * PROTEIN/CREATININE RATIO, URINE (07/07/2025 4:49 PM CDT) Only the most recent of2 resultswithin the time period is included. PROTEIN CONCENTRATION 12 0 - 20 mg/dL 07/07/2025 5:15 PM CDT [facility] CREATININE, URINE 61.6 29.0 - 226.0 mg/dL 07/07/2025 5:15 PM CDT [facility] Comment:Reference Range vari es with fluid intake and diet. PROTEIN/CREAT RATIO, URINE 0.19 0.00 - 0.19 mg/mg Creatinine 07/07/2025 5:15 PM CDT [facility] Urine URINE SPECIMEN OBTAINED BY CLEAN CATCH PROCEDURE / Unknown 07/07/2025 4:49 PM CDT 07/07/2025 4:49 PM CDT Narrative [facility] - 07/07/2025 5:15 PM CDT The ACOG 2013 Guidelines recommend using a cutoff of >/= 0.30 protein/creatinine ratio for the diagnosis and management of preeclampsia. Allyson Gonsalez [facility] URINE ORDERABLES Fin al Result [facility] CLIA# [id number] [address] [place] [address] * (ABNORMAL) COMPREHENSIVE METABOLIC PANEL (07/07/2025 4:46 PM CDT) Only the most recent of3 resultswithin the time period is included. [facility] SODIUM 137 136 - 145 mmol/L 07/07/2025 5:27 PM T [facility] - [facility] POTASSIUM 4.0 3.5 - 5.0 mmol/L 07/07/2025 5:27 PM T [facility] - [facility] CHLORIDE 104 98 - 107 mmol/L 07/07/2025 5:27 PM T [facility] - . [place] CO2 20(L) 22 - 29 mmol/L 07/07/2025 5:27 PM T [facility] - [facility] CALCIUM 8.7 8.6 - 10.2 mg/dL 07/07/2025 5:27 PM T [facility] SERVICES - . [facility] BUN 13 6 - 20 mg/dL 07/07/2025 5:27 PM T [facility] - [facility] CREATININE 0.75 0.51 - 0.95 mg/dL 07/07/2025 5:27 PM T [facility] - [facility] GLUCOSE 100(H) 74 - 99 mg/dL 07/07/2025 5:27 PM T [facility] - [facility] TOTAL PROTEIN 6.2(L) 6.7 - 8.6 g/dL 07/07/2025 5:27 PM T [facility] SERVICES - . [facility] ALBUMIN 3.7 3.5 - 5.2 g/dL 07/07/2025 5:27 PM T [facility] - [facility] BILIRUBIN TOTAL 0.3 0.0 - 1.2 mg/dL 07/07/2025 5:27 PM T [facility] - [facility] ALKALINE PHOSPHATASE 153(H) 35 - 104 U/L 07/07/2025 5:27 PM T [facility] LABORATORY SERVICES [facility] AST 34(H) <33 U/L 07/07/2025 5:27 PM T [facility] - [facility] ALT 14 <34 U/L 07/07/2025 5:27 PM T [facility] - [facility] GFR >60 >=60 mL/min/1.7 3 sq meter 07/07/2025 5:27 PM T [facility] SERVICES - [facility] [place] Comment:eGFR calculated with 2020 CKD-EPI equation. Vegetarian diet, extremely high or low muscle mass, and may affect results. Cystatin C with Glomerular Filtration Rate is a suitable alternative for these patients. ANION GAP 13 8 - 16 mmol/L 07/07/2025 5:27 PM CDT [facility] Blood Venipuncture / Unknown 07/07/2025 4:46 PM CDT 07/07/2025 4:49 PM CDT [facility] - 07/07/2025 5:27 PM CDT Samples containing indocyanine green cause interferences on Total and/or Direct Bilirubin and must not be measured. Allyson Gonsalez [facility] CHEMISTRY ORDERABLES Final Result [facility]# [id number] [address] [facility] [place] [address] * MONITORING NST (07/06/2025 4:14 PM CDT) Only the most recent of2 resultswithin the time period is included. Anatomical Region Laterality Modality Ultrasound 07/06/2025 3:44 PM CDT Narrative 07/06/2025 3:53 PM CDT [facility] NST ----- Pat. Name: REJI SAM Study Date: 07/06/2025 3:44pm Pat. NO: [id number] Referring MD: GLENN MOONEY MD Site: [facility] Manager Support Services: : 1995 Age: 29 ----- INDICATION ----- Twin , Monochorionic/Diamniotic ([place]/Di) Maternal Obesity (BMI>40) Complicating Marginal Cord Insertion CODING ----- Diagnoses Z3A.35: Weeks of gestation O30.033: Twin , monochorionic/diamniotic O99.213: Obesity complicating Z36.3: Encounter for screening for malformations O36.8130: Decreased movements O69.89X0: Labor and delivery complicated by other cord complications Procedures 93819: NST/ monitoring HISTORY ----- OB History 2. [...] Procedure Note June River MD - 07/06/2025 [facility] NST ----- Pat. Name:Vinod SAM Date:07/06/2025 3:44pm Pat. NO: [id number] :GLENN MOONEY MD [facility] :1995Age:29 ----- INDICATION ----- Twin , Monochorionic/Diamniotic ([place]/Di) Maternal Obesity (BMI>40) Complicating Marginal Cord Insertion CODING ----- Diagnoses Z3A.35: Weeks of gestation O30.033: Twin ,monochorionic/diamniotic O99.213: Obesity complicating Z36.3: Encounter for screening formalformations O36.8130: Decreased movements O69.89X0: Labor and delivery complicated by othercord complications Procedures 04753: NST/ monitoring HISTORY ----- OB History 2. Para 1 MATERNAL ASSESSMENT ----- Physical Exam Blood pressure 121/79 mmHg. Heart rate 82 bpm METHOD ----- EFM ----- Twin . Number of fetuses: 2. Monochorionic-diamniotic DATING ----- Cycle:regular cycle GA by prior [id number] w + 3 d ANDRE by prior [...] 3:11 PM CDT) Only the most recent of2 resultswithin the time period is included. Anatomical Region Laterality Modality Pelvis Ultrasound 07/06/2025 2:37 PM CDT Narrative 07/06/2025 3:11 PM CDT ST[facility] FOLLOW UP ----- Pat. Name: REJI SAM Study Date: 07/06/2025 2:37pm Pat. 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 Name:Vinod SAM Date:07/06/2025 2:37pm Pat. 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 2 HISTORY ----- OB History 2. Para 1 MATERNAL ASSESSMENT ----- Physical Exam Weight 134 kg. BMI 45.01 kg/m METHOD ----- Transabdominal ultrasound examination ----- Twin . Number of fetuses: 2. Monochorionic-monoamniotic DATING ----- Cycle:regular cycle GA by prior [id number] w + 3 d ANDRE by prior [...] 7 lb 2 oz EFW by Hadlock ([id number]) EFW discordance 7.8 % Extremities / Bony [...] 6 lb 9 oz EFW by Hadlock ([id number]) EFW discordance 7.8 % Extremities / Bony [...] and date of were verified by the warping machine operator prior tothe exam IMPRESSION ----- MCDA twin [...] Narrative 07/05/2025 8:22 AM CDT BPP WITH MARGE STUDY ----- Pat. Name: REJI SAM Study Date: 07/04/2025 11:06am Pat. NO: [id number] Referring MD: GLENN MOONEY MD Site: [facility] Manager Support Services: : 1995 Age: 29 ----- INDICATION ----- Twin , Monochorionic/Diamniotic (Geneva/Di) Maternal Obesity (BMI>40) Complicating Gestational Diabetes, Diet Controlled CODING ----- Diagnoses Z3A.35: Weeks of gestation O99.213: Obesity complicating O30.033: Twin , monochorionic/diamniotic O24.410: Gestational diabetes mellitus in , diet controlled Procedures 00842: biophysical profile; with non-stress testing. 2 16730: Ultrasound, uterus, real time with image documentation, [...] BPP. BPP done on baby A. Score 8/10. Patient scheduled twice weekly IMPRESSION ----- testing [...] Procedure Note Ceci Najera MD - 07/05/2025 [facility] WITH NST STUDY ----- Pat. Name:Vinod SAM Date:07/04/2025 11:06am Pat. NO: [id number] :GLENN MOONEY MD [facility] :1995Age:29 ----- INDICATION ----- Twin , Monochorionic/Diamniotic ([place]eva/Di) Maternal Obesity (BMI>40) Complicating Gestational Diabetes, Diet Controlled CODING ----- Diagnoses Z3A.35: Weeks of gestation O99.213: Obesity complicating O30.033: Twin ,monochorionic/diamniotic O24.410: Gestational diabetes mellitus inpregnancy, diet controlled Procedures 81105: biophysical profile; with non-stresstesting. 2 82990: Ultrasound, uterus, real time withimage documentation, limited one or more fetuses. 1 HISTORY ----- OB History 2. Para 1 MATERNAL ASSESSMENT ----- Physical Exam Blood pressure 131/77 mmHg. Heart rate 79 bpm METHOD ----- EFM. Transabdominal ultrasound examination. View: Good view ----- Twin . Number of fetuses: 2. Monochorionic-monoamniotic DATING ----- Cycle:regular cycle GA by prior [id number] w + 1 d ANDRE by prior [...] done on baby A. Score /. Patient scheduledtwice weekly IMPRESSION ----- testing @ [...] care of your patient. ADDENDUM ----- retrigger us June River MD ORDERABLES Edited Result - Final * NONSTRESS [...] cardiopulmonary disease process identified. DICTATION LOCATION: Location [address] [place] [address] Narrative 07/02/2025 11:34 AM CDT XR CHEST [...] cardiopulmonary disease process identified. DICTATION LOCATION: Location [address] [place] [address] Jos Pérez MD DIAGNOSTIC IMAGING ORDERABLES Fi nal Result * BLOOD BANK DRAW ONLY (07/02/2025 9:11 AM CDT) [facility] SPECIMEN HOLD, BLOOD Order Complete 07/02/2025 9:34 AM CDT [facility] Blood Venipuncture / Unknown 07/02/2025 9:11 AM CDT 07/02/2025 9:23 AM CDT Jos Pérez MD BLOOD BANK ORDERABLES Final Resu lt Performing Organization Address City/[facility]/ZIP Co de Phone Number [facility] CLIA# [id number] [address] [place] [address] * (ABNORMAL) BRAIN NATRIURETIC PEPTIDE, BNP OR PROBNP (07/02/2025 9:11 AM CDT) [facility] PROBNP, N TERMINAL 159(H) <124 pg/mL 07/02/2025 10:17 AM CDT [facility] Comment: INTERPRETIVE COMMENT based on [...] Pérez MD CHEMISTRY ORDERABLES Final Resul t [facility] CLIA# [id number] [address] [place] [address] * POC GLUCOSE (06/27/2025 4:24 AM CDT) GLUCOSE POC 87 74 - 99 mg/dL 06/27/2025 4:24 AM CDT [facility] SPECIMEN SOURCE, GLUCOSE POC Whole Blood 06/27/2025 4:24 AM CDT [facility] Blood, whole 06/27/2025 4:2 4 AM CDT 06/27/2025 4:42 AM CDT us Interface Provider Poct POINT OF CARE TESTING Fi nal Result [facility] CLIA# [id number] [address] [facility] [address] [place] [address] from Last 3 Months Insurance [facility] [id number] Advance Directives For more information, please contact: [phone] * Full Code (Latest Code Status on File) Date Activated Date Inactivated Comments 07/08/2025 3:16 PM 07/12/2025 3:59 PM
--- OUTSIDE RECORDS SUMMARY | 2025-09-22 17:17 | XMS_ITS | Encounter Summary ---
Author Organization [employer] Address [address] [place] [address] Care Team Providers Care Ibm Websphere Commerce Developer Name Role Phone Unavailable Primary Care Provider Unavailabl e Encounter Details Date Type Department Care Team (Late st Contact Info) Description 05/05/2025 Telephone [facility] [address] [facility] [address] [place] [phone] Tahmina Palomino, RD [address] [place] [address] Social History Tobacco Use Types Packs/Day Years [...]
--- OUTSIDE RECORDS SUMMARY | 2025-09-22 17:17 | XMS_ITS | Encounter Summary ---
Author Organization [employer] Address [address] [place] [address] Care Team Providers Care Testing Lead Name Role Phone Unavailable Primary Care Provider Unavailabl e Encounter Details Date Type Department Care Team (Late st Contact Info) Description 05/16/2025 Telephone [facility] [address] [facility] [address] [place] [phone] Tahmina Palomino, RD [address] [place], [place] [id number] Social History Tobacco Use Types Packs/Day Years [...] Miscellaneous Notes * Telephone Encounter - Tahmina Palomino RD - 05/16/2025 3:00 PM CDT Left message [...]
[2025-09-22 17:25] VITALS: BP 122/79; PULSE 100; RESP 16; TEMP 36.5; O2SAT 100
--- NOTE | 2025-09-22 17:43 | ED_ITS ---
HPI - URI/Sore Throat General Chief Complaint: Upper Respiratory Infection Stated Complaint: Poss Sinus Problem Time Seen by Provider: 09/22/25 17:30 Source: patient Mode of arrival: ambulatory Limitations: no limitations History of Present Illness HPI Narrative: Kiki is a 29-year-old female patient presenting to the clinic today with complaints of nasal congestion, cough, sore throat, and feeling feverish since last night. States she was recently exposed to strep. Has not taken any medications for her symptoms. Her son is also sick and being seen in the clinic today. MD elicited complaint: sore throat and nasal congestion Related Data Home Medications ?Medication ?Instructions ?Recorded ?Confirmed ?Last Taken ?Type escitalopram oxalate 20 mg tablet 20 mg PO DAILY 06/0304/25/24 06/03/22 08:00 History Allergies Allergy/AdvReac Type Severity Reaction Status Date / Time No Known Allergies Allergy Verified 09/22/25 17:37 Review of Systems Review of Systems: Pertinent positives per HPI. Patient denies any fever, chills, rash, headache, visual changes, dizziness, shortness of breath, chest pain, palpitations, nausea, vomiting, diarrhea, constipation, abdominal pain, or any urinary issues. [facility] Past Medical History Medical History (Updated 09/22/25 @ 17:45 by James Murphy APRN) Nausea Depression Anxiety HTN (hypertension) Obesity, morbid, BMI 40.0-49.9 Cholelithiasis History of gestational diabetes History of pre-eclampsia Iron deficiency anemia Depression with anxiety Elevated LFTs Surgical History Surgical History H/O section S/P cholecystectomy lap albert 07/25/22 Family History Family History Grandparent Colon cancer Breast cancer in female Depression Father Depression Mother Gallbladder disease Social History Social History Social History: the patient lives with her and her 5-week-old son. 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 For now she is a [id number] mother. She is a lifelong nonsmoker. She does not use any alcohol marijuana or illicit drugs. Her is the durable power attorney general. Code status full code Smoking status: Never smoker Alcohol intake: current Drinks per week: 1 Substance use: never Substance use type: does not use Lack of Transportation: No Lack of Food: Never True Current Housing: I Have Housing Concerned About Future Housing: No Difficulty Paying Gas/Electric Bills: No Difficulty Paying for Meds: No Currently Unemployed: No Education: Bachelor's Degree Difficulty w/ Childcare or Family Care: No Living arrangements: with family Spiritual care concerns: No Comments At the time of my signature, I reviewed and agree with the nursing past medical, surgical, social, and family history. There is no relevant family history pertinent to the patient complaint. Exam Narrative: General: Well-developed, obese, in no apparent distress Head: Normocephalic, atraumatic Eyes: Pupils equally round and reactive to light bilaterally, EOM intact, sclera and conjunctive clear, no discharge, lids normal Ears: TMs intact and congested, ear canals clear, no drainage, grossly hearing normal. Nose: Nares patent, clear nasal discharge, no inflammation, no sinus tenderness. Mouth: Oral pharynx mildly red without lesions or masses, good dentition, MMM. Postnasal drip Neck: Supple, trachea midline, no enlargement of anterior or posterior cervical nodes, no thyroid masses or goiter palpable. Cardio: Regular rate and rhythm, s1 and s2 normal, no murmur appreciated. Resp: Clear to auscultation bilaterally, no rhonchi, rales, wheezing or rubs Course Course Level of Care: Express Care Visit Vital Signs Vital signs: Vital Signs Temperature 36.5 C 09/22/25 17:25 Pulse Rate 100 09/22/25 17:25 Respiratory Rate 16 09/22/25 17:25 Blood Pressure 122/79 09/22/25 17:25 Pulse Oximetry 100 09/22/25 17:25 Oxygen Delivery Room Air 09/22/25 17:25 Temperature 36.5 C 09/22/25 17:25 Pulse Rate 100 09/22/25 17:25 Respiratory Rate 16 09/22/25 17:25 Blood Pressure 122/79 09/22/25 17:25 Pulse Oximetry 100 09/22/25 17:25 Oxygen Delivery Room Air 09/22/25 17:25 MDM MDM Narrative Medical decision making narrative: At the time of visit patient is resting comfortably on the exam table. Patient appears to be nontoxic. Complaints of nasal congestion, cough, sore throat, and feeling feverish since last night. States she was recently exposed to strep. Has not taken any medications for her symptoms. Her son is also sick and being seen in the clinic today. On exam patient has bilateral TMs intact and congested, nasal drainage, no anterior turbinate inflammation, oral pharynx mildly red with postnasal drip, no cervical lymphadenopathy, lung sounds are clear, heart rates regular rate and rhythm. COVID, flu, and strep test were ordered. Labs: COVID, influenza, and strep test were all negative in the clinic today. We will send strep for culture. Plan: I suspect patient has URI/pharyngitis/viral syndrome. Prescription for Mucinex was sent to the pharmacy per patient request. Supportive measures were discussed with the patient and they voiced understanding discharge instructions and agrees to treatment plan. Return precautions reviewed Differential Diagnosis Differential Diagnosis: Differential diagnostic considerations for upper respiratory infection include upper respiratory infection, croup, otitis media, sinusitis, viral infection, bronchitis, influenza, pharyngitis, strep, uvulitis. Lab Data Labs: Lab Results 09/22/25 09/22/25 Range/Units 17:51 17:52 POC Influenza A Ag Negative (Negative) POC Influenza B Ag Negative (Negative) POC SARS CoV-2 Ag Negative (Negative) POC Grp A Strep Screen Negative (Negative) Discharge Plan Discharge Clinical Impression: URI (upper respiratory infection) Qualifiers: URI type: unspecified URI Qualified Code(s): J06.9 - Acute upper respiratory infection, unspecified Patient Disposition: Home Condition: Stable Instructions: Antibiotic Form, Pharyngitis (ED), Viral Syndrome (ED), Cold Symptoms (ED) Additional Instructions: COVID, influenza, and strep test were all negative in the clinic today. We will send strep for culture. Increase fluids and stay well hydrated May take Tylenol or motrin as directed on bottle for pain/fever May use Flonase 1 spray in each nare daily May take OTC antihistamines such as Zyrtec or Claritin daily as directed on bottle May apply Vicks vapor rub to chest to open sinuses Sinus rinses for congestion Cepacol spray, cough drops, throat lozenges, warm tea with honey/lemon, gargle salt water to soothe throat BRAT diet for diarrhea Clear liquids x 24 hours then advance as tolerated for nausea/vomiting Go to the ED if you develop a worsening in your condition- high fever not controlled by Tylenol or Motrin, dehydration, weakness, lethargy, shortness of breath, or chest pain. Follow up with your PCP in 3-5 days if symptoms persist. Patient Language: Estonian Prescriptions: New guaifenesin [Mucinex] 600 mg tablet extended release 12hr 600 mg PO BID PRN (Reason: congestion) 7 Days Qty: 14 0RF No Action escitalopram oxalate 20 mg Tablet 20 mg PO DAILY Follow-up/Referrals: Halley,Neisha Archuleta APRN [Primary Care Provider, Unknown] Time of Disposition: 17:44 Quality NIHSS Nursing Documentation ED NIHSS nursing documentation: reviewed/agree
[2025-09-22 17:53] LABS: EDINFLUASCREEN Negative (Negative); EDINFLUBSCREEN Negative (Negative); EDSTREPNEGPOS1 Negative (Negative)
[2025-09-22 17:53] LABS: EDCOVIDSCREEN Negative (Negative)
== END 2025-09-22 17:52 | disposition home or self-care (01) ==
PROVIDERS: Emergency Provider Nurse Practitioner Family; PCP Nurse Practitioner Family
DX: J06.9 Acute upper respiratory infection, unspecified (principal); I10 Essential (primary) hypertension; Z20.822 Contact with and (suspected) exposure to COVID-19
CPT/HCPCS: 87081; 87426; 87804; 87880; 99213; G0463